=== PATIENT | male | born 1985 | race Hispanic/Latino ===

== ENCOUNTER 2019-01-20 18:08 | Inpatient (IN) | payer MEDICARE, OTHER ==
[~2019-01-20] VITALS: Ht 154.4 cm; Wt 202.3 kg
[~2019-01-20 18:08] MED LIST: ALEVE220 MG PO; ATIVAN1 MG PO; BACLOFEN10 MG PO; CELEXA20 MG PO; FAMOTIDINE20 MG PO; FUROSEMIDE40 MG PO; IBUPROFEN400 MG PO; KEFLEX500 MG PO; MAGNESIUM OXID400 MG PO; MELATONIN3 MG PO; METFORMIN HCL500 MG PO; METOPROLOL SUCC50 MG PO; NEURONTIN400 MG PO; NORCO 10-325 T1 EACH PO; NYSTATIN-TRIAMC15 GM TOP; ONDANSETRON ODT8 MG PO; POTASSIUM CHLO10 ME1 PO; SENNA8.6 M1 PO; SODIUM CHLORIDE4 ML NEB; SPIRONOLACTONE50 MG PO; ULTRAM 50MG50 MG PO; ULTRAM50 MG PO
--- OUTSIDE RECORDS SUMMARY | 2019-01-20 18:14 | XMS REPORT | Continuity of Care Document ---
Author Author Melvin overton Organization Interface Address Unknown Phone Unavailable Problems Problem Status Onset Date Classification Date Reported Comments Source [address], MORBID OBESITY Active 01/07/2019 [facility] DOBUTAMINE / I42.0 Active 10/15/2018 [facility] [address]98, SCREENING FOR DISORDER OF THE DIG Active 09/24/2018 [facility] M25.531 - PAIN IN RIGHT WRIST Active 04/30/2018 [facility] [place]: M25.531=PAIN IN RIGHT WRIST Active 03/21/2018 [facility] Hypertensive heart and chronic kidney disease with heart failure and stage 1 through stage 4 chronic kidney disease, or unspecified chronic kidney disease 10/31/2017 01/31/2018 [facility] ADEMA ON BOTH LEGS Active 10/19/2017 [facility] ACUTE CHF, INFLUENZA A Active 10/19/2017 [facility] ACUTE RENAL FAILURE, ACUTE HYPERKALEMIA Active 06/25/2017 [facility] AB LABS Active 06/25/2017 [facility] FLUID OVERLOAD Active 04/18/2017 [facility] CHF EXACERBATION Active 04/18/2017 [facility] OSTEOMYELITIS / DR. NOT LISTED: Active 03/01/2017 [facility] FIRST NIGHT- 62278 Active 02/05/2017 [facility] HYPOXIA, DIASTOLIC HEART FAILURE Active 01/22/2017 [facility] SHORTNESS OF BREATH Active 01/22/2017 [facility] ACUTE ON CHRONIC DIASTOLIC(CONGESTIVE)HE Active 11/16/2016 [facility] Coma Resolved Problem 10/27/2018 [facility] Generalized obesity Active Problem 10/27/2018 [facility] Acute respiratory failure with hypercapnia 01/31/2018 [facility] Acute kidney failure, unspecified 01/31/2018 [facility] Type 2 diabetes mellitus with diabetic chronic kidney disease 01/31/2018 [facility] Mild protein-calorie malnutrition 01/31/2018 [facility] Cellulitis of right lower limb 01/31/2018 [facility] Acute on chronic diastolic heart failure 01/31/2018 [facility] Cellulitis of left lower limb 01/31/2018 [facility] Morbid obesity with alveolar hypoventilation 01/31/2018 [facility] Body mass index 70 or greater, adult 01/31/2018 [facility] Influenza due to other identified influenza virus with other respiratory manifestations 01/31/2018 [facility] Type 2 diabetes mellitus with diabetic polyneuropathy 01/31/2018 [facility] Type 2 diabetes mellitus with foot ulcer 01/31/2018 [facility] Type 2 diabetes mellitus with hyperglycemia 01/31/2018 [facility] Chronic kidney disease, unspecified 01/31/2018 [facility] Non-pressure chronic ulcer of other part of left foot with unspecified severity 01/31/2018 [facility] Venous insufficiency (peripheral) 01/31/2018 [facility] Pain in left shoulder 01/31/2018 [facility] Pain in left elbow 01/31/2018 [facility] Low back pain 01/31/2018 [facility] senior care use of insulin 01/31/2018 [facility] Coma Resolved Problem 10/30/2018 [facility] [place] CHF (<span ID="[id number]">Confirmed</span>) Active Problem 10/30/2018 [facility] [place] Diabetes Active Problem 10/30/2018 [facility] [place] Generalized obesity Active Problem 10/30/2018 [facility] [place] HTN (<span ID="[id number]">Confirmed</span>) Active Problem 10/30/2018 [facility] [place] Coma Resolved Problem 12/01/2018 [facility] [place] CHF (<span ID="[id number]">Confirmed</span>) Active Problem 12/01/2018 [facility] [place] Diabetes Active Problem 12/01/2018 [facility] [place] Generalized obesity Active Problem 12/01/2018 [facility] [place] HTN (<span ID="[id number]">Confirmed</span>) Active Problem 12/01/2018 [facility] [place] ACUTE ON CHRONIC DIASTOLIC (CONGESTIVE) Active [facility] ACUTE PULMONARY EDEMA Active [facility] CELLULITIS OF LEFT LOWER LIMB Active [facility] HYPOXEMIA Active [facility] ACUTE DIASTOLIC (CONGESTIVE) HEART FAILU Active [facility] HEART FAILURE, UNSPECIFIED Active [facility] DILATED CARDIOMYOPATHY Active [facility] ACUTE KIDNEY FAILURE, UNSPECIFIED Active [facility] HYPERKALEMIA Active [facility] FLU DUE TO OTH IDENT INFLUENZA VIRUS W O Active [facility] PAIN IN RIGHT WRIST Active [facility] Medications Medication Details Route Status Patient Instructions Ordering Provider Order Date Source Dobutamine 1,000 mg, 250 mL, Rate: Titrate, Start Dose: 5 microgram/kg/min, Titration: see order comments, Goal(s): Stress Lab ONLY, Max Dose: 20 mcg/kg/min, Route: IV, Dosing Weight 217.727 kg, Total Volume: 250, Start date: 10/22/18 7:51:00 WIDTH STRIPPER, Duration: 30 d...Notes: (Same as: Dobutrex) Final conc=4 mg/ml. Premix solution. Protect from light. Inactive 10/22/2018 [facility] potassium chloride 20 mEq oral tablet, extended release 40 mEq=2 tab, PO, BID Active 10/21/2018 [facility] Acetaminophen 325 MG / Hydrocodone Bitartrate 10 MG Oral Tablet [[place] 10/325] 1 tab, PO, Q6H, PRN -, 0 Refill(s) Active 10/21/2018 [facility] Magnesium Oxide PO Active 10/21/2018 [facility] Glipizide 5 MG Oral Tablet 5 mg=1 tab, PO, BID Active 10/21/2018 [facility] gabapentin 200 mg, PO, TID Active 10/21/2018 [facility] Famotidine 20 MG Oral Tablet [Pepcid] 20 mg=1 tab, PO, BID Active 10/21/2018 [facility] buPROPion 100 mg oral tablet 100 mg=1 tab, PO, BID Active 10/21/2018 [facility] Vitamin D3 PO, Daily Active 10/21/2018 [facility] *ATTN RN please do not admin vanc dose until trough drawn* *ATTN RN please do not admin vanc dose until trough drawn*, ATTN RN, Drug form: MISC, Route: MISC, ONCE, 10/26/17 8:30:00 WIDTH STRIPPER, Stop date: 10/26/17 8:30:00 WIDTH STRIPPER No Longer Active 10/26/2017 [facility] Piperacillin 3000 MG / tazobactam 375 MG Injection [Zosyn] 3.375 gm, IV, Q8H, X 10 day, # 30 bag, 0 Refill(s) No Longer Active 10/25/2017 [facility] Acetaminophen 325 MG / Hydrocodone Bitartrate 10 MG Oral Tablet [[place] 10/325] 1 tab, Route: PO, Drug Form: TAB, Dosing Weight 230.909, kg, Q6H, PRN Pain Score 7-10, Start date: 10/25/17 8:04:00 WIDTH STRIPPER, Duration: 30 day, Stop date: 11/24/17 8:03:00 CDT, Pain Score 4-10Notes: Do not exceed 4gm/day of acetaminophen. (Same as: [place] 325/10) Inactive 10/25/2017 [facility] Zosyn 3.375 gm, Route: IVPB, ABXQ8H, Dosing Weight 230.909, kg, CrCl >=20 ml/min infuse over 4 hours, Start date: 10/24/17 19:00:00 WIDTH STRIPPER, Duration: 10 day, Stop date: 11/03/17 11:00:00 WIDTH STRIPPER, ABX Indication: Skin/Soft Tissue InfectionNotes: (Same as: Zosyn) Dosing based on Piperacillin component MEDICATION WASTE Product Size: 3375 mg Product Wasted: ___ mg No Longer Active 10/25/2017 [facility] Vancomycin 1,250 mg, Route: IVPB, [id number], Dosing Weight 230.909, kg, Priority: Routine, Start date: 10/24/17 17:00:00 WIDTH STRIPPER, Duration: 5 day, Stop date: 10/29/17 9:30:00 WIDTH STRIPPER, ABX Indication: Other (specify in Comme nts)Notes: TIME CRITICAL MEDICATION (Same As: Vancocin) Infusion rate 2001 mg: infuse over 2.5 hours For adult patients only: Round to nearest 250 mg per Medical Staff approval MEDICATION WASTE Product Size: 1000 mg Product Wasted: ___ mg No Longer Active 10/24/2017 [facility] Oxycodone Hydrochloride 5 MG Oral Tablet 10 mg, 2 tab, Route: PO, Drug form: TAB, Q6H, Dosing Weight 230.909, kg, PRN Pain Score 6-10, Start date: 10/24/17 9:16:00 WIDTH STRIPPER, Duration: 30 day, Stop date: 11/23/17 9:15:00 CDT, Pain Score 4-10Notes: (Same as: Roxicodone) No Longer Active 10/24/2017 [facility] Oxycodone Hydrochloride 5 MG Oral Tablet 10 mg, Route: PO, Drug form: TAB, Q4H, Dosing Weight 230.909, kg, PRN, Start date: 10/24/17 9:11:00 WIDTH STRIPPER, Duration: 30 day, Stop date: 11/23/17 9:10:00 CDT, Pain Score 4-10 Inactive 10/24/2017 [facility] Aspirin 81 mg, 1 tab, Route: PO, Drug form: ECTAB, Daily, Dosing Weight 230.909, kg, Start date: 10/24/17 9:00:00 WIDTH STRIPPER, Duration: 30 day, Stop date: 11/22/17 9:00:00 CDTNotes: Do not crush or chew. (Same As: Ecotrin) No Longer Active 10/24/2017 [facility] Insulin Glargine 100 UNT/ML Injectable Solution [Lantus] 7 unit, Route: SUB-Q, Bedtime, Dosing Weight 230.909, kg, Start date: 10/23/17 21:00:00 WIDTH STRIPPER, Duration: 30 day, Stop date: 11/21/17 21:00:00 CDT No Longer Active 10/24/2017 [facility] Baclofen 10 mg, 1 tab, Route: PO, Drug form: TAB, QID, Dosing Weight 230.909, kg, Start date: 10/23/17 17:00:00 WIDTH STRIPPER, Duration: 30 day, Stop date: 11/22/17 13:00:00 CDTNotes: (Same As: Lioresal) No Longer Active 10/23/2017 [facility] tizanidine 4 mg, 1 tab, Route: PO, Drug form: TAB, Q8H, Dosing Weight 230.909, kg, Start date: 10/23/17 16:00:00 WIDTH STRIPPER, Duration: 30 day, Stop date: 11/22/17 8:00:00 CDTNotes: (Same As: Zanaflex) No Longer Active 10/23/2017 [facility] ocular lubricant solution 2 drp, Route: BOTH EYES, Q4H, Drug form: SOLN, PRN Dry Eyes, Start date: 10/23/17 14:50:00 WIDTH STRIPPER, Stop date: 11/22/17 14:49:00 CDT No Longer Active 10/23/2017 [facility] Albuterol 0.833 MG/ML / Ipratropium [place] 0.167 MG/ML Inhalant Solution [DuoNeb] 3 mL, Route: NEB, Drug Form: SOLN, Dosing Weight 230.909, kg, RQ6H, PRN Shortness of breath, Start date: 10/23/17 14:50:00 WIDTH STRIPPER, Duration: 30 day, Stop date: 11/22/17 14:49:00 CDTNotes: (Same as: Duoneb) No Longer Active 10/23/2017 [facility] Diphenhydramine 12.5 mg, Route: IVP, Drug form: INJ, Q6H, Dosing Weight 230.909, kg, PRN Itching, Start date: 10/23/17 13:36:00 WIDTH STRIPPER, Duration: 30 day, Stop date: 11/22/17 13:35:00 CDT Inactive 10/23/2017 [facility] Meperidine 12.5 mg, Route: IVP, Q30Min, Dosing Weight 230.909, kg, PRN Other -See Comment, For shivering, Start date: 10/23/17 13:36:00 WIDTH STRIPPER, Duration: 2 doses or times, Stop date: Limited # of times Inactive 10/23/2017 [facility] Naloxone 0.1 mg, Route: SUB-Q, Q6H, Dosing Weight 230.909, kg, PRN Itching, Start date: 10/23/17 13:36:00 WIDTH STRIPPER, Duration: 30 day, Stop date: 11/22/17 13:35:00 CDT Inactive 10/23/2017 [facility] Promethazine 6.25 mg, Route: IVPB, ONCE, Dosing Weight 230.909, kg, PRN Nausea & Vomiting, Start date: 10/23/17 13:36:00 WIDTH STRIPPER Inactive 10/23/2017 [facility] Ondansetron 4 mg, Route: IVP, ONCE, Dosing Weight 230.909, kg, PRN Nausea & Vomiting, Start date: 10/23/17 13:36:00 WIDTH STRIPPER Inactive 10/23/2017 [facility] Ketorolac 30 mg, Route: IVP, ONCE, Dosing Weight 230.909, kg, Start date: 10/23/17 13:36:00 WIDTH STRIPPER, Stop date: 10/23/17 13:36:00 WIDTH STRIPPER Inactive 10/23/2017 [facility] Acetaminophen 1,000 mg, Route: PO, Drug form: TAB, ONCE, Dosing Weight 230.909, kg, PRN Pain Score 1-3, Start date: 10/23/17 13:36:00 WIDTH STRIPPER Inactive 10/23/2017 [facility] Oxycodone 10 mg, Route: PO, Drug form: TAB, Q4H, Dosing Weight 230.909, kg, PRN Pain Score 7-10, Start date: 10/23/17 13:36:00 WIDTH STRIPPER, Duration: 30 day, Stop date: 11/22/17 13:35:00 CDT Inactive 10/23/2017 [facility] Fentanyl 25 microgram, Route: IVP, Q5Min, Dosing Weight 230.909, kg, PRN Pain Score 4-6, Priority: Routine, Start date: 10/23/17 13:36:00 WIDTH STRIPPER, Duration: 4 doses or times, Stop date: Limited # of times Inactive 10/23/2017 [facility] Albuterol 0.83 MG/ML Inhalant Solution 2.49 mg, Route: NEB, Q20Min, Dosing Weight 230.909, kg, PRN Wheezing, Priority: Routine, Start date: 10/23/17 13:36:00 WIDTH STRIPPER, Duration: 30 day, Stop date: 11/22/17 14:35:00 CDT Inactive 10/23/2017 [facility] Hydromorphone 0.5 mg, Route: IVP, Q5Min, Dosing Weight 230.909, kg, PRN Pain Score 7-10, Start date: 10/23/17 13:36:00 WIDTH STRIPPER, Duration: 4 doses or times, Stop date: Limited # of times Inactive 10/23/2017 [facility] Flumazenil 0.2 mg, Route: IVP, PRN, Dosing Weight 230.909, kg, PRN Benzodiazepine Reversal, Initial dose, Start date: 10/23/17 13:36:00 WIDTH STRIPPER, Duration: 30 day, Stop date: 11/22/17 14:35:00 CDT Inactive 10/23/2017 [facility] Hydralazine 10 mg, Route: IVP, Q20Min, Dosing Weight 230.909, kg, PRN Elevated BP, Start date: 10/23/17 13:36:00 WIDTH STRIPPER, Duration: 2 doses or times, Stop date: Limited # of times Inactive 10/23/2017 [facility] Labetalol 10 mg, Route: IVP, Q5Min, Dosing Weight 230.909, kg, PRN Elevated BP, Start date: 10/23/17 13:36:00 WIDTH STRIPPER, Duration: 5 doses or times, Stop date: Limited # of times Inactive 10/23/2017 [facility] midazolam (ANES) Route: IV, Drug form: SOLN, ONCE, Stop date: 10/23/17 13:22:00 WIDTH STRIPPER Inactive 10/23/2017 [facility] Lactated Ringers Injection IV (ANES) 1000 mL Route: IV, Total Volume: 1,000, Start date: 10/23/17 12:31:00 WIDTH STRIPPER, Stop date: 10/23/17 13:31:00 WIDTH STRIPPER Inactive 10/23/2017 [facility] Calcium Chloride 0.0014 MEQ/ML / Potassium Chloride 0.004 MEQ/ML / Sodium Chloride 0.103 MEQ/ML / Sodium Lactate 0.028 MEQ/ML Injectable Solution 1,000 mL, Rate: 25 ml/hr, Infuse over: 40 hr, Route: IV, Dosing Weight 230.909 kg, Total Volume: 1,000, Start date: 10/23/17 11:59:00 WIDTH STRIPPER, Duration: 1 day, Stop date: 10/24/17 11:58:00 WIDTH STRIPPER, 3.41, m2 Inactive 10/23/2017 [facility] Sodium Chloride 0.9% IV 1,000 mL 1,000 mL, Rate: 25 ml/hr, Infuse over: 40 hr, Route: IV, Dosing Weight 230.909 kg, Total Volume: 1,000, Start date: 10/23/17 11:59:00 WIDTH STRIPPER, Duration: 1 day, Stop date: 10/24/17 11:58:00 WIDTH STRIPPER, 3.41, m2 Inactive 10/23/2017 [facility] Metolazone 2.5 MG Oral Tablet 2.5 mg, 1 tab, Route: PO, Drug form: TAB, BID, Dosing Weight 230.909, kg, Start date: 10/23/17 9:00:00 WIDTH STRIPPER, Duration: 30 day, Stop date: 11/21/17 17:00:00 CDTNotes: (Same as: Zaroxolyn) No Longer Active 10/23/2017 [facility] Bumex 1 mg, 1 tab, Route: PO, Drug form: TAB, BID, Dosing Weight 230.909, kg, Start date: 10/23/17 9:00:00 WIDTH STRIPPER, Duration: 30 day, Stop date: 11/21/17 17:00:00 CDTNotes: (Same As: Bumex) No Longer Active 10/23/2017 [facility] Mupirocin 20 MG/ML Topical Cream [Bactroban] 1 appl, Route: TOP, Daily, Drug form: OINT, Start date: 10/23/17 9:00:00 WIDTH STRIPPER, Duration: 30 day, Stop date: 11/21/17 9:00:00 CDT No Longer Active 10/23/2017 [facility] metoprolol tartrate 50 mg, 1 tab, Route: PO, Drug form: TAB, Daily, Dosing Weight 230.909, kg, Start date: 10/23/17 9:00:00 WIDTH STRIPPER, Duration: 30 day, Stop date: 11/21/17 9:00:00 CDTNotes: (Same as: Lopressor) No Longer Active 10/23/2017 [facility] insulin glargine 7 unit, 0.07 mL, Route: SUB-Q, Drug form: SOLN, Bedtime, Start date: 10/22/17 21:00:00 WIDTH STRIPPER, Duration: 30 day, Stop date: 11/20/17 21:00:00 CDTNotes: (Same as: Lantus) Do not hold insulin without cont acting prescriber WASTE: F/P - Black; E - Mediamorph Trash Bin "single patient use only" No Longer Active 10/23/2017 [facility] Acetaminophen 1,000 mg, 2 tab, Route: PO, Drug form: TAB, Q12H, Dosing Weight 230.909, kg, Start date: 10/22/17 21:00:00 WIDTH STRIPPER, Duration: 30 day, Stop date: 11/21/17 9:00:00 CDTNotes: Max acetaminophen 4000 mg/day (4 gm/day). (Same as: Tylenol Extra Strength) Inactive 10/23/2017 [facility] Ofirmev 1,000 mg, Route: IV, Drug form: INJ, Q12H, Dosing Weight 230.909, kg, for > or=50 kg, Start date: 10/22/17 21:00:00 WIDTH STRIPPER, Duration: 30 day, Stop date: 11/21/17 9:00:00 CDT Inactive 10/23/2017 [facility] metoprolol tartrate 25 mg, 1 tab, Route: PO, Drug form: TAB, Bedtime, Dosing Weight 230.909, kg, Start date: 10/22/17 21:00:00 WIDTH STRIPPER, Duration: 30 day, Stop date: 11/20/17 21:00:00 CDTNotes: (Same as: Lopressor) No Longer Active 10/23/2017 [facility] Ofirmev 1,000 mg, 100 mL, Route: IV, Drug form: INJ, Q12H, Dosing Weight 230.909, kg, for > or=50 kg, Start date: 10/22/17 16:00:00 WIDTH STRIPPER, Duration: 30 day, Stop date: 11/21/17 4:00:00 CDTNotes: Infuse over 15 minutes Do not exceed 4gm/day of acetaminophen MEDICATION WASTE Product Size: 1000 mg Product Wasted: ___ mg No Longer Active 10/22/2017 [facility] Acetaminophen 325 MG / Hydrocodone Bitartrate 10 MG Oral Tablet [[place] 10/325] 1 tab, Route: PO, Drug Form: TAB, Dosing Weight 230.909, kg, Q6H, PRN Pain Score 6-10, Start date: 10/22/17 8:57:00 WIDTH STRIPPER, Duration: 30 day, Stop date: 11/21/17 8:56:00 CDT, Pain Score 5-10Notes: Do not exceed 4gm/day of acetaminophen. (Same as: [place] 325/10) No Longer Active 10/22/2017 [facility] Acetaminophen 325 MG / Hydrocodone Bitartrate 10 MG Oral Tablet [[place] 10/325] 1 tab, Route: PO, Drug Form: TAB, Dosing Weight 230.909, kg, Q4H, PRN Pain Score 6-10, Start date: 10/21/17 21:35:00 WIDTH STRIPPER, Duration: 30 day, Stop date: 11/20/17 21:34:00 CDTNotes: Do not exceed 4gm/day of acetaminophen. (Same as: [place] 325/10) No Longer Active 10/22/2017 [facility] Lidocaine Hydrochloride 0.05 MG/MG Transdermal Patch [Lidoderm] 3 patch, Route: TOP, Daily, Drug form: FILM, Start date: 10/21/17 16:00:00 WIDTH STRIPPER, Duration: 30 day, Stop date: 11/20/17 9:00:00 CDT, Remove after 12 hoursNotes: Apply only once for up to 12 hours in a 24-hour period (12 hours on and 12 hours off). (Same as: Lidoderm) "Remove old patch before application of new patch" No Longer Active 10/21/2017 [facility] Acetaminophen 325 MG / Hydrocodone Bitartrate 10 MG Oral Tablet 1 tab, Route: PO, Drug Form: TAB, Dosing Weight 230.909, kg, Q8H, PRN Pain Score 6-10, Start date: 10/21/17 8:44:00 WIDTH STRIPPER, Duration: 30 day, Stop date: 11/20/17 8:43:00 CDTNotes: Do not exceed 4gm/day of acetaminophen. (Same as: [place] 325/10) Inactive 10/21/2017 [facility] RN please don't give VANCO dose RN please don't give VANCO dose, before TROUGH level is DRAWN, Drug form: MISC, Route: MISC, ONCE, 10/21/17 7:30:00 WIDTH STRIPPER, Stop date: 10/21/17 7:30:00 WIDTH STRIPPER Inactive 10/21/2017 [facility] tramadol hydrochloride 50 MG Oral Tablet 50 mg, 1 tab, Route: PO, Drug form: TAB, Q6H, Dosing Weight 230.909, kg, PRN Pain Score 6-10, Start date: 10/20/17 19:52:00 WIDTH STRIPPER, Duration: 30 day, Stop date: 11/19/17 19:51:00 CDTNotes: Not to exceed 400mg/day. (Same As: Ultram) No Longer Active 10/21/2017 [facility] vancomycin + Sodium Chloride 0.9% IV 250 mL 1,250 mg, Route: IVPB, ABXQ8H, Start date: 10/20/17 16:00:00 WIDTH STRIPPER, Duration: 30 day, Stop date: 11/19/17 8:00:00 CDT, ABX Indication: Skin/Soft Tissue InfectionNotes: TIME CRITICAL MEDICATION (Same As: Vancocin) Infusion rate 2001 mg: infuse over 2.5 hours For adult patients only: Round to nearest 250 mg per Medical Staff approval MEDICATION WASTE Product Size: 1000 mg Product Wasted: ___ mg No Longer Active 10/20/2017 [facility] heparin 7,500 unit, 1.5 mL, Route: SUB-Q, Drug form: INJ, Q8H, Dosing Weight 230.909, kg, Consider for obese patients, Start date: 10/20/17 16:00:00 WIDTH STRIPPER, Duration: 30 day, Stop date: 11/19/17 8:00:00 CDTNotes: porcine heparin No Longer Active 10/20/2017 [facility] Zaroxolyn 2.5 mg, PO, BID, # 15 tab, 0 Refill(s) Active 10/20/2017 [facility] Basaglar KwikPen 7 unit, SUB-Q, Daily, 0 Refill(s) Active 10/20/2017 [facility] Bumex 1 mg, PO, BID, 0 Refill(s) Active 10/20/2017 [facility] metoprolol tartrate 50 mg, PO, Daily, 0 Refill(s) Active 10/20/2017 [facility] Tylenol 650 mg, 2 tab, Route: PO, Drug form: TAB, Q6H, Dosing Weight 230.909, kg, PRN Pain 1-3/Temp > 100.4 F, Start date: 10/20/17 11:35:00 WIDTH STRIPPER, Duration: 30 day, Stop date: 11/19/17 11:34:00 CDTNotes: Do not exceed 4 gm/day. (Same as: Tylenol) No Longer Active 10/20/2017 [facility] Tamiflu 75 mg, 1 cap, Route: PO, Drug form: CAP, [id number], Dosing Weight 230.909, kg, CrCl > 60 ml/min, Start date: 10/20/17 11:00:00 WIDTH STRIPPER, Duration: 5 day, Stop date: 10/24/17 23:00:00 CSTNotes: Take with food. Same as: Tamiflu) No Longer Active 10/20/2017 [facility] Vancomycin 1 ea, Route: MISC, ONCALL, Dosing Weight 230.909, kg, Start date: 10/20/17 11:00:00 WIDTH STRIPPER, Duration: 1 doses or times, Pharmacy to dose, ABX Indication: Skin/Soft Tissue Infection Inactive 10/20/2017 [facility] Dextrose 50% Syringe 25 gm, 50 mL, Route: IVP, Drug Form: INJ, Dosing Weight 230.909, kg, PRN, PRN Blood Glucose Results, Start date: 10/20/17 10:36:00 WIDTH STRIPPER, Duration: 30 day, Stop date: 11/19/17 11:35:00 CDT No Longer Active 10/20/2017 [facility] Glucagon 1 mg, Route: IM, Drug form: PDR/INJ, PRN, Dosing Weight 230.909, kg, PRN Blood Glucose Results, Start date: 10/20/17 10:36:00 WIDTH STRIPPER, Duration: 30 day, Stop date: 11/19/17 11:35:00 CDT No Longer Active 10/20/2017 [facility] Insulin Lispro 15 unit, 0.15 mL, Route: SUB-Q, Drug form: SOLN, TID-Before Meals, Dosing Weight 230.909, kg, PRN Blood Glucose Results, Start date: 10/20/17 10:36:00 WIDTH STRIPPER, Duration: 30 day, Stop date: 11/19/17 10:35 :00 CDTNotes: (Same as: Humalog ) Roll in palms of hands gently; Do not shake `vigorously. "Single Patient Use Only " WASTE: F/P - Black; E - Municipal Trash Bin Stable for 28 days at room temperature. Expires in days from Date No Longer Active 10/20/2017 [facility] Vancomycin 1,000 mg, Route: IVPB, [id number], Dosing Weight 230.909, kg, Start date: 10/20/17 7:00:00 WIDTH STRIPPER, Duration: 5 day, Stop date: 10/24/17 19:00:00 WIDTH STRIPPER, ABX Indication: Non-PNA Respiratory Tract InfectionNotes: TIME CRITICAL MEDICATION (Same As: Vancocin) Infusion rate 2001 mg: infuse over 2.5 hours For adult patients only: Round to nearest 250 mg per Medical Staff approval MEDICATION WASTE Product Size: 1000 mg Product Wasted: ___ mg Inactive 10/20/2017 [facility] Lasix 40 mg, Route: IVP, Drug form: INJ, ONCE, Dosing Weight 229.545, kg, Priority: STAT, Start date: 10/20/17 0:49:00 WIDTH STRIPPER, Stop date: 10/20/17 0:49:00 WIDTH STRIPPER Inactive 10/20/2017 [facility] ocular lubricant solution 2 drp, BOTH EYES, Q4H, PRN as needed for dry eyes, # 30 ea, 0 Refill(s) Active 07/02/2017 [facility] Ciloxan 0.3% ophthalmic solution 2 drp, BOTH EYES, Q4H, X 5 day, # 10 mL, 0 Refill(s) Active 07/02/2017 [facility] mupirocin topical 2% cream 1 appl, NASAL, Q12H, MRSA Decolonization, # 15 gm, 0 Refill(s) No Longer Active 07/02/2017 [facility] Lasix 40 mg oral tablet 40 mg=1 tab, PO, Daily, # 30 tab, 1 Refill(s) Active 07/02/2017 [facility] Lasix 40 mg oral tablet 40 mg, 1 tab, Route: PO, Drug form: TAB, Daily, Dosing Weight 203.318, kg, Start date: 07/02/17 9:00:00 WIDTH STRIPPER, Duration: 30 day, Stop date: 07/31/17 9:00:00 CSTNotes: (Same as: Lasix) May cause GI upset. Give with food or milk. Inactive 07/02/2017 [facility] Ciloxan 0.3% ophthalmic solution 2 drp, Route: BOTH EYES, Q4H, Drug form: SOLN, Start date: 07/01/17 12:00:00 WIDTH STRIPPER, Duration: 5 day, Stop date: 07/06/17 8:00:00 CSTNotes: (Same As: Ciloxan) No Longer Active 07/01/2017 [facility] Tears Naturale 2 drp, Route: BOTH EYES, Q4H, Drug form: SOLN, PRN as needed for dry eyes, Start date: 06/30/17 16:54:00 CDT, Duration: 30 day, Stop date: 07/30/17 16:53:00 WIDTH STRIPPER No Longer Active 06/30/2017 [facility] furosemide 40 mg, 4 mL, Route: IVP, Drug form: INJ, Daily, Dosing Weight 203.318, kg, Start date: 06/30/17 9:00:00 CDT, Duration: 30 day, Stop date: 07/29/17 9:00:00 CSTNotes: (Same as: Lasix) MEDICATION WASTE Product Size: 40 mg Product Wasted: ___ mg No Longer Active 06/30/2017 [facility] remove patch 2 patch, Route: TOP, Daily, Drug form: ERFILM, Start date: 06/30/17 9:00:00 CDT, Duration: 30 day, Stop date: 07/29/17 9:00:00 CSTNotes: Remove patch 12 hours after application each day. No Longer Active 06/30/2017 [facility] lidocaine topical patch (5% film) 2 patch, Route: TOP, Q24H, Drug form: FILM, Priority: Now, Start date: 06/29/17 21:00:00 CDT, Duration: 30 day, Stop date: 07/28/17 21:00:00 CSTNotes: Apply only once for up to 12 hours in a 24-hour period (12 hours on and 12 hours off). (Same as: Lidoderm) "Remove old patch before application of new patch" No Longer Active 06/30/2017 [facility] enoxaparin 30 mg, 0.3 mL, Route: SUB-Q, Drug form: INJ, [id number], Dosing Weight 203.318, kg, Priority: NOW, Start date: 06/29/17 19:31:00 CDT, Duration: 30 day, Stop date: 07/29/17 7:31:00 CSTNotes: (Same as: Lovenox) No Longer Active 06/30/2017 [facility] furosemide 40 mg, 4 mL, Route: IVP, Drug form: INJ, ONCE, Dosing Weight 203.318, kg, Priority: STAT, Start date: 06/29/17 19:22:00 CDT, Stop date: 06/29/17 19:22:00 CDTNotes: (Same as: Lasix) MEDICATION WASTE Product Size: 40 mg Product Wasted: ___ mg Inactive 06/30/2017 [facility] mupirocin topical 1 appl, Route: NASAL, Q12H, Drug form: OINT, Start date: 06/28/17 21:00:00 CDT, Duration: 5 day, Stop date: 07/03/17 9:00:00 WIDTH STRIPPER, MRSA Decolonization No Longer Active 06/29/2017 [facility] ketOROLAC 30 mg, 2 mL, Route: IVP, Drug form: INJ, ONCE, Dosing Weight 203.318, kg, Start date: 06/28/17 17:24:00 CDT, Duration: 1 doses or times, Stop date: 06/28/17 17:24:00 CDTNotes: (Same as:Toradol) IV bolus must be given >15 seconds. Give IM administration slowly and deeply into the muscle. Not for use > 4 days. Inactive 06/28/2017 [facility] furosemide 60 mg, 6 mL, Route: IVP, Drug form: INJ, ONCE, Dosing Weight 203.318, kg, Start date: 06/28/17 11:15:00 CDT, Stop date: 06/28/17 11:15:00 CDTNotes: (Same as: Lasix) Inactive 06/28/2017 [facility] famotidine 40 mg, 2 tab, Route: PO, Drug form: TAB, Daily, Dosing Weight 203.318, kg, Start date: 06/28/17 9:00:00 CDT, Stop date: 07/27/17 9:00:00 CSTNotes: (Same as: Pepcid) No Longer Active 06/28/2017 [facility] CeleXA 20 mg, 2 tab, Route: PO, Drug form: TAB, Daily, Dosing Weight 203.318, kg, Start date: 06/28/17 9:00:00 CDT, Duration: 30 day, Stop date: 07/27/17 9:00:00 WIDTH STRIPPER No Longer Active 06/28/2017 [facility] Kayexalate 60 gm, 240 mL, Route: VA, Drug form: MIRTHA, ONCE, Dosing Weight 203.318, kg, Priority: STAT, Start date: 06/28/17 7:19:00 CDT, Stop date: 06/28/17 7:19:00 CDTNotes: (sodium polystyrene sulfonate 30 gm/120 ml MIRTHA) (Same as: Kayexalate, SPS) Shake well before use. Inactive 06/28/2017 [facility] Lasix 60 mg, 6 mL, Route: IV, Drug form: INJ, ONCE, Dosing Weight 203.318, kg, Start date: 06/27/17 22:11:00 CDT, Stop date: 06/27/17 22:11:00 CDTNotes: (Same as: Lasix) Inactive 06/28/2017 [facility] metoprolol tartrate 12.5 mg, 0.5 tab, Route: PO, Drug form: TAB, BID, Dosing Weight 203.318, kg, Start date: 06/27/17 21:00:00 CDT, Duration: 30 day, Stop date: 07/27/17 9:00:00 CSTNotes: (Same as: Lopressor) No Longer Active 06/28/2017 [facility] insulin detemir 3 unit, Route: SUB-Q, Bedtime, Dosing Weight 203.318, kg, Start date: 06/27/17 21:00:00 CDT, Duration: 30 day, Stop date: 07/26/17 21:00:00 WIDTH STRIPPER Inactive 06/28/2017 [facility] insulin glargine 3 unit, 0.03 mL, Route: SUB-Q, Drug form: SOLN, Bedtime, Start date: 06/27/17 21:00:00 CDT, Duration: 30 day, Stop date: 07/26/17 21:00:00 CSTNotes: (Same as: Lantus) Do not hold insulin without cont acting prescriber WASTE: F/P - Black; E - Mediamorph Trash Bin "single patient use only" No Longer Active 06/28/2017 [facility] Kayexalate 60 gm, 240 mL, Route: VA, Drug form: MIRTHA, ONCE, Dosing Weight 203.318, kg, Priority: STAT, Start date: 06/27/17 20:17:00 CDT, Stop date: 06/27/17 20:17:00 CDTNotes: (sodium polystyrene sulfonate 30 gm/120 ml MIRTHA) (Same as: Kayexalate, SPS) Shake well before use. Inactive 06/28/2017 [facility] promethazine + sodium chloride 0.9% INJ 50 mL 25 mg, 1 mL, Route: IVPB, Q6H, Dosing Weight 203.318, kg, PRN Nausea & Vomiting, Start date: 06/27/17 18:33:00 CDT, Duration: 30 day, Stop date: 07/27/17 18:32:00 CSTNotes: Do not give IV push. (Same as: Phenergan) No Longer Active 06/27/2017 [facility] Kayexalate 60 gm, 240 mL, Route: PO, Drug form: SUSP, ONCE, Dosing Weight 203.318, kg, Start date: 06/27/17 18:23:00 CDT, Stop date: 06/27/17 18:23:00 CDTNotes: (sodium polystyrene sulfonate 15 gm/60 ml CHET) Adam e well before use. (Same as: Kayexalate, SPS) Inactive 06/27/2017 [facility] promethazine 25 mg, Route: PO, Q6H, Dosing Weight 203.318, kg, PRN Nausea & Vomiting, Start date: 06/27/17 18:22:00 CDT, Duration: 30 day, Stop date: 07/27/17 18:21:00 WIDTH STRIPPER Inactive 06/27/2017 [facility] glipiZIDE 2.5 mg, Route: PO, BID, Dosing Weight 203.318, kg, Start date: 06/27/17 17:00:00 CDT, Duration: 30 day, Stop date: 07/27/17 9:00:00 WIDTH STRIPPER Inactive 06/27/2017 [facility] Glucotrol 2.5 mg, 0.5 tab, Route: PO, Drug form: TAB, BID- Before Meals, Start date: 06/27/17 16:30:00 CDT, Duration: 30 day, Stop date: 07/27/17 7:30:00 CSTNotes: (Same as: Glucotrol) 30 min before meals. No Longer Active 06/27/2017 [facility] DuoNeb inhalation solution 3 mL, Route: NEB, Drug Form: SOLN, Dosing Weight 203.318, kg, RQ6H, Start date: 06/27/17 14:00:00 CDT, Duration: 30 day, Stop date: 07/27/17 8:00:00 CSTNotes: (Same as: Duoneb) No Longer Active 06/27/2017 [facility] Kayexalate 30 gm, 120 mL, Route: PO, Drug form: SUSP, ONCE, Dosing Weight 203.318, kg, Start date: 06/27/17 13:58:00 CDT, Stop date: 06/27/17 13:58:00 CDTNotes: (sodium polystyrene sulfonate 15 gm/60 ml CHET) Adam e well before use. (Same as: Kayexalate, SPS) Inactive 06/27/2017 [facility] baclofen 10 mg, 1 tab, Route: PO, Drug form: TAB, QID, Dosing Weight 203.318, kg, Start date: 06/27/17 13:00:00 CDT, Duration: 30 day, Stop date: 07/27/17 9:00:00 CSTNotes: (Same As: Lioresal) No Longer Active 06/27/2017 [facility] aspirin 81 mg, 1 tab, Route: PO, Drug form: ECTAB, Daily, Dosing Weight 203.318, kg, Start date: 06/27/17 12:30:00 CDT, Duration: 30 day, Stop date: 07/27/17 9:00:00 CSTNotes: Do not crush or chew. (Same As: Ecotrin) No Longer Active 06/27/2017 [facility] LORazepam 0.5 mg, 1 tab, Route: PO, Drug form: TAB, Q8H, Dosing Weight 203.318, kg, PRN Anxiety, Start date: 06/27/17 11:24:00 CDT, Duration: 30 day, Stop date: 07/27/17 11:23:00 CSTNotes: (Same as: Ativan) No Longer Active 06/27/2017 [facility] DuoNeb inhalation solution 3 mL, Route: NEB, Drug Form: SOLN, Dosing Weight 203.318, kg, RQ6H, PRN Shortness of breath, Start date: 06/27/17 11:23:00 CDT, Duration: 30 day, Stop date: 07/27/17 11:22:00 CSTNotes: (Same as: Duoneb) No Longer Active 06/27/2017 [facility] Kayexalate 60 gm, 240 mL, Route: PO, Drug form: SUSP, ONCE, Dosing Weight 203.318, kg, Start date: 06/27/17 8:43:00 CDT, Stop date: 06/27/17 8:43:00 CDTNotes: (sodium polystyrene sulfonate 15 gm/60 ml CHET) Shake well before use. (Same as: Kayexalate, SPS) Inactive 06/27/2017 [facility] Kayexalate 60 mg, 0.24 mL, Route: PO, Drug form: SUSP, ONCE, Dosing Weight 203.318, kg, Start date: 06/27/17 8:01:00 CDT, Stop date: 06/27/17 8:01:00 CDTNotes: (sodium polystyrene sulfonate 15 gm/60 ml CHET) Shake well before use. (Same as: Kayexalate, SPS) Inactive 06/27/2017 [facility] sodium bicarbonate 8.4% 50 mEq, 50 ml, Route: IVP, Drug Form: INJ, Dosing Weight 203.318, kg, ONCE, Start date: 06/27/17 7:58:00 CDT, Stop date: 06/27/17 7:58:00 CDTNotes: (sodium bicarb 8.4% (1 mEq/ml) 50 ml syringe) Inactive 06/27/2017 [facility] [place] 10/325 oral tablet 1 tab, Route: PO, Drug Form: TAB, Dosing Weight 203.318, kg, Q4H, PRN Pain Score 6-10, Start date: 06/27/17 5:28:00 CDT, Duration: 30 day, Stop date: 07/27/17 5:27:00 CSTNotes: Do not exceed 4gm/day of acetaminophen. (Same as: [place] 325/10) No Longer Active 06/27/2017 [facility] [place] 10/325 oral tablet 1 tab, Route: PO, Drug Form: TAB, Dosing Weight 203.318, kg, Q6H, PRN Pain Score 6-10, Start date: 06/27/17 0:40:00 CDT, Duration: 30 day, Stop date: 07/27/17 0:39:00 CSTNotes: Do not exceed 4gm/day of acetaminophen. (Same as: [place] 325/10) Inactive 06/27/2017 [facility] baclofen 10 mg oral tablet 10 mg=1 tab, PO, QID, 0 Refill(s) Active 06/27/2017 [facility] DuoNeb inhalation solution 3 mL, NEB, Q6H, PRN as needed for shortness of breath or wheezing, 0 Refill(s) Active 06/27/2017 [facility] [place] 10/325 oral tablet 1 tab, PO, Q6H, PRN Pain Score 6-10, 0 Refill(s) No Longer Active 06/27/2017 [facility] Bumex 2 mg, BID, 0 Refill(s) No Longer Active 06/27/2017 [facility] sodium chloride 0.9% 1000 ml INJ 1,000 mL 1,000 mL, Rate: 150 ml/hr, Infuse over: 6.7 hr, Route: IV, Dosing Weight 203.318 kg, Total Volume: 1,000, Start date: 06/26/17 12:27:00 CDT, Duration: 30 day, Stop date: 07/26/17 12:26:00 WIDTH STRIPPER No Longer Active 06/26/2017 [facility] insulin lispro 2 unit, 0.02 mL, Route: SUB-Q, Drug form: SOLN, Bedtime, Dosing Weight 203.318, kg, PRN Blood Glucose Results, Start date: 06/26/17 12:22:00 CDT, Duration: 30 day, Stop date: 07/26/17 12:21:00 CSTNotes: Roll in palms of hands gently; Do not shake `vigorously. (Same as: Humalog ) "Single Patient Use Only " WASTE: F/P - Black; E - Municipal Trash Bin Stable for 28 days at room temperature. Expires in days from Date No Longer Active 06/26/2017 [facility] Dextrose 50% Syringe 12.5 gm, 25 mL, Route: IVP, Drug Form: INJ, Dosing Weight 203.318, kg, PRN, PRN Blood Glucose Results, Start date: 06/26/17 12:22:00 CDT, Duration: 30 day, Stop date: 07/26/17 11:21:00 WIDTH STRIPPER No Longer Active 06/26/2017 [facility] glucagon 1 mg, Route: IM, Drug form: PDR/INJ, PRN, Dosing Weight 203.318, kg, PRN Blood Glucose Results, Start date: 06/26/17 12:22:00 CDT, Duration: 30 day, Stop date: 07/26/17 11:21:00 WIDTH STRIPPER No Longer Active 06/26/2017 [facility] sodium chloride 0.9% 1000 ml INJ 1,000 mL 1,000 mL, Rate: 125 ml/hr, Infuse over: 8 hr, Route: IV, Dosing Weight 203.318 kg, Total Volume: 1,000, Start date: 06/26/17 6:58:00 CDT, Duration: 30 day, Stop date: 07/26/17 6:57:00 WIDTH STRIPPER Inactive 06/26/2017 [facility] Saline Flush 0.9% 10 ml, Route: IVP, Drug Form: INJ, Dosing Weight 203.318, kg, PRN, PRN Line Flush, Start date: 06/26/17 6:58:00 CDT, Duration: 30 day, Stop date: 07/26/17 5:57:00 CSTNotes: (Same as: BD Posiflush) No Longer Active 06/26/2017 [facility] ondansetron 4 mg, 2 mL, Route: IVP, Drug form: INJ, Q6H, Dosing Weight 203.318, kg, PRN Nausea & Vomiting, Start date: 06/26/17 6:58:00 CDT, Duration: 30 day, Stop date: 07/26/17 6:57:00 CSTNotes: (Same as: Shima) MEDICATION WASTE Product Size: 4 mg Product Wasted: ___ mg No Longer Active 06/26/2017 [facility] acetaminophen 650 mg, 2 tab, Route: PO, Drug form: TAB, Q4H, Dosing Weight 203.318, kg, PRN Pain 1-3/Temp > 100.4 F, Start date: 06/26/17 6:58:00 CDT, Duration: 30 day, Stop date: 07/26/17 6:57:00 CSTNotes: Do not exceed 4 gm/day. (Same as: Tylenol) No Longer Active 06/26/2017 [facility] Sodium Chloride 0.9% (Bolus) IV 500 mL, 500 ml/hr, Infuse Over: 1 hr, Route: IV, 500, Drug form: INJ, ONCE, Priority: STAT, Dosing Weight 220.455 kg, Start date: 06/26/17 3:09:00 CDT, Duration: 1 doses or times, Stop date: 06/26/17 3:09:00 CDT Inactive 06/26/2017 [facility] Kayexalate 45 gm, 180 mL, Route: PO, Drug form: SUSP, ONCE, Dosing Weight 220.455, kg, Priority: STAT, Start date: 06/26/17 3:04:00 CDT, Stop date: 06/26/17 3:04:00 CDTNotes: (sodium polystyrene sulfonate 15 gm/60 ml CHET) Shake well before use. (Same as: Kayexalate, SPS) Inactive 06/26/2017 [facility] calcium gluconate 1 gm, 50 mL, Route: IVPB, Drug form: INJ, ONCE, Dosing Weight 220.455, kg, Priority: STAT, Start date: 06/26/17 3:04:00 CDT, Stop date: 06/26/17 3:04:00 CDTNotes: WASTE: F/P - Sink; E - Municipal Trash Bin Inactive 06/26/2017 [facility] Insulin regular 5 unit, 0.05 mL, Route: IVP, Drug form: INJ, ONCE, Dosing Weight 220.455, kg, Priority: STAT, Start date: 06/26/17 3:04:00 CDT, Stop date: 06/26/17 3:04:00 CDTNotes: (Same as: Humulin R and NovoLIN R) WASTE: F/P - Black; E - Municipal Trash Bin (Do not shake) Inactive 06/26/2017 [facility] Dextrose 50% Syringe 25 gm, 50 mL, Route: IVP, Drug Form: INJ, Dosing Weight 220.455, kg, ONCE, STAT, Start date: 06/26/17 3:04:00 CDT, Stop date: 06/26/17 3:04:00 CDT Inactive 06/26/2017 [facility] Saline Flush 0.9% 10 mL, Route: IVP, Drug Form: INJ, Dosing Weight 220.455, kg, PRN, PRN Line Flush, Start date: 06/26/17 3:04:00 CDT, Duration: 30 day, Stop date: 07/26/17 2:03:00 CSTNotes: (Same as: BD Posiflush) Inactive 06/26/2017 [facility] Saline Flush 0.9% 10 mL, Route: IVP, Drug Form: INJ, Dosing Weight 220.455, kg, PRN, PRN Line Flush, Start date: 06/26/17 1:53:00 CDT, Duration: 30 day, Stop date: 07/26/17 0:52:00 CSTNotes: (Same as: BD Posiflush) Inactive 06/26/2017 [facility] Bumex 2 mg, 2 tab, Route: PO, Drug form: TAB, BID, Dosing Weight 213.3, kg, Start date: 04/30/17 17:00:00 CDT, Duration: 30 day, Stop date: 05/30/17 9:00:00 CDTNotes: (Same As: Bumex) No Longer Active 04/30/2017 [facility] bumetanide 2 mg oral tablet 2 mg=1 tab, PO, BID, # 60 tab, 0 Refill(s) Active 04/30/2017 [facility] Bumex 2 mg, 8 mL, Route: IV, Drug form: INJ, ONCE, Dosing Weight 213.3, kg, Start date: 04/30/17 9:33:00 CDT, Stop date: 04/30/17 9:33:00 CDTNotes: (Same As: Bumex) Inactive 04/30/2017 [facility] Potassium Chloride 40 mEq, 2 tab, Route: PO, Drug form: ERTAB, ONCE, Dosing Weight 213.3, kg, Start date: 04/29/17 13:54:00 CDT, Stop date: 04/29/17 13:54:00 CDTNotes: (Same as: K-Dur 20) "Do Not Crush" With food and full glass of water Inactive 04/29/2017 [facility] Lidocaine Hydrochloride 0.05 MG/MG Transdermal Patch [Lidoderm] 2 patch, Route: TOP, Daily, Drug form: FILM, Start date: 04/29/17 9:00:00 CDT, Duration: 30 day, Stop date: 05/28/17 9:00:00 CDT, Remove after 12 hoursNotes: Apply only once for up to 12 hours in a 24-hour period (12 hours on and 12 hours off). (Same as: Lidoderm) "Remove old patch before application of new patch" No Longer Active 04/29/2017 [facility] remove patch Route: MISC, Bedtime, Drug form: ERFILM, Start date: 04/28/17 21:00:00 CDT, Duration: 30 day, Stop date: 05/27/17 21:00:00 CDTNotes: Remove patch 12 hours after application each day. No Longer Active 04/29/2017 [facility] Acetaminophen 325 MG / Hydrocodone Bitartrate 5 MG Oral Tablet [[place] 5/325] 1 tab, Route: PO, Drug Form: TAB, Dosing Weight 213.3, kg, Q6H, PRN Pain Score 4-6, Start date: 04/28/17 15:52:00 CDT, Duration: 30 day, Stop date: 05/28/17 15:51:00 CDTNotes: (Same as: [place] 325/5) Do not exceed 4gm/day of acetaminophen. No Longer Active 04/28/2017 [facility] Acetazolamide 250 mg, 1 tab, Route: PO, Drug form: TAB, Daily, Dosing Weight 213.3, kg, Start date: 04/27/17 9:00:00 CDT, Duration: 30 day, Stop date: 05/26/17 9:00:00 CDTNotes: (Same as: Diamox) No Longer Active 04/27/2017 [facility] Tears Naturale 2 drp, Route: BOTH EYES, QID, Drug form: SOLN, PRN Dry Eyes, Start date: 04/26/17 14:49:00 CDT, Duration: 30 day, Stop date: 05/26/17 14:48:00 CDT No Longer Active 04/26/2017 [facility] Tetrahydrozoline hydrochloride 0.5 MG/ML Ophthalmic Solution [Visine] 2 drp, Route: BOTH EYES, QID, PRN Dry Eyes, Start date: 04/26/17 14:30:00 CDT, Duration: 30 day, Stop date: 05/26/17 14:29:00 CDT Inactive 04/26/2017 [facility] Zofran 4 mg, 2 mL, Route: IVP, Drug form: INJ, Q8H, Dosing Weight 213.3, kg, PRN Nausea, Start date: 04/25/17 11:48:00 CDT, Duration: 30 day, Stop date: 05/25/17 11:47:00 CDTNotes: (Same as: Zofran) MEDICATION WASTE Product Size: 4 mg Product Wasted: ___ mg No Longer Active 04/25/2017 [facility] Dulcolax Laxative 10 mg, 1 supp, Route: VA, Drug form: SUPP, Daily, Dosing Weight 213.3, kg, PRN Constipation, Start date: 04/24/17 22:45:00 CDT, Duration: 30 day, Stop date: 05/24/17 22:44:00 CDTNotes: (Same As: Dulcolax, Bisco-Lax) No Longer Active 04/25/2017 [facility] Insulin Lispro 4 unit, 0.04 mL, Route: SUB-Q, Drug form: SOLN, Bedtime, Dosing Weight 213.3, kg, PRN Blood Glucose Results, Start date: 04/23/17 21:36:00 CDT, Duration: 30 day, Stop date: 05/23/17 21:35:00 CDTNotes: Roll in palms of hands gently; Do not shake `vigorously. (Same as: Humalog ) "Single Patient Use Only " WASTE: F/P - Black; E - Municipal Trash Bin Stable for 28 days at room temperature. Expires in days from Date No Longer Active 04/24/2017 [facility] Dextrose 50% Syringe 12.5 gm, 25 mL, Route: IVP, Drug Form: INJ, Dosing Weight 213.3, kg, PRN, PRN Blood Glucose Results, Start date: 04/23/17 21:36:00 CDT, Duration: 30 day, Stop date: 05/23/17 21:35:00 CDT No Longer Active 04/24/2017 [facility] Glucagon 1 mg, Route: IM, Drug form: PDR/INJ, PRN, Dosing Weight 213.3, kg, PRN Blood Glucose Results, Start date: 04/23/17 21:36:00 CDT, Duration: 30 day, Stop date: 05/23/17 21:35:00 CDT No Longer Active 04/24/2017 [facility] Lactulose 667 MG/ML Oral Solution 20 gm, 30 ml, Route: PO, Drug form: SYRP, Q6H, Dosing Weight 213.3, kg, PRN Constipation, Start date: 04/22/17 8:23:00 CDT, Duration: 30 day, Stop date: 05/22/17 8:22:00 CDTNotes: (Same as:Chronulac) No Longer Active 04/22/2017 [facility] propofol INJ 1,000 mg 1,000 mg, 100 mL, Rate: Titrate, Start Dose: 5 microgram/kg/min, Titration: 5 microgram/kg/min every 15 min, Goal(s): -2, Max Dose: 50 microgram/kg/min, Route: IV, Dosing Weight 213.3 kg, Total Volume: 100, Start date: 04/22/17 8:20:00 CDT, Duration:...Notes: If Diprivan - change bottle & tubing every 12 hr Per state nursing law propofol can only be given by a nurse if patient is intubated or being intubated (unless the nurse is a SENIOR HEALTH CONSULTANT). Same as: Diprivan No Longer Active 04/22/2017 [facility] Bumex 2 mg, 8 mL, Route: IVP, Drug form: INJ, Q8H, Dosing Weight 213.3, kg, Start date: 04/22/17 0:00:00 CDT, Duration: 30 day, Stop date: 05/21/17 16:00:00 CDTNotes: (Same As: Bumex) No Longer Active 04/22/2017 [facility] insulin glargine 10 unit, 0.1 mL, Route: SUB-Q, Drug form: SOLN, QAM, Start date: 04/21/17 9:00:00 CDT, Duration: 30 day, Stop date: 05/20/17 9:00:00 CDTNotes: (Same as: Lantus) No Longer Active 04/21/2017 [facility] insulin detemir 10 unit, Route: SUB-Q, QAM, Dosing Weight 213.3, kg, Priority: Routine, Start date: 04/21/17 9:00:00 CDT, Duration: 30 day, Stop date: 05/20/17 9:00:00 CDT No Longer Active 04/21/2017 [facility] Bumex 2 mg, 8 mL, Route: IV, Drug form: INJ, ONCE, Dosing Weight 213.3, kg, Start date: 04/21/17 8:51:00 CDT, Stop date: 04/21/17 8:51:00 CDTNotes: (Same As: Bumex) Inactive 04/21/2017 [facility] Glucagon 1 mg, Route: IM, Drug form: PDR/INJ, PRN, Dosing Weight 213.3, kg, PRN Blood Glucose Results, Start date: 04/20/17 16:25:00 CDT, Duration: 30 day, Stop date: 05/20/17 16:24:00 CDT No Longer Active 04/20/2017 [facility] Dextrose 50% Syringe 25 gm, 50 mL, Route: IVP, Drug Form: INJ, Dosing Weight 213.3, kg, PRN, PRN Blood Glucose Results, Start date: 04/20/17 16:25:00 CDT, Duration: 30 day, Stop date: 05/20/17 16:24:00 CDT No Longer Active 04/20/2017 [facility] Insulin Lispro 8 unit, 0.08 mL, Route: SUB-Q, Drug form: SOLN, Sliding Scale, Dosing Weight 213.3, kg, PRN Blood Glucose Results, Start date: 04/20/17 16:25:00 CDT, Duration: 30 day, Stop date: 05/20/17 16:24:00 CD TNotes: Roll in palms of hands gently; Do not shake `vigorously. (Same as: Humalog ) "Single Patient Use Only " WASTE: F/P - Black; E - Municipal Trash Bin Stable for 28 days at room temperature. Expires in days from Date No Longer Active 04/20/2017 [facility] ocular lubricant 1 appl, Route: BOTH EYES, Q6H, Drug form: OINT, Start date: 04/20/17 0:00:00 CDT, Duration: 30 day, Stop date: 05/19/17 18:00:00 CDTNotes: (Same as: Lacri-Lube, Duratears Naturale, Artificial Tears, and Tears Again ) No Longer Active 04/20/2017 [facility] Famotidine 20 mg, Route: IVP, Drug form: INJ, Q12H, Dosing Weight 209.091, kg, Start date: 04/19/17 21:00:00 CDT, Duration: 30 day, Stop date: 05/19/17 9:00:00 CDT Inactive 04/20/2017 [facility] Saline Flush 0.9% 10 ml, Route: IVP, Drug Form: INJ, Dosing Weight 209.091, kg, Q12H, Start date: 04/19/17 21:00:00 CDT, Duration: 30 day, Stop date: 05/19/17 9:00:00 CDT Inactive 04/20/2017 [facility] chlorhexidine gluconate 1.2 MG/ML Mouthwash 15 mL, Route: Swab Mouth, Q12H, Drug form: LIQ, Start date: 04/19/17 21:00:00 CDT, Stop date: 05/19/17 9:00:00 CDTNotes: (Same As: Peridex) No Longer Active 04/20/2017 [facility] Mupirocin 0.02 MG/MG Topical Ointment 1 appl, Route: NASAL, Q12H, Drug form: OINT, Start date: 04/19/17 21:00:00 CDT, Duration: 5 day, Stop date: 04/24/17 9:00:00 CDT No Longer Active 04/20/2017 [facility] chlorhexidine gluconate 1.2 MG/ML Mouthwash 15 mL, Route: Swab Mouth, PRN, Drug form: LIQ, PRN Other -See Comment, Start date: 04/19/17 19:29:00 CDT, Duration: 30 day, Stop date: 05/19/17 19:28:00 CDTNotes: (Same As: Peridex) No Longer Active 04/20/2017 [employer] Lactulose 667 MG/ML Oral Solution 20 gm, 30 mL, Route: PO, Drug form: SYRP, Q6H, Dosing Weight 209.091, kg, Start date: 04/19/17 18:00:00 CDT, Duration: 30 day, Stop date: 05/19/17 12:00:00 CDTNotes: (Same as:Chronulac) No Longer Active 04/19/2017 [employer] Saline Flush 0.9% 10 ml, Route: IVP, Drug Form: INJ, Dosing Weight 209.091, kg, PRN, PRN Line Flush, Start date: 04/19/17 13:04:00 CDT, Duration: 30 day, Stop date: 05/19/17 13:03:00 CDT Inactive 04/19/2017 [employer] Nystatin 100 UNT/MG Topical Powder 1 appl, Route: TOP, PRN, Drug form: PWDR, PRN For Fungal Prophylaxis, Start date: 04/19/17 13:04:00 CDT, Duration: 30 day, Stop date: 05/19/17 13:03:00 CDTNotes: (Same as:Mycostatin, Nilstat) For external use only. No Longer Active 04/19/2017 [employer] midazolam 50mg/ NS 50ml drip (premixed) 50 mg 50 mg, 50 mL, Rate: Titrate, Start Dose: 1 mg/hr, Titration: Rebolus 1 mg IV and/or Titrate infusion by 1 mg/hour every 30 minutes, Goal(s): rass -3, Max Dose: 10 mg/hr, Route: IV, Dosing Weight 209.091 kg, Total Volume: 50, Start date: 04/19/17 10:22...Notes: (Same as: Versed) No Longer Active 04/19/2017 [employer] Fentanyl 1,250 microgram, 250 mL, Rate: Titrate, Start Dose: 50 microgram/hr, Titration: 25 microgram/hour every 15 minutes, Goal(s): rass-2, Max Dose: 300 microgram/hr, Route: IV, Dosing Weight 209.091 kg, Total Volume: 250, Start date: 04/19/17 10:22:00 CDT,...Notes: Concentration: 5 microgram / ml No Longer Active 04/19/2017 [employer] [employer] bumetanide 10 mg + sodium chloride 0.9% INJ 60 mL 60 mL, Rate: Infuse as directed, Dosing Weight 209.091, kg, Route: IV, Total Volume: 100 mL, Start Date: 04/19/17 10:14:00 CDT, Duration: 30 day, Stop date: 05/19/17 10:13:00 CDT, Replace Every: 24 hrNotes: (Same As: Bumex) No Longer Active 04/19/2017 [facility] Dextrose 50% Syringe 12.5 gm, 25 mL, Route: IVP, Drug Form: INJ, Dosing Weight 209.091, kg, PRN, PRN Blood Glucose Results, Start date: 04/19/17 9:58:00 CDT, Duration: 30 day, Stop date: 05/19/17 9:57:00 CDT No Longer Active 04/19/2017 [facility] Insulin regular 100 unit + sodium chloride 0.9% INJ 99 mL 99 mL, Rate: Start Insulin Drip Per ICU Protocol, Dosing Weight 209.091, kg, Route: IVPB, Total Volume: 100, Start Date: 04/19/17 9:58:00 CDT, Duration: 30 day, Stop date: 05/19/17 9:57:00 CDT, Replace Every: 24 hrNotes: (Same as: Humulin R and NovoLIN R) WASTE: F/P - Black; E - Municipal Trash Bin (Do not shake) No Longer Active 04/19/2017 [facility] Diprolene AF 1 appl, Route: TOP, BID, Drug form: CRM, Start date: 04/19/17 9:00:00 CDT, Duration: 30 day, Stop date: 05/18/17 17:00:00 CDTNotes: (betamethasone dipropionate 0.05% 15gm CRM) (Same As: Diprolene AF) No Longer Active 04/19/2017 [facility] Spironolactone 50 mg, 1 tab, Route: PO, Drug form: TAB, Daily, Dosing Weight 209.091, kg, Start date: 04/19/17 9:00:00 CDT, Duration: 30 day, Stop date: 05/18/17 9:00:00 CDTNotes: (Same As: Aldactone) No Longer Active 04/19/2017 [facility] metoprolol tartrate 12.5 mg, 0.5 tab, Route: PO, Drug form: TAB, BID, Dosing Weight 209.091, kg, Start date: 04/19/17 9:00:00 CDT, Duration: 30 day, Stop date: 05/18/17 17:00:00 CDTNotes: (Same as: Lopressor) No Longer Active 04/19/2017 [facility] Lidocaine Hydrochloride 0.05 MG/MG Transdermal Patch [Lidoderm] 1 patch, Route: TOP, Daily, Drug form: FILM, Start date: 04/19/17 9:00:00 CDT, Duration: 30 day, Stop date: 05/18/17 9:00:00 CDTNotes: Apply only once for up to 12 hours in a 24-hour period (12 hours on and 12 hours off). (Same as: Lidoderm) "Remove old patch before application of new patch" No Longer Active 04/19/2017 [facility] Zosyn 3.375 gm, Route: IVPB, ABXQ8H, Dosing Weight 209.091, kg, CrCl >=20 ml/min infuse over 4 hours, Start date: 04/19/17 9:00:00 CDT, Duration: 10 day, Stop date: 04/29/17 1:00:00 CDT, ABX Indication: Skin/Soft Tissue InfectionNotes: (Same as: Zosyn) Dosing based on Piperacillin component MEDICATION WASTE Product Size: 3375 mg Product Wasted: ___ mg No Longer Active 04/19/2017 [facility] Glucotrol 2.5 mg, 0.5 tab, Route: PO, Drug form: TAB, Daily, Start date: 04/19/17 9:00:00 CDT, Duration: 30 day, Stop date: 05/18/17 9:00:00 CDTNotes: (Same as: Glucotrol) 30 min before meals. Inactive 04/19/2017 [facility] Glipizide 2.5 mg, Route: PO, Daily, Dosing Weight 209.091, kg, Start date: 04/19/17 9:00:00 CDT, Duration: 30 day, Stop date: 05/18/17 9:00:00 CDT No Longer Active 04/19/2017 [facility] Celexa 20 mg, 2 tab, Route: PO, Drug form: TAB, Daily, Dosing Weight 209.091, kg, Start date: 04/19/17 9:00:00 CDT, Duration: 30 day, Stop date: 05/18/17 9:00:00 CDT No Longer Active 04/19/2017 [facility] Lotrisone 1 appl, Route: TOP, BID, Start date: 04/19/17 9:00:00 CDT, Duration: 30 day, Stop date: 05/18/17 17:00:00 CDT No Longer Active 04/19/2017 [facility] Aspirin 81 mg, 1 tab, Route: PO, Drug form: CHEWTAB, Daily, Dosing Weight 209.091, kg, Start date: 04/19/17 9:00:00 CDT, Stop date: 05/18/17 9:00:00 CDTNotes: Take with food. No Longer Active 04/19/2017 [facility] clotrimazole topical 1% cream 1 appl, Route: TOP, BID, Drug form: CRM, Start date: 04/19/17 9:00:00 CDT, Duration: 30 day, Stop date: 05/18/17 17:00:00 CDTNotes: For external use only. (Same As: Lotrimin AF, Mycelex) No Longer Active 04/19/2017 [facility] Bumetanide 1 mg, 4 mL, Route: IVP, Drug form: INJ, Q8H, Dosing Weight 209.091, kg, Start date: 04/19/17 0:00:00 CDT, Duration: 30 day, Stop date: 05/18/17 16:00:00 CDTNotes: (Same As: Bumex) Inactive 04/19/2017 [facility] Saline Flush 0.9% 10 ml, Route: IVP, Drug Form: INJ, Dosing Weight 209.091, kg, Q12H, Start date: 04/18/17 21:00:00 CDT, Duration: 30 day, Stop date: 05/18/17 9:00:00 CDTNotes: (Same as: BD Posiflush) No Longer Active 04/19/2017 [facility] insulin glargine 3 unit, 0.03 mL, Route: SUB-Q, Drug form: SOLN, Bedtime, Start date: 04/18/17 21:00:00 CDT, Duration: 30 day, Stop date: 05/17/17 21:00:00 CDTNotes: (Same as: Lantus) Do not hold insulin without cont acting prescriber WASTE: F/P - Black; E - Municipal Trash Bin "single patient use only" No Longer Active 04/19/2017 [facility] insulin detemir 3 unit, Route: SUB-Q, Bedtime, Dosing Weight 209.091, kg, Start date: 04/18/17 21:00:00 CDT, Duration: 30 day, Stop date: 05/17/17 21:00:00 CDT Inactive 04/19/2017 [facility] Albuterol 0.833 MG/ML / Ipratropium [place] 0.167 MG/ML Inhalant Solution [DuoNeb] 3 mL, Route: NEB, Drug Form: SOLN, Dosing Weight 209.091, kg, RQ6H, Start date: 04/18/17 20:00:00 CDT, Duration: 30 day, Stop date: 05/18/17 14:00:00 CDTNotes: (Same as: Duoneb) No Longer Active 04/19/2017 [facility] Enoxaparin 40 mg, 0.4 mL, Route: SUB-Q, Drug form: INJ, [id number], Dosing Weight 209.091, kg, Consider for obese patients, Start date: 04/18/17 18:00:00 CDT, Duration: 30 day, Stop date: 05/17/17 22:00:00 CDTNotes: (Same as: Lovenox) No Longer Active 04/18/2017 [facility] Tylenol 650 mg, 2 tab, Route: PO, Drug form: TAB, Q6H, Dosing Weight 209.091, kg, PRN Pain 1-3/Temp > 100.4 F, Start date: 04/18/17 17:49:00 CDT, Duration: 30 day, Stop date: 05/18/17 17:48:00 CDTNotes: Do not exceed 4 gm/day. (Same as: Tylenol) No Longer Active 04/18/2017 [facility] Tramadol 50 mg, 1 tab, Route: PO, Drug form: TAB, Q6H, Dosing Weight 209.091, kg, PRN Pain Score 4-6, Start date: 04/18/17 17:49:00 CDT, Duration: 30 day, Stop date: 05/18/17 17:48:00 CDTNotes: Not to exceed 400mg/day. (Same As: Ultram) No Longer Active 04/18/2017 [facility] Hydralazine 10 mg, 0.5 mL, Route: IV, Drug form: INJ, Q6H, Dosing Weight 209.091, kg, PRN Elevated BP, Start date: 04/18/17 17:49:00 CDT, Duration: 30 day, Stop date: 05/18/17 17:48:00 CDTNotes: (Same as: Apresoline) Push over 5 minutes No Longer Active 04/18/2017 [facility] Zofran 4 mg, 2 mL, Route: IV, Drug form: INJ, Q6H, Dosing Weight 209.091, kg, PRN Nausea, Start date: 04/18/17 17:49:00 CDT, Duration: 30 day, Stop date: 05/18/17 17:48:00 CDTNotes: (Same as: Zofran) MEDICATION WASTE Product Size: 4 mg Product Wasted: ___ mg No Longer Active 04/18/2017 [facility] Lorazepam 0.5 mg, 1 tab, Route: PO, Drug form: TAB, Q8H, Dosing Weight 209.091, kg, PRN Anxiety, Start date: 04/18/17 17:49:00 CDT, Duration: 30 day, Stop date: 05/18/17 17:48:00 CDTNotes: (Same as: Ativan) No Longer Active 04/18/2017 [facility] Insulin Lispro 6 unit, 0.06 mL, Route: SUB-Q, Drug form: SOLN, TID-Before Meals, Dosing Weight 209.091, kg, PRN Blood Glucose Results, Start date: 04/18/17 17:48:00 CDT, Duration: 30 day, Stop date: 05/18/17 17:47: 00 CDTNotes: Roll in palms of hands gently; Do not shake `vigorously. (Same as: Humalog ) "Single Patient Use Only " WASTE: F/P - Black; E - Municipal Trash Bin Stable for 28 days at room temperature. Expires in days from Date No Longer Active 04/18/2017 [facility] Glucagon 1 mg, Route: IM, Drug form: PDR/INJ, PRN, Dosing Weight 209.091, kg, PRN Blood Glucose Results, Start date: 04/18/17 17:48:00 CDT, Duration: 30 day, Stop date: 05/18/17 17:47:00 CDT No Longer Active 04/18/2017 [facility] Dextrose 50% Syringe 12.5 gm, 25 mL, Route: IVP, Drug Form: INJ, Dosing Weight 209.091, kg, PRN, PRN Blood Glucose Results, Start date: 04/18/17 17:48:00 CDT, Duration: 30 day, Stop date: 05/18/17 17:47:00 CDT No Longer Active 04/18/2017 [facility] Saline Flush 0.9% 10 ml, Route: IVP, Drug Form: INJ, Dosing Weight 209.091, kg, PRN, PRN Line Flush, Start date: 04/18/17 17:46:00 CDT, Duration: 30 day, Stop date: 05/18/17 17:45:00 CDTNotes: (Same as: BD Posiflush) No Longer Active 04/18/2017 [facility] Lasix 40 mg, Route: IVP, Drug form: INJ, ONCE, Dosing Weight 209.091, kg, Priority: STAT, Start date: 04/18/17 14:59:00 CDT, Stop date: 04/18/17 14:59:00 CDT Inactive 04/18/2017 [facility] Saline Flush 0.9% 10 mL, Route: IVP, Drug Form: INJ, Dosing Weight 209.091, kg, PRN, PRN Line Flush, Start date: 04/18/17 13:29:00 CDT, Duration: 30 day, Stop date: 05/18/17 13:28:00 CDTNotes: (Same as: BD Posiflush) No Longer Active 04/18/2017 [facility] Furosemide 40 MG Oral Tablet [Lasix] 40 mg, 1 tab, Route: PO, Drug form: TAB, BID, Dosing Weight 207.8, kg, Start date: 01/26/17 17:00:00 CDT, Duration: 30 day, Stop date: 02/25/17 9:00:00 CDTNotes: (Same as: Lasix) May cause GI upset. Give with food or milk. Inactive 01/26/2017 [facility] Acetazolamide 250 mg, Route: IVP, Drug form: PDR/INJ, Daily, Dosing Weight 207.8, kg, Priority: STAT, Start date: 01/26/17 16:51:00 CDT, Duration: 30 day, Stop date: 02/25/17 9:00:00 CDTNotes: (Same as: Diamox) Inactive 01/26/2017 [facility] doxycycline hyclate 100 MG Oral Tablet 100 mg=1 tab, PO, Q12H, # 20 tab, 0 Refill(s) No Longer Active 01/26/2017 [facility] Albuterol 0.833 MG/ML / Ipratropium [place] 0.167 MG/ML Inhalant Solution [DuoNeb] 3 mL, NEB, RQ6H, # 180 mL, 1 Refill(s) Active 01/26/2017 [facility] Furosemide 40 MG Oral Tablet [Lasix] 40 mg, PO, BID, # 60 tab, 0 Refill(s) Active 01/26/2017 [facility] Acetaminophen 325 MG / Hydrocodone Bitartrate 10 MG Oral Tablet [[place] 10/325] 1 tab, Route: PO, Drug Form: TAB, Dosing Weight 223.955, kg, Q6H, PRN Pain Score 4-6, Start date: 01/25/17 20:25:00 CDT, Duration: 30 day, Stop date: 02/24/17 20:24:00 CDTNotes: Do not exceed 4gm/day of acetaminophen. (Same as: [place] 325/10) No Longer Active 01/26/2017 [facility] doxycycline hyclate 100 MG Oral Capsule 100 mg, 2 cap, Route: PO, Drug form: CAP, Q12H, Dosing Weight 223.955, kg, Start date: 01/25/17 13:13:00 CDT, Duration: 7 day, Stop date: 02/01/17 9:00:00 CDTNotes: (Same as: Vibramycin) No milk/antacids/iron. Take 1 hour before or 2 hours after dairy products No Longer Active 01/25/2017 [facility] Benadryl 25 mg, 0.5 mL, Route: IVP, Drug form: INJ, ONCE, Dosing Weight 223.955, kg, PRN Allergic reaction, Start date: 01/25/17 10:39:00 CDTNotes: (Same as: Benadryl) No Longer Active 01/25/2017 [facility] methylPREDNISolone SODium SUCCinate 40 mg, 1 mL, Route: IV, Drug form: INJ, ONCE, Dosing Weight 223.955, kg, Start date: 01/25/17 10:38:00 CDT, Stop date: 01/25/17 10:38:00 CDTNotes: (Same as:Solu-MEDROL, A- Methapred) Inactive 01/25/2017 [facility] Levemir 3 unit, 0.03 mL, Route: SUB-Q, Drug form: SOLN, Bedtime, Dosing Weight 223.955, kg, Start date: 01/24/17 21:00:00 CDT, Duration: 30 day, Stop date: 02/22/17 21:00:00 CDTNotes: Same as Levemir Do not hold insulin without contacting prescriber WASTE: F/P - Black; E - Municipal Trash Bin "single patient use only" No Longer Active 01/25/2017 [facility] Insulin, Aspart, Human 2 unit, 0.02 mL, Route: SUB-Q, Drug form: SOLN, TID-Before Meals, Dosing Weight 223.955, kg, PRN Blood Glucose Results, Start date: 01/24/17 11:21:00 CDT, Duration: 30 day, Stop date: 02/23/17 11:20:00 CDTNotes: Roll in palms of hands gently; Do not shake vigorously. (Same as: NovoLOG) "single patient use only" WASTE: F/P - Black; E - Municipal Trash Bin Stable for 28 days at room temperature. Expires in days from Date No Longer Active 01/24/2017 [facility] Menthol 0.04 MG/MG Topical Gel [Biofreeze] 1 appl, TOP, Q12H, To left ankle Active 01/24/2017 [facility] Aspirin 81 mg, PO, Daily Active 01/24/2017 [facility] Lotrisone 1 appl, TOP, BID Active 01/24/2017 [facility] Regular Insulin, Human 100 UNT/ML Injectable Solution [Humulin R] 4-12 unit, SUB-Q, PRN, PRN Blood Glucose Results, 200-250=4 unit 251- 300=6 unit 301-350=8 unit 351-400=10 unit 401-450=12 unit >450=call Active 01/24/2017 [facility] Salonpas 1 patch, TOP, TID, apply to left ankle Active 01/24/2017 [facility] Famotidine 40 mg, 2 tab, Route: PO, Drug form: TAB, Daily, Dosing Weight 223.955, kg, Start date: 01/24/17 9:00:00 CDT, Duration: 30 day, Stop date: 02/22/17 9:00:00 CDTNotes: (Same as: Pepcid) No Longer Active 01/24/2017 [facility] Rocephin 1 gm, Route: IVPB, Drug form: PDR/INJ, [id number], Dosing Weight 223.955, kg, Start date: 01/24/17 8:00:00 CDT, Duration: 1 day, Stop date: 01/24/17 8:00:00 CDT, ABX Indication: Genital Tract Infection Inactive 01/24/2017 [facility] Tylenol 650 mg, 2 tab, Route: PO, Drug form: TAB, Q4H, Dosing Weight 223.955, kg, PRN Pain Score 1-3, Start date: 01/23/17 22:50:00 CDT, Duration: 30 day, Stop date: 02/22/17 22:49:00 CDTNotes: Do not exceed 4 gm/day. (Same as: Tylenol) No Longer Active 01/24/2017 [facility] Ondansetron 4 mg, 2 mL, Route: IVP, Drug form: INJ, Q6H, Dosing Weight 223.955, kg, PRN Nausea, Start date: 01/23/17 22:50:00 CDT, Duration: 30 day, Stop date: 02/22/17 22:49:00 CDTNotes: (Same as: Zofran) MEDICATION WASTE Product Size: 4 mg Product Wasted: ___ mg No Longer Active 01/24/2017 [facility] Vancomycin 1.25 gm, 250 mL, Route: IVPB, Drug form: INJ, [id number], Dosing Weight 223.955, kg, Start date: 01/23/17 21:00:00 CDT, Duration: 30 day, Stop date: 02/22/17 9:00:00 CDT, ABX Indication: Skin/Soft Tissue InfectionNotes: TIME CRITICAL MEDICATION Same as: Vancocin-NS (premixed) Infusion rate 2000 mg: infuse over 2.5 hours No Longer Active 01/24/2017 [facility] Kayexalate 30 gm, 120 mL, Route: PO, Drug form: SUSP, ONCE, Dosing Weight 223.955, kg, Start date: 01/23/17 9:34:00 CDT, Stop date: 01/23/17 9:34:00 CDTNotes: (sodium polystyrene sulfonate 15 gm/60 ml CHET) Shake well before use. (Same as: Kayexalate, SPS) Inactive 01/23/2017 [facility] Lisinopril 20 mg, 4 tab, Route: PO, Drug form: TAB, Daily, Dosing Weight 227.273, kg, Start date: 01/23/17 9:00:00 CDT, Duration: 30 day, Stop date: 02/21/17 9:00:00 CDTNotes: (Same as: Prinivil, Zestril) No Longer Active 01/23/2017 [facility] Protonix 40 mg, 1 tab, Route: PO, Drug form: ECTAB, Before Breakfast, Dosing Weight 227.273, kg, Start date: 01/23/17 7:30:00 CDT, Duration: 30 day, Stop date: 02/21/17 7:30:00 CDTNotes: Tablet should not be chewed or crushed. (Same as: Protonix) Inactive 01/23/2017 [facility] LORazepam 0.5 mg oral tablet 0.5 mg=1 tab, PO, Q8H, PRN Anxiety, # 60 tab, 0 Refill(s) Active 01/23/2017 [facility] lisinopril 10 mg oral tablet 10 mg=1 tab, PO, Daily, # 30 tab, 0 Refill(s) Active 01/23/2017 [facility] Lidocaine Hydrochloride 0.05 MG/MG Transdermal Patch [Lidoderm] 1 patch, TOP, Daily, apply to left shoulder and remove q HS, # 30 patch, 0 Refill(s) Active 01/23/2017 [facility] insulin detemir 3 unit, SUB-Q, Bedtime, 0 Refill(s) Active 01/23/2017 [facility] metoprolol tartrate 25 mg oral tablet 12.5 mg=0.5 tab, PO, BID, 0 Refill(s) Active 01/23/2017 [facility] spironolactone 50 mg oral tablet 50 mg=1 tab, PO, Daily, # 30 tab, 1 Refill(s) Active 01/23/2017 [facility] Lasix 40 mg, 4 mL, Route: IVP, Drug form: INJ, Q12H, Dosing Weight 227.273, kg, Start date: 01/22/17 21:00:00 CDT, Duration: 30 day, Stop date: 02/21/17 9:00:00 CDTNotes: (Same as: Lasix) MEDICATION WASTE Product Size: 40 mg Product Wasted: ___ mg No Longer Active 01/23/2017 [facility] Albuterol 0.833 MG/ML / Ipratropium [place] 0.167 MG/ML Inhalant Solution [DuoNeb] 3 mL, Route: NEB, Drug Form: SOLN, Dosing Weight 227.273, kg, RQ6H, Start date: 01/22/17 20:00:00 CDT, Duration: 30 day, Stop date: 02/21/17 14:00:00 CDTNotes: (Same as: Duoneb) No Longer Active 01/23/2017 [facility] Lovenox 30 mg, 0.3 mL, Route: SUB-Q, Drug form: INJ, [id number], Dosing Weight 227.273, kg, Start date: 01/22/17 20:00:00 CDT, Duration: 30 day, Stop date: 02/21/17 8:00:00 CDTNotes: (Same as: Lovenox) No Longer Active 01/23/2017 [facility] Vancomycin 1 ea, Route: MISC, ONCALL, Dosing Weight 227.273, kg, Start date: 01/22/17 15:00:00 CDT, day, Stop date: 01/22/17 15:00:00 CDT, Pharmacy to dose, ABX Indication: Skin/Soft Tissue Infection Inactive 01/22/2017 [facility] vancomycin + sodium chloride 0.9% 250 mL INJ (for IV set) 250 mL 1,250 mg, Route: IVPB, [id number], Start date: 01/22/17 15:00:00 CDT, Duration: 30 day, Stop date: 02/21/17 7:00:00 CDT, ABX Indication: Skin/Soft Tissue InfectionNotes: TIME CRITICAL MEDICATION (Same As: Vancocin) Infusion rate 2001 mg: infuse over 2.5 hours MEDICATION WASTE Product Size: 1000 mg Product Wasted: ___ mg No Longer Active 01/22/2017 [facility] Zosyn 3.375 gm, Route: IVPB, ABXQ8H, Dosing Weight 227.273, kg, CrCl >=20 ml/min infuse over 4 hours, Start date: 01/22/17 15:00:00 CDT, Duration: 7 day, Stop date: 01/29/17 12:00:00 CDT, ABX Indication: PneumoniaNotes: (Same as: Zosyn) Dosing based on Piperacillin component MEDICATION WASTE Product Size: 3375 mg Product Wasted: ___ mg No Longer Active 01/22/2017 [facility] aspirin 81 mg tablet, enteric coated 81 mg, 1 tab, Route: PO, Drug form: ECTAB, Daily, Dosing Weight 227.273, kg, Start date: 01/22/17 14:29:00 CDT, Duration: 30 day, Stop date: 02/21/17 9:00:00 CDTNotes: Do not crush or chew. (Same As: Ecotrin) No Longer Active 01/22/2017 [facility] Insulin, Aspart, Human 4 unit, 0.04 mL, Route: SUB-Q, Drug form: SOLN, Bedtime, Dosing Weight 227.273, kg, PRN Blood Glucose Results, Start date: 01/22/17 14:27:00 CDT, Duration: 30 day, Stop date: 02/21/17 14:26:00 CDTNotes: Roll in palms of hands gently; Do not shake vigorously. (Same as: NovoLOG) "single patient use only" WASTE: F/P - Black; E - Municipal Trash Bin Stable for 28 days at room temperature. Expires in days from Date No Longer Active 01/22/2017 [facility] Glucagon 1 mg, Route: IM, Drug form: PDR/INJ, PRN, Dosing Weight 227.273, kg, PRN Blood Glucose Results, Start date: 01/22/17 14:27:00 CDT, Duration: 30 day, Stop date: 02/21/17 14:26:00 CDT No Longer Active 01/22/2017 [facility] Dextrose 50% Syringe 12.5 gm, 25 mL, Route: IVP, Drug Form: INJ, Dosing Weight 227.273, kg, PRN, PRN Blood Glucose Results, Start date: 01/22/17 14:27:00 CDT, Duration: 30 day, Stop date: 02/21/17 14:26:00 CDT No Longer Active 01/22/2017 [facility] Lasix 40 mg, 4 mL, Route: IVP, Drug form: INJ, ONCE, Dosing Weight 227.273, kg, Priority: STAT, Start date: 01/22/17 13:02:00 CDT, Stop date: 01/22/17 13:02:00 CDTNotes: (Same as: Lasix) MEDICATION WASTE Product Size: 40 mg Product Wasted: ___ mg Inactive 01/22/2017 [facility] Saline Flush 0.9% 10 mL, Route: IVP, Drug Form: INJ, Dosing Weight 227.273, kg, PRN, PRN Line Flush, Start date: 01/22/17 12:11:00 CDT, Duration: 30 day, Stop date: 02/21/17 12:10:00 CDTNotes: preservative free. No Longer Active 01/22/2017 [facility] Furosemide 40 MG Oral Tablet 40 mg, 1 tab, Route: PO, Drug form: TAB, BID, Dosing Weight 198.21, kg, Start date: 11/28/16 17:00:00 CDT, Duration: 30 day, Stop date: 12/28/16 9:00:00 CDTNotes: (Same as: Lasix) May cause GI upset. Give with food or milk. No Longer Active 11/28/2016 [facility] aspirin 81 mg tablet, enteric coated 81 mg=1 tab, PO, Q24H, # 30 tab, 0 Refill(s) Active 11/28/2016 [facility] lisinopril 20 mg oral tablet 20 mg=1 tab, PO, Daily, # 30 tab, 0 Refill(s) Active 11/28/2016 [facility] Furosemide 40 MG Oral Tablet 40 mg=1 tab, PO, BID, 0 Refill(s) Active 11/28/2016 [facility] Furosemide 40 MG Oral Tablet [Lasix] 40 mg, 1 tab, Route: PO, Drug form: TAB, BID, Dosing Weight 198.21, kg, Start date: 11/28/16 9:00:00 CDT, Duration: 30 day, Stop date: 12/27/16 17:00:00 CDTNotes: (Same as: Lasix) May cause GI upset. Give with food or milk. Inactive 11/28/2016 [facility] Lisinopril 20 mg, 1 tab, Route: PO, Drug form: TAB, Daily, Dosing Weight 198.21, kg, Start date: 11/23/16 12:00:00 CDT, Duration: 30 day, Stop date: 12/23/16 9:00:00 CDTNotes: (Same as: Prinivil, Zestril) No Longer Active 11/23/2016 [facility] Lidocaine Hydrochloride 0.05 MG/MG Transdermal Patch [Lidoderm] 1 patch, Route: TOP, Q24H, Drug form: FILM, Priority: Now, Start date: 11/23/16 12:00:00 CDT, Duration: 30 day, Stop date: 12/22/16 12:00:00 CDT, Remove after 12 hoursNotes: Apply only once for up to 12 hours in a 24-hour period (12 hours on and 12 hours off). (Same as: Lidoderm) "Remove old patch before application of new patch" No Longer Active 11/23/2016 [facility] Insulin, Aspart, Human 5 unit, 0.05 mL, Route: SUB-Q, Drug form: SOLN, TID-Before Meals, Dosing Weight 198.21, kg, Start date: 11/23/16 11:30:00 CDT, Duration: 30 day, Stop date: 12/23/16 7:30:00 CDTNotes: Roll in palms of hands gently; Do not shake vigorously. (Same as: NovoLOG) "single patient use only" WASTE: F/P - Black; E - Municipal Trash Bin Stable for 28 days at room temperature. Expires in days from Date No Longer Active 11/23/2016 [facility] Insulin, Aspart, Human 12 unit, 0.12 mL, Route: SUB-Q, Drug form: SOLN, TID-Before Meals, Dosing Weight 198.21, kg, PRN Blood Glucose Results, Start date: 11/23/16 11:08:00 CDT, Duration: 30 day, Stop date: 12/23/16 11:07:00 CDTNotes: Roll in palms of hands gently; Do not shake vigorously. (Same as: NovoLOG) "single patient use only" WASTE: F/P - Black; E - Municipal Trash Bin Stable for 28 days at room temperature. Expires in days from Date No Longer Active 11/23/2016 [facility] Glucagon 1 mg, Route: IM, Drug form: PDR/INJ, PRN, Dosing Weight 198.21, kg, PRN Blood Glucose Results, Start date: 11/23/16 11:08:00 CDT, Duration: 30 day, Stop date: 12/23/16 11:07:00 CDT No Longer Active 11/23/2016 [facility] Dextrose 50% Syringe 25 gm, 50 mL, Route: IVP, Drug Form: INJ, Dosing Weight 198.21, kg, PRN, PRN Blood Glucose Results, Start date: 11/23/16 11:08:00 CDT, Duration: 30 day, Stop date: 12/23/16 11:07:00 CDT No Longer Active 11/23/2016 [facility] insulin detemir 20 unit, 0.2 mL, Route: SUB-Q, Drug form: INJ, Daily, Dosing Weight 198.21, kg, Priority: STAT, Start date: 11/23/16 11:08:00 CDT, Duration: 30 day, Stop date: 12/23/16 9:00:00 CDTNotes: Same as Levemir Do not hold insulin without contacting prescriber WASTE: F/P - Black; E - Municipal Trash Bin "single patient use only" No Longer Active 11/23/2016 [facility] Lasix 80 mg, 8 mL, Route: IV, Drug form: INJ, BID, Dosing Weight 198.21, kg, Start date: 11/23/16 9:00:00 CDT, Duration: 30 day, Stop date: 12/22/16 17:00:00 CDTNotes: (Same as: Lasix) MEDICATION WASTE Product Size: 40 mg Product Wasted: ___ mg No Longer Active 11/23/2016 [facility] Cefazolin 1 gm, Route: IV, ONCE, Dosing Weight 198.21, kg, Priority: NOW, Start date: 11/23/16 8:49:00 CDT, Stop date: 11/23/16 8:49:00 CDT Inactive 11/23/2016 [facility] Labetalol 10 mg, 2 mL, Route: IV, Drug form: INJ, Q6H, Dosing Weight 198.21, kg, PRN Hypertension, Start date: 11/22/16 4:34:00 CDT, Duration: 30 day, Stop date: 12/22/16 4:33:00 CDTNotes: (Same as: Normodyne, Tr andate) Push over 2 minutes Give bolus over 2-3 minutes. No Longer Active 11/22/2016 [facility] Hydralazine 10 mg, 0.5 mL, Route: IV, Drug form: INJ, Q6H, Dosing Weight 198.21, kg, PRN Hypertension, Start date: 11/22/16 0:18:00 CDT, Duration: 30 day, Stop date: 12/22/16 0:17:00 CDTNotes: (Same as: Apresoline) Push over 5 minutes No Longer Active 11/22/2016 [facility] Fentanyl 25 microgram, 0.5 mL, Route: IVP, Drug form: INJ, Q2H, Dosing Weight 198.21, kg, PRN Pain Score 1-5, Start date: 11/21/16 8:44:00 CDT, Duration: 30 day, Stop date: 12/21/16 8:43:00 CDTNotes: (Same as: Sublimaze) Preservative free. No Longer Active 11/21/2016 [facility] [employer] [facility] Furosemide 100 mg, 10 mL, Rate: 10 ml/hr, Infuse over: 10 hr, Dosing Weight 198.21, kg, Route: IV, Total Volume: 100, Start Date: 11/21/16 7:15:00 CDT, Stop date: 11/23/16 7:00:00 CDT, Replace Every: 10 hr, con tinuousNotes: (Same as: Lasix) MEDICATION WASTE Product Size: 100 mg Product Wasted: ___ mg No Longer Active 11/21/2016 [facility] midazolam 50mg/ NS 50ml drip (premixed) 50 mg 50 mg, 50 mL, Rate: Titrate, Start Dose: 1 mg/hr, Titration: Rebolus 1 mg IV and/or Titrate infusion by 1 mg/hour every 30 minutes, Goal(s): -2, Max Dose: 10 mg/hr, Route: IV, Dosing Weight 198.21 kg, Total Volume: 50, Start date: 11/20/16 13:07:00 CD...Notes: (Same as: Versed) No Longer Active 11/20/2016 [facility] Propofol 10 MG/ML Injectable Suspension 1,000 mg, 100 mL, Rate: Titrate, Start Dose: 5 microgram/kg/min, Titration: 5 microgram/kg/min every 15 minutes, Goal(s): -2, Max Dose: 50 mcg/kg/min, Route: IV, Dosing Weight 198.21 kg, Total Volume: 100, Start date: 11/20/16 12:01:00 CDT, Duration:...Notes: If Diprivan - change bottle & tubing every 12 hr Per state nursing law propofol can only be given by a nurse if patient is intubated or being intubated (unless the nurse is a SENIOR HEALTH CONSULTANT). Same as: Diprivan No Longer Active 11/20/2016 [facility] potassium chloride 10 mEq, 100 mL, Route: IVPB, Drug form: INJ, PRN, Dosing Weight 198.21, kg, PRN Abnormal Lab Result, Via peripheral line, Start date: 11/20/16 11:05:00 CDT, Duration: 30 day, Stop date: 12/20/16 11:04:00 CDT, FOR ICU USE ONLYNotes: Infuse at a rate of 10 mEq/hr. (Same as: KCL) No Longer Active 11/20/2016 [facility] potassium phosphate-sodium phosphate 250 mg-280 mg-160 mg oral powder for reconstitution 2 pkt, Route: PO, Drug Form: PDR/REC, Dosing Weight 198.21, kg, PRN, PRN Abnormal Lab Result, FOR ICU USE ONLY, Start date: 11/20/16 11:05:00 CDT, Duration: 30 day, Stop date: 12/20/16 11:04:00 CDTNotes: (Same as: Phos-NaK) Each 1.5 gm pkt has 250mg phosphorous. Mix w/2.5oz water and stir. No Longer Active 11/20/2016 [facility] Magnesium Sulfate 2 gm, 50 mL, Route: IVPB, Drug form: INJ, PRN, Dosing Weight 198.21, kg, PRN Abnormal Lab Result, Start date: 11/20/16 11:05:00 CDT, Duration: 30 day, Stop date: 12/20/16 11:04:00 CDT, FOR ICU USE ONLYNotes: WASTE: F/P - Sink; E - Municipal Trash Bin No Longer Active 11/20/2016 [facility] potassium phosphate + sodium chloride 0.9% INJ 250 mL 30 mmol, 10 mL, Route: IVPB, PRN, Dosing Weight 198.21, kg, PRN Abnormal Lab Result, Start date: 11/20/16 11:05:00 CDT, Duration: 30 day, Stop date: 12/20/16 11:04:00 CDT, FOR ICU USE ONLYNotes: (Same as: K Phosphate.) 1 mMol phoshate has 1.47 mEq potassium Infuse over 4 hours No Longer Active 11/20/2016 [facility] sodium phosphate + D5W 250 mL 30 mmol, 10 mL, Route: IVPB, PRN, Dosing Weight 198.21, kg, PRN Abnormal Lab Result, Start date: 11/20/16 11:05:00 CDT, Duration: 30 day, Stop date: 12/20/16 11:04:00 CDT, FOR ICU USE ONLY No Longer Active 11/20/2016 [facility] Calcium Carbonate 500 MG Chewable Tablet 500 mg, 1 tab, Route: PO, Drug form: CHEWTAB, PRN, Dosing Weight 198.21, kg, PRN Abnormal Lab Result, FOR ICU USE ONLY, Start date: 11/20/16 11:05:00 CDT, Duration: 30 day, Stop date: 12/20/16 11:04:00 CDTNotes: (Same As: Tums) Calcium Carbonate 500 dv=615 mg elemental calcium Dose= mg calcium carbonate ( mg elemental calcium) No Longer Active 11/20/2016 [facility] Magnesium Oxide 800 mg, 2 tab, Route: PO, Drug form: TAB, PRN, Dosing Weight 198.21, kg, PRN Abnormal Lab Result, FOR ICU USE ONLY, Start date: 11/20/16 11:05:00 CDT, Duration: 30 day, Stop date: 12/20/16 11:04:00 C DTNotes: (Same as: Mag-Ox 400) Magnesium oxide [id number] elemental magnesium Dose=____mg magnesium oxide (___mg elemental magnesium) No Longer Active 11/20/2016 [facility] Calcium Gluconate 1 gm, 10 mL, Route: IVPB, PRN, Dosing Weight 198.21, kg, PRN Abnormal Lab Result, Start date: 11/20/16 11:05:00 CDT, Duration: 30 day, Stop date: 12/20/16 11:04:00 CDT, FOR ICU USE ONLYNotes: WASTE: F/P - Sink; E - Municipal Trash Bin No Longer Active 11/20/2016 [facility] Insulin regular 100 unit + sodium chloride 0.9% INJ 99 mL 99 mL, Rate: Start Insulin Drip Per ICU Protocol, Dosing Weight 198.21, kg, Route: IVPB, Total Volume: 100, Start Date: 11/20/16 11:03:00 CDT, Duration: 30 day, Stop date: 12/20/16 11:02:00 CDT, Replace Every: 24 hrNotes: (Same as: Humulin R and NovoLIN R) WASTE: F/P - Black; E - Municipal Trash Bin (Do not shake) No Longer Active 11/20/2016 [facility] Dextrose 50% Syringe 12.5 gm, 25 mL, Route: IVP, Drug Form: INJ, Dosing Weight 198.21, kg, PRN, PRN Blood Glucose Results, Start date: 11/20/16 11:03:00 CDT, Duration: 30 day, Stop date: 12/20/16 11:02:00 CDT No Longer Active 11/20/2016 [facility] remove patch 1 patch, Route: TOP, Q12H, Drug form: ERFILM, Start date: 11/20/16 6:00:00 CDT, Stop date: 12/19/16 6:00:00 CDTNotes: Remove patch 12 hours after application each day. No Longer Active 11/20/2016 [facility] Lidocaine Hydrochloride 0.05 MG/MG Transdermal Patch [Lidoderm] 1 patch, Route: TOP, Q24H, Drug form: FILM, Start date: 11/19/16 18:00:00 CDT, Stop date: 12/18/16 18:00:00 CDT, Remove after 12 hoursNotes: Apply only once for up to 12 hours in a 24-hour period (12 hours on and 12 hours off). (Same as: Lidoderm) "Remove old patch before application of new patch" No Longer Active 11/19/2016 [facility] Enoxaparin 40 mg, 0.4 mL, Route: SUB-Q, Drug form: INJ, [id number], Dosing Weight 198.21, kg, Consider for obese patients, Start date: 11/19/16 15:00:00 CDT, Duration: 30 day, Stop date: 12/19/16 3:00:00 CDTNotes: (Same as: Lovenox) No Longer Active 11/19/2016 [facility] Celexa 20 mg, 2 tab, Route: PO, Drug form: TAB, Daily, Dosing Weight 198.21, kg, Start date: 11/18/16 9:00:00 CDT, Duration: 30 day, Stop date: 12/17/16 9:00:00 CDT No Longer Active 11/18/2016 [facility] Lisinopril 10 mg, 2 tab, Route: PO, Drug form: TAB, Daily, Dosing Weight 198.21, kg, Start date: 11/18/16 9:00:00 CDT, Stop date: 12/17/16 9:00:00 CDTNotes: (Same as: Prinivil, Zestril) No Longer Active 11/18/2016 [facility] Hydrochlorothiazide 12.5 mg, 1 cap, Route: PO, Drug form: CAP, Daily, Dosing Weight 198.21, kg, Start date: 11/18/16 9:00:00 CDT, Duration: 30 day, Stop date: 12/17/16 9:00:00 CDTNotes: (Same as: Microzide) With food. No Longer Active 11/18/2016 [facility] Glipizide 2.5 mg, 0.5 tab, Route: PO, Drug form: TAB, Daily, Dosing Weight 198.21, kg, Start date: 11/18/16 9:00:00 CDT, Duration: 30 day, Stop date: 12/17/16 9:00:00 CDTNotes: (Same as: Glucotrol) 30 min before meals. No Longer Active 11/18/2016 [facility] Lasix Route: PO, Daily, Dosing Weight 198.21, kg, Start date: 11/18/16 9:00:00 CDT, Duration: 30 day, Stop date: 12/17/16 9:00:00 CDT No Longer Active 11/18/2016 [facility] Famotidine 40 mg, 2 tab, Route: PO, Drug form: TAB, Daily, Dosing Weight 198.21, kg, Start date: 11/18/16 9:00:00 CDT, Duration: 30 day, Stop date: 12/17/16 9:00:00 CDTNotes: (Same as: Pepcid) No Longer Active 11/18/2016 [facility] Furosemide 80 mg, 8 mL, Route: IVP, Drug form: INJ, Q8H, Dosing Weight 177.273, kg, Priority: Routine, Start date: 11/18/16 0:00:00 CDT, Duration: 30 day, Stop date: 12/17/16 16:00:00 CDTNotes: (Same as: Lasix) MEDICATION WASTE Product Size: 40 mg Product Wasted: ___ mg No Longer Active 11/18/2016 [facility] Levemir 6 unit, 0.06 mL, Route: SUB-Q, Drug form: SOLN, Bedtime, Dosing Weight 198.21, kg, Start date: 11/17/16 21:00:00 CDT, Duration: 30 day, Stop date: 12/16/16 21:00:00 CDTNotes: Same as Levemir Do not hold insulin without contacting prescriber WASTE: F/P - Black; E - Municipal Trash Bin "single patient use only" No Longer Active 11/18/2016 [facility] Mucinex 600 mg, 1 tab, Route: PO, Drug form: ERTAB, Q12H, Dosing Weight 198.21, kg, Start date: 11/17/16 21:00:00 CDT, Duration: 1 doses or times, Stop date: 11/17/16 21:00:00 CDTNotes: (Same as: Guaifenesin LA, Humibid LA, Mucinex) "Do Not Crush" Take medication with plenty of water. Inactive 11/18/2016 [facility] Cefazolin 1 gm, Route: IVPB, ABXQ8H, Dosing Weight 198.21, kg, Start date: 11/17/16 18:00:00 CDT, Duration: 30 day, Stop date: 12/17/16 10:00:00 CDTNotes: (Same As: Bela [place]) MEDICATION WASTE Product Size: 1000 mg Product Wasted: ___ mg No Longer Active 11/17/2016 [facility] Clindamycin 300 mg, 1 cap, Route: PO, QID, Dosing Weight 198.21, kg, Start date: 11/17/16 17:00:00 CDT, Duration: 30 day, Stop date: 12/17/16 13:00:00 CDT Inactive 11/17/2016 [facility] Baclofen 10 mg, 1 tab, Route: PO, Drug form: TAB, QID, Dosing Weight 198.21, kg, Start date: 11/17/16 17:00:00 CDT, Duration: 30 day, Stop date: 12/17/16 13:00:00 CDTNotes: (Same As: Lioresal) No Longer Active 11/17/2016 [facility] Tramadol 25 mg, 0.5 tab, Route: PO, Drug form: TAB, Q8H, Dosing Weight 198.21, kg, PRN Pain Score 4-6, Start date: 11/17/16 15:47:00 CDT, Duration: 30 day, Stop date: 12/17/16 15:46:00 CDTNotes: Not to exceed 400mg/day. (Same As: Ultram) No Longer Active 11/17/2016 [facility] Acetaminophen 650 mg, 20.3 mL, Route: PO, Drug form: LIQ, Q6H, Dosing Weight 198.21, kg, PRN Other -See Comment, Start date: 11/17/16 15:47:00 CDT, Duration: 30 day, Stop date: 12/17/16 15:46:00 CDT, feverNotes: M ax [id number]/day (4 gm/day). (Same as: Tylenol) No Longer Active 11/17/2016 [facility] Acetaminophen 325 MG / Hydrocodone Bitartrate 10 MG Oral Tablet [[place] 10/325] 1 tab, Route: PO, Drug Form: TAB, Dosing Weight 198.21, kg, Q6H, PRN Pain 1-3/Temp > 100.4 F, Start date: 11/17/16 15:39:00 CDT, Duration: 30 day, Stop date: 12/17/16 15:38:00 CDTNotes: Do not exceed 4gm/day of acetaminophen. (Same as: [place] 325/10) No Longer Active 11/17/2016 [facility] Insulin, Aspart, Human 3 unit, 0.03 mL, Route: SUB-Q, Drug form: SOLN, TID-Before Meals, Dosing Weight 198.21, kg, PRN Blood Glucose Results, Start date: 11/17/16 12:42:00 CDT, Duration: 30 day, Stop date: 12/17/16 12:41:00 CDTNotes: Roll in palms of hands gently; Do not shake vigorously. (Same as: NovoLOG) "single patient use only" WASTE: F/P - Black; E - Municipal Trash Bin Stable for 28 days at room temperature. Expires in days from Date No Longer Active 11/17/2016 [facility] Glucagon 1 mg, Route: IM, Drug form: PDR/INJ, PRN, Dosing Weight 198.21, kg, PRN Blood Glucose Results, Start date: 11/17/16 12:42:00 CDT, Duration: 30 day, Stop date: 12/17/16 12:41:00 CDT No Longer Active 11/17/2016 [facility] Dextrose 50% Syringe 25 gm, 50 mL, Route: IVP, Drug Form: INJ, Dosing Weight 198.21, kg, PRN, PRN Blood Glucose Results, Start date: 11/17/16 12:42:00 CDT, Duration: 30 day, Stop date: 12/17/16 12:41:00 CDT No Longer Active 11/17/2016 [facility] Saline Flush 0.9% 10 ml, Route: IVP, Drug Form: INJ, Dosing Weight 177.273, kg, Q12H, Start date: 11/17/16 9:00:00 CDT, Duration: 30 day, Stop date: 12/16/16 21:00:00 CDTNotes: (Same as: BD Posiflush) No Longer Active 11/17/2016 [facility] Clindamycin 600 mg, 50 mL, Route: IVPB, Drug form: INJ, ABXQ8H, Dosing Weight 177.273, kg, Start date: 11/17/16 4:00:00 CDT, Duration: 30 day, Stop date: 12/16/16 20:00:00 CDT Inactive 11/17/2016 [facility] Morphine 2 mg, 1 mL, Route: IVP, Drug form: INJ, Q4H, Dosing Weight 198.21, kg, PRN Pain Score 7-10, Start date: 11/17/16 3:00:00 CDT, Duration: 30 day, Stop date: 12/17/16 2:59:00 CDTNotes: (Same as:MORPhine Sulfate) No Longer Active 11/17/2016 [facility] Acetaminophen 325 MG / Hydrocodone Bitartrate 5 MG Oral Tablet 2 tab, Route: PO, Drug Form: TAB, Dosing Weight 198.21, kg, Q6H, PRN Pain 1-3/Temp > 100.4 F, Start date: 11/17/16 0:24:00 CDT, Duration: 30 day, Stop date: 12/17/16 0:23:00 CDT, *Notes: (Same as: [place] 325/5) Do not exceed 4gm/day of acetaminophen. No Longer Active 11/17/2016 [facility] Furosemide 40 mg, 4 mL, Route: IVP, Drug form: INJ, Q8H, Dosing Weight 177.273, kg, Priority: Routine, Start date: 11/17/16 0:00:00 CDT, Duration: 30 day, Stop date: 12/16/16 16:00:00 CDTNotes: (Same as: Lasix) MEDICATION WASTE Product Size: 40 mg Product Wasted: ___ mg Inactive 11/17/2016 [facility] Famotidine 40 mg, PO, Daily, # 60 tab, 0 Refill(s) Active 11/17/2016 [facility] Mucinex 600 mg, PO, Q12H, STOP DATE 11/17, 0 Refill(s) Active 11/17/2016 [facility] Acetaminophen 325 MG / Hydrocodone Bitartrate 10 MG Oral Tablet [[place] 10/325] 1 tab, PO, Q6H, PRN for pain, # 24 tab, 0 Refill(s) Active 11/17/2016 [facility] Tramadol 25 mg, PO, Q8H, PRN Pain, # 20 tab, 0 Refill(s) Active 11/17/2016 [facility] Levemir 6 unit, SUB-Q, Bedtime, 0 Refill(s) Active 11/17/2016 [facility] Lisinopril 10 mg, PO, Daily, 0 Refill(s) No Longer Active 11/17/2016 [facility] Hydrochlorothiazide 12.5 mg, PO, Daily, 0 Refill(s) Active 11/17/2016 [facility] Lasix 60, Daily, 0 Refill(s) No Longer Active 11/17/2016 [facility] Glipizide 2.5 mg, PO, Daily, 0 Refill(s) Active 11/17/2016 [facility] Clindamycin 300 mg=1 cap, PO, QID, # 28 cap, 0 Refill(s), STOP DATE 11/20/16 No Longer Active 11/17/2016 [facility] Celexa 20 mg, PO, Daily, 0 Refill(s) Active 11/17/2016 [facility] Baclofen 10 mg, PO, QID, 0 Refill(s) Active 11/17/2016 [facility] Acetaminophen 650 mg, PO, Q6H, PRN pain, 0 Refill(s) Active 11/17/2016 [facility] aspirin 81 mg tablet, enteric coated 81 mg, 1 tab, Route: PO, Drug form: ECTAB, Q24H, Dosing Weight 177.273, kg, Start date: 11/16/16 22:00:00 CDT, Duration: 30 day, Stop date: 12/15/16 22:00:00 CDTNotes: Do not crush or chew. (Same As: Ecotrin) No Longer Active 11/17/2016 [facility] sodium phosphate + D5W 250 mL 15 mmol, 5 mL, Route: IVPB, PRN, Dosing Weight 177.273, kg, PRN Abnormal Lab Result, For NON-ICU Patients Only., Start date: 11/16/16 21:51:00 CDT, Duration: 30 day, Stop date: 12/16/16 21:50:00 CDT No Longer Active 11/17/2016 [facility] Magnesium Sulfate 1 gm, 100 mL, Route: IVPB, Drug form: INJ, PRN, Dosing Weight 177.273, kg, PRN Abnormal Lab Result, For NON-ICU Patients Only., Start date: 11/16/16 21:51:00 CDT, Duration: 30 day, Stop date: 12/16/16 21:50:00 CDTNotes: WASTE: F/P - Sink; E - Municipal Trash Bin No Longer Active 11/17/2016 [facility] Magnesium Oxide 800 mg, 2 tab, Route: PO, Drug form: TAB, PRN, Dosing Weight 177.273, kg, PRN Abnormal Lab Result, For NON-ICU Patients Only., Start date: 11/16/16 21:51:00 CDT, Duration: 30 day, Stop date: 12/16/16 21:50:00 CDTNotes: (Same as: Mag-Ox 400) Magnesium oxide [id number] elemental magnesium Dose=____mg magnesium oxide (___mg elemental magnesium) No Longer Active 11/17/2016 [facility] Calcium Gluconate 2 gm, 20 mL, Route: IVPB, PRN, Dosing Weight 177.273, kg, PRN Abnormal Lab Result, For NON-ICU Patients Only., Start date: 11/16/16 21:51:00 CDT, Duration: 30 day, Stop date: 12/16/16 21:50:00 CDTNotes: WASTE: F/P - Sink; E - Municipal Trash Bin No Longer Active 11/17/2016 [facility] potassium phosphate-sodium phosphate 250 mg-280 mg-160 mg oral powder for reconstitution 2 pkt, Route: PO, Drug Form: PDR/REC, Dosing Weight 177.273, kg, PRN, PRN Abnormal Lab Result, For NON-ICU Patients Only, Start date: 11/16/16 21:51:00 CDT, Duration: 30 day, Stop date: 12/16/16 21:50:00 CDTNotes: (Same as: Phos-NaK) Each 1.5 gm pkt has 250mg phosphorous. Mix w/2.5oz water and stir. No Longer Active 11/17/2016 [facility] potassium phosphate + sodium chloride 0.9% INJ 250 mL 15 mmol, 5 mL, Route: IVPB, PRN, Dosing Weight 177.273, kg, PRN Abnormal Lab Result, For NON-ICU Patients Only., Start date: 11/16/16 21:51:00 CDT, Duration: 30 day, Stop date: 12/16/16 21:50:00 CDTNotes: (Same as: K Phosphate.) 1 mMol phoshate has 1.47 mEq potassium Infuse over 4 hours No Longer Active 11/17/2016 [facility] potassium chloride 20 mEq, 1 tab, Route: PO, Drug form: ERTAB, PRN, Dosing Weight 177.273, kg, PRN Abnormal Lab Result, For NON-ICU Patients Only, Start date: 11/16/16 21:51:00 CDT, Duration: 30 day, Stop date: 12/16/16 21:50:00 CDTNotes: (Same as: K-Dur 20) "Do Not Crush" With food and full glass of water No Longer Active 11/17/2016 [facility] Saline Flush 0.9% 10 ml, Route: IVP, Drug Form: INJ, Dosing Weight 177.273, kg, PRN, PRN Line Flush, Start date: 11/16/16 21:51:00 CDT, Duration: 30 day, Stop date: 12/16/16 21:50:00 CDTNotes: (Same as: BD Posiflush) No Longer Active 11/17/2016 [facility] Ondansetron 4 mg, 2 mL, Route: IVP, Drug form: INJ, Q8H, Dosing Weight 177.273, kg, PRN Nausea & Vomiting, Start date: 11/16/16 21:51:00 CDT, Duration: 30 day, Stop date: 12/16/16 21:50:00 CDTNotes: (Same as: Zofran) MEDICATION WASTE Product Size: 4 mg Product Wasted: ___ mg No Longer Active 11/17/2016 [facility] Clindamycin 600 mg, 50 mL, Route: IVPB, Drug form: INJ, ONCE, Dosing Weight 177.273, kg, Priority: STAT, Start date: 11/16/16 18:43:00 CDT, Stop date: 11/16/16 18:43:00 CDT Inactive 11/16/2016 [facility] Acetaminophen 325 MG / Hydrocodone Bitartrate 5 MG Oral Tablet [[place] 5/325] 2 tab, Route: PO, Drug Form: TAB, Dosing Weight 177.273, kg, ONCE, STAT, Start date: 11/16/16 18:43:00 CDT, Stop date: 11/16/16 18:43:00 CDTNotes: (Same as: [place] 325/5) Do not exceed 4gm/day of acetaminophen. Inactive 11/16/2016 [facility] Lasix 40 mg, 4 mL, Route: IVP, Drug form: INJ, ONCE, Dosing Weight 177.273, kg, Priority: STAT, Start date: 11/16/16 18:23:00 CDT, Stop date: 11/16/16 18:23:00 CDTNotes: (Same as: Lasix) MEDICATION WASTE Product Size: 40 mg Product Wasted: ___ mg Inactive 11/16/2016 [facility] Saline Flush 0.9% 10 mL, Route: IVP, Drug Form: INJ, Dosing Weight 177.273, kg, PRN, PRN Line Flush, Start date: 11/16/16 17:48:00 CDT, Duration: 30 day, Stop date: 12/16/16 17:47:00 CDTNotes: (Same as: BD Posiflush) No Longer Active 11/16/2016 [facility] Allergies, Adverse Reactions, Alerts Substance Category Reaction Severity Reaction type Status Date Reported Comments Source morphine Assertion Drug allergy Active [facility] NKFA Assertion Drug allergy Active [facility] Immunizations Immunization Date Given Site Status Last Updated Comments Source pneumococcal 23-valent vaccine 11/17/2016 Right deltoid completed [facility] pneumococcal 23-valent vaccine 11/17/2016 Right deltoid completed [facility] [place] pneumococcal 23-valent vaccine 11/17/2016 Right deltoid completed [facility] Results Order Name Results Value Reference Range Date Interpretation Comments Source Chest 2 views DX Chest 2 views DX HISTORY: Coughing - coughing TECHNIQUE: PA and lateral views of the chest. COMPARISON: Study dated 10/25/2017. FINDINGS: There is no focal consolidation, pleural effusion, or evidence of pneumothorax. Stable mild cardiomegaly with mild central pulmonary vascular congestion seen. IMPRESSION: Stable mild cardiomegaly with mild central pulmonary vascular congestion seen. [id number] 01/14/2019 - - Read by: Jas Ballesteros MD Dictated Date/time: 01/14/19 13:08 Electronically Signed by: Jas Ballesteros MD 01/14/19 13:09 FINAL REPORT [facility] ELECTROLYTES POC Potassium 4.4 meq/L 3.5 - 5.1 10/11/2018 [facility] ELECTROLYTES POC Glucose 195 mg/dL 70 - 99 10/11/2018 [facility] ELECTROLYTES POC Hematocrit 49.0 % 42.0 - 54.0 10/11/2018 [facility] ELECTROLYTES POC Hemoglobin 16.7 g/dL 14.0 - 18.0 10/11/2018 [facility] ELECTROLYTES POC Sodium 142 meq/L 135 - 145 10/11/2018 [facility] Chest 1view DX Chest 1view DX Clinical Indication: Correct Line Placement.; Comparison: 10/19/2017 Technique: X-ray chest frontal projection FINDINGS: There is moderate bilateral pulmonary congestion. A left PICC line is noted with its tip in the superior vena cava. The cardiac silhouette is prominent. The mediastinum and charlee are unremarkable. The visualized bones and soft tissues are within normal limits. IMPRESSION: Left PICC line with its tip in the superior vena cava. Moderate bilateral pulmonary congestion. SL: BMUSTMOHAN 10/25/2017 - - Read by: Tana Dye MD Dictated Date/time: 10/25/17 15:24 Electronically Signed by: Tana Dye MD 10/25/17 15:25 FINAL REPORT [facility] CHEM PANEL A/G Ratio 0.6 0.7 - 1.6 10/25/2017 [facility] CHEM PANEL eGFR 117 mL/min/1.73m2 10/25/2017 Result Comment: The eGFR is calculated using the CKD-EPI formula. In most young, healthy individuals the eGFR will be >90 mL/min/1.73m2. The eGFR declines with age. An eGFR of 60-89 may be normal in some populations, particularly the elderly, for whom the CKD-EPI formula has not been extensively validated. Use of the eGFR is not recommended in the following populations: Individuals with unstable creatinine concentrations, including patients and those with serious co-morbid conditions. Patients with extremes in muscle mass or diet. The data above are obtained from the National Kidney Disease Education Program (NKDEP) which additionally recommends that when the eGFR is used in patients with extremes of body mass index for purposes of drug dosing, the eGFR should be multiplied by the estimated BMI. [facility] CHEM PANEL Globulin 4.2 g/dL 2.7 - 4.2 10/25/2017 [facility] CHEM PANEL AGAP 15.5 meq/L 10.0 - 20.0 10/25/2017 [facility] CHEM PANEL B/C Ratio 23 6 - 25 10/25/2017 [facility] CHEM PANEL AST 37 unit/L 0 - 37 10/25/2017 [facility] CHEM PANEL ALT 28 unit/L 0 - 65 10/25/2017 [facility] CHEM PANEL Bili Total 0.7 mg/dL 0.2 - 1.3 10/25/2017 [facility] CHEM PANEL Alk Phos 74 unit/L 39 - 136 10/25/2017 [facility] CHEM PANEL CO2 38 meq/L 24 - 32 10/25/2017 [facility] CHEM PANEL Chloride Lvl 89 meq/L 95 - 109 10/25/2017 [facility] CHEM PANEL Total Protein 6.8 g/dL 6.4 - 8.4 10/25/2017 [facility] CHEM PANEL Calcium Lvl 8.5 mg/dL 8.5 - 10.5 10/25/2017 [facility] CHEM PANEL Albumin Lvl 2.6 g/dL 3.5 - 5.0 10/25/2017 [facility] CHEM PANEL Glucose Lvl 193 mg/dL 70 - 99 10/25/2017 [facility] CHEM PANEL Creatinine Lvl 0.83 mg/dL 0.50 - 1.40 10/25/2017 [facility] CHEM PANEL BUN 19 mg/dL 7 - 22 10/25/2017 [facility] CHEM PANEL Potassium Lvl 3.5 meq/L 3.5 - 5.1 10/25/2017 [facility] CHEM PANEL Sodium Lvl 139 meq/L 135 - 145 10/25/2017 [facility] HEMATOLOGY RDW 17.2 % 11.5 - 14.5 10/25/2017 [facility] HEMATOLOGY MPV 9.6 fL 7.4 - 10.4 10/25/2017 [facility] MCHC 31.6 g/dL 32.0 - 36.0 10/25/2017 [facility] MCH 29.1 pg 27.0 - 31.0 10/25/2017 [facility] Platelet 133 K/CMM 133 - 450 10/25/2017 [facility] Hct 49.4 % 42.0 - 54.0 10/25/2017 [facility] MCV 92.1 fL 80.0 - 94.0 10/25/2017 [facility] WBC 7.3 K/CMM 3.7 - 10.4 10/25/2017 [facility] Hgb 15.6 g/dL 14.0 - 18.0 10/25/2017 [facility] RBC 5.37 M/CMM 4.70 - 6.10 10/25/2017 [facility] Eosinophils # 0.2 K/CMM 0.0 - 0.5 10/25/2017 [facility] Eosinophils 3.3 % 0.0 - 4.0 10/25/2017 [facility] Segs-Bands # 5.6 K/CMM 1.5 - 8.1 10/25/2017 [facility] Basophils 0.3 % 0.0 - 1.0 10/25/2017 [facility] Monocytes # 0.5 K/CMM 0.0 - 0.8 10/25/2017 [facility] Lymphocytes # 0.9 K/CMM 1.0 - 5.5 10/25/2017 [facility] Lymphocytes 12.4 % 20.0 - 40.0 10/25/2017 [facility] Segs 76.9 % 45.0 - 75.0 10/25/2017 [facility] Monocytes 7.1 % 2.0 - 12.0 10/25/2017 [facility] TOXICOLOGY Vanco Tr 19.2 ug/ml 10/24/2017 [facility] TOXICOLOGY Vanco Tr TND 1600 10/24/2017 [facility] Elbow 3 views Bilateral DX Elbow 3 views Bilateral DX BILATERAL ELBOWS, 3 VIEWS HISTORY: ; - left elbow pain; severe left shoulder and left elbow pain, no specific injury COMPARISON: None available. LEFT ELBOW: No fracture, dislocation, or aggressive osseous lesion. No evidence of elbow joint effusion. The osseous and soft tissue structures are normal. RIGHT ELBOW: No fracture, dislocation, or aggressive osseous lesion. No evidence of elbow joint effusion. The osseous and soft tissue structures are normal. SL: [id number] 10/22/2017 - - Read by: King Galloway MD Dictated Date/time: 10/22/17 09:49 Electronically Signed by: King Galloway MD 10/22/17 09:51 FINAL REPORT [facility] Shoulder 2+ Views Bilateral DX Shoulder 2+ Views Bilateral DX Clinical Indication: - left shoulder pain; Comparison: None FINDINGS: AP and scapular Y-view radiographs of the bilateral shoulders were obtained. No acute fracture or dislocation is identified. The AC and CC joint spaces are preserved. No soft tissue swelling or radiopaque foreign body is seen. There is no soft tissue gas or osseous erosive change noted. IMPRESSION: 1. No fracture or dislocation of the bilateral shoulders. SL: [id number] 10/22/2017 - - Read by: Jas Chavis MD Dictated Date/time: 10/22/17 09:53 Electronically Signed by: Jas Chavis MD 10/22/17 09:54 FINAL REPORT [facility] Hgb 16.4 g/dL 14.0 - 18.0 10/21/2017 [facility] Hct 52.5 % 42.0 - 54.0 10/21/2017 [facility] MCV 92.1 fL 80.0 - 94.0 10/21/2017 [facility] WBC 9.7 K/CMM 3.7 - 10.4 10/21/2017 [facility] RDW 17.9 % 11.5 - 14.5 10/21/2017 [facility] RBC 5.70 M/CMM 4.70 - 6.10 10/21/2017 [facility] Platelet 125 K/CMM 133 - 450 10/21/2017 [facility] MCH 28.8 pg 27.0 - 31.0 10/21/2017 [facility] MPV 10.2 fL 7.4 - 10.4 10/21/2017 [facility] MCHC 31.3 g/dL 32.0 - 36.0 10/21/2017 [facility] CHEM PANEL eGFR 115 mL/min/1.73m2 10/21/2017 Result Comment: The eGFR is calculated using the CKD-EPI formula. In most young, healthy individuals the eGFR will be >90 mL/min/1.73m2. The eGFR declines with age. An eGFR of 60-89 may be normal in some populations, particularly the elderly, for whom the CKD-EPI formula has not been extensively validated. Use of the eGFR is not recommended in the following populations: Individuals with unstable creatinine concentrations, including patients and those with serious co-morbid conditions. Patients with extremes in muscle mass or diet. The data above are obtained from the National Kidney Disease Education Program (NKDEP) which additionally recommends that when the eGFR is used in patients with extremes of body mass index for purposes of drug dosing, the eGFR should be multiplied by the estimated BMI. [facility] CHEM PANEL AGAP 20.6 meq/L 10.0 - 20.0 10/21/2017 [facility] CHEM PANEL Calcium Lvl 8.4 mg/dL 8.5 - 10.5 10/21/2017 [facility] CHEM PANEL Chloride Lvl 94 meq/L 95 - 109 10/21/2017 [facility] CHEM PANEL CO2 27 meq/L 24 - 32 10/21/2017 [facility] CHEM PANEL Sodium Lvl 137 meq/L 135 - 145 10/21/2017 [facility] CHEM PANEL Potassium Lvl 4.6 meq/L 3.5 - 5.1 10/21/2017 [facility] CHEM PANEL BUN 19 mg/dL 7 - 22 10/21/2017 [facility] CHEM PANEL Creatinine Lvl 0.87 mg/dL 0.50 - 1.40 10/21/2017 [facility] CHEM PANEL Glucose Lvl 165 mg/dL 70 - 99 10/21/2017 [facility] TOXICOLOGY Vanco Tr 10.5 ug/ml 10/21/2017 [facility] TOXICOLOGY Vanco Tr TND 0800 10/21/2017 [facility] VIRAL - SEROLOGY Influ B Negative (10/19/17 11:30 PM) Negative 10/20/2017 [facility] VIRAL - SEROLOGY Influ A Positive 1 *ABN* (10/19/17 11:30 PM) Negative 10/20/2017 Result Comment: "Significant Findings called to CABRERA Rucker at 10/19/2017 23:56 by Read Back OK." [facility] CARDIAC ENZYMES Total CK 68 unit/L 12 - 191 10/20/2017 [facility] CARDIAC ENZYMES CK MB 1.5 ng/mL 0.5 - 3.6 10/20/2017 [facility] CARDIAC ENZYMES BNP 52 pg/mL <=100 pg/mL 10/20/2017 [facility] CARDIAC ENZYMES Troponin-I null 0.00 - 0.40 10/20/2017 [facility] CARDIAC ENZYMES CK MB Index 2.2 0.0 - 2.5 10/20/2017 [facility] CHEM PANEL eGFR 61 mL/min/1.73m2 10/20/2017 Result Comment: The eGFR is calculated using the CKD-EPI formula. In most young, healthy individuals the eGFR will be >90 mL/min/1.73m2. The eGFR declines with age. An eGFR of 60-89 may be normal in some populations, particularly the elderly, for whom the CKD-EPI formula has not been extensively validated. Use of the eGFR is not recommended in the following populations: Individuals with unstable creatinine concentrations, including patients and those with serious co-morbid conditions. Patients with extremes in muscle mass or diet. The data above are obtained from the National Kidney Disease Education Program (NKDEP) which additionally recommends that when the eGFR is used in patients with extremes of body mass index for purposes of drug dosing, the eGFR should be multiplied by the estimated BMI. [facility] CHEM PANEL Bili Total 0.6 mg/dL 0.2 - 1.3 10/20/2017 [facility] CHEM PANEL Globulin 5.1 g/dL 2.7 - 4.2 10/20/2017 [facility] CHEM PANEL A/G Ratio 0.6 0.7 - 1.6 10/20/2017 [facility] CHEM PANEL B/C Ratio 17 6 - 25 10/20/2017 [facility] CHEM PANEL Alk Phos 102 unit/L 39 - 136 10/20/2017 [facility] CHEM PANEL ALT 42 unit/L 0 - 65 10/20/2017 [facility] CHEM PANEL AGAP 12.6 meq/L 10.0 - 20.0 10/20/2017 [facility] CHEM PANEL Albumin Lvl 3.3 g/dL 3.5 - 5.0 10/20/2017 [facility] CHEM PANEL AST 32 unit/L 0 - 37 10/20/2017 [facility] CHEM PANEL Sodium Lvl 135 meq/L 135 - 145 10/20/2017 [facility] CHEM PANEL Potassium Lvl 3.6 meq/L 3.5 - 5.1 10/20/2017 [facility] CHEM PANEL BUN 25 mg/dL 7 - 22 10/20/2017 [facility] CHEM PANEL Creatinine Lvl 1.50 mg/dL 0.50 - 1.40 10/20/2017 [facility] CHEM PANEL Total Protein 8.4 g/dL 6.4 - 8.4 10/20/2017 [facility] CHEM PANEL Glucose Lvl 295 mg/dL 70 - 99 10/20/2017 [facility] CHEM PANEL Calcium Lvl 8.9 mg/dL 8.5 - 10.5 10/20/2017 [facility] CHEM PANEL Chloride Lvl 92 meq/L 95 - 109 10/20/2017 [facility] CHEM PANEL CO2 34 meq/L 24 - 32 10/20/2017 [facility] HEMATOLOGY MCV 91.2 fL 80.0 - 94.0 10/20/2017 [facility] HEMATOLOGY Hct 56.0 % 42.0 - 54.0 10/20/2017 [facility] HEMATOLOGY MPV 10.3 fL 7.4 - 10.4 10/20/2017 [facility] HEMATOLOGY Platelet 153 K/CMM 133 - 450 10/20/2017 [facility] RDW 17.6 % 11.5 - 14.5 10/20/2017 [facility] MCHC 31.8 g/dL 32.0 - 36.0 10/20/2017 [facility] MCH 29.0 pg 27.0 - 31.0 10/20/2017 [facility] WBC 8.9 K/CMM 3.7 - 10.4 10/20/2017 [facility] RBC 6.14 M/CMM 4.70 - 6.10 10/20/2017 [facility] Hgb 17.8 g/dL 14.0 - 18.0 10/20/2017 [facility] PTT 30.5 s 22.9 - 35.8 10/20/2017 [facility] PT 13.0 s 12.0 - 14.7 10/20/2017 [facility] HEMATOLOGY INR 0.98 0.85 - 1.17 10/20/2017 [facility] HEMATOLOGY Basophils # 0.1 K/CMM 0.0 - 0.2 10/20/2017 [facility] HEMATOLOGY Eosinophils 1.7 % 0.0 - 4.0 10/20/2017 [facility] HEMATOLOGY Basophils 0.6 % 0.0 - 1.0 10/20/2017 [facility] HEMATOLOGY Monocytes # 0.6 K/CMM 0.0 - 0.8 10/20/2017 [facility] HEMATOLOGY Eosinophils # 0.2 K/CMM 0.0 - 0.5 10/20/2017 [facility] HEMATOLOGY Monocytes 6.4 % 2.0 - 12.0 10/20/2017 [facility] HEMATOLOGY Lymphocytes 19.9 % 20.0 - 40.0 10/20/2017 [facility] HEMATOLOGY Lymphocytes # 1.8 K/CMM 1.0 - 5.5 10/20/2017 [facility] Segs-Bands # 6.4 K/CMM 1.5 - 8.1 10/20/2017 [facility] Segs 71.4 % 45.0 - 75.0 10/20/2017 [facility] Foot 2 views DX Foot 2 views DX EXAM: XR LEFT FOOT, 2 VIEWS DATE: 10/19/2017 10:34 PM WIDTH STRIPPER INDICATION: Wound. COMPARISON: 04/18/2017. TECHNIQUE: Frontal and lateral radiographs of the left foot were obtained. FINDINGS: The bones are diffusely osteopenic. Evaluation of fine bony details limited by extensive soft tissue swelling of the left foot and lower leg. Postoperative resection involving the mid shaft of the proximal phalanx of the 4th toe is redemonstrated. Ulceration along the lateral aspect of the 5th toe is identified. IMPRESSION: 1. Ulceration along the lateral aspect of the 5th toe. 2. Extensive soft tissue swelling of the left leg and foot. 3. Bones appear diffusely osteopenic but grossly intact. Bone scan or MRI may be obtained for further evaluation if there is continued clinical concern for osteomyelitis given limitations of incomplete penetration and noise from portable technique. 4. Postoperative resection involving the midshaft of the proximal phalanx of the 4th toe. SL: [id number] 10/19/2017 - - Read by: Bill Olivas MD Dictated Date/time: 10/20/17 00:11 Electronically Signed by: Bill Olivas MD 10/20/17 00:16 FINAL REPORT [facility] Chest 1view DX Chest 1view DX EXAM: XR CHEST 1 VIEW DATE: 10/19/2017 10:33 PM WIDTH STRIPPER INDICATION: Shortness of breath. COMPARISON: 06/26/2017. TECHNIQUE: A single AP view of the chest was obtained. FINDINGS: The examination is limited by low lung volumes and body habitus. The cardiac silhouette is enlarged, with pronounced central pulmonary vascular congestion and pulmonary edema. No evidence for pneumothorax. The costophrenic recesses are sharp. No acute osseous abnormality is identified. IMPRESSION: Enlargement of the cardiac silhouette with moderate vascular congestion and pulmonary edema. SL: [id number] 10/19/2017 - - Read by: Bill Olivas MD Dictated Date/time: 10/20/17 00:08 Electronically Signed by: Bill Olivas MD 10/20/17 00:09 FINAL REPORT [facility] ELECTROLYTES AGAP 14.2 meq/L 10.0 - 20.0 07/01/2017 [facility] ELECTROLYTES eGFR 92 mL/min/1.73m2 07/01/2017 Result Comment: The eGFR is calculated using the CKD-EPI formula. In most young, healthy individuals the eGFR will be >90 mL/min/1.73m2. The eGFR declines with age. An eGFR of 60-89 may be normal in some populations, particularly the elderly, for whom the CKD-EPI formula has not been extensively validated. Use of the eGFR is not recommended in the following populations: Individuals with unstable creatinine concentrations, including patients and those with serious co-morbid conditions. Patients with extremes in muscle mass or diet. The data above are obtained from the National Kidney Disease Education Program (NKDEP) which additionally recommends that when the eGFR is used in patients with extremes of body mass index for purposes of drug dosing, the eGFR should be multiplied by the estimated BMI. [facility] ELECTROLYTES Creatinine Lvl 1.08 mg/dL 0.50 - 1.40 07/01/2017 [facility] ELECTROLYTES BUN 29 mg/dL 7 - 22 07/01/2017 [facility] ELECTROLYTES Glucose Lvl 116 mg/dL 70 - 99 07/01/2017 [facility] ELECTROLYTES Calcium Lvl 8.9 mg/dL 8.5 - 10.5 07/01/2017 [facility] ELECTROLYTES CO2 27 meq/L 24 - 32 07/01/2017 [facility] ELECTROLYTES Chloride Lvl 98 meq/L 95 - 109 07/01/2017 [facility] ELECTROLYTES Potassium Lvl 4.2 meq/L 3.5 - 5.1 07/01/2017 [facility] ELECTROLYTES Sodium Lvl 135 meq/L 135 - 145 07/01/2017 [facility] HEMATOLOGY Lymphocytes # 1.2 K/CMM 1.0 - 5.5 07/01/2017 [facility] HEMATOLOGY Segs-Bands # 8.2 K/CMM 1.5 - 8.1 07/01/2017 [facility] HEMATOLOGY Monocytes # 0.9 K/CMM 0.0 - 0.8 07/01/2017 [facility] HEMATOLOGY Eosinophils # 0.1 K/CMM 0.0 - 0.5 07/01/2017 [facility] HEMATOLOGY Basophils 0.3 % 0.0 - 1.0 07/01/2017 [facility] HEMATOLOGY Eosinophils 1.3 % 0.0 - 4.0 07/01/2017 [facility] Segs 78.0 % 45.0 - 75.0 07/01/2017 [facility] Lymphocytes 11.4 % 20.0 - 40.0 07/01/2017 [facility] Monocytes 9.0 % 2.0 - 12.0 07/01/2017 [facility] MPV 9.7 fL 7.4 - 10.4 07/01/2017 [facility] Platelet 120 K/CMM 133 - 450 07/01/2017 [facility] RDW 18.6 % 11.5 - 14.5 07/01/2017 [facility] MCHC 32.3 g/dL 32.0 - 36.0 07/01/2017 [facility] MCV 90.0 fL 80.0 - 94.0 07/01/2017 [facility] MCH 29.1 pg 27.0 - 31.0 07/01/2017 [facility] Hct 48.7 % 42.0 - 54.0 07/01/2017 [facility] Hgb 15.7 g/dL 14.0 - 18.0 07/01/2017 [facility] WBC 10.5 K/CMM 3.7 - 10.4 07/01/2017 [facility] RBC 5.41 M/CMM 4.70 - 6.10 07/01/2017 [facility] CHEM PANEL eGFR 90 mL/min/1.73m2 06/30/2017 Result Comment: The eGFR is calculated using the CKD-EPI formula. In most young, healthy individuals the eGFR will be >90 mL/min/1.73m2. The eGFR declines with age. An eGFR of 60-89 may be normal in some populations, particularly the elderly, for whom the CKD-EPI formula has not been extensively validated. Use of the eGFR is not recommended in the following populations: Individuals with unstable creatinine concentrations, including patients and those with serious co-morbid conditions. Patients with extremes in muscle mass or diet. The data above are obtained from the National Kidney Disease Education Program (NKDEP) which additionally recommends that when the eGFR is used in patients with extremes of body mass index for purposes of drug dosing, the eGFR should be multiplied by the estimated BMI. [facility] CHEM PANEL Sodium Lvl 137 meq/L 135 - 145 06/30/2017 [facility] CHEM PANEL CO2 33 meq/L 24 - 32 06/30/2017 [facility] CHEM PANEL Creatinine Lvl 1.10 mg/dL 0.50 - 1.40 06/30/2017 [facility] CHEM PANEL BUN 29 mg/dL 7 - 22 06/30/2017 [facility] CHEM PANEL Glucose Lvl 150 mg/dL 70 - 99 06/30/2017 [facility] CHEM PANEL AGAP 10.5 meq/L 10.0 - 20.0 06/30/2017 [facility] CHEM PANEL Chloride Lvl 98 meq/L 95 - 109 06/30/2017 [facility] CHEM PANEL Potassium Lvl 4.5 meq/L 3.5 - 5.1 06/30/2017 [facility] CHEM PANEL Calcium Lvl 8.7 mg/dL 8.5 - 10.5 06/30/2017 [facility] CHEM PANEL eGFR 78 mL/min/1.73m2 06/29/2017 Result Comment: The eGFR is calculated using the CKD-EPI formula. In most young, healthy individuals the eGFR will be >90 mL/min/1.73m2. The eGFR declines with age. An eGFR of 60-89 may be normal in some populations, particularly the elderly, for whom the CKD-EPI formula has not been extensively validated. Use of the eGFR is not recommended in the following populations: Individuals with unstable creatinine concentrations, including patients and those with serious co-morbid conditions. Patients with extremes in muscle mass or diet. The data above are obtained from the National Kidney Disease Education Program (NKDEP) which additionally recommends that when the eGFR is used in patients with extremes of body mass index for purposes of drug dosing, the eGFR should be multiplied by the estimated BMI. [facility] CHEM PANEL AGAP 7.4 meq/L 10.0 - 20.0 06/29/2017 [facility] CHEM PANEL Calcium Lvl 9.1 mg/dL 8.5 - 10.5 06/29/2017 [facility] CHEM PANEL Chloride Lvl 102 meq/L 95 - 109 06/29/2017 [facility] CHEM PANEL CO2 38 meq/L 24 - 32 06/29/2017 [facility] CHEM PANEL Creatinine Lvl 1.24 mg/dL 0.50 - 1.40 06/29/2017 [facility] CHEM PANEL Sodium Lvl 143 meq/L 135 - 145 06/29/2017 [facility] CHEM PANEL Potassium Lvl 4.4 meq/L 3.5 - 5.1 06/29/2017 [facility] CHEM PANEL Glucose Lvl 110 mg/dL 70 - 99 06/29/2017 [facility] CHEM PANEL BUN 38 mg/dL 7 - 22 06/29/2017 [facility] HEMATOLOGY Hct 53.1 % 42.0 - 54.0 06/29/2017 [facility] HEMATOLOGY MCV 91.4 fL 80.0 - 94.0 06/29/2017 [facility] HEMATOLOGY MCHC 31.6 g/dL 32.0 - 36.0 06/29/2017 [facility] MCH 28.9 pg 27.0 - 31.0 06/29/2017 [facility] HEMATOLOGY RDW 19.0 % 11.5 - 14.5 06/29/2017 [facility] HEMATOLOGY Platelet 140 K/CMM 133 - 450 06/29/2017 [facility] HEMATOLOGY MPV 9.8 fL 7.4 - 10.4 06/29/2017 [facility] HEMATOLOGY WBC 9.9 K/CMM 3.7 - 10.4 06/29/2017 [facility] HEMATOLOGY Hgb 16.8 g/dL 14.0 - 18.0 06/29/2017 [facility] HEMATOLOGY RBC 5.80 M/CMM 4.70 - 6.10 06/29/2017 [facility] HEMATOLOGY Segs-Bands # 8.3 K/CMM 1.5 - 8.1 06/29/2017 [facility] HEMATOLOGY Monocytes # 0.8 K/CMM 0.0 - 0.8 06/29/2017 [facility] HEMATOLOGY Lymphocytes # 0.7 K/CMM 1.0 - 5.5 06/29/2017 [facility] HEMATOLOGY Basophils # 0.1 K/CMM 0.0 - 0.2 06/29/2017 [facility] HEMATOLOGY Eosinophils # 0.1 K/CMM 0.0 - 0.5 06/29/2017 [facility] HEMATOLOGY Segs 84.2 % 45.0 - 75.0 06/29/2017 [facility] HEMATOLOGY Basophils 0.6 % 0.0 - 1.0 06/29/2017 [facility] HEMATOLOGY Monocytes 7.7 % 2.0 - 12.0 06/29/2017 [facility] HEMATOLOGY Lymphocytes 6.7 % 20.0 - 40.0 06/29/2017 [facility] HEMATOLOGY Eosinophils 0.8 % 0.0 - 4.0 06/29/2017 [facility] CHEM PANEL Magnesium Lvl 2.3 mg/dL 1.8 - 2.4 06/28/2017 [facility] CARDIAC ENZYMES BNP 257 pg/mL <=100 pg/mL 06/28/2017 [facility] CHEM PANEL Phosphorus 4.6 mg/dL 2.5 - 4.5 06/28/2017 [facility] CHEM PANEL Magnesium Lvl 2.9 mg/dL 1.8 - 2.4 06/28/2017 [facility] CHEM PANEL AST 11 unit/L 0 - 37 06/27/2017 [facility] CHEM PANEL ALT 20 unit/L 0 - 65 06/27/2017 [facility] CHEM PANEL Bili Total 0.7 mg/dL 0.2 - 1.3 06/27/2017 [facility] CHEM PANEL Alk Phos 101 unit/L 39 - 136 06/27/2017 [facility] CHEM PANEL Total Protein 7.5 g/dL 6.4 - 8.4 06/27/2017 [facility] CHEM PANEL Albumin Lvl 3.2 g/dL 3.5 - 5.0 06/27/2017 [facility] CHEM PANEL B/C Ratio 44 6 - 25 06/27/2017 [facility] CHEM PANEL Globulin 4.3 g/dL 2.7 - 4.2 06/27/2017 [facility] CHEM PANEL A/G Ratio 0.7 0.7 - 1.6 06/27/2017 [facility] CHEM PANEL Magnesium Lvl 3.1 mg/dL 1.8 - 2.4 06/27/2017 [facility] HEMATOLOGY RBC 5.89 M/CMM 4.70 - 6.10 06/27/2017 [facility] HEMATOLOGY WBC 8.0 K/CMM 3.7 - 10.4 06/27/2017 [facility] HEMATOLOGY MCHC 31.6 g/dL 32.0 - 36.0 06/27/2017 [facility] HEMATOLOGY Hgb 17.0 g/dL 14.0 - 18.0 06/27/2017 [facility] HEMATOLOGY MCV 91.3 fL 80.0 - 94.0 06/27/2017 [facility] HEMATOLOGY MCH 28.9 pg 27.0 - 31.0 06/27/2017 [facility] HEMATOLOGY Hct 53.8 % 42.0 - 54.0 06/27/2017 [facility] HEMATOLOGY MPV 10.3 fL 7.4 - 10.4 06/27/2017 [facility] HEMATOLOGY Platelet 135 K/CMM 133 - 450 06/27/2017 [facility] HEMATOLOGY RDW 20.2 % 11.5 - 14.5 06/27/2017 [facility] HEMATOLOGY Lymphocytes 15.9 % 20.0 - 40.0 06/27/2017 [facility] HEMATOLOGY Monocytes 6.6 % 2.0 - 12.0 06/27/2017 [facility] HEMATOLOGY Segs 75.6 % 45.0 - 75.0 06/27/2017 [facility] HEMATOLOGY Eosinophils # 0.1 K/CMM 0.0 - 0.5 06/27/2017 [facility] HEMATOLOGY Eosinophils 1.3 % 0.0 - 4.0 06/27/2017 [facility] HEMATOLOGY Lymphocytes # 1.3 K/CMM 1.0 - 5.5 06/27/2017 [facility] HEMATOLOGY Monocytes # 0.5 K/CMM 0.0 - 0.8 06/27/2017 [facility] HEMATOLOGY Basophils 0.6 % 0.0 - 1.0 06/27/2017 [facility] HEMATOLOGY Segs-Bands # 6.0 K/CMM 1.5 - 8.1 06/27/2017 [facility] URINE AND STOOL UA Urobilinogen <=1.0 mg/dL 0.1 - 1.0 06/27/2017 [facility] URINE AND STOOL UA Leuk Est Negative (06/27/17 5:40 AM) Negative 06/27/2017 [facility] URINE AND STOOL UA Nitrite Negative (06/27/17 5:40 AM) Negative 06/27/2017 [facility] URINE AND STOOL UA Bili Negative *NA* (06/27/17 5:40 AM) Negative 06/27/2017 [facility] URINE AND STOOL UA Blood Negative (06/27/17 5:40 AM) Negative 06/27/2017 [facility] URINE AND STOOL UA Ketones Negative mg/dL Negative mg/dL 06/27/2017 [facility] URINE AND STOOL UA Bacteria Occasional /HPF None Seen /HPF 06/27/2017 [facility] URINE AND STOOL UA WBC 1 /HPF 0 - 5 06/27/2017 [facility] URINE AND STOOL UA Sq Epi Occasional /LPF Few /LPF 06/27/2017 [facility] URINE AND STOOL UA Color Ltyellow 06/27/2017 [facility] URINE AND STOOL UA Hyal Cast 1 /LPF 0 - 2 06/27/2017 [facility] URINE AND STOOL UA pH 6.0 5.0 - 8.0 06/27/2017 [facility] URINE AND STOOL UA Glucose Negative mg/dL Negative mg/dL 06/27/2017 [facility] URINE AND STOOL UA Protein Negative mg/dL Negative mg/dL 06/27/2017 [facility] URINE AND STOOL UA Spec Grav 1.011 <=1.030 06/27/2017 [facility] URINE AND STOOL UA Turbidity Clear (06/27/17 5:40 AM) Clear 06/27/2017 [facility] URINE CHEM U Eos None Seen (06/27/17 5:40 AM) None Seen 06/27/2017 [facility] URINE CHEM U Sodium 44 meq/L 06/27/2017 [facility] URINE CHEM U Creatinine 82.10 mg/dL 06/27/2017 [facility] Retroperitoneal Complete US Retroperitoneal Complete US Clinical Indication: - renal failure; Comparison: None TECHNIQUE: Multiple longitudinal and transverse real time sonographic images of the kidneys and urinary bladder are obtained. FINDINGS: KIDNEY: The right kidney measures 12.3 x 8 x 7.8 cm. The left kidney measures 13.5 x 7.1 x 7.1 cm. The kidneys are normal in size and position. The cortices are normal in thickness. Evaluation for corticomedullary differentiation and renal parenchymal detail is limited due to soft tissue attenuation. No hydronephrosis. BLADDER: Scanning through the pelvis reveals the bladder to be partially distended with anechoic urine. ASCITES: No ascites noted. IMPRESSION: No evidence of hydronephrosis. Parenchymal detail is limited due to soft tissue attenuation. SL: [id number] 06/26/2017 - - Read by: Amparo Flannery MD Dictated Date/time: 06/26/17 15:06 Electronically Signed by: Amparo Flannery MD 06/26/17 15:08 FINAL REPORT [facility] CARDIAC ENZYMES Total CK 117 unit/L 12 - 191 06/26/2017 [facility] CARDIAC ENZYMES CK MB 2.6 ng/mL 0.5 - 3.6 06/26/2017 [facility] CARDIAC ENZYMES Troponin-I null 0.00 - 0.40 06/26/2017 [facility] CARDIAC ENZYMES CK MB Index 2.2 0.0 - 2.5 06/26/2017 [facility] CHEM PANEL A/G Ratio 0.7 0.7 - 1.6 06/26/2017 [facility] CHEM PANEL Globulin 5.2 g/dL 2.7 - 4.2 06/26/2017 [facility] CHEM PANEL B/C Ratio 33 6 - 25 06/26/2017 [facility] CHEM PANEL AST 18 unit/L 0 - 37 06/26/2017 [facility] CHEM PANEL ALT 19 unit/L 0 - 65 06/26/2017 [facility] CHEM PANEL Bili Total 0.5 mg/dL 0.2 - 1.3 06/26/2017 [facility] CHEM PANEL Alk Phos 102 unit/L 39 - 136 06/26/2017 [facility] CHEM PANEL Total Protein 8.8 g/dL 6.4 - 8.4 06/26/2017 [facility] CHEM PANEL Albumin Lvl 3.6 g/dL 3.5 - 5.0 06/26/2017 [facility] HEMATOLOGY Basophils # 0.1 K/CMM 0.0 - 0.2 06/26/2017 [facility] Chest 1view DX Chest 1view DX Patient Name: NICHO GOFF : 1985; Age: 31 years y/o Male MR: [id number] Study: Chest 1view DX 06/26/2017 1:53 AM CDT Ordering Physician: Henry Martinez DO Clinical Indication: - hyperkalemia; Comparison: 04/26/17 FINDINGS: There is mild prominence of the pulmonary markings. No focal airspace opacities or pleural effusions appreciated. The cardiomediastinal silhouette is enlarged. IMPRESSION: Mild pulmonary vascular congestion, please correlate. Follow-up recommended. SL: [id number] 06/26/2017 - - Read by: Gaby Blackmon MD Dictated Date/time: 06/26/17 02:03 Electronically Signed by: Gaby Blackmon MD 06/26/17 02:06 FINAL REPORT [facility] eGFR 110 mL/min/1.73m2 04/30/2017 Result Comment: The eGFR is calculated using the CKD-EPI formula. In most young, healthy individuals the eGFR will be >90 mL/min/1.73m2. The eGFR declines with age. An eGFR of 60-89 may be normal in some populations, particularly the elderly, for whom the CKD-EPI formula has not been extensively validated. Use of the eGFR is not recommended in the following populations: Individuals with unstable creatinine concentrations, including patients and those with serious co-morbid conditions. Patients with extremes in muscle mass or diet. The data above are obtained from the National Kidney Disease Education Program (NKDEP) which additionally recommends that when the eGFR is used in patients with extremes of body mass index for purposes of drug dosing, the eGFR should be multiplied by the estimated BMI. [facility] CHEM PANEL Creatinine Lvl 0.93 mg/dL 0.50 - 1.40 04/30/2017 [facility] CHEM PANEL Glucose Lvl 175 mg/dL 70 - 99 04/30/2017 [facility] CHEM PANEL Sodium Lvl 136 meq/L 135 - 145 04/30/2017 [facility] CHEM PANEL BUN 24 mg/dL 7 - 22 04/30/2017 [facility] CHEM PANEL Potassium Lvl 3.6 meq/L 3.5 - 5.1 04/30/2017 [facility] CHEM PANEL Calcium Lvl 9.0 mg/dL 8.5 - 10.5 04/30/2017 [facility] CHEM PANEL CO2 30 meq/L 24 - 32 04/30/2017 [facility] CHEM PANEL Chloride Lvl 96 meq/L 95 - 109 04/30/2017 [facility] CHEM PANEL AGAP 13.6 meq/L 10.0 - 20.0 04/30/2017 [facility] CHEM PANEL Magnesium Lvl 2.3 mg/dL 1.8 - 2.4 04/30/2017 [facility] HEMATOLOGY MPV 10.5 fL 7.4 - 10.4 04/30/2017 [facility] HEMATOLOGY RDW 19.7 % 11.5 - 14.5 04/30/2017 [facility] Platelet 143 K/CMM 133 - 450 04/30/2017 [facility] MCH 27.5 pg 27.0 - 31.0 04/30/2017 [facility] MCHC 31.7 g/dL 32.0 - 36.0 04/30/2017 [facility] MCV 86.8 fL 80.0 - 94.0 04/30/2017 [facility] Hct 51.1 % 42.0 - 54.0 04/30/2017 [facility] RBC 5.89 M/CMM 4.70 - 6.10 04/30/2017 [facility] Hgb 16.2 g/dL 14.0 - 18.0 04/30/2017 [facility] WBC 6.7 K/CMM 3.7 - 10.4 04/30/2017 [facility] HEMATOLOGY Eosinophils # 0.2 K/CMM 0.0 - 0.5 04/30/2017 [facility] Lymphocytes # 1.2 K/CMM 1.0 - 5.5 04/30/2017 [facility] Monocytes # 0.5 K/CMM 0.0 - 0.8 04/30/2017 [facility] Segs-Bands # 4.8 K/CMM 1.5 - 8.1 04/30/2017 [facility] HEMATOLOGY Basophils 0.6 % 0.0 - 1.0 04/30/2017 [facility] HEMATOLOGY Eosinophils 2.6 % 0.0 - 4.0 04/30/2017 [facility] HEMATOLOGY Monocytes 6.8 % 2.0 - 12.0 04/30/2017 [facility] HEMATOLOGY Segs 71.8 % 45.0 - 75.0 04/30/2017 [facility] HEMATOLOGY Lymphocytes 18.2 % 20.0 - 40.0 04/30/2017 [facility] Bone scan 3 phase AK Bone scan 3 phase AK Patient Name: NICHO GOFF : 1985; Age: 31 years y/o Male MR: [id number] Study: Bone scan 3 phase AK dated 04/29/2017. Clinical Indication: - left 5th toe ulcer r/o osteo; Comparison: 03/06/2017 Blood flow, blood pool and delayed imaging were performed of both feet and ankles after intravenous administration of 25.8 mCi of technetium 99m MDP injected in the right forearm IV. No significant increased activity is seen to either foot on the blood flow imaging. On the blood pool imaging there is increased uptake in the left ankle, right mid foot, right 1st toe and left 1st metatarsal phalangeal region. Slight increased uptake is seen to the left 5th toe. On the delayed imaging, there is increased uptake to the left ankle, right mid foot and 1st metatarsal phalangeal region bilaterally. There may be slight increased uptake to the left 5th distal phalanx. CONCLUSIONS: 1. No definite nuclear medicine evidence for osteomyelitis. Correlation with MRI of the left foot may be warranted for further evaluation given the slight increased uptake to the left 5th distal phalanx region on one view. 2. Probable degenerative changes left ankle, right mid foot and 1st metatarsal phalangeal region bilaterally. SL: [id number] 04/29/2017 - - Read by: Bill Brand MD Dictated Date/time: 04/30/17 17:06 Electronically Signed by: Bill Brand MD 04/30/17 17:15 FINAL REPORT [facility] ELECTROLYTES AGAP 14.3 meq/L 10.0 - 20.0 04/29/2017 [facility] ELECTROLYTES eGFR 101 mL/min/1.73m2 04/29/2017 Result Comment: The eGFR is calculated using the CKD-EPI formula. In most young, healthy individuals the eGFR will be >90 mL/min/1.73m2. The eGFR declines with age. An eGFR of 60-89 may be normal in some populations, particularly the elderly, for whom the CKD-EPI formula has not been extensively validated. Use of the eGFR is not recommended in the following populations: Individuals with unstable creatinine concentrations, including patients and those with serious co-morbid conditions. Patients with extremes in muscle mass or diet. The data above are obtained from the National Kidney Disease Education Program (NKDEP) which additionally recommends that when the eGFR is used in patients with extremes of body mass index for purposes of drug dosing, the eGFR should be multiplied by the estimated BMI. [facility] ELECTROLYTES CO2 33 meq/L 24 - 32 04/29/2017 [facility] ELECTROLYTES Chloride Lvl 93 meq/L 95 - 109 04/29/2017 [facility] ELECTROLYTES Calcium Lvl 8.9 mg/dL 8.5 - 10.5 04/29/2017 [facility] ELECTROLYTES Potassium Lvl 3.3 meq/L 3.5 - 5.1 04/29/2017 [facility] ELECTROLYTES Sodium Lvl 137 meq/L 135 - 145 04/29/2017 [facility] ELECTROLYTES Glucose Lvl 184 mg/dL 70 - 99 04/29/2017 [facility] ELECTROLYTES BUN 25 mg/dL 7 - 22 04/29/2017 [facility] ELECTROLYTES Creatinine Lvl 1.00 mg/dL 0.50 - 1.40 04/29/2017 [facility] Platelet 149 K/CMM 133 - 450 04/29/2017 [facility] RBC 5.91 M/CMM 4.70 - 6.10 04/29/2017 [facility] WBC 7.2 K/CMM 3.7 - 10.4 04/29/2017 [facility] Hct 51.0 % 42.0 - 54.0 04/29/2017 [facility] Hgb 16.3 g/dL 14.0 - 18.0 04/29/2017 [facility] MCV 86.4 fL 80.0 - 94.0 04/29/2017 [facility] MCHC 31.9 g/dL 32.0 - 36.0 04/29/2017 [facility] RDW 20.3 % 11.5 - 14.5 04/29/2017 [facility] MCH 27.6 pg 27.0 - 31.0 04/29/2017 [facility] HEMATOLOGY MPV 10.5 fL 7.4 - 10.4 04/29/2017 [facility] Lymphocytes # 1.4 K/CMM 1.0 - 5.5 04/29/2017 [facility] HEMATOLOGY Segs-Bands # 5.0 K/CMM 1.5 - 8.1 04/29/2017 [facility] HEMATOLOGY Basophils 0.7 % 0.0 - 1.0 04/29/2017 [facility] HEMATOLOGY Eosinophils 2.8 % 0.0 - 4.0 04/29/2017 [facility] HEMATOLOGY Monocytes 6.5 % 2.0 - 12.0 04/29/2017 [facility] HEMATOLOGY Monocytes # 0.5 K/CMM 0.0 - 0.8 04/29/2017 [facility] HEMATOLOGY Eosinophils # 0.2 K/CMM 0.0 - 0.5 04/29/2017 [facility] Lymphocytes 19.9 % 20.0 - 40.0 04/29/2017 [facility] Segs 70.1 % 45.0 - 75.0 04/29/2017 [facility] CHEM PANEL Phosphorus 4.2 mg/dL 2.5 - 4.5 04/28/2017 [facility] CHEM PANEL Magnesium Lvl 2.1 mg/dL 1.8 - 2.4 04/28/2017 [facility] ELECTROLYTES Chloride Lvl 92 meq/L 95 - 109 04/28/2017 [facility] ELECTROLYTES CO2 35 meq/L 24 - 32 04/28/2017 [facility] ELECTROLYTES Calcium Lvl 9.0 mg/dL 8.5 - 10.5 04/28/2017 [facility] ELECTROLYTES Sodium Lvl 135 meq/L 135 - 145 04/28/2017 [facility] ELECTROLYTES Potassium Lvl 3.2 meq/L 3.5 - 5.1 04/28/2017 [facility] ELECTROLYTES BUN 26 mg/dL 7 - 22 04/28/2017 [facility] ELECTROLYTES Creatinine Lvl 1.10 mg/dL 0.50 - 1.40 04/28/2017 [facility] ELECTROLYTES Glucose Lvl 154 mg/dL 70 - 99 04/28/2017 [facility] ELECTROLYTES eGFR 90 mL/min/1.73m2 04/28/2017 Result Comment: The eGFR is calculated using the CKD-EPI formula. In most young, healthy individuals the eGFR will be >90 mL/min/1.73m2. The eGFR declines with age. An eGFR of 60-89 may be normal in some populations, particularly the elderly, for whom the CKD-EPI formula has not been extensively validated. Use of the eGFR is not recommended in the following populations: Individuals with unstable creatinine concentrations, including patients and those with serious co-morbid conditions. Patients with extremes in muscle mass or diet. The data above are obtained from the National Kidney Disease Education Program (NKDEP) which additionally recommends that when the eGFR is used in patients with extremes of body mass index for purposes of drug dosing, the eGFR should be multiplied by the estimated BMI. [facility] ELECTROLYTES AGAP 11.2 meq/L 10.0 - 20.0 04/28/2017 [facility] HEMATOLOGY MCH 27.2 pg 27.0 - 31.0 04/28/2017 [facility] MCV 85.5 fL 80.0 - 94.0 04/28/2017 [facility] MCHC 31.8 g/dL 32.0 - 36.0 04/28/2017 [facility] Hct 51.9 % 42.0 - 54.0 04/28/2017 [facility] MPV 9.8 fL 7.4 - 10.4 04/28/2017 [facility] Platelet 131 K/CMM 133 - 450 04/28/2017 [facility] RDW 19.8 % 11.5 - 14.5 04/28/2017 [facility] WBC 7.7 K/CMM 3.7 - 10.4 04/28/2017 [facility] RBC 6.06 M/CMM 4.70 - 6.10 04/28/2017 [facility] Hgb 16.5 g/dL 14.0 - 18.0 04/28/2017 [facility] Segs-Bands # 5.3 K/CMM 1.5 - 8.1 04/28/2017 [facility] Lymphocytes # 1.6 K/CMM 1.0 - 5.5 04/28/2017 [facility] HEMATOLOGY Eosinophils 2.8 % 0.0 - 4.0 04/28/2017 [facility] HEMATOLOGY Monocytes 7.2 % 2.0 - 12.0 04/28/2017 [facility] HEMATOLOGY Basophils 0.6 % 0.0 - 1.0 04/28/2017 [facility] Lymphocytes 20.5 % 20.0 - 40.0 04/28/2017 [facility] Segs 68.9 % 45.0 - 75.0 04/28/2017 [facility] HEMATOLOGY Eosinophils # 0.2 K/CMM 0.0 - 0.5 04/28/2017 [facility] HEMATOLOGY Monocytes # 0.6 K/CMM 0.0 - 0.8 04/28/2017 [facility] CHEM PANEL Magnesium Lvl 2.0 mg/dL 1.8 - 2.4 04/27/2017 [facility] CHEM PANEL Phosphorus 3.5 mg/dL 2.5 - 4.5 04/27/2017 [facility] CHEM PANEL Phosphorus 4.1 mg/dL 2.5 - 4.5 04/26/2017 [facility] Chest 1view DX Chest 1view DX Patient Name: NICHO GOFF : 1985; Age: 31 years Male MR: [id number] Study: Chest 1view DX Order Time: 04/26/2017 3:00 AM CDT CLINICAL INDICATION: - pulmonary edema COMPARISON: Chest radiograph on 04/25/2017 FINDINGS: Lines: None. Lungs: Increasing bilateral interstitial opacities. No significant effusion or pneumothorax. Mediastinum: The cardiac silhouette is moderately enlarged. Midline trachea. Bones and soft tissues: No acute abnormalities. IMPRESSION: Increasing pulmonary edema pattern since 04/25/2017. SL: [id number] 04/26/2017 - - Read by: Eric Fournier MD Dictated Date/time: 04/26/17 07:39 Electronically Signed by: Eric Fournier MD 04/26/17 07:40 FINAL REPORT [facility] Abdomen AP DX Abdomen AP DX Patient Name: NICHO GOFF : 1985; Age: 31 years y/o Male MR: [id number] Study: Abdomen AP DX 04/25/2017 7:09 AM CDT Ordering Physician: Dre Patel MD Clinical Indication: - Abdominal pain and nausea; Comparison: None The study is limited by patient body habitus. I believe a midline Weldon catheter is present. Moderate gastric distention. Scattered colonic and small bowel distention without dilatation. No mass or abnormal calcifications. Degenerative changes in the lumbar spine. Enlarged cardiac silhouette. SL: [id number]-TAPAN 04/25/2017 - - Read by: Atul Harris MD Dictated Date/time: 04/25/17 07:54 Electronically Signed by: Atul Harris MD 04/25/17 07:58 FINAL REPORT [facility] 1view DX Chest 1view DX Patient Name: NICHO GOFF : 1985; Age: 31 years y/o Male MR: [id number] * CHEST, portable, 1 view HISTORY: Congestive heart failure. Comparison is made to yesterday. Studies of 04/23/2017 and 04/21/2017 were reviewed. IMPRESSION: 1. The study is limited due to the patient's habitus and portable technique. 2. No change in congestive failure and pulmonary edema. There remains moderate cardiomegaly and prominent pulmonary vascular congestion. There is probable mild residual pulmonary edema. 3. No definite pulmonary infiltrates or pleural effusions although small pleural effusions may not be demonstrated by portable chest radiography, considering the patient's habitus. SL: [id number] 04/25/2017 - - Read by: Michael Ag MD Dictated Date/time: 04/25/17 08:15 Electronically Signed by: Michael Ag MD 04/25/17 08:18 FINAL REPORT [facility] 1view DX Chest 1view DX Chest 1view DX CLINICAL HISTORY: - pulmonary edema COMPARISON: FINDINGS: Limited AP portable study. Support Devices: Interval removal of ET tube and NG tube. Lungs: Central vascular congestion persists without significant interval change. Mild bibasilar atelectasis. No large effusion is present on either side. Cardiomediastinum: Stable enlargement of cardiac silhouette. Bone and Soft Tissues: No acute bony abnormality is noted. Multiple EKG leads and other wires project over the patient's chest. IMPRESSION: No significant change from previous study is noted. SL: [id number]-TAPAN 04/24/2017 - - Read by: Jasmeet Ramos MD Dictated Date/time: 04/24/17 06:44 Electronically Signed by: Jasmeet Ramos MD 04/24/17 06:45 FINAL REPORT [facility] 1view DX Chest 1view DX Study: Chest 1view DX portable 04/23/2017 0448 hours Clinical Indication: - pulmonary edema; intubated Comparison: Chest 04/22/2017 FINDINGS: Image quality is compromised by the large patient size. The endotracheal tube terminates above the ramon. Nasogastric tube extends towards the stomach but its terminal point is not evident. The cardiac silhouette is quite enlarged. The lungs are incompletely inflated , although to a lesser extent than was noted on the previous day. Retrocardiac portion of the left hemithorax remains partially opaque. Small left pleural effusion is possible. SL: [id number] 04/23/2017 - - Read by: Nish Saldana MD Dictated Date/time: 04/23/17 07:18 Electronically Signed by: Nish Saldana MD 04/23/17 07:21 FINAL REPORT [facility] Ext Upper Venous Doppler Bilat US Ext Upper Venous Doppler Bilat US Patient Name: NICHO GOFF : 1985; Age: 31 years y/o Male MR: [id number] Study: Ext Upper Venous Doppler Bilat US 04/22/2017 6:36 PM CDT Ordering Physician: Karolyn Hardwick MD Clinical Indication: - Pt has swelling and pain to left arm; Comparison: None TECHNIQUE: Sonographic evaulation of the bilateral upper extremity veins was performed using high resolution B-mode imaging, along with pulse and color Doppler imaging. FINDINGS: Right upper extremity: The internal jugular vein, subclavian vein, axillary vein, and brachial vein are patent. There is no echogenic debris to suggest deep venous thrombosis. The basilic and cephalic veins are patent. Left upper extremity: The internal jugular vein, subclavian vein, axillary vein, and brachial vein are patent. There is no echogenic debris to suggest deep venous thrombosis. The basilic and cephalic veins are patent. REFERENCE: DEEP VEINS: internal jugular, subclavian, axillary, brachial, radial, and ulnar SUPERFICIAL: basilic, cephalic IMPRESSION: No DVT SL: [id number] 04/22/2017 - - Read by: Yola Hook MD Dictated Date/time: 04/22/17 21:33 Electronically Signed by: Yola Hook MD 04/22/17 21:33 FINAL REPORT [facility] Chest 1view DX Chest 1view DX Patient Name: NICHO GOFF : 1985; Age: 31 years y/o Male MR: [id number] * CHEST, portable, 1 view HISTORY: Congestive heart failure. COMPARISON: 11/22/2016. A study of 11/16/2016 was also reviewed. IMPRESSION: 1. The study is limited due to the patient's habitus and portable technique. 2. Improvement in congestive failure and pulmonary edema. There remains moderate cardiomegaly and prominent pulmonary vascular congestion. 3. No definite pulmonary infiltrates or pleural effusions although small pleural effusions may not be demonstrated by portable chest radiography, considering the patient's habitus. SL: [id number] 04/22/2017 - - Read by: Michael Ag MD Dictated Date/time: 04/22/17 07:35 Electronically Signed by: Michael Ag MD 04/22/17 07:38 FINAL REPORT [facility] Chest 1view DX Chest 1view DX Patient Name: NICHO GOFF : 1985; Age: 31 years y/o Male MR: [id number] * CHEST, portable, 1 view HISTORY: Respiratory distress, intubated. Congestive heart failure, pulmonary edema; COMPARISON: Yesterday. Studies of 04/19/2017, 04/18/2017, and 01/22/2017 were reviewed. The study is limited due to the patient's habitus and portable technique. IMPRESSION: 1. The endotracheal tube is in good position with its tip approximately 3.8 cm above the ramon. 2. Findings consistent with congestive failure with moderate cardiomegaly and pulmonary vascular congestion. There is been no significant change from yesterday. However, there appears to be improvement in the pulmonary edema from 04/19/2017. 3. No new infiltrates or definite pleural effusions. Small pleural effusions may not be demonstrated by portable chest radiography, particularly considering the patient's habitus. 4. The nasogastric tube extends into the stomach. 5. The regional skeleton is unremarkable. SL: [id number] 04/21/2017 - - Read by: Michael Ag MD Dictated Date/time: 04/21/17 07:08 Electronically Signed by: Michael Ag MD 04/21/17 07:10 FINAL REPORT [facility] CHEM PANEL Ammonia 19.0 umol/L <=45.0 uMol/L 04/20/2017 [facility] CHEM PANEL Lactic Acid Lvl 1.5 mMol/L 0.5 - 2.2 04/20/2017 [facility] BACTERIAL - SEROLOGY MRSA by PCR Negative (04/20/17 5:45 AM) 04/20/2017 [facility] URINE AND STOOL UA Glucose Negative mg/dL Negative mg/dL 04/20/2017 [facility] URINE AND STOOL UA Ketones Negative mg/dL Negative mg/dL 04/20/2017 [facility] URINE AND STOOL UA Bili Negative *NA* (04/20/17 5:45 AM) Negative 04/20/2017 [facility] URINE AND STOOL UA Blood Negative (04/20/17 5:45 AM) Negative 04/20/2017 [facility] URINE AND STOOL UA Nitrite Negative (04/20/17 5:45 AM) Negative 04/20/2017 [facility] URINE AND STOOL UA Turbidity Clear (04/20/17 5:45 AM) Clear 04/20/2017 [facility] URINE AND STOOL UA Spec Grav 1.006 <=1.030 04/20/2017 [facility] URINE AND STOOL UA pH 6.0 5.0 - 8.0 04/20/2017 [facility] URINE AND STOOL UA Protein 100 mg/dL Negative mg/dL 04/20/2017 [facility] URINE AND STOOL UA RBC null 0 - 2 04/20/2017 [facility] URINE AND STOOL UA WBC 1 /HPF 0 - 5 04/20/2017 [facility] URINE AND STOOL UA Bacteria Occasional /HPF None Seen /HPF 04/20/2017 [facility] URINE AND STOOL UA Leuk Est Negative (04/20/17 5:45 AM) Negative 04/20/2017 [facility] URINE AND STOOL UA Sq Epi None Seen 04/20/2017 [facility] URINE AND STOOL UA Urobilinogen <=1.0 mg/dL 0.1 - 1.0 04/20/2017 [facility] URINE AND STOOL UA Color Ltyellow 04/20/2017 [facility] Chest 1view DX Chest 1view DX Clinical Indication:31 years Male with Respiratory failure - Respiratory failure Comparison: Chest x-ray 04/19/2017 FINDINGS: Limited by patient's body habitus Lines: Endotracheal tube in unchanged position. The enteric tube is not seen well beyond the diaphragm. The single frontal chest radiograph shows low lung volumes. Opacities in the lungs, left worse than right No pleural effusion. No pneumothorax. Cardiac silhouette is stable. Pulmonary vasculature is stable. The trachea is midline. There are no acute osseous abnormalities noted. IMPRESSION: The examination is limited by low lung volumes and underpenetration, however appears not significantly changed from the previous day's chest x-ray. The tip of the enteric tube is not seen well beyond the diaphragm. Endotracheal tube tip is unchanged. 04/20/2017 - - Read by: Adolfo Bolton MD Dictated Date/time: 04/20/17 07:17 Electronically Signed by: Adolfo Bolton MD 04/20/17 07:18 FINAL REPORT [facility] CHEM PANEL Lactic Acid Lvl 2.2 mMol/L 0.5 - 2.2 04/20/2017 [facility] CHEM PANEL Lactic Acid Lvl 4.0 mMol/L 0.5 - 2.2 04/20/2017 Result Comment: Critical Result(s) called to cooper killian_ at 04/19/2017 20:42_ by arely_. Read back OK. [facility] CHEM PANEL Procalcitonin Lvl 0.68 ng/mL 0.00 - 0.10 04/19/2017 [facility] CHEM PANEL Ammonia 132.0 umol/L <=45.0 uMol/L 04/19/2017 [facility] CHEM PANEL Bili Total 0.6 mg/dL 0.2 - 1.3 04/19/2017 [facility] CHEM PANEL B/C Ratio 27 6 - 25 04/19/2017 [facility] CHEM PANEL AST 18 unit/L 0 - 37 04/19/2017 [facility] CHEM PANEL Alk Phos 83 unit/L 39 - 136 04/19/2017 [facility] CHEM PANEL Globulin 4.6 g/dL 2.7 - 4.2 04/19/2017 [facility] CHEM PANEL ALT 30 unit/L 0 - 65 04/19/2017 [facility] CHEM PANEL A/G Ratio 0.7 0.7 - 1.6 04/19/2017 [facility] CHEM PANEL Albumin Lvl 3.0 g/dL 3.5 - 5.0 04/19/2017 [facility] CHEM PANEL Total Protein 7.6 g/dL 6.4 - 8.4 04/19/2017 [facility] HEMATOLOGY Basophils # 0.1 K/CMM 0.0 - 0.2 04/19/2017 [facility] Chest 1 v for Placement DX Chest 1 v for Placement DX Chest 1 v for Placement DX CLINICAL HISTORY:Line Placement - Chest 1 view for line placement COMPARISON: 04/18/2017 FINDINGS/IMPRESSION: Limited AP portable study. Support Lines/Devices: ET tube terminates at the thoracic inlet approximately 3.5 cm from the ramon. Interval placement of NG tube and the tip extends below the hemidiaphragm overlying the expected location of the stomach. . Lungs: Extensive patchy airspace disease is present in the parahilar regions and the left lung base/retrocardiac region. No pneumothorax or large effusion. Cardiomediastinum: Stable enlargement of cardiac silhouette. Bone and Soft Tissues: No acute bony abnormality is evident. Multiple EKG leads and other wires project over the patient's chest. SL: [id number] 04/19/2017 - - Read by: Jasmeet Ramos MD Dictated Date/time: 04/19/17 11:04 Electronically Signed by: Jasmeet Ramos MD 04/19/17 11:07 FINAL REPORT [facility] CARDIAC ENZYMES Troponin-I null 0.00 - 0.40 04/19/2017 [facility] CARDIAC ENZYMES Total CK 96 unit/L 12 - 04/19/2017 [facility] CARDIAC ENZYMES Troponin-I null 0.00 - 0.40 04/19/2017 [facility] CARDIAC ENZYMES Total CK 95 unit/L 12 - 04/19/2017 [facility] CARDIAC ENZYMES CK MB 3.4 ng/mL 0.5 - 3.6 04/19/2017 [facility] CARDIAC ENZYMES CK MB Index 3.6 0.0 - 2.5 04/19/2017 [facility] HEMATOLOGY Sed Rate 1 mm/h 0 - 15 04/19/2017 [facility] IMMUNOLOGY C-REACTIVE PROTEIN 6.2 mg/L <=2.9 mg/L 04/19/2017 [facility] CARDIAC ENZYMES BNP 233 pg/mL <=100 pg/mL 04/18/2017 [facility] CARDIAC ENZYMES Total CK 72 unit/L 12 - 191 04/18/2017 [facility] CARDIAC ENZYMES Troponin-I null 0.00 - 0.40 04/18/2017 [facility] CARDIAC ENZYMES CK MB 4.0 ng/mL 0.5 - 3.6 04/18/2017 [facility] CARDIAC ENZYMES CK MB Index 5.6 0.0 - 2.5 04/18/2017 [facility] CHEM PANEL Globulin 4.7 g/dL 2.7 - 4.2 04/18/2017 [facility] CHEM PANEL B/C Ratio 25 6 - 25 04/18/2017 [facility] CHEM PANEL A/G Ratio 0.7 0.7 - 1.6 04/18/2017 [facility] [employer] [facility] [employer] CHEM PANEL ALT 33 unit/L 0 - 65 04/18/2017 [facility] [employer] [facility] CHEM PANEL Albumin Lvl 3.2 g/dL 3.5 - 5.0 04/18/2017 [facility] [employer] [facility] CHEM PANEL Total Protein 7.9 g/dL 6.4 - 8.4 04/18/2017 [facility] CHEM PANEL Bili Total 0.4 mg/dL 0.2 - 1.3 04/18/2017 [facility] CHEM PANEL AST 21 unit/L 0 - 37 04/18/2017 [facility] CHEM PANEL Alk Phos 91 unit/L 39 - 136 04/18/2017 [facility] HEMATOLOGY INR 0.95 0.85 - 1.17 04/18/2017 [facility] HEMATOLOGY PT 12.9 s 12.0 - 14.7 04/18/2017 [facility] HEMATOLOGY PTT 29.0 s 22.9 - 35.8 04/18/2017 [facility] HEMATOLOGY Basophils # 0.1 K/CMM 0.0 - 0.2 04/18/2017 [facility] Foot series DX Foot series DX Study: Left foot, 3 views Clinical Indication: Left 5th toe pain Comparison: None FINDINGS: Multiple views of the left foot show no acute bony fracture, joint dislocation, or discrete osseous erosion. Ulceration of the lateral soft tissues of the 5th toe is seen. Postoperative changes of resection of the mid shaft of the proximal phalanx of the 4th toe are noted. Severe diffuse soft tissue swelling throughout the foot extending into the toes is seen. Os trigonum is noted. IMPRESSION: No acute bony abnormality of the left foot and no radiographic evidence of osteomyelitis. SL: [id number] 04/18/2017 - - Read by: Atul Coleman MD Dictated Date/time: 04/18/17 16:33 Electronically Signed by: Atul Coleman MD 04/18/17 16:34 FINAL REPORT [facility] [employer] [facility] Chest 1view DX Chest 1view DX Clinical Indication:31 years Male with - shortness of breath Comparison: Chest x-ray 01/22/2017 FINDINGS: Limited by patient's body habitus Lines: None. The single frontal chest radiograph shows normal lung volumes. No interstitial or airspace opacities. No pleural effusion. No pneumothorax. Cardiac silhouette is stable. Pulmonary vasculature is prominent. The trachea is midline. There are no acute osseous abnormalities noted. IMPRESSION: Stable enlargement of the cardiac silhouette and central venous congestion. Mild interstitial edema may also be present, however the examination is limited by attenuation from overlying tissue due to the patient's body habitus. 04/18/2017 - - Read by: Adolfo Bolton MD Dictated Date/time: 04/18/17 15:04 Electronically Signed by: Adolfo Bolton MD 04/18/17 15:07 FINAL REPORT [facility] [employer] [facility] Bone scan 3 phase NM Bone scan 3 phase NM TRIPLE PHASE BONE SCAN OF THE FEET: HISTORY: Nonhealing left 5th toe wound for 2 weeks. TECHNIQUE: 25.0 mCi of technetium 99m MDP were given intravenously followed by perfusion, blood pool and delayed static imaging over the feet. FINDINGS: There is mildly increased perfusion and blood pool activity throughout the left foot with focally increased blood pool activity in the left ankle and 5th toe, without significantly increased osseous activity. There is increased lesion, blood pool and osseous activity in the left ankle. Increased activity in the left 1st MP joint is seen consistent with arthropathy. There is no abnormal activity in the right foot. There are no corresponding imaging studies for comparison. IMPRESSION: 1. Findings consistent with soft tissue inflammation left 5th toe, without definite evidence of osteomyelitis. Radiographic correlation is recommended. 2. Increased activity in the left ankle consistent with arthropathy. [id number] 03/06/2017 - - Read by: Adolfo Fernandez MD Dictated Date/time: 03/06/17 14:55 Electronically Signed by: Adolfo Fernandez MD 03/06/17 15:01 FINAL REPORT [facility] CHEM PANEL A/G Ratio 0.6 0.7 - 1.6 01/26/2017 [facility] CHEM PANEL Globulin 4.6 g/dL 2.7 - 4.2 01/26/2017 [facility] CHEM PANEL B/C Ratio 23 6 - 25 01/26/2017 [facility] CHEM PANEL AGAP 13.3 meq/L 10.0 - 20.0 01/26/2017 [facility] CHEM PANEL eGFR 113 mL/min/1.73m2 01/26/2017 Result Comment: The eGFR is calculated using the CKD-EPI formula. In most young, healthy individuals the eGFR will be >90 mL/min/1.73m2. The eGFR declines with age. An eGFR of 60-89 may be normal in some populations, particularly the elderly, for whom the CKD-EPI formula has not been extensively validated. Use of the eGFR is not recommended in the following populations: Individuals with unstable creatinine concentrations, including patients and those with serious co-morbid conditions. Patients with extremes in muscle mass or diet. The data above are obtained from the National Kidney Disease Education Program (NKDEP) which additionally recommends that when the eGFR is used in patients with extremes of body mass index for purposes of drug dosing, the eGFR should be multiplied by the estimated BMI. [facility] [employer] [facility] CHEM PANEL Alk Phos 70 unit/L 39 - 136 01/26/2017 [facility] CHEM PANEL Bili Total 1.1 mg/dL 0.2 - 1.3 01/26/2017 [facility] CHEM PANEL Calcium Lvl 9.3 mg/dL 8.5 - 10.5 01/26/2017 [facility] CHEM PANEL CO2 36 meq/L 24 - 32 01/26/2017 [facility] CHEM PANEL Potassium Lvl 4.3 meq/L 3.5 - 5.1 01/26/2017 [facility] CHEM PANEL Chloride Lvl 92 meq/L 95 - 109 01/26/2017 [facility] CHEM PANEL Creatinine Lvl 0.91 mg/dL 0.50 - 1.40 01/26/2017 [facility] CHEM PANEL Sodium Lvl 137 meq/L 135 - 145 01/26/2017 [facility] CHEM PANEL AST 13 unit/L 0 - 37 01/26/2017 [facility] CHEM PANEL Albumin Lvl 2.8 g/dL 3.5 - 5.0 01/26/2017 [facility] CHEM PANEL ALT 16 unit/L 0 - 65 01/26/2017 [facility] CHEM PANEL Total Protein 7.4 g/dL 6.4 - 8.4 01/26/2017 [facility] CHEM PANEL Glucose Lvl 159 mg/dL 70 - 99 01/26/2017 [facility] CHEM PANEL BUN 21 mg/dL 7 - 22 01/26/2017 [facility] HEMATOLOGY Segs 85.5 % 45.0 - 75.0 01/26/2017 [facility] Lymphocytes 6.5 % 20.0 - 40.0 01/26/2017 [facility] [employer] [facility] HEMATOLOGY Monocytes # 0.8 K/CMM 0.0 - 0.8 01/26/2017 [facility] HEMATOLOGY Monocytes 7.5 % 2.0 - 12.0 01/26/2017 [facility] HEMATOLOGY Segs-Bands # 9.2 K/CMM 1.5 - 8.1 01/26/2017 [facility] HEMATOLOGY Lymphocytes # 0.7 K/CMM 1.0 - 5.5 01/26/2017 [facility] HEMATOLOGY Eosinophils 0.2 % 0.0 - 4.0 01/26/2017 [facility] HEMATOLOGY Basophils 0.3 % 0.0 - 1.0 01/26/2017 [facility] Platelet 143 K/CMM 133 - 450 01/26/2017 [facility] MPV 9.2 fL 7.4 - 10.4 01/26/2017 [facility] Hct 50.3 % 42.0 - 54.0 01/26/2017 [facility] MCHC 30.5 g/dL 32.0 - 36.0 01/26/2017 [facility] MCV 79.2 fL 80.0 - 94.0 01/26/2017 [facility] MCH 24.2 pg 27.0 - 31.0 01/26/2017 [facility] RDW 20.4 % 11.5 - 14.5 01/26/2017 [facility] WBC 10.7 K/CMM 3.7 - 10.4 01/26/2017 [facility] RBC 6.35 M/CMM 4.70 - 6.10 01/26/2017 [facility] Hgb 15.4 g/dL 14.0 - 18.0 01/26/2017 [facility] CHEM PANEL eGFR 81 mL/min/1.73m2 01/24/2017 Result Comment: The eGFR is calculated using the CKD-EPI formula. In most young, healthy individuals the eGFR will be >90 mL/min/1.73m2. The eGFR declines with age. An eGFR of 60-89 may be normal in some populations, particularly the elderly, for whom the CKD-EPI formula has not been extensively validated. Use of the eGFR is not recommended in the following populations: Individuals with unstable creatinine concentrations, including patients and those with serious co-morbid conditions. Patients with extremes in muscle mass or diet. The data above are obtained from the National Kidney Disease Education Program (NKDEP) which additionally recommends that when the eGFR is used in patients with extremes of body mass index for purposes of drug dosing, the eGFR should be multiplied by the estimated BMI. [facility] [employer] [facility] CHEM PANEL CO2 35 meq/L 24 - 32 01/24/2017 [facility] CHEM PANEL Potassium Lvl 4.5 meq/L 3.5 - 5.1 01/24/2017 [facility] CHEM PANEL Calcium Lvl 8.9 mg/dL 8.5 - 10.5 01/24/2017 [facility] [employer] [facility] CHEM PANEL AGAP 12.5 meq/L 10.0 - 20.0 01/24/2017 [facility] [employer] [facility] CHEM PANEL Chloride Lvl 96 meq/L 95 - 109 01/24/2017 [facility] CHEM PANEL Sodium Lvl 139 meq/L 135 - 145 01/24/2017 [facility] CHEM PANEL BUN 23 mg/dL 7 - 22 01/24/2017 [facility] CHEM PANEL Creatinine Lvl 1.20 mg/dL 0.50 - 1.40 01/24/2017 [facility] CHEM PANEL Glucose Lvl 209 mg/dL 70 - 99 01/24/2017 [facility] HEMATOLOGY Basophils 0.4 % 0.0 - 1.0 01/24/2017 [facility] HEMATOLOGY Segs-Bands # 12.2 K/CMM 1.5 - 8.1 01/24/2017 [facility] Monocytes 4.2 % 2.0 - 12.0 01/24/2017 [facility] HEMATOLOGY Eosinophils 0.1 % 0.0 - 4.0 01/24/2017 [facility] HEMATOLOGY Polychrom Slight 01/24/2017 [facility] Hypochrom 2+ (01/24/17 7:28 AM) None Seen 01/24/2017 [facility] Monocytes # 0.6 K/CMM 0.0 - 0.8 01/24/2017 [facility] HEMATOLOGY Basophils # 0.1 K/CMM 0.0 - 0.2 01/24/2017 [facility] Lymphocytes # 0.4 K/CMM 1.0 - 5.5 01/24/2017 [facility] Lymphocytes 3.3 % 20.0 - 40.0 01/24/2017 [facility] Segs 92.0 % 45.0 - 75.0 01/24/2017 [facility] Plt Morph Normal (01/24/17 7:28 AM) 01/24/2017 [facility] Platelet 167 K/CMM 133 - 450 01/24/2017 [facility] MCHC 29.9 g/dL 32.0 - 36.0 01/24/2017 [facility] RDW 20.7 % 11.5 - 14.5 01/24/2017 [facility] MPV 9.4 fL 7.4 - 10.4 01/24/2017 [facility] MCH 24.0 pg 27.0 - 31.0 01/24/2017 [facility] MCV 80.2 fL 80.0 - 94.0 01/24/2017 [facility] HEMATOLOGY Hct 52.6 % 42.0 - 54.0 01/24/2017 [facility] HEMATOLOGY WBC 13.3 K/CMM 3.7 - 10.4 01/24/2017 [facility] HEMATOLOGY Hgb 15.7 g/dL 14.0 - 18.0 01/24/2017 [facility] HEMATOLOGY RBC 6.56 M/CMM 4.70 - 6.10 01/24/2017 [facility] TOXICOLOGY Vanco Tr TND 0900 01/24/2017 [facility] TOXICOLOGY Vanco Tr 12.6 ug/ml 01/24/2017 [facility] ELECTROLYTES Potassium Lvl 5.2 meq/L 3.5 - 5.1 01/23/2017 [facility] CHEM PANEL eGFR 62 mL/min/1.73m2 01/23/2017 Result Comment: The eGFR is calculated using the CKD-EPI formula. In most young, healthy individuals the eGFR will be >90 mL/min/1.73m2. The eGFR declines with age. An eGFR of 60-89 may be normal in some populations, particularly the elderly, for whom the CKD-EPI formula has not been extensively validated. Use of the eGFR is not recommended in the following populations: Individuals with unstable creatinine concentrations, including patients and those with serious co-morbid conditions. Patients with extremes in muscle mass or diet. The data above are obtained from the National Kidney Disease Education Program (NKDEP) which additionally recommends that when the eGFR is used in patients with extremes of body mass index for purposes of drug dosing, the eGFR should be multiplied by the estimated BMI. [facility] [employer] [facility] CHEM PANEL AGAP 16.1 meq/L 10.0 - 20.0 01/23/2017 [facility] CHEM PANEL CO2 27 meq/L 24 - 32 01/23/2017 [facility] CHEM PANEL Chloride Lvl 100 meq/L 95 - 109 01/23/2017 [facility] CHEM PANEL Calcium Lvl 8.4 mg/dL 8.5 - 10.5 01/23/2017 [facility] CHEM PANEL Glucose Lvl 128 mg/dL 70 - 99 01/23/2017 [facility] CHEM PANEL Creatinine Lvl 1.50 mg/dL 0.50 - 1.40 01/23/2017 [facility] CHEM PANEL BUN 32 mg/dL 7 - 22 01/23/2017 [facility] CHEM PANEL Sodium Lvl 137 meq/L 135 - 145 01/23/2017 [facility] URINE CHEM U Eos None Seen (01/22/17 6:45 PM) None Seen 01/22/2017 [facility] URINE CHEM U Protein 69.0 mg/dL 01/22/2017 [facility] URINE CHEM U Creatinine 93.00 mg/dL 01/22/2017 [facility] URINE CHEM U Prot/Creat 0.7 01/22/2017 [facility] CHEM PANEL Lactic Acid Lvl 1.1 mMol/L 0.5 - 2.2 01/22/2017 [facility] CARDIAC ENZYMES CK MB Index 3.4 0.0 - 2.5 01/22/2017 [facility] CARDIAC ENZYMES Troponin-I null 0.00 - 0.40 01/22/2017 [facility] CARDIAC ENZYMES BNP 310 pg/mL <=100 pg/mL 01/22/2017 [facility] CARDIAC ENZYMES Total CK 113 unit/L 12 - 191 01/22/2017 [facility] CARDIAC ENZYMES CK MB 3.8 ng/mL 0.5 - 3.6 01/22/2017 [facility] CHEM PANEL B/C Ratio 20 6 - 25 01/22/2017 [facility] CHEM PANEL Globulin 4.8 g/dL 2.7 - 4.2 01/22/2017 [facility] CHEM PANEL A/G Ratio 0.6 0.7 - 1.6 01/22/2017 [facility] [employer] [facility] CHEM PANEL Bili Total 0.6 mg/dL 0.2 - 1.3 01/22/2017 [facility] CHEM PANEL ALT 27 unit/L 0 - 65 01/22/2017 [facility] CHEM PANEL Alk Phos 93 unit/L 39 - 136 01/22/2017 [facility] CHEM PANEL AST 19 unit/L 0 - 37 01/22/2017 [facility] CHEM PANEL Albumin Lvl 3.0 g/dL 3.5 - 5.0 01/22/2017 [facility] CHEM PANEL Total Protein 7.8 g/dL 6.4 - 8.4 01/22/2017 [facility] HEMATOLOGY Segs 73.9 % 45.0 - 75.0 01/22/2017 [facility] HEMATOLOGY Lymphocytes 15.5 % 20.0 - 40.0 01/22/2017 [facility] HEMATOLOGY Plt Morph Normal (01/22/17 12:40 PM) 01/22/2017 [facility] HEMATOLOGY Monocytes 8.6 % 2.0 - 12.0 01/22/2017 [facility] HEMATOLOGY Eosinophils 1.4 % 0.0 - 4.0 01/22/2017 [facility] HEMATOLOGY Basophils # 0.1 K/CMM 0.0 - 0.2 01/22/2017 [facility] Eosinophils # 0.1 K/CMM 0.0 - 0.5 01/22/2017 [facility] Monocytes # 0.8 K/CMM 0.0 - 0.8 01/22/2017 [facility] Lymphocytes # 1.5 K/CMM 1.0 - 5.5 01/22/2017 [facility] Segs-Bands # 7.2 K/CMM 1.5 - 8.1 01/22/2017 [facility] Basophils 0.6 % 0.0 - 1.0 01/22/2017 [facility] RBC Morph Normal (01/22/17 12:40 PM) 01/22/2017 [facility] Hgb 16.1 g/dL 14.0 - 18.0 01/22/2017 [facility] Hct 51.9 % 42.0 - 54.0 01/22/2017 [facility] MCV 79.4 fL 80.0 - 94.0 01/22/2017 [facility] MCH 24.6 pg 27.0 - 31.0 01/22/2017 [facility] MCHC 31.0 g/dL 32.0 - 36.0 01/22/2017 [facility] RDW 20.2 % 11.5 - 14.5 01/22/2017 [facility] Platelet 164 K/CMM 133 - 450 01/22/2017 [facility] MPV 9.6 fL 7.4 - 10.4 01/22/2017 [facility] WBC 9.8 K/CMM 3.7 - 10.4 01/22/2017 [facility] RBC 6.53 M/CMM 4.70 - 6.10 01/22/2017 [facility] Chest 1view DX Chest 1view DX Patient Name: NICHO GOFF : 1985; Age: 31 years y/o Male MR: [id number] * CHEST, portable, 1 view HISTORY: Congestive heart failure. COMPARISON: 11/22/2016. A study of 11/16/2016 was also reviewed. IMPRESSION: 1. The study is limited due to the patient's habitus and portable technique. 2. Findings consistent with congestive failure and pulmonary edema. There is cardiomegaly, pulmonary vascular congestion, and hazy opacities throughout both lungs consistent with edema. 3. No definite pleural effusions although small pleural effusions may not be demonstrated by portable chest radiography, considering the patient's habitus. SL: [id number] 01/22/2017 - - Read by: Michael Ag MD Dictated Date/time: 01/22/17 12:35 Electronically Signed by: Michael Ag MD 01/22/17 12:37 FINAL REPORT [facility] CHEM PANEL eGFR 81 mL/min/1.73m2 11/28/2016 Result Comment: The eGFR is calculated using the CKD-EPI formula. In most young, healthy individuals the eGFR will be >90 mL/min/1.73m2. The eGFR declines with age. An eGFR of 60-89 may be normal in some populations, particularly the elderly, for whom the CKD-EPI formula has not been extensively validated. Use of the eGFR is not recommended in the following populations: Individuals with unstable creatinine concentrations, including patients and those with serious co-morbid conditions. Patients with extremes in muscle mass or diet. The data above are obtained from the National Kidney Disease Education Program (NKDEP) which additionally recommends that when the eGFR is used in patients with extremes of body mass index for purposes of drug dosing, the eGFR should be multiplied by the estimated BMI. [facility] CHEM PANEL Glucose Lvl 148 mg/dL 70 - 99 11/28/2016 [facility] CHEM PANEL Potassium Lvl 3.8 meq/L 3.5 - 5.1 11/28/2016 [facility] CHEM PANEL Chloride Lvl 95 meq/L 95 - 109 11/28/2016 [facility] CHEM PANEL CO2 34 meq/L 24 - 32 11/28/2016 [facility] CHEM PANEL Calcium Lvl 9.3 mg/dL 8.5 - 10.5 11/28/2016 [facility] CHEM PANEL AGAP 12.8 meq/L 10.0 - 20.0 11/28/2016 [facility] CHEM PANEL Creatinine Lvl 1.20 mg/dL 0.50 - 1.40 11/28/2016 [facility] CHEM PANEL BUN 53 mg/dL 7 - 22 11/28/2016 [facility] CHEM PANEL Sodium Lvl 138 meq/L 135 - 145 11/28/2016 [facility] CHEM PANEL eGFR 81 mL/min/1.73m2 11/26/2016 Result Comment: The eGFR is calculated using the CKD-EPI formula. In most young, healthy individuals the eGFR will be >90 mL/min/1.73m2. The eGFR declines with age. An eGFR of 60-89 may be normal in some populations, particularly the elderly, for whom the CKD-EPI formula has not been extensively validated. Use of the eGFR is not recommended in the following populations: Individuals with unstable creatinine concentrations, including patients and those with serious co-morbid conditions. Patients with extremes in muscle mass or diet. The data above are obtained from the National Kidney Disease Education Program (NKDEP) which additionally recommends that when the eGFR is used in patients with extremes of body mass index for purposes of drug dosing, the eGFR should be multiplied by the estimated BMI. [facility] CHEM PANEL Sodium Lvl 137 meq/L 135 - 145 11/26/2016 [facility] CHEM PANEL Chloride Lvl 98 meq/L 95 - 109 11/26/2016 [facility] CHEM PANEL Potassium Lvl 4.0 meq/L 3.5 - 5.1 11/26/2016 [facility] CHEM PANEL CO2 36 meq/L 24 - 32 11/26/2016 [facility] CHEM PANEL Calcium Lvl 8.6 mg/dL 8.5 - 10.5 11/26/2016 [facility] CHEM PANEL Glucose Lvl 109 mg/dL 70 - 99 11/26/2016 [facility] CHEM PANEL Creatinine Lvl 1.20 mg/dL 0.50 - 1.40 11/26/2016 [facility] CHEM PANEL BUN 56 mg/dL 7 - 22 11/26/2016 [facility] CHEM PANEL AGAP 7.0 meq/L 10.0 - 20.0 11/26/2016 [facility] CHEM PANEL Magnesium Lvl 2.5 mg/dL 1.8 - 2.4 11/26/2016 [facility] Platelet 154 K/CMM 133 - 450 11/26/2016 [facility] MPV 9.6 fL 7.4 - 10.4 11/26/2016 [facility] RDW 18.6 % 11.5 - 14.5 11/26/2016 [facility] MCHC 31.4 g/dL 32.0 - 36.0 11/26/2016 [facility] MCV 83.5 fL 80.0 - 94.0 11/26/2016 [facility] MCH 26.2 pg 27.0 - 31.0 11/26/2016 [facility] Hct 49.6 % 42.0 - 54.0 11/26/2016 [facility] RBC 5.94 M/CMM 4.70 - 6.10 11/26/2016 [facility] Hgb 15.6 g/dL 14.0 - 18.0 11/26/2016 [facility] WBC 8.6 K/CMM 3.7 - 10.4 11/26/2016 [facility] Segs-Bands # 6.4 K/CMM 1.5 - 8.1 11/26/2016 [facility] Lymphocytes # 1.4 K/CMM 1.0 - 5.5 11/26/2016 [facility] HEMATOLOGY Basophils 0.7 % 0.0 - 1.0 11/26/2016 [facility] Monocytes 6.6 % 2.0 - 12.0 11/26/2016 [facility] Eosinophils 2.4 % 0.0 - 4.0 11/26/2016 [facility] Lymphocytes 16.2 % 20.0 - 40.0 11/26/2016 [facility] Segs 74.1 % 45.0 - 75.0 11/26/2016 [facility] Eosinophils # 0.2 K/CMM 0.0 - 0.5 11/26/2016 [facility] Basophils # 0.1 K/CMM 0.0 - 0.2 11/26/2016 [facility] Monocytes # 0.6 K/CMM 0.0 - 0.8 11/26/2016 [facility] CHEM PANEL Calcium Lvl 8.7 mg/dL 8.5 - 10.5 11/24/2016 [facility] CHEM PANEL Potassium Lvl 3.8 meq/L 3.5 - 5.1 11/24/2016 [facility] CHEM PANEL AGAP 9.8 meq/L 10.0 - 20.0 11/24/2016 [facility] CHEM PANEL Chloride Lvl 93 meq/L 95 - 109 11/24/2016 [facility] CHEM PANEL Sodium Lvl 136 meq/L 135 - 145 11/24/2016 [facility] CHEM PANEL CO2 37 meq/L 24 - 32 11/24/2016 [facility] CHEM PANEL eGFR 73 mL/min/1.73m2 11/24/2016 Result Comment: The eGFR is calculated using the CKD-EPI formula. In most young, healthy individuals the eGFR will be >90 mL/min/1.73m2. The eGFR declines with age. An eGFR of 60-89 may be normal in some populations, particularly the elderly, for whom the CKD-EPI formula has not been extensively validated. Use of the eGFR is not recommended in the following populations: Individuals with unstable creatinine concentrations, including patients and those with serious co-morbid conditions. Patients with extremes in muscle mass or diet. The data above are obtained from the National Kidney Disease Education Program (NKDEP) which additionally recommends that when the eGFR is used in patients with extremes of body mass index for purposes of drug dosing, the eGFR should be multiplied by the estimated BMI. [facility] CHEM PANEL Glucose Lvl 109 mg/dL 70 - 99 11/24/2016 [facility] CHEM PANEL Creatinine Lvl 1.30 mg/dL 0.50 - 1.40 11/24/2016 [facility] CHEM PANEL BUN 33 mg/dL 7 - 22 11/24/2016 [facility] CHEM PANEL Magnesium Lvl 2.5 mg/dL 1.8 - 2.4 11/24/2016 [facility] CHEM PANEL Phosphorus 3.6 mg/dL 2.5 - 4.5 11/24/2016 [facility] Eosinophils 1.5 % 0.0 - 4.0 11/24/2016 [facility] Monocytes 7.2 % 2.0 - 12.0 11/24/2016 [facility] Lymphocytes 10.4 % 20.0 - 40.0 11/24/2016 [facility] Basophils # 0.1 K/CMM 0.0 - 0.2 11/24/2016 [facility] Eosinophils # 0.2 K/CMM 0.0 - 0.5 11/24/2016 [facility] Lymphocytes # 1.2 K/CMM 1.0 - 5.5 11/24/2016 [facility] Segs-Bands # 9.4 K/CMM 1.5 - 8.1 11/24/2016 [facility] Segs 80.4 % 45.0 - 75.0 11/24/2016 [facility] Monocytes # 0.8 K/CMM 0.0 - 0.8 11/24/2016 [facility] Basophils 0.5 % 0.0 - 1.0 11/24/2016 [facility] WBC 11.6 K/CMM 3.7 - 10.4 11/24/2016 [facility] MPV 9.4 fL 7.4 - 10.4 11/24/2016 [facility] Hct 49.4 % 42.0 - 54.0 11/24/2016 [facility] Hgb 15.6 g/dL 14.0 - 18.0 11/24/2016 [facility] HEMATOLOGY RBC 5.95 M/CMM 4.70 - 6.10 11/24/2016 [facility] HEMATOLOGY Platelet 162 K/CMM 133 - 450 11/24/2016 [facility] HEMATOLOGY RDW 18.4 % 11.5 - 14.5 11/24/2016 [facility] HEMATOLOGY MCHC 31.7 g/dL 32.0 - 36.0 11/24/2016 [facility] MCH 26.3 pg 27.0 - 31.0 11/24/2016 [facility] HEMATOLOGY MCV 82.9 fL 80.0 - 94.0 11/24/2016 [facility] CHEM PANEL Phosphorus 4.6 mg/dL 2.5 - 4.5 11/23/2016 [facility] CHEM PANEL Magnesium Lvl 2.5 mg/dL 1.8 - 2.4 11/23/2016 [facility] Platelet 152 K/CMM 133 - 450 11/23/2016 [facility] RDW 18.4 % 11.5 - 14.5 11/23/2016 [facility] MPV 10.0 fL 7.4 - 10.4 11/23/2016 [facility] Hgb 16.8 g/dL 14.0 - 18.0 11/23/2016 [facility] [facility] RBC 6.32 M/CMM 4.70 - 6.10 11/23/2016 [facility] Hct 53.1 % 42.0 - 54.0 11/23/2016 [facility] MCH 26.6 pg 27.0 - 31.0 11/23/2016 [facility] MCV 84.0 fL 80.0 - 94.0 11/23/2016 [facility] MCHC 31.7 g/dL 32.0 - 36.0 11/23/2016 [facility] WBC 9.9 K/CMM 3.7 - 10.4 11/23/2016 [facility] HEMATOLOGY Eosinophils 1.1 % 0.0 - 4.0 11/23/2016 [facility] HEMATOLOGY Segs 83.2 % 45.0 - 75.0 11/23/2016 [facility] HEMATOLOGY Monocytes 7.3 % 2.0 - 12.0 11/23/2016 [facility] HEMATOLOGY Lymphocytes 8.0 % 20.0 - 40.0 11/23/2016 [facility] HEMATOLOGY Basophils 0.4 % 0.0 - 1.0 11/23/2016 [facility] HEMATOLOGY Segs-Bands # 8.2 K/CMM 1.5 - 8.1 11/23/2016 [facility] HEMATOLOGY Lymphocytes # 0.8 K/CMM 1.0 - 5.5 11/23/2016 [facility] HEMATOLOGY Eosinophils # 0.1 K/CMM 0.0 - 0.5 11/23/2016 [facility] HEMATOLOGY Monocytes # 0.7 K/CMM 0.0 - 0.8 11/23/2016 [facility] CHEM PANEL Phosphorus 4.0 mg/dL 2.5 - 4.5 11/22/2016 [facility] Chest 1view DX Chest 1view DX Patient Name: NICHO GOFF : 1985; Age: 31 years Male MR: [id number] Study: Chest 1view DX Order Time: 11/22/2016 3:00 AM CDT CLINICAL INDICATION: Tube placement/removal/reposition COMPARISON: Chest radiograph on 11/21/2016 FINDINGS: Lines: Stable position of the endotracheal tube and nasogastric tube. Lungs: The bilateral airspace and interstitial opacities have decreased. Possible small right pleural effusion. No pneumothorax. Mediastinum: The cardiac silhouette is mildly enlarged. Midline trachea. Bones and soft tissues: No acute abnormalities. IMPRESSION: Improved aeration of the lungs since 11/21/2016. SL: [id number] 11/22/2016 - - Read by: Eric Fournier MD Dictated Date/time: 11/22/16 06:40 Electronically Signed by: Eric Fournier MD 11/22/16 06:41 FINAL REPORT [facility] Chest 1view DX Chest 1view DX Patient Name: NICHO GOFF : 1985; Age: 31 years Male MR: [id number] Study: Chest 1view DX Order Time: 11/21/2016 3:00 AM CDT CLINICAL INDICATION: Tube placement/removal/reposition COMPARISON: Chest radiograph on 11/20/2016 FINDINGS: Lines: Stable position of the endotracheal and nasogastric tubes. Stable position of the left PICC line. Lungs: The bilateral airspace and interstitial opacities are unchanged, suggestive of a congestive heart failure pattern versus pneumonia. No effusion or pneumothorax. Mediastinum: The cardiac silhouette is moderately enlarged. Midline trachea. Bones and soft tissues: No acute abnormalities. IMPRESSION: No significant change since 11/20/2016. SL: [id number] 11/21/2016 - - Read by: Eric Fournier MD Dictated Date/time: 11/21/16 06:24 Electronically Signed by: Eric Fournier MD 11/21/16 06:26 FINAL REPORT [facility] Basophils # 0.1 K/CMM 0.0 - 0.2 11/21/2016 [facility] BACTERIAL - SEROLOGY MRSA by PCR Negative (11/20/16 8:24 PM) 11/21/2016 [facility] Plt Morph Normal (11/20/16 1:26 PM) 11/20/2016 [facility] RBC Morph Normal (11/20/16 1:26 PM) 11/20/2016 [facility] PTT 30.7 s 22.9 - 35.8 11/20/2016 [facility] PT 13.9 s 12.0 - 14.7 11/20/2016 [facility] INR 1.05 0.85 - 1.17 11/20/2016 [facility] Chest 1view DX Chest 1view DX Patient Name: NICHO GOFF : 1985; Age: 31 years y/o Male MR: [id number] * CHEST, portable, 1 view 11/20/2016 @ 15:50 HISTORY: Status post PICC placement COMPARISON: Comparison is made to a study performed earlier today. TECHNIQUE: A portable frontal radiograph of the chest was obtained following PICC placement IMPRESSION: 1. The tip of the left upper extremity PICC is in the superior vena cava. The catheter appears to be in good position to utilize for venous access. 2. Endotracheal tube is in good position with its tip approximately 4 cm above the ramon. 3. The nasogastric tube extends into the stomach. 4. No change in the appearance of the chest. The findings are consistent with congestive failure and edema. There is moderate to severe cardiomegaly, marked pulmonary vascular congestion, and diffuse bilateral pulmonary opacities probably representing edema. 5. The study is limited due to the patient's habitus and portable technique. SL: [id number] 11/20/2016 - - Read by: Michael Ag MD Dictated Date/time: 11/20/16 16:50 Electronically Signed by: Michael Ag MD 11/20/16 16:52 FINAL REPORT [facility] Chest 1view DX Chest 1view DX Study: Chest 1view DX Clinical Indication: Tube placement/removal/reposition Comparison: Chest x-ray from 11/16/2016 FINDINGS: Patient is status post intubation with tip of endotracheal tube terminating 3.5 cm above the ramon. Nasogastric tube extends down the esophagus with tip terminating beneath left hemidiaphragm, poorly seen on the film. Cardiac silhouette is enlarged. Central vascular congestion with mild pulmonary edema and small left pleural effusion are seen. There is no pneumothorax. The osseous structures are unremarkable. IMPRESSION: 1. Status post intubation and nasogastric tube placement. 2. Congestive heart failure. SL: [id number] 11/20/2016 - - Read by: Atul Coleman MD Dictated Date/time: 11/20/16 11:35 Electronically Signed by: Atul Coleman MD 11/20/16 11:36 FINAL REPORT [facility] URINE CHEM U Creatinine 18.00 mg/dL 11/18/2016 [facility] URINE CHEM U Sodium 89 meq/L 11/18/2016 [facility] URINE CHEM U Protein 15.0 mg/dL 11/18/2016 [facility] URINE CHEM U Prot/Creat 0.8 11/18/2016 [facility] CARDIAC ENZYMES Troponin-I null 0.00 - 0.40 11/17/2016 [facility] CHEM PANEL Lactic Acid Lvl 1.3 mMol/L 0.5 - 2.2 11/17/2016 [facility] CARDIAC ENZYMES Troponin-I null 0.00 - 0.40 11/17/2016 [facility] CHEM PANEL Lactic Acid Lvl 2.5 mMol/L 0.5 - 2.2 11/17/2016 [facility] CHEM PANEL Albumin Lvl 3.0 g/dL 3.5 - 5.0 11/17/2016 [facility] CHEM PANEL Total Protein 7.7 g/dL 6.4 - 8.4 11/17/2016 [facility] CHEM PANEL Alk Phos 93 unit/L 39 - 136 11/17/2016 [facility] CHEM PANEL ALT 31 unit/L 0 - 65 11/17/2016 [facility] CHEM PANEL AST 20 unit/L 0 - 37 11/17/2016 [facility] CHEM PANEL B/C Ratio 18 6 - 25 11/17/2016 [facility] CHEM PANEL Globulin 4.7 g/dL 2.7 - 4.2 11/17/2016 [facility] CHEM PANEL A/G Ratio 0.6 0.7 - 1.6 11/17/2016 [facility] CHEM PANEL Bili Total 0.5 mg/dL 0.2 - 1.3 11/17/2016 [facility] CARDIAC ENZYMES CK MB Index 2.4 0.0 - 2.5 11/16/2016 [facility] CARDIAC ENZYMES Total CK 67 unit/L 12 - 191 11/16/2016 [facility] CARDIAC ENZYMES CK MB 1.6 ng/mL 0.5 - 3.6 11/16/2016 [facility] CARDIAC ENZYMES Troponin-I null 0.00 - 0.40 11/16/2016 [facility] CARDIAC ENZYMES BNP 106 pg/mL <=100 pg/mL 11/16/2016 [facility] HEMATOLOGY PT 13.0 s 12.0 - 14.7 11/16/2016 [facility] HEMATOLOGY INR 0.96 0.85 - 1.17 11/16/2016 [facility] HEMATOLOGY PTT 28.3 s 22.9 - 35.8 11/16/2016 [facility] URINE AND STOOL UA Urobilinogen <=1.0 mg/dL 0.1 - 1.0 11/16/2016 [facility] URINE AND STOOL UA Color Ltyellow 11/16/2016 [facility] URINE AND STOOL UA Sq Epi None Seen 11/16/2016 [facility] URINE AND STOOL UA pH 6.0 5.0 - 8.0 11/16/2016 [facility] URINE AND STOOL UA Spec Grav 1.006 <=1.030 11/16/2016 [facility] URINE AND STOOL UA Protein 30 mg/dL Negative mg/dL 11/16/2016 [facility] URINE AND STOOL UA Turbidity Clear (11/16/16 6:04 PM) Clear 11/16/2016 [facility] URINE AND STOOL UA Blood Small *ABN* (11/16/16 6:04 PM) Negative 11/16/2016 [facility] URINE AND STOOL UA Bili Negative *NA* (11/16/16 6:04 PM) Negative 11/16/2016 [facility] URINE AND STOOL UA Glucose Negative mg/dL Negative mg/dL 11/16/2016 [facility] URINE AND STOOL UA Ketones Negative mg/dL Negative mg/dL 11/16/2016 [facility] URINE AND STOOL UA WBC 1 /HPF 0 - 5 11/16/2016 [facility] URINE AND STOOL UA Nitrite Negative (11/16/16 6:04 PM) Negative 11/16/2016 [facility] URINE AND STOOL UA Leuk Est Negative (11/16/16 6:04 PM) Negative 11/16/2016 [facility] URINE AND STOOL UA RBC 2 /HPF 0 - 2 11/16/2016 [facility] URINE AND STOOL UA Bacteria Occasional /HPF None Seen /HPF 11/16/2016 [facility] Chest 1view DX Chest 1view DX EXAM: XR CHEST 1 VIEW DATE: 11/16/2016 5:48 PM CDT INDICATION: Dyspnea. COMPARISON: None Available. TECHNIQUE: A single AP view of the chest was obtained. FINDINGS: The examination is limited by underpenetration secondary to body habitus. Interstitial and alveolar airspace opacities are visualized. The cardiac silhouette is markedly enlarged. The costophrenic recesses are sharp and without effusion. No acute osseous abnormality is identified. IMPRESSION: Cardiomegaly with interstitial and alveolar pulmonary edema. SL: [id number] 11/16/2016 - - Read by: Bill Olivas MD Dictated Date/time: 11/16/16 18:46 Electronically Signed by: Bill Olivas MD 11/16/16 18:47 FINAL REPORT [facility] Spine lumbar wo contrast MRI Spine lumbar wo contrast MRI EXAM: MRI LUMBAR SPINE WITHOUT CONTRAST DATE: 09/15/2016 1:27 PM [facility] INDICATION: M51.16 Intervertebral disc disorders with radiculopathy, lumbar region COMPARISON: None. TECHNIQUE: Multiplanar, multisequence MR imaging of the lumbar spine. IV contrast: None. FINDINGS: The lowest fully formed intervertebral disc spaces labeled L5-S1. Lumbar vertebral bodies are normal in height and alignment. Mild congenital narrowing the spinal canal due to shortened pedicles. The conus terminates at T12-L1. Mild levoconvex curvature of the lumbar spine. Images are limited by motion. Mild degenerative changes are noted. Small Schmorl's nodes are seen in the endplates at multiple levels. Minimal disc bulging at L4-L5 and L5-S1. Mild facet arthropathy is seen at these levels as well. Mild neural foraminal stenoses at L5-S1, left greater than right. The intrathecal nerve roots of the cauda equina are unremarkable. IMPRESSION: Images are somewhat limited by motion. 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 Superimposed mild degenerative changes are noted. 09/15/2016 - - Read by: Olga Lidia Evangelista MD Dictated Date/time: 09/15/16 17:11 Electronically Signed by: Olga Lidia Evangelista MD 09/19/16 15:48 FINAL REPORT [facility] Vital Signs Vital Sign Value Date Comments Source Weight 217.727 10/21/2018 [facility] BMI Calculated 72.98 10/21/2018 [facility] Height 172.72 cm 10/21/2018 [facility] Weight 227.273 10/11/2018 [facility] BMI Calculated 83.38 10/11/2018 [facility] Height 165.1 cm 10/11/2018 [facility] Systolic (mm Hg) 123 10/26/2017 [facility] Diastolic (mm Hg) 73 10/26/2017 [facility] Respitory Rate 20 10/26/2017 [facility] Temperature Oral (F) 98.5 F 10/26/2017 [facility] Heart Rate 95 10/26/2017 [facility] Systolic (mm Hg) 109 10/25/2017 [facility] Diastolic (mm Hg) 72 10/25/2017 [facility] Heart Rate 89 10/25/2017 [facility] Respitory Rate 16 10/25/2017 [facility] Temperature Oral (F) 98.6 F 10/25/2017 [facility] Respitory Rate 12 10/25/2017 [facility] Heart Rate 79 10/25/2017 [facility] Systolic (mm Hg) 141 10/25/2017 [facility] Diastolic (mm Hg) 92 10/25/2017 [facility] Temperature Oral (F) 97.6 F 10/25/2017 [facility] BMI Calculated 77.4 10/20/2017 [facility] Weight 230.909 10/20/2017 [facility] Height 172.72 cm 10/20/2017 [facility] Height 172.72 cm 10/20/2017 [facility] Weight 223 10/20/2017 [facility] BMI Calculated 74.75 10/20/2017 [facility] Weight 229.545 10/20/2017 [facility] Respitory Rate 18 07/02/2017 [facility] Systolic (mm Hg) 130 07/02/2017 [facility] Diastolic (mm Hg) 80 07/02/2017 [facility] Systolic (mm Hg) 129 07/02/2017 [facility] Diastolic (mm Hg) 56 07/02/2017 [facility] Respitory Rate 18 07/02/2017 [facility] Systolic (mm Hg) 136 07/02/2017 [facility] Diastolic (mm Hg) 82 07/02/2017 [facility] Respitory Rate 17 07/02/2017 [facility] Temperature Oral (F) 98.7 F 07/02/2017 [facility] Temperature Oral (F) 98.5 F 07/02/2017 [facility] Temperature Oral (F) 98.9 F 07/02/2017 [facility] Heart Rate 95 06/28/2017 [facility] Heart Rate 71 06/28/2017 [facility] Heart Rate 84 06/28/2017 [facility] BMI Calculated 68.15 06/26/2017 [facility] Height 172.72 cm 06/26/2017 [facility] Weight 203.318 06/26/2017 [facility] BMI Calculated 73.9 06/26/2017 [facility] Weight 220.455 06/26/2017 [facility] Height 172.72 cm 06/26/2017 [facility] Systolic (mm Hg) 117 05/01/2017 [facility] Diastolic (mm Hg) 80 05/01/2017 [facility] Heart Rate 85 05/01/2017 [facility] Respitory Rate 18 05/01/2017 [facility] Temperature Oral (F) 98.4 F 05/01/2017 [facility] Systolic (mm Hg) 136 05/01/2017 [facility] Diastolic (mm Hg) 88 05/01/2017 [facility] Respitory Rate 18 05/01/2017 [facility] Heart Rate 92 05/01/2017 [facility] Temperature Oral (F) 97.3 F 05/01/2017 [facility] Respitory Rate 16 05/01/2017 [facility] Systolic (mm Hg) 128 05/01/2017 [facility] Diastolic (mm Hg) 80 05/01/2017 [facility] Temperature Oral (F) 98.6 F 05/01/2017 [facility] Heart Rate 86 05/01/2017 [facility] Height 172.72 cm 04/23/2017 [facility] Height 172.72 cm 04/23/2017 [facility] Height 172.72 cm 04/23/2017 [facility] Weight 213.3 04/20/2017 [facility] Weight 209.091 04/19/2017 [facility] Weight 209.091 04/18/2017 [facility] BMI Calculated 70.09 04/18/2017 [facility] Systolic (mm Hg) 114 01/26/2017 [facility] Diastolic (mm Hg) 78 01/26/2017 [facility] Temperature Oral (F) 98.1 F 01/26/2017 [facility] Heart Rate 91 01/26/2017 [facility] Respitory Rate 18 01/26/2017 [facility] Systolic (mm Hg) 126 01/26/2017 [facility] Diastolic (mm Hg) 69 01/26/2017 [facility] Respitory Rate 18 01/26/2017 [facility] Heart Rate 98 01/26/2017 [facility] Temperature Oral (F) 98.5 F 01/26/2017 [facility] Respitory Rate 18 01/26/2017 [facility] Systolic (mm Hg) 156 01/26/2017 [facility] Diastolic (mm Hg) 103 01/26/2017 [facility] Heart Rate 98 01/26/2017 [facility] Temperature Oral (F) 98.5 F 01/26/2017 [facility] Weight 207.8 01/26/2017 [facility] Weight 223.955 01/23/2017 [facility] BMI Calculated 77.33 01/23/2017 [facility] Height 170.18 cm 01/23/2017 [facility] Weight 227.273 01/22/2017 [facility] Height 172.72 cm 01/22/2017 [facility] BMI Calculated 76.18 01/22/2017 [facility] Heart Rate 68 11/29/2016 [facility] Systolic (mm Hg) 133 11/29/2016 [facility] Diastolic (mm Hg) 69 11/29/2016 [facility] Temperature Oral (F) 98.4 F 11/29/2016 [facility] Temperature Oral (F) 97.7 F 11/29/2016 [facility] Systolic (mm Hg) 125 11/29/2016 [facility] Diastolic (mm Hg) 75 11/29/2016 [facility] Heart Rate 86 11/29/2016 [facility] Temperature Oral (F) 98.1 F 11/29/2016 [facility] Respitory Rate 18 11/29/2016 [facility] Systolic (mm Hg) 114 11/29/2016 [facility] Diastolic (mm Hg) 72 11/29/2016 [facility] Heart Rate 82 11/29/2016 [facility] Respitory Rate 18 11/29/2016 [facility] Respitory Rate 16 11/29/2016 [facility] Height 172.72 cm 11/22/2016 [facility] Height 172.72 cm 11/22/2016 [facility] Height 172.72 cm 11/22/2016 [facility] BMI Calculated 66.44 11/17/2016 [facility] Weight 198.21 11/17/2016 [facility] Weight 177.273 11/16/2016 [facility] BMI Calculated 59.42 11/16/2016 [facility] Encounters Location Location Details Encounter Type Encounter Number Reason For Visit Attending Provider ADM Date DC Date Status Source [facility] [place] Outpt Diag Services [id number] Nelly Palvadi 09/15/2016 09/16/2016 [facility] [id number] Juliana Song 11/16/2016 11/29/2016 [facility] Inpatient [id number] Carnes Morris 01/22/2017 01/26/2017 [facility] Outpatient [id number] Dre Whitingpta 02/12/2017 02/12/2017 [facility] Outpatient [id number] Non Physician 03/06/2017 03/07/2017 [facility] Inpatient [id number] Raimundo Jacquelyn 04/18/2017 05/01/2017 [facility] Inpatient [id number] Raimundo Jacquelyn 06/26/2017 07/02/2017 [facility] Inpatient [id number] Carnes Morris 10/20/2017 10/26/2017 [facility] Outpatient [id number] Hernesto Clarke 04/09/2018 04/10/2018 [facility] [place] Outpt Diag Services [id number] Hernesto Clarke 04/12/2018 04/12/2018 [facility] [place] [facility] Outpatient Imaging [place] Outpt Diag Services [id number] Hernesto Clarke 05/14/2018 05/14/2018 [facility] Bedded Outpatient [id number] Jas Diaz 10/11/2018 10/11/2018 [facility] Bedded Outpatient [id number] Rafa Awar 10/22/2018 10/22/2018 [facility] Procedures Procedure Code Date Perfomer Comments Source Closure of tracheostomy<sup>1</sup> [id number] 11/27/2016 trach inserted October, [facility] Closure of tracheostomy<sup>1</sup> [id number] 11/27/2016 trach inserted October, [facility] Closure of tracheostomy<sup>1</sup> [id number] 11/27/2016 trach inserted October, [facility] [place] Closure of tracheostomy<sup>1</sup> [id number] 11/27/2016 trach inserted October, [facility] [place]
--- OUTSIDE RECORDS SUMMARY | 2019-01-20 18:15 | XMS REPORT | Summary of Care ---
Author Author [facility] Organization [facility] Address Unknown Phone Unavailable Encounter HQ Brynn(FIN) [id number] Date(s): 02/11/17 - 02/11/17 [facility] [address] [place] [address]- Discharge Disposition: Home or Self Care Attending Physician: Dre Patel MD Referring Physician: Dre Patel MD Vital Signs No data available for this section Problem List Condition Effective Dates Status Health Status Informant CHF (congestive Resolved heart failure)(Confirmed) Diabetes(Confirmed) Resolved HTN Resolved (hypertension)(Confi rmed) Allergies, Adverse Reactions, Alerts Substance Reaction Severity Status morphine Active Medications No data available for this section Results No data available for this section Immunizations Given and Recorded Vaccine Date Status Refusal Reason pneumococcal 23-valent vaccine 11/17/16 Given Procedures Procedure Date Related Diagnosis Body Site Closure of tracheostomy1 11/27/16 1trach inserted October, Social History Social History Type Response Smoking Status Never smoker; Ready to change: No; Concerns about tobacco use in household: No; Exposure to Tobacco Smoke None; Cigarette Smoking Last 365 Days No; Reg Smoking Cessation Counseling No Assessment and Plan No data available for this section
--- OUTSIDE RECORDS SUMMARY | 2019-01-20 18:15 | XMS REPORT | Summary of Care ---
Author Author [facility] Organization [facility] Address Unknown Phone Unavailable Encounter HERON Swain(CALEB) [id number] Date(s): 01/22/17 - 01/26/17 [facility] [address] [place] [address]- [phone] Discharge Disposition: Retirement Facility Attending Physician: Deyvi Morris MD Admitting Physician: Deyvi Morris MD Vital Signs 1 2 3 Most recent to oldest [Reference Range]: 170.18 cm (01/22/17 11:07 PM) 172.72 cm (01/22/17 11:36 AM) Height 98.1 DegF (01/26/17 3:00 PM) 98.5 DegF (01/26/17 11:00 AM) 98.5 DegF (01/26/17 7:00 AM) Temperature Oral [96.4-99.1 DegF] 114/78 mmHg (01/26/17 3:00 PM) 126/69 mmHg (01/26/17 11:00 AM) 156/103 mmHg *HI* (01/26/17 7:00 AM) Blood Pressure [90-140/60-90 mmHg] 18 BRMIN (01/26/17 3:00 PM) 18 BRMIN (01/26/17 11:00 AM) 18 BRMIN (01/26/17 7:40 AM) Respiratory Rate [14-20 BRMIN] 91 bpm (01/26/17 3:00 PM) 98 bpm (01/26/17 11:00 AM) 98 bpm (01/26/17 7:00 AM) Peripheral Pulse Rate [60-100 bpm] 207.8 kg (01/25/17 10:00 PM) 223.955 kg (01/22/17 11:07 PM) 227.273 kg (01/22/17 11:36 AM) Weight 77.33 m2 (01/22/17 11:07 PM) 76.18 m2 (01/22/17 11:36 AM) Body Mass Index Problem List Condition Effective Dates Status Health Status Informant CHF (congestive Resolved heart failure)(Confirmed) Diabetes(Confirmed) Resolved HTN Resolved (hypertension)(Confi rmed) Allergies, Adverse Reactions, Alerts Substance Reaction Severity Status morphine Active Medications aspirin 81 mg, PO, Daily Start Date: 01/24/17 Status: Ordered aspirin 81 mg tablet, enteric coated 81 mg, 1 tab, Route: PO, Drug form: ECTAB, Daily, Dosing Weight 227.273, kg, Sta rt date: 01/22/17 14:29:00 CDT, Duration: 30 day, Stop date: 02/21/17 9:00:00 CD T Notes: Do not crush or chew.(Same As: Ecotrin) Start Date: 01/22/17 Stop Date: 01/26/17 Status: Discontinued Benadryl 25 mg, 0.5 mL, Route: IVP, Drug form: INJ, ONCE, Dosing Weight 223.955, kg, PRN Allergic reaction, Start date: 01/25/17 10:39:00 CDT Notes: (Same as: Benadryl) Start Date: 01/25/17 Stop Date: 01/26/17 Status: Discontinued Biofreeze 4% topical gel 1 appl, TOP, Q12H, To left ankle Start Date: 01/24/17 Status: Ordered Dextrose 50% Syringe 12.5 gm, 25 mL, Route: IVP, Drug Form: INJ, Dosing Weight 227.273, kg, PRN, PRN Blood Glucose Results, Start date: 01/22/17 14:27:00 CDT, Duration: 30 day, Stop date: 02/21/17 14:26:00 CDT Start Date: 01/22/17 Stop Date: 01/26/17 Status: Discontinued Dextrose 50% Syringe 25 gm, 50 mL, Route: IVP, Drug Form: INJ, Dosing Weight 227.273, kg, PRN, PRN Bl ood Glucose Results, Start date: 01/22/17 14:27:00 CDT, Duration: 30 day, Stop d ate: 02/21/17 14:26:00 CDT Start Date: 01/22/17 Stop Date: 01/26/17 Status: Discontinued Diamox 250 mg, Route: IVP, Drug form: PDR/INJ, Daily, Dosing Weight 207.8, kg, Priority : STAT, Start date: 01/26/17 16:51:00 CDT, Duration: 30 day, Stop date: 02/25/17 9:00:00 CDT Notes: (Same as: Diamox) Start Date: 01/26/17 Stop Date: 01/26/17 Status: Discontinued doxycycline 100 mg, 2 cap, Route: PO, Drug form: CAP, Q12H, Dosing Weight 223.955, kg, Start date: 01/25/17 13:13:00 CDT, Duration: 7 day, Stop date: 02/01/17 9:00:00 CDT Notes: (Same as: Vibramycin) No milk/antacids/iron. Take 1 hour before or 2 opal rs after dairy products Start Date: 01/25/17 Stop Date: 01/26/17 Status: Discontinued doxycycline hyclate 100 mg oral tablet 100 mg=1 tab, PO, Q12H, # 20 tab, 0 Refill(s) Start Date: 01/26/17 Stop Date: 01/27/17 Status: Completed DuoNeb inhalation solution 3 mL, Route: NEB, Drug Form: SOLN, Dosing Weight 227.273, kg, RQ6H, Start date: 01/22/17 20:00:00 CDT, Duration: 30 day, Stop date: 02/21/17 14:00:00 CDT Notes: (Same as: Duoneb) Start Date: 01/22/17 Stop Date: 01/26/17 Status: Discontinued DuoNeb inhalation solution 3 mL, NEB, RQ6H, # 180 mL, 1 Refill(s) Start Date: 01/26/17 Status: Ordered famotidine 40 mg, 2 tab, Route: PO, Drug form: TAB, Daily, Dosing Weight 223.955, kg, Start date: 01/24/17 9:00:00 CDT, Duration: 30 day, Stop date: 02/22/17 9:00:00 CDT Notes: (Same as: Pepcid) Start Date: 01/24/17 Stop Date: 01/26/17 Status: Discontinued glucagon 1 mg, Route: IM, Drug form: PDR/INJ, PRN, Dosing Weight 227.273, kg, PRN Blood G lucose Results, Start date: 01/22/17 14:27:00 CDT, Duration: 30 day, Stop date: 02/21/17 14:26:00 CDT Start Date: 01/22/17 Stop Date: 01/26/17 Status: Discontinued Humulin R 100 units/mL injectable solution 4-12 unit, SUB-Q, PRN, PRN Blood Glucose Results, 200-250=4 unit 251-300=6 unit 301-350=8 unit 351-400=10 unit 401-450=12 unit >450=call MD Start Date: 01/24/17 Status: Ordered insulin aspart 2 unit, 0.02 mL, Route: SUB-Q, Drug form: SOLN, TID-Before Meals, Dosing Weight 223.955, kg, PRN Blood Glucose Results, Start date: 01/24/17 11:21:00 CDT, Durat ion: 30 day, Stop date: 02/23/17 11:20:00 CDT Notes: Roll in palms of hands gently; Do not shake vigorously. (Same as: NovoANN Pimentel)"single patient use only"WASTE: F/P - Black; E - Municipal Trash Bin Stable f or 28 days at room temperature.Expires in days from Date Start Date: 01/24/17 Stop Date: 01/26/17 Status: Discontinued insulin aspart 4 unit, 0.04 mL, Route: SUB-Q, Drug form: SOLN, TID-Before Meals, Dosing Weight 223.955, kg, PRN Blood Glucose Results, Start date: 01/24/17 11:21:00 CDT, Durat ion: 30 day, Stop date: 02/23/17 11:20:00 CDT Notes: Roll in palms of hands gently; Do not shake vigorously. (Same as: NovoLO G)"single patient use only"WASTE: F/P - Black; E - Municipal Trash Bin Stable f or 28 days at room temperature.Expires in days from Date Start Date: 01/24/17 Stop Date: 01/26/17 Status: Discontinued insulin aspart 6 unit, 0.06 mL, Route: SUB-Q, Drug form: SOLN, TID-Before Meals, Dosing Weight 223.955, kg, PRN Blood Glucose Results, Start date: 01/24/17 11:21:00 CDT, Durat ion: 30 day, Stop date: 02/23/17 11:20:00 CDT Notes: Roll in palms of hands gently; Do not shake vigorously. (Same as: Mirta Pimentel)"single patient use only"WASTE: F/P - Black; E - Municipal Trash Bin Stable f or 28 days at room temperature.Expires in days from Date Start Date: 01/24/17 Stop Date: 01/26/17 Status: Discontinued insulin aspart 10 unit, 0.1 mL, Route: SUB-Q, Drug form: SOLN, TID-Before Meals, Dosing Weight 223.955, kg, PRN Blood Glucose Results, Start date: 01/24/17 11:21:00 CDT, Durat ion: 30 day, Stop date: 02/23/17 11:20:00 CDT Notes: Roll in palms of hands gently; Do not shake vigorously. (Same as: Mirta Pimentel)"single patient use only"WASTE: F/P - Black; E - Municipal Trash Bin Stable f or 28 days at room temperature.Expires in days from Date Start Date: 01/24/17 Stop Date: 01/26/17 Status: Discontinued insulin aspart 8 unit, 0.08 mL, Route: SUB-Q, Drug form: SOLN, TID-Before Meals, Dosing Weight 223.955, kg, PRN Blood Glucose Results, Start date: 01/24/17 11:21:00 CDT, Durat ion: 30 day, Stop date: 02/23/17 11:20:00 CDT Notes: Roll in palms of hands gently; Do not shake vigorously. (Same as: Mirta Pimentel)"single patient use only"WASTE: F/P - Black; E - Municipal Trash Bin Stable f or 28 days at room temperature.Expires in days from Date Start Date: 01/24/17 Stop Date: 01/26/17 Status: Discontinued insulin aspart 4 unit, 0.04 mL, Route: SUB-Q, Drug form: SOLN, Bedtime, Dosing Weight 227.273, kg, PRN Blood Glucose Results, Start date: 01/22/17 14:27:00 CDT, Duration: 30 d ay, Stop date: 02/21/17 14:26:00 CDT Notes: Roll in palms of hands gently; Do not shake vigorously. (Same as: Mirta Pimentel)"single patient use only"WASTE: F/P - Black; E - Municipal Trash Bin Stable f or 28 days at room temperature.Expires in days from Date Start Date: 01/22/17 Stop Date: 01/26/17 Status: Discontinued insulin aspart 3 unit, 0.03 mL, Route: SUB-Q, Drug form: SOLN, TID-Before Meals, Dosing Weight 227.273, kg, PRN Blood Glucose Results, Start date: 01/22/17 14:27:00 CDT, Durat ion: 30 day, Stop date: 02/21/17 14:26:00 CDT Notes: Roll in palms of hands gently; Do not shake vigorously. (Same as: Mirta Pimentel)"single patient use only"WASTE: F/P - Black; E - Municipal Trash Bin Stable f or 28 days at room temperature.Expires in days from Date Start Date: 01/22/17 Stop Date: 01/24/17 Status: Discontinued insulin aspart 4 unit, 0.04 mL, Route: SUB-Q, Drug form: SOLN, TID-Before Meals, Dosing Weight 227.273, kg, PRN Blood Glucose Results, Start date: 01/22/17 14:27:00 CDT, Durat ion: 30 day, Stop date: 02/21/17 14:26:00 CDT Notes: Roll in palms of hands gently; Do not shake vigorously. (Same as: NovoANN G)"single patient use only"WASTE: F/P - Black; E - Municipal Trash Bin Stable f or 28 days at room temperature.Expires in days from Date Start Date: 01/22/17 Stop Date: 01/24/17 Status: Discontinued insulin aspart 1 unit, 0.01 mL, Route: SUB-Q, Drug form: SOLN, TID-Before Meals, Dosing Weight 227.273, kg, PRN Blood Glucose Results, Start date: 01/22/17 14:27:00 CDT, Durat ion: 30 day, Stop date: 02/21/17 14:26:00 CDT Notes: Roll in palms of hands gently; Do not shake vigorously. (Same as: NovoANN G)"single patient use only"WASTE: F/P - Black; E - Municipal Trash Bin Stable f or 28 days at room temperature.Expires in days from Date Start Date: 01/22/17 Stop Date: 01/24/17 Status: Discontinued insulin aspart 2 unit, 0.02 mL, Route: SUB-Q, Drug form: SOLN, TID-Before Meals, Dosing Weight 227.273, kg, PRN Blood Glucose Results, Start date: 01/22/17 14:27:00 CDT, Durat ion: 30 day, Stop date: 02/21/17 14:26:00 CDT Notes: Roll in palms of hands gently; Do not shake vigorously. (Same as: NovoANN Pimentel)"single patient use only"WASTE: F/P - Black; E - Municipal Trash Bin Stable f or 28 days at room temperature.Expires in days from Date Start Date: 01/22/17 Stop Date: 01/24/17 Status: Discontinued insulin aspart 1 unit, 0.01 mL, Route: SUB-Q, Drug form: SOLN, Bedtime, Dosing Weight 227.273, kg, PRN Blood Glucose Results, Start date: 01/22/17 14:27:00 CDT, Duration: 30 d ay, Stop date: 02/21/17 14:26:00 CDT Notes: Roll in palms of hands gently; Do not shake vigorously. (Same as: Mirta Pimentel)"single patient use only"WASTE: F/P - Black; E - Municipal Trash Bin Stable f or 28 days at room temperature.Expires in days from Date Start Date: 01/22/17 Stop Date: 01/26/17 Status: Discontinued insulin aspart 2 unit, 0.02 mL, Route: SUB-Q, Drug form: SOLN, Bedtime, Dosing Weight 227.273, kg, PRN Blood Glucose Results, Start date: 01/22/17 14:27:00 CDT, Duration: 30 d ay, Stop date: 02/21/17 14:26:00 CDT Notes: Roll in palms of hands gently; Do not shake vigorously. (Same as: Mirta Pimentel)"single patient use only"WASTE: F/P - Black; E - Municipal Trash Bin Stable f or 28 days at room temperature.Expires in days from Date Start Date: 01/22/17 Stop Date: 01/26/17 Status: Discontinued insulin aspart 3 unit, 0.03 mL, Route: SUB-Q, Drug form: SOLN, Bedtime, Dosing Weight 227.273, kg, PRN Blood Glucose Results, Start date: 01/22/17 14:27:00 CDT, Duration: 30 d ay, Stop date: 02/21/17 14:26:00 CDT Notes: Roll in palms of hands gently; Do not shake vigorously. (Same as: Mirta Pimentel)"single patient use only"WASTE: F/P - Black; E - Municipal Trash Bin Stable f or 28 days at room temperature.Expires in days from Date Start Date: 01/22/17 Stop Date: 01/26/17 Status: Discontinued insulin aspart 5 unit, 0.05 mL, Route: SUB-Q, Drug form: SOLN, TID-Before Meals, Dosing Weight 227.273, kg, PRN Blood Glucose Results, Start date: 01/22/17 14:27:00 CDT, Durat ion: 30 day, Stop date: 02/21/17 14:26:00 CDT Notes: Roll in palms of hands gently; Do not shake vigorously. (Same as: NovoANN Pimentel)"single patient use only"WASTE: F/P - Black; E - Municipal Trash Bin Stable f or 28 days at room temperature.Expires in days from Date Start Date: 01/22/17 Stop Date: 01/24/17 Status: Discontinued insulin detemir 3 unit, SUB-Q, Bedtime, 0 Refill(s) Start Date: 01/23/17 Status: Ordered Kayexalate 30 gm, 120 mL, Route: PO, Drug form: SUSP, ONCE, Dosing Weight 223.955, kg, Star t date: 01/23/17 9:34:00 CDT, Stop date: 01/23/17 9:34:00 CDT Notes: (sodium polystyrene sulfonate 15 gm/60 ml CHET) Shake well before use. (Same as: Kayexalate, SPS) Start Date: 01/23/17 Stop Date: 01/23/17 Status: Completed Lasix 40 mg, 4 mL, Route: IVP, Drug form: INJ, ONCE, Dosing Weight 227.273, kg, Priori ty: STAT, Start date: 01/22/17 13:02:00 CDT, Stop date: 01/22/17 13:02:00 CDT Notes: (Same as: Lasix) MEDICATION WASTE Product Size: 40 mgProduct Was jackie: ___ mg Start Date: 01/22/17 Stop Date: 01/22/17 Status: Completed Lasix 40 mg, 4 mL, Route: IVP, Drug form: INJ, Q12H, Dosing Weight 227.273, kg, Start date: 01/22/17 21:00:00 CDT, Duration: 30 day, Stop date: 02/21/17 9:00:00 CDT Notes: (Same as: Lasix) MEDICATION WASTE Product Size: 40 mgProduct Was jackie: ___ mg Start Date: 01/22/17 Stop Date: 01/26/17 Status: Discontinued Lasix 40 mg oral tablet 40 mg, 1 tab, Route: PO, Drug form: TAB, BID, Dosing Weight 207.8, kg, Start lali e: 01/26/17 17:00:00 CDT, Duration: 30 day, Stop date: 02/25/17 9:00:00 CDT Notes: (Same as: Lasix) May cause GI upset. Give with food or milk. Start Date: 01/26/17 Stop Date: 01/26/17 Status: Discontinued Lasix 40 mg oral tablet 40 mg, PO, BID, # 60 tab, 0 Refill(s) Start Date: 01/26/17 Status: Ordered Levemir 3 unit, 0.03 mL, Route: SUB-Q, Drug form: SOLN, Bedtime, Dosing Weight 223.955, kg, Start date: 01/24/17 21:00:00 CDT, Duration: 30 day, Stop date: 02/22/17 21: 00:00 CDT Notes: Same as LevemirDo not hold insulin without contacting prescriberWASTE: F/ P - Black; E - [employer] Trash Bin "single patient use only" Start Date: 01/24/17 Stop Date: 01/26/17 Status: Discontinued Lidoderm 5% topical film (patch) 1 patch, TOP, Daily, apply to left shoulder and remove q HS, # 30 patch, 0 Refil l(s) Start Date: 01/23/17 Status: Ordered lisinopril 20 mg, 4 tab, Route: PO, Drug form: TAB, Daily, Dosing Weight 227.273, kg, Start date: 01/23/17 9:00:00 CDT, Duration: 30 day, Stop date: 02/21/17 9:00:00 CDT Notes: (Same as: Prinivil, Zestril) Start Date: 01/23/17 Stop Date: 01/26/17 Status: Discontinued lisinopril 10 mg oral tablet 10 mg=1 tab, PO, Daily, # 30 tab, 0 Refill(s) Start Date: 01/23/17 Status: Ordered LORazepam 0.5 mg oral tablet 0.5 mg=1 tab, PO, Q8H, PRN Anxiety, # 60 tab, 0 Refill(s) Start Date: 01/23/17 Stop Date: 02/22/17 Status: Ordered Lotrisone 1 appl, TOP, BID Start Date: 01/24/17 Status: Ordered Lovenox 30 mg, 0.3 mL, Route: SUB-Q, Drug form: INJ, [id number], Dosing Weight 227.273, kg , Start date: 01/22/17 20:00:00 CDT, Duration: 30 day, Stop date: 02/21/17 8:00: 00 CDT Notes: (Same as: Lovenox) Start Date: 01/22/17 Stop Date: 01/26/17 Status: Discontinued methylPREDNISolone SODium SUCCinate 40 mg, 1 mL, Route: IV, Drug form: INJ, ONCE, Dosing Weight 223.955, kg, Start d ate: 01/25/17 10:38:00 CDT, Stop date: 01/25/17 10:38:00 CDT Notes: (Same as:Solu-MEDROL, A-Methapred) Start Date: 01/25/17 Stop Date: 01/25/17 Status: Completed metoprolol tartrate 25 mg oral tablet 12.5 mg=0.5 tab, PO, BID, 0 Refill(s) Start Date: 01/23/17 Status: Ordered Kendalia 10/325 oral tablet 1 tab, Route: PO, Drug Form: TAB, Dosing Weight 223.955, kg, Q6H, PRN Pain Score 4-6, Start date: 01/25/17 20:25:00 CDT, Duration: 30 day, Stop date: 02/24/17 2 0:24:00 CDT Notes: Do not exceed 4gm/day of acetaminophen. (Same as: Kendalia 325/10) Start Date: 01/25/17 Stop Date: 01/26/17 Status: Discontinued ondansetron 4 mg, 2 mL, Route: IVP, Drug form: INJ, Q6H, Dosing Weight 223.955, kg, PRN Naus ea, Start date: 01/23/17 22:50:00 CDT, Duration: 30 day, Stop date: 02/22/17 22: 49:00 CDT Notes: (Same as: Shima) MEDICATION WASTE Product Size: 4 mgProduct Was jackie: ___ mg Start Date: 01/23/17 Stop Date: 01/26/17 Status: Discontinued Protonix 40 mg, 1 tab, Route: PO, Drug form: ECTAB, Before Breakfast, Dosing Weight 227.2 73, kg, Start date: 01/23/17 7:30:00 CDT, Duration: 30 day, Stop date: 02/21/17 7:30:00 CDT Notes: Tablet should not be chewed or crushed.(Same as: Protonix) Start Date: 01/23/17 Stop Date: 01/23/17 Status: Discontinued Rocephin 1 gm, Route: IVPB, Drug form: PDR/INJ, [id number], Dosing Weight 223.955, kg, Start date: 01/24/17 8:00:00 CDT, Duration: 1 day, Stop date: 01/24/17 8:00:00 CDT, A BX Indication: Genital Tract Infection Start Date: 01/24/17 Stop Date: 01/24/17 Status: Discontinued Saline Flush 0.9% 10 mL, Route: IVP, Drug Form: INJ, Dosing Weight 227.273, kg, PRN, PRN Line Flus h, Start date: 01/22/17 12:11:00 CDT, Duration: 30 day, Stop date: 02/21/17 12:1 0:00 CDT Notes: preservative free. Start Date: 01/22/17 Stop Date: 01/26/17 Status: Discontinued Salonpas 1 patch, TOP, TID, apply to left ankle Start Date: 01/24/17 Status: Ordered spironolactone 50 mg oral tablet 50 mg=1 tab, PO, Daily, # 30 tab, 1 Refill(s) Start Date: 01/23/17 Stop Date: 02/22/17 Status: Ordered Tylenol 650 mg, 2 tab, Route: PO, Drug form: TAB, Q4H, Dosing Weight 223.955, kg, PRN Pa in Score 1-3, Start date: 01/23/17 22:50:00 CDT, Duration: 30 day, Stop date: 22:49:00 CDT Notes: Do not exceed 4 gm/day. (Same as: Tylenol) Start Date: 01/23/17 Stop Date: 01/26/17 Status: Discontinued vancomycin 1,500 mg, Route: IVPB, Drug form: INJ, [id number], Dosing Weight 227.273, kg, Start date: 01/22/17 15:00:00 CDT, Duration: 7 day, Stop date: 01/29/17 3:00:00 CDT, ABX Indication: Skin/Soft Tissue Infection Start Date: 01/22/17 Stop Date: 01/22/17 Status: Deleted vancomycin 1.25 gm, 250 mL, Route: IVPB, Drug form: INJ, [id number], Dosing Weight 223.955, kg , Start date: 01/23/17 21:00:00 CDT, Duration: 30 day, Stop date: 02/22/17 9:00: 00 CDT, ABX Indication: Skin/Soft Tissue Infection Notes: TIME CRITICAL MEDICATIONSame as: Vancocin-NS (premixed)Infusion rate< 1000 mg: infuse over 1 [id number] - 1500 mg: infuse over 1.5 [id number] - 2000 mg: infuse over 2 hours> 2001 mg: infuse over 2.5 hours Start Date: 01/23/17 Stop Date: 01/25/17 Status: Discontinued vancomycin + sodium chloride 0.9% 250 mL INJ (for IV set) 250 mL 1,250 mg, Route: IVPB, [id number], Start date: 01/22/17 15:00:00 CDT, Duration: 30 d ay, Stop date: 02/21/17 7:00:00 CDT, ABX Indication: Skin/Soft Tissue Infection Notes: TIME CRITICAL MEDICATION(Same As: Vancocin)Infusion rate< 1000 mg: infuse over 1 [id number] - 1500 mg: infuse over 1.5 [id number] - 2000 mg: infuse over 2 hours> 2001 mg: infuse over 2.5 hours MEDICATION WASTE Product Size: 1000 mgProduct Wasted: ___ mg Start Date: 01/22/17 Stop Date: 01/23/17 Status: Discontinued Vancomycin Pharmacy Dosing 1 ea, Route: MISC, ONCALL, Dosing Weight 227.273, kg, Start date: 01/22/17 15:00 :00 CDT, day, Stop date: 01/22/17 15:00:00 CDT, Pharmacy to dose, ABX Indication : Skin/Soft Tissue Infection Start Date: 01/22/17 Stop Date: 01/22/17 Status: Deleted Zosyn + sodium chloride 0.9% INJ 100 mL 3.375 gm, Route: IVPB, [id number], Dosing Weight 227.273, kg, CrCl >=20 ml/min infuse over 4 hours, Start date: 01/22/17 15:00:00 CDT, Duration: 7 day, Stop date: 01/29/17 12:00:00 CDT, ABX Indication: Pneumonia Notes: (Same as: Zosyn)Dosing based on Piperacillin component MEDICATION WA LADARIUS Product Size: 3375 mgProduct Wasted: ___ mg Start Date: 01/22/17 Stop Date: 01/25/17 Status: Discontinued Results ELECTROLYTES 1 2 3 Most recent to oldest [Reference Range]: 137 mEq/L (01/26/17 5:27 AM) 139 mEq/L (01/24/17 7:28 AM) 137 mEq/L (01/23/17 6:46 AM) Sodium Lvl [135-145 mEq/L] 4.3 mEq/L (01/26/17 5:27 AM) 4.5 mEq/L (01/24/17 7:28 AM) 5.2 mEq/L *HI* (01/23/17 4:05 PM) Potassium Lvl [3.5-5.1 mEq/L] 92 mEq/L *LOW* (01/26/17 5:27 AM) 96 mEq/L (01/24/17 7:28 AM) 100 mEq/L (01/23/17 6:46 AM) Chloride Lvl [95-109 mEq/L] 36 mEq/L *HI* (01/26/17 5:27 AM) 35 mEq/L *HI* (01/24/17 7:28 AM) 27 mEq/L (01/23/17 6:46 AM) CO2 [24-32 mEq/L] 13.3 mEq/L (01/26/17 5:27 AM) 12.5 mEq/L (01/24/17 7:28 AM) 16.1 mEq/L (01/23/17 6:46 AM) AGAP [10.0-20.0 mEq/L] CHEM PANEL 1 2 3 Most recent to oldest [Reference Range]: 0.91 mg/dL (01/26/17 5:27 AM) 1.20 mg/dL (01/24/17 7:28 AM) 1.50 mg/dL *HI* (01/23/17 6:46 AM) Creatinine Lvl [0.50-1.40 mg/dL] 113 mL/min/1.73m2 1 *NA* (01/26/17 5:27 AM) 81 mL/min/1.73m2 2 *NA* (01/24/17 7:28 AM) 62 mL/min/1.73m2 3 *NA* (01/23/17 6:46 AM) eGFR 21 mg/dL (01/26/17 5:27 AM) 23 mg/dL *HI* (01/24/17 7:28 AM) 32 mg/dL *HI* (01/23/17 6:46 AM) BUN [7-22 mg/dL] 23 (01/26/17 5:27 AM) 20 (01/22/17 12:40 PM) B/C Ratio [6-25] 159 mg/dL *HI* (01/26/17 5:27 AM) 209 mg/dL *HI* (01/24/17 7:28 AM) 128 mg/dL *HI* (01/23/17 6:46 AM) Glucose Lvl [70-99 mg/dL] 7.4 g/dL (01/26/17 5:27 AM) 7.8 g/dL (01/22/17 12:40 PM) Total Protein [6.4-8.4 g/dL] 2.8 g/dL *LOW* (01/26/17 5:27 AM) 3.0 g/dL *LOW* (01/22/17 12:40 PM) Albumin Lvl [3.5-5.0 g/dL] 4.6 g/dL *HI* (01/26/17 5:27 AM) 4.8 g/dL *HI* (01/22/17 12:40 PM) Globulin [2.7-4.2 g/dL] 0.6 *LOW* (01/26/17 5:27 AM) 0.6 *LOW* (01/22/17 12:40 PM) A/G Ratio [0.7-1.6] 9.3 mg/dL (01/26/17 5:27 AM) 8.9 mg/dL (01/24/17 7:28 AM) 8.4 mg/dL *LOW* (01/23/17 6:46 AM) Calcium Lvl [8.5-10.5 mg/dL] 16 unit/L (01/26/17 5:27 AM) 27 unit/L (01/22/17 12:40 PM) ALT [0-65 unit/L] 13 unit/L (01/26/17 5:27 AM) 19 unit/L (01/22/17 12:40 PM) AST [0-37 unit/L] 70 unit/L (01/26/17 5:27 AM) 93 unit/L (01/22/17 12:40 PM) Alk Phos [39-136 unit/L] 1.1 mg/dL (01/26/17 5:27 AM) 0.6 mg/dL (01/22/17 12:40 PM) Bili Total [0.2-1.3 mg/dL] 1.1 mMol/L (01/22/17 2:51 PM) Lactic Acid Lvl [0.5-2.2 mMol/L] 1Result Comment: The eGFR is calculated using the [...] from the National Kid[employer] Education Program ( NKDEP) which additionally recommends that when the eGFR is used in patients with extremes of body mass index for purposes of drug dosing, the eGFR should be mul tiplied by the estimated BMI. 2Result Comment: The eGFR is calculated using the [...] from the National Kid[employer] Education Program ( NKDEP) which additionally recommends that when the eGFR is used in patients with extremes of body mass index for purposes of drug dosing, the eGFR should be mul tiplied by the estimated BMI. 3Result Comment: The eGFR is calculated using the [...] from the National Kid[employer] Education Program ( NKDEP) which additionally recommends that when the eGFR is used in patients with extremes of body mass index for purposes of drug dosing, the eGFR should be mul tiplied by the estimated BMI. CARDIAC ENZYMES 1 2 3 Most recent to oldest [Reference Range]: 113 unit/L (01/22/17 12:40 PM) Total CK [12-191 unit/L] 3.8 ng/mL *HI* (01/22/17 12:40 PM) CK MB [0.5-3.6 ng/mL] 3.4 *HI* (01/22/17 12:40 PM) CK MB Index [0.0-2.5] <0.02 ng/mL (01/22/17 12:40 PM) Troponin-I [0.00-0.40 ng/mL] 310 pg/mL *HI* (01/22/17 12:40 PM) BNP [<=100 pg/mL] TOXICOLOGY 1 2 3 Most recent to oldest [Reference Range]: 0900 *NA* (01/24/17 7:28 AM) Vanco Tr TND 12.6 ug/ml *NA* (01/24/17 7:28 AM) Vanco Tr URINE CHEM 1 2 3 Most recent to oldest [Reference Range]: 93.00 mg/dL *NA* (01/22/17 6:45 PM) U Creatinine 69.0 mg/dL *NA* (01/22/17 6:45 PM) U Protein 0.7 *NA* (01/22/17 6:45 PM) U Prot/Creat None Seen (01/22/17 6:45 PM) U Eos [None Seen] HEMATOLOGY 1 2 3 Most recent to oldest [Reference Range]: 10.7 K/CMM *HI* (01/26/17 5:27 AM) 13.3 K/CMM *HI* (01/24/17 7:28 AM) 9.8 K/CMM (01/22/17 12:40 PM) WBC [3.7-10.4 K/CMM] 6.35 M/CMM *HI* (01/26/17 5:27 AM) 6.56 M/CMM *HI* (01/24/17 7:28 AM) 6.53 M/CMM *HI* (01/22/17 12:40 PM) RBC [4.70-6.10 M/CMM] 15.4 g/dL (01/26/17 5:27 AM) 15.7 g/dL (01/24/17 7:28 AM) 16.1 g/dL (01/22/17 12:40 PM) Hgb [14.0-18.0 g/dL] 50.3 % (01/26/17 5:27 AM) 52.6 % (01/24/17 7:28 AM) 51.9 % (01/22/17 12:40 PM) Hct [42.0-54.0 %] 79.2 fL *LOW* (01/26/17 5:27 AM) 80.2 fL (01/24/17 7:28 AM) 79.4 fL *LOW* (01/22/17 12:40 PM) MCV [80.0-94.0 fL] 24.2 pg *LOW* (01/26/17 5:27 AM) 24.0 pg *LOW* (01/24/17 7:28 AM) 24.6 pg *LOW* (01/22/17 12:40 PM) MCH [27.0-31.0 pg] 30.5 g/dL *LOW* (01/26/17 5:27 AM) 29.9 g/dL *LOW* (01/24/17 7:28 AM) 31.0 g/dL *LOW* (01/22/17 12:40 PM) MCHC [32.0-36.0 g/dL] 20.4 % *HI* (01/26/17 5:27 AM) 20.7 % *HI* (01/24/17 7:28 AM) 20.2 % *HI* (01/22/17 12:40 PM) RDW [11.5-14.5 %] 143 K/CMM (01/26/17 5:27 AM) 167 K/CMM (01/24/17 7:28 AM) 164 K/CMM (01/22/17 12:40 PM) Platelet [133-450 K/CMM] 9.2 fL (01/26/17 5:27 AM) 9.4 fL (01/24/17 7:28 AM) 9.6 fL (01/22/17 12:40 PM) MPV [7.4-10.4 fL] 85.5 % *HI* (01/26/17 5:27 AM) 92.0 % *HI* (01/24/17 7:28 AM) 73.9 % (01/22/17 12:40 PM) Segs [45.0-75.0 %] 6.5 % *LOW* (01/26/17 5:27 AM) 3.3 % *LOW* (01/24/17 7:28 AM) 15.5 % *LOW* (01/22/17 12:40 PM) Lymphocytes [20.0-40.0 %] 7.5 % (01/26/17 5:27 AM) 4.2 % (01/24/17 7:28 AM) 8.6 % (01/22/17 12:40 PM) Monocytes [2.0-12.0 %] 0.2 % (01/26/17 5:27 AM) 0.1 % (01/24/17 7:28 AM) 1.4 % (01/22/17 12:40 PM) Eosinophils [0.0-4.0 %] 0.3 % (01/26/17 5:27 AM) 0.4 % (01/24/17 7:28 AM) 0.6 % (01/22/17 12:40 PM) Basophils [0.0-1.0 %] 9.2 K/CMM *HI* (01/26/17 5:27 AM) 12.2 K/CMM *HI* (01/24/17 7:28 AM) 7.2 K/CMM (01/22/17 12:40 PM) Segs-Bands # [1.5-8.1 K/CMM] 0.7 K/CMM *LOW* (01/26/17 5:27 AM) 0.4 K/CMM *LOW* (01/24/17 7:28 AM) 1.5 K/CMM (01/22/17 12:40 PM) Lymphocytes # [1.0-5.5 K/CMM] 0.8 K/CMM (01/26/17 5:27 AM) 0.6 K/CMM (01/24/17 7:28 AM) 0.8 K/CMM (01/22/17 12:40 PM) Monocytes # [0.0-0.8 K/CMM] 0.1 K/CMM (01/22/17 12:40 PM) Eosinophils # [0.0-0.5 K/CMM] 0.1 K/CMM (01/24/17 7:28 AM) 0.1 K/CMM (01/22/17 12:40 PM) Basophils # [0.0-0.2 K/CMM] Normal (01/22/17 12:40 PM) RBC Morph Slight *NA* (01/24/17 7:28 AM) Polychrom 2+ (01/24/17 7:28 AM) Hypochrom [None Seen] Normal (01/24/17 7:28 AM) Normal (01/22/17 12:40 PM) Plt Morph Immunizations Given and Recorded Vaccine Date Status Refusal Reason pneumococcal 23-valent vaccine 11/17/16 Given Procedures Procedure Date Related Diagnosis Body Site Closure of tracheostomy1 4/3/17 1trach inserted October, Social History Social History Type Response Smoking Status Never smoker; Ready to change: No; Concerns about tobacco use in household: No; Exposure to Tobacco Smoke None; Cigarette Smoking Last 365 Days No; Reg Smoking Cessation Counseling No Assessment and Plan Extracted from: Title: Clinical Document Author: Ramona Cedeno Date: 01/26/17 MD Cardiology [facility] Impression: Acute on chronic diastolic heart failure Morbid Obesity w/Obesity hypoventilation syndrome sleep apnea acute hypercapneic Respiratory failure, htn dm DONG Plan: Prone position on the bed No SOB Back on PO lasix Planned DC today Follow up in office in 1 mo Follow up with pulmonary Subjective: Patient seen and examined. Telemetry reviewed: Alert No CP No SOB No N/V Objective VitalsTmp(F)[id number] 01/26 07:40 1896 4.0L/m 01/26 07:[id number]--- 01/26 04:[id number]--- 01/26 00:[id number]--- 01/25 20:[id number]--- 24 Hr Tmax: 98.7F (37.06c) at 01/25 20:00Vital Signs are the last 5 in the past 48 hours. General: morbidly obese in NAD HEENT: Neck thick CVS: Regular rate, Normal S1S2 LUNGS:decreased bs ABD: Soft, Non-tender, + BS EXT: + edema, Neuro: alert and riented Labs (Last four charted values) WBC H 10.7(JAN 26)H 13.3(JANUARY 24)9.8(JANUARY 22) Hgb 15.4(JAN 26)15.7(JANUARY 24)16.1(JANUARY 22) Hct 50.3(JAN 26)52.6(JANUARY 24)51.9(JANUARY 22) Plt 143(JAN 26)167(JANUARY 24)164(JANUARY 22) Na 137(JAN 26)139(JANUARY 24)137(JANUARY 23)139(JANUARY 23) K 4.3(JAN 26)4.5(JANUARY 24)H 5.2(JANUARY 23)H 6.1(JANUARY 23) CO2 H 36(JAN 26)H 35(JANUARY 24)27(JANUARY 23)26(JANUARY 23) Cl L 92(JAN 26)96(JANUARY 24)100(JANUARY 23)101(JANUARY 23) Cr 0.91(JAN 26)1.20(JANUARY 24)H 1.50(JANUARY 23)1.30(JANUARY 23) BUN 21(JAN 26)H 23(JANUARY 24)H 32(JANUARY 23)H 37(JANUARY 23) Glucose Random H 159(JAN 26)H 209(JANUARY 24)H 128(JANUARY 23)H 126(JANUARY 23) Ca 9.3(JAN 26)8.9(JANUARY 24)L 8.4(JANUARY 23)9.3(JANUARY 23) Troponin <0.02(JANUARY 22) CK MB H 3.8(JANUARY 22) Total CK 113(JANUARY 22)Scheduled Meds (8): 01/22/17 albuterol-ipratropium (DuoNeb inhalation solution) 3 mL NEB RQ6H 01/22/17 aspirin (aspirin 81 mg tablet, enteric coated) 81 mg PO Daily 01/25/17 doxycycline 100 mg PO Q12H 01/22/17 enoxaparin (Lovenox) 30 mg SUB-Q [id number] 01/24/17 famotidine 40 mg PO Daily 01/26/17 furosemide (Lasix 40 mg oral tablet) 40 mg PO BID 01/24/17 insulin detemir (Levemir) 3 unit SUB-Q Bedtime 0 ml/hr 01/26/17 lisinopril 20 mg PO Daily Extracted from: Title: Urology Author: Gonzalo Matson MD Date: 01/24/17 Patient: NICHO GOFF Age: 31 years Sex: Male : 1985 Associated Diagnoses: None Author: Gonzalo Matson MD Basic Information Source of history: Self, Medical record. Present at bedside: Medical personnel. Referral source: Deyvi Morris MD. History limitation: Clinical condition. Chief Complaint difficult mckay catheterization History of Present Illness 31 year old male with history of super morbid obesity, bed bound, sleep apnea and CHF and DM currently residing in a alf. He has had difficulty voiding including hesitancy, nocturia, weak stream and straining to void and was admitted with bilateral LE edema. He has been on lasix and voiding on himself and the IMCU requests mckay catheter placement, which was attempted several times without success. Review of Systems Constitutional: No fever, No chills. Eye: No recent visual problem. Ear/Nose/Mouth/Throat: No decreased hearing. Respiratory: Shortness of breath, Cough. Cardiovascular: No chest pain. Gastrointestinal: Nausea, Vomiting. Genitourinary: Change in urine stream, No dysuria, No hematuria. Hematology/Lymphatics: No bruising tendency. Endocrine: Polyuria, No excessive thirst. Immunologic: Not immunocompromised. Musculoskeletal: No back pain. Health Status Allergies: Allergic Reactions (All) Severity Not Documented Morphine- No reactions were documented. Canceled/Inactive Reactions (All) Severity Not Documented NKDA- No reactions were documented., Allergies (1) ActiveReaction morphineNone Documented Current medications: (Selected) Inpatient Medications Ordered Dextrose 50% Syringe: 12.5 gm, 25 mL, IVP, PRN, PRN: Blood Glucose Results Dextrose 50% Syringe: 25 gm, 50 mL, IVP, PRN, PRN: Blood Glucose Results DuoNeb inhalation solution: 3 mL, NEB, RQ6H Lasix: 40 mg, 4 mL, IVP, Q12H Lovenox: 30 mg, 0.3 mL, SUB-Q, [id number] Saline Flush 0.9%: 10 mL, IVP, PRN, PRN: Line Flush Tylenol: 650 mg, 2 tab, PO, Q4H, PRN: Pain Score 1-3 Zosyn + sodium chloride 0.9% INJ 100 mL: 3.375 gm, 25 ml/hr, IVPB, ABXQ8H aspirin 81 mg tablet, enteric coated: 81 mg, 1 tab, PO, Daily famotidine: 40 mg, 2 tab, PO, Daily glucagon: 1 mg, IM, PRN, PRN: Blood Glucose Results insulin aspart: 1 unit, 0.01 mL, SUB-Q, Bedtime, PRN: Blood Glucose Results insulin aspart: 1 unit, 0.01 mL, SUB-Q, TID-Before Meals, PRN: Blood Glucose Results insulin aspart: 2 unit, 0.02 mL, SUB-Q, Bedtime, PRN: Blood Glucose Results insulin aspart: 2 unit, 0.02 mL, SUB-Q, TID-Before Meals, PRN: Blood Glucose Results insulin aspart: 3 unit, 0.03 mL, SUB-Q, Bedtime, PRN: Blood Glucose Results insulin aspart: 3 unit, 0.03 mL, SUB-Q, TID-Before Meals, PRN: Blood Glucose Results insulin aspart: 4 unit, 0.04 mL, SUB-Q, Bedtime, PRN: Blood Glucose Results insulin aspart: 4 unit, 0.04 mL, SUB-Q, TID-Before Meals, PRN: Blood Glucose Results insulin aspart: 5 unit, 0.05 mL, SUB-Q, TID-Before Meals, PRN: Blood Glucose Results ondansetron: 4 mg, 2 mL, IVP, Q6H, PRN: Nausea vancomycin: 1.25 gm, 250 mL, 166.67 ml/hr, IVPB, [id number] Suspended lisinopril: 20 mg, 4 tab, PO, Daily Prescriptions Prescribed aspirin 81 mg tablet, enteric coated: 81 mg, 1 tab, PO, Q24H, 30 tab, 0 Refill(s) lisinopril 20 mg oral tablet: 20 mg, 1 tab, PO, Daily, 30 tab, 0 Refill(s) Documented Medications Documented CeleXA: 20 mg, PO, Daily, 0 Refill(s) LORazepam 0.5 mg oral tablet: 0.5 mg, 1 tab, PO, Q8H, for 30 day, PRN: Anxiety, 60 tab, 0 Refill(s) Levemir: 6 unit, SUB-Q, Bedtime, 0 Refill(s) Lidoderm 5% topical film (patch): 1 patch, TOP, Daily, apply to left shoulder and remove q HS, 30 patch, 0 Refill(s) Mucinex: 600 mg, PO, Q12H, STOP DATE 11/17, 0 Refill(s) [place] 10/325 oral tablet: 1 tab, PO, Q6H, for 6 day, PRN: for pain, 24 tab, 0 Refill(s) acetaminophen: 650 mg, PO, Q6H, PRN: pain, 0 Refill(s) baclofen: 10 mg, PO, QID, 0 Refill(s) famotidine: 40 mg, PO, Daily, for 30 day, 60 tab, 0 Refill(s) furosemide 40 mg oral tablet: 60 mg, 1.5 tab, PO, BID, 0 Refill(s) glipiZIDE: 2.5 mg, PO, Daily, 0 Refill(s) hydrochlorothiazide: 12.5 mg, PO, Daily, 0 Refill(s) insulin detemir: 3 unit, SUB-Q, Bedtime, 0 Refill(s) lisinopril 10 mg oral tablet: 10 mg, 1 tab, PO, Daily, 30 tab, 0 Refill(s) metoprolol tartrate 25 mg oral tablet: 12.5 mg, 0.5 tab, PO, BID, 0 Refill(s) spironolactone 50 mg oral tablet: 50 mg, 1 tab, PO, Daily, for 30 day, 30 tab, 1 Refill(s) tramadol: 25 mg, PO, Q8H, for 4 day, PRN: Pain, 20 tab, 0 Refill(s) Histories Past Medical History: Resolved HTN (hypertension) (8492902355): Resolved. Diabetes (397835882): Resolved. CHF (congestive heart failure) (678474721): Resolved. Family History: No family history items have been selected or recorded. Procedure history: Closure of tracheostomy ([id number]) on 11/27/2016 at 31 Years. Comments: 01/23/2017 04:47 - Nandini Ferrera RN trach inserted October, Physical Examination VS/Measurements Vital Signs (last 24 hrs) Last Charted Temp Ivmgyhkc50.2 DegF (JANUARY 23 12:00) Heart Rate Iywigc37 bpm (JANUARY 24 06:00) Resp Rate 17 BRMIN (JANUARY 24:00) WAQ346 mmHg (JANUARY 24 06:00) DBP64 mmHg (JANUARY 24:00) JvQ206 % (JANUARY 24:00) General: Alert and oriented, Mild distress. Eye: Normal conjunctiva. HENT: Normocephalic. Neck: Supple. Respiratory: Respirations are non-labored. Cardiovascular: Normal rate, Regular rhythm. Gastrointestinal: Soft, Non-tender, morbidly obese, large pannus with edema and celluitic changes. Genitourinary: uncircumcised phallus, somewhat buried beneath suprapubic fat . Neurologic: Alert, No focal deficits. Cognition and Speech: Oriented. Psychiatric: Cooperative. Review / Management Results review: Labs (Last four charted values) WBC 9.8(JANUARY 22) Hgb 16.1(JANUARY 22) Hct 51.9(JANUARY 22) Plt 164(JANUARY 22) Na 137(JANUARY 23)139(JANUARY 23)136(JANUARY 22) K H 5.2(JANUARY 23)H 6.1(JANUARY 23)See Note(JANUARY 23)4.7(JANUARY 22) CO2 27(JANUARY 23)26(JANUARY 23)32(JANUARY 22) Cl 100(JANUARY 23)101(JANUARY 23)L 94(JANUARY 22) Cr H 1.50(JANUARY 23)1.30(JANUARY 23)H 1.60(JANUARY 22) BUN H 32(JANUARY 23)H 37(JANUARY 23)H 32(JANUARY 22) Glucose Random H 128(JANUARY 23)H 126(JANUARY 23)H 156(JANUARY 22) Ca L 8.4(JANUARY 23)9.3(JANUARY 23)L 8.2(JANUARY 22) Troponin <0.02(JANUARY 22) CK MB H 3.8(JANUARY 22) Total CK 113(JANUARY 22). Impression and Plan 31 year old male with CHF, DM, obesity and need for mckay catheter with urethral stricture 1) I attempted to place a 14F coude and 18 regular catheter without success and encountered what i thought may be a stricture. I then prepped the penis again and used the Bard difficult mckay catheterization kit with filliforms and urethral dilators and was able to bypass the stricture, the urethra was sequentially dilated to 18F and then 18F [place] type catheter was placed over the filliform with return of urine, the balloon was inflated and connected with clear urine. 2) Keep mckay x1 week and then voiding trial may be attempted, he can follow up with urology as an outpatient with Dr. Alejandra Addendum Patient seen and examined, agree with H&P, plan as per Dr. Matson by -Urethral stricture - dilated at bedside and mckay placed. Similar to 10/2016. Continue [place], mckay x 1 week can remove in clinic. Lui Coburn -Patient can then follow up with myself or Dr. Jess PERRY on -No further Urologic intervention. 01/24/2017 I personally reveiwed the patient's labs and reports, and contacted the consulting 14:14 physician to discuss the above plan. Lui Montiel MD [facility] Office: [phone]
--- OUTSIDE RECORDS SUMMARY | 2019-01-20 18:15 | XMS REPORT | Summary of Care ---
Author Author [facility] Organization [facility] Address Unknown Phone Unavailable Encounter HQ Kathryn_brit(FIN) [id number] Date(s): 03/06/17 - 03/06/17 [facility] [address] [place] [address]- [phone] Discharge Disposition: Home or Self Care Attending Physician: Jodi Moses MD Referring Physician: Physician, Non Associated MD Vital Signs No data available for [...]
--- OUTSIDE RECORDS SUMMARY | 2019-01-20 18:16 | XMS REPORT | Summary of Care ---
Author Author [facility] Organization [facility] Address Unknown Phone Unavailable Encounter HQ Brynn(CALEB) [id number] Date(s): 06/26/17 - 07/01/17 [facility] [address] [place] [address]- [phone] Discharge Disposition: [facility]sp Facility Attending Physician: Raimundo Valladares DO Admitting Physician: Raimundo Valladares DO Vital Signs 1 2 3 Most recent to oldest [Reference Range]: 172.72 cm (06/26/17 6:25 AM) 172.72 cm (06/26/17 1:23 AM) Height 98.7 DegF (07/02/17 11:00 AM) 98.5 DegF (07/02/17 4:00 AM) 98.9 DegF (07/02/17 12:00 AM) Temperature Oral [96.4-99.1 DegF] 130/80 mmHg (07/02/17 4:00 PM) 129/56 mmHg (07/02/17 2:00 PM) 136/82 mmHg (07/02/17 12:00 PM) Blood Pressure [90-140/60-90 mmHg] 18 BRMIN (07/02/17 4:00 PM) 18 BRMIN (07/02/17 2:00 PM) 17 BRMIN (07/02/17 12:00 PM) Respiratory Rate [14-20 BRMIN] 95 bpm (06/28/17 12:00 PM) 71 bpm (06/28/17 8:00 AM) 84 bpm (06/28/17 6:12 AM) Peripheral Pulse Rate [60-100 bpm] 203.318 kg (06/26/17 6:25 AM) 220.455 kg (06/26/17 1:23 AM) Weight 68.15 m2 (06/26/17 6:25 AM) 73.9 m2 (06/26/17 1:23 AM) Body Mass Index Problem List Condition Effective Dates Status Health Status Informant Coma(Confirmed) Resolved CHF (congestive Active heart failure)(Confirmed) Diabetes(Confirmed) Active Generalized Active obesity(Confirmed) HTN Active (hypertension)(Confi rmed) Allergies, Adverse Reactions, Alerts Substance Reaction Severity Status morphine Active Medications acetaminophen 650 mg, 2 tab, Route: PO, Drug form: TAB, Q4H, Dosing Weight 203.318, kg, PRN Pa in 1-3/Temp > 100.4 F, Start date: 06/26/17 6:58:00 CDT, Duration: 30 day, Stop date: 07/26/17 6:57:00 BANK TELLER Notes: Do not exceed 4 gm/day. (Same as: Tylenol) Start Date: 06/26/17 Stop Date: 07/02/17 Status: Discontinued aspirin 81 mg, 1 tab, Route: PO, Drug form: ECTAB, Daily, Dosing Weight 203.318, kg, Sta rt date: 06/27/17 12:30:00 CDT, Duration: 30 day, Stop date: 07/27/17 9:00:00 CS T Notes: Do not crush or chew.(Same As: Ecotrin) Start Date: 06/27/17 Stop Date: 07/02/17 Status: Discontinued baclofen 10 mg, 1 tab, Route: PO, Drug form: TAB, QID, Dosing Weight 203.318, kg, Start d ate: 06/27/17 13:00:00 CDT, Duration: 30 day, Stop date: 07/27/17 9:00:00 BANK TELLER Notes: (Same As: Lioresal) Start Date: 06/27/17 Stop Date: 07/02/17 Status: Discontinued baclofen 10 mg oral tablet 10 mg=1 tab, PO, QID, 0 Refill(s) Start Date: 06/26/17 Status: Ordered Bumex 2 mg, BID, 0 Refill(s) Start Date: 06/26/17 Stop Date: 07/02/17 Status: Discontinued calcium gluconate 1 gm, 50 mL, Route: IVPB, Drug form: INJ, ONCE, Dosing Weight 220.455, kg, Prior ity: STAT, Start date: 06/26/17 3:04:00 CDT, Stop date: 06/26/17 3:04:00 CDT Notes: WASTE: F/P - Sink; E - Municipal Trash Bin Start Date: 06/26/17 Stop Date: 06/26/17 Status: Completed CeleXA 20 mg, 2 tab, Route: PO, Drug form: TAB, Daily, Dosing Weight 203.318, kg, Start date: 06/28/17 9:00:00 CDT, Duration: 30 day, Stop date: 07/27/17 9:00:00 BANK TELLER Start Date: 06/28/17 Stop Date: 07/02/17 Status: Discontinued Ciloxan 0.3% ophthalmic solution 2 drp, BOTH EYES, Q4H, X 5 day, # 10 mL, 0 Refill(s) Start Date: 07/02/17 Stop Date: 07/07/17 Status: Ordered Ciloxan 0.3% ophthalmic solution 2 drp, Route: BOTH EYES, Q4H, Drug form: SOLN, Start date: 07/01/17 12:00:00 BANK TELLER , Duration: 5 day, Stop date: 07/06/17 8:00:00 BANK TELLER Notes: (Same As: Ciloxan) Start Date: 07/01/17 Stop Date: 07/02/17 Status: Discontinued Dextrose 50% Syringe 12.5 gm, 25 mL, Route: IVP, Drug Form: INJ, Dosing Weight 203.318, kg, PRN, PRN Blood Glucose Results, Start date: 06/26/17 12:22:00 CDT, Duration: 30 day, Stop date: 07/26/17 11:21:00 BANK TELLER Start Date: 06/26/17 Stop Date: 07/02/17 Status: Discontinued Dextrose 50% Syringe 25 gm, 50 mL, Route: IVP, Drug Form: INJ, Dosing Weight 203.318, kg, PRN, PRN Bl ood Glucose Results, Start date: 06/26/17 12:22:00 CDT, Duration: 30 day, Stop d ate: 07/26/17 11:21:00 BANK TELLER Start Date: 06/26/17 Stop Date: 07/02/17 Status: Discontinued Dextrose 50% Syringe 25 gm, 50 mL, Route: IVP, Drug Form: INJ, Dosing Weight 220.455, kg, ONCE, STAT, Start date: 06/26/17 3:04:00 CDT, Stop date: 06/26/17 3:04:00 CDT Start Date: 06/26/17 Stop Date: 06/26/17 Status: Completed DuoNeb inhalation solution 3 mL, NEB, Q6H, PRN as needed for shortness of breath or wheezing, 0 Refill(s) Start Date: 06/26/17 Status: Ordered DuoNeb inhalation solution 3 mL, Route: NEB, Drug Form: SOLN, Dosing Weight 203.318, kg, RQ6H, PRN Shortnes s of breath, Start date: 06/27/17 11:23:00 CDT, Duration: 30 day, Stop date: 09/12 11:22:00 BANK TELLER Notes: (Same as: Duoneb) Start Date: 06/27/17 Stop Date: 07/02/17 Status: Discontinued DuoNeb inhalation solution 3 mL, Route: NEB, Drug Form: SOLN, Dosing Weight 203.318, kg, RQ6H, Start date: 06/27/17 14:00:00 CDT, Duration: 30 day, Stop date: 07/27/17 8:00:00 BANK TELLER Notes: (Same as: Duoneb) Start Date: 06/27/17 Stop Date: 07/02/17 Status: Discontinued enoxaparin 30 mg, 0.3 mL, Route: SUB-Q, Drug form: INJ, [id number], Dosing Weight 203.318, kg , Priority: NOW, Start date: 06/29/17 19:31:00 CDT, Duration: 30 day, Stop date: 07/29/17 7:31:00 BANK TELLER Notes: (Same as: Lovenox) Start Date: 06/29/17 Stop Date: 07/02/17 Status: Discontinued famotidine 40 mg, 2 tab, Route: PO, Drug form: TAB, Daily, Dosing Weight 203.318, kg, Start date: 06/28/17 9:00:00 CDT, Stop date: 07/27/17 9:00:00 BANK TELLER Notes: (Same as: Pepcid) Start Date: 06/28/17 Stop Date: 07/02/17 Status: Discontinued furosemide 40 mg, 4 mL, Route: IVP, Drug form: INJ, Daily, Dosing Weight 203.318, kg, Start date: 06/30/17 9:00:00 CDT, Duration: 30 day, Stop date: 07/29/17 9:00:00 BANK TELLER Notes: (Same as: Lasix) MEDICATION WASTE Product Size: 40 mgProduct Was jackie: ___ mg Start Date: 06/30/17 Stop Date: 07/02/17 Status: Discontinued furosemide 40 mg, 4 mL, Route: IVP, Drug form: INJ, ONCE, Dosing Weight 203.318, kg, Priori ty: STAT, Start date: 06/29/17 19:22:00 CDT, Stop date: 06/29/17 19:22:00 CDT Notes: (Same as: Lasix) MEDICATION WASTE Product Size: 40 mgProduct Was jackie: ___ mg Start Date: 06/29/17 Stop Date: 06/29/17 Status: Completed furosemide 60 mg, 6 mL, Route: IVP, Drug form: INJ, ONCE, Dosing Weight 203.318, kg, Start date: 06/28/17 11:15:00 CDT, Stop date: 06/28/17 11:15:00 CDT Notes: (Same as: Lasix) Start Date: 06/28/17 Stop Date: 06/28/17 Status: Completed glipiZIDE 2.5 mg, Route: PO, BID, Dosing Weight 203.318, kg, Start date: 06/27/17 17:00:00 CDT, Duration: 30 day, Stop date: 07/27/17 9:00:00 BANK TELLER Start Date: 06/27/17 Stop Date: 06/27/17 Status: Deleted glucagon 1 mg, Route: IM, Drug form: PDR/INJ, PRN, Dosing Weight 203.318, kg, PRN Blood G lucose Results, Start date: 06/26/17 12:22:00 CDT, Duration: 30 day, Stop date: 07/26/17 11:21:00 BANK TELLER Start Date: 06/26/17 Stop Date: 07/02/17 Status: Discontinued Glucotrol 2.5 mg, 0.5 tab, Route: PO, Drug form: TAB, BID-Before Meals, Start date: 16:30:00 CDT, Duration: 30 day, Stop date: 07/27/17 7:30:00 BANK TELLER Notes: (Same as: Glucotrol) 30 min before meals. Start Date: 06/27/17 Stop Date: 07/02/17 Status: Discontinued insulin detemir 3 unit, Route: SUB-Q, Bedtime, Dosing Weight 203.318, kg, Start date: 06/27/17 2 1:00:00 CDT, Duration: 30 day, Stop date: 07/26/17 21:00:00 BANK TELLER Start Date: 06/27/17 Stop Date: 06/27/17 Status: Deleted insulin glargine 3 unit, 0.03 mL, Route: SUB-Q, Drug form: SOLN, Bedtime, Start date: 06/27/17 21 :00:00 CDT, Duration: 30 day, Stop date: 07/26/17 21:00:00 BANK TELLER Notes: (Same as: Lantus)Do not hold insulin without contacting prescriberWASTE: F/P - Black; E - Municipal Trash Bin "single patient use only" Start Date: 06/27/17 Stop Date: 07/02/17 Status: Discontinued insulin lispro 2 unit, 0.02 mL, Route: SUB-Q, Drug form: SOLN, Bedtime, Dosing Weight 203.318, kg, PRN Blood Glucose Results, Start date: 06/26/17 12:22:00 CDT, Duration: 30 d ay, Stop date: 07/26/17 12:21:00 BANK TELLER Notes: Roll in palms of hands gently; Do not shake `vigorously. (Same as: Chanel adair )"Single Patient Use Only "WASTE: F/P - Black; E - Municipal Trash Bin Stabl e for 28 days at room temperature.Expires in days from Date Start Date: 06/26/17 Stop Date: 07/02/17 Status: Discontinued insulin lispro 1 unit, 0.01 mL, Route: SUB-Q, Drug form: SOLN, Bedtime, Dosing Weight 203.318, kg, PRN Blood Glucose Results, Start date: 06/26/17 12:22:00 CDT, Duration: 30 d ay, Stop date: 07/26/17 12:21:00 BANK TELLER Notes: Roll in palms of hands gently; Do not shake `vigorously. (Same as: Humal og )"Single Patient Use Only "WASTE: F/P - Black; E - Municipal Trash Bin Stabl e for 28 days at room temperature.Expires in days from Date Start Date: 06/26/17 Stop Date: 07/02/17 Status: Discontinued insulin lispro 3 unit, 0.03 mL, Route: SUB-Q, Drug form: SOLN, Bedtime, Dosing Weight 203.318, kg, PRN Blood Glucose Results, Start date: 06/26/17 12:22:00 CDT, Duration: 30 d ay, Stop date: 07/26/17 12:21:00 BANK TELLER Notes: Roll in palms of hands gently; Do not shake `vigorously. (Same as: Humal og )"Single Patient Use Only "WASTE: F/P - Black; E - Municipal Trash Bin Stabl e for 28 days at room temperature.Expires in days from Date Start Date: 06/26/17 Stop Date: 07/02/17 Status: Discontinued insulin lispro 4 unit, 0.04 mL, Route: SUB-Q, Drug form: SOLN, Bedtime, Dosing Weight 203.318, kg, PRN Blood Glucose Results, Start date: 06/26/17 12:22:00 CDT, Duration: 30 d ay, Stop date: 07/26/17 12:21:00 BANK TELLER Notes: Roll in palms of hands gently; Do not shake `vigorously. ([facility] )"Single [facility] Use Only "WASTE: F/P - Black; E - Municipal Trash Bin Stabl e for 28 days at room temperature.Expires in days from Date Start Date: 06/26/17 Stop Date: 07/02/17 Status: Discontinued insulin lispro 6 unit, 0.06 mL, Route: SUB-Q, Drug form: SOLN, TID-Before Meals, Dosing Weight 203.318, kg, PRN Blood Glucose Results, Start date: 06/26/17 12:22:00 CDT, Durat ion: 30 day, Stop date: 07/26/17 12:21:00 BANK TELLER Notes: Roll in palms of hands gently; Do not shake `vigorously. (Same as: Chanel og )"Single Patient Use Only "WASTE: F/P - Black; E - Municipal Trash Bin Stabl e for 28 days at room temperature.Expires in days from Date Start Date: 06/26/17 Stop Date: 07/02/17 Status: Discontinued insulin lispro 4 unit, 0.04 mL, Route: SUB-Q, Drug form: SOLN, TID-Before Meals, Dosing Weight 203.318, kg, PRN Blood Glucose Results, Start date: 06/26/17 12:22:00 CDT, Durat ion: 30 day, Stop date: 07/26/17 12:21:00 BANK TELLER Notes: Roll in palms of hands gently; Do not shake `vigorously. (Same as: Humal og )"Single Patient Use Only "WASTE: F/P - Black; E - Municipal Trash Bin Stabl e for 28 days at room temperature.Expires in days from Date Start Date: 06/26/17 Stop Date: 07/02/17 Status: Discontinued insulin lispro 2 unit, 0.02 mL, Route: SUB-Q, Drug form: SOLN, TID-Before Meals, Dosing Weight 203.318, kg, PRN Blood Glucose Results, Start date: 06/26/17 12:22:00 CDT, Durat ion: 30 day, Stop date: 07/26/17 12:21:00 BANK TELLER Notes: Roll in palms of hands gently; Do not shake `vigorously. (Same as: Humal og )"Single Patient Use Only "WASTE: F/P - Black; E - Municipal Trash Bin Stabl e for 28 days at room temperature.Expires in days from Date Start Date: 06/26/17 Stop Date: 07/02/17 Status: Discontinued insulin lispro 10 unit, 0.1 mL, Route: SUB-Q, Drug form: SOLN, TID-Before Meals, Dosing Weight 203.318, kg, PRN Blood Glucose Results, Start date: 06/26/17 12:22:00 CDT, Durat ion: 30 day, Stop date: 07/26/17 12:21:00 BANK TELLER Notes: Roll in palms of hands gently; Do not shake `vigorously. (Same as: Chanel adair )"Single Patient Use Only "WASTE: F/P - Black; E - Municipal Trash Bin Stabl e for 28 days at room temperature.Expires in days from Date Start Date: 06/26/17 Stop Date: 07/02/17 Status: Discontinued insulin lispro 8 unit, 0.08 mL, Route: SUB-Q, Drug form: SOLN, TID-Before Meals, Dosing Weight 203.318, kg, PRN Blood Glucose Results, Start date: 06/26/17 12:22:00 CDT, Durat ion: 30 day, Stop date: 07/26/17 12:21:00 BANK TELLER Notes: Roll in palms of hands gently; Do not shake `vigorously. (Same as: Chanel adair )"Single Patient Use Only "WASTE: F/P - Black; E - Municipal Trash Bin Stabl e for 28 days at room temperature.Expires in days from Date Start Date: 06/26/17 Stop Date: 07/02/17 Status: Discontinued Insulin regular 5 unit, 0.05 mL, Route: IVP, Drug form: INJ, ONCE, Dosing Weight 220.455, kg, Pr iority: STAT, Start date: 06/26/17 3:04:00 CDT, Stop date: 06/26/17 3:04:00 CDT Notes: (Same as: Humulin R and NovoLIN R)WASTE: F/P - Black; E - Municipal Trash Bin (Do not shake) Start Date: 06/26/17 Stop Date: 06/26/17 Status: Completed Kayexalate 60 gm, 240 mL, Route: PO, Drug form: SUSP, ONCE, Dosing Weight 203.318, kg, Star t date: 06/27/17 18:23:00 CDT, Stop date: 06/27/17 18:23:00 CDT Notes: (sodium polystyrene sulfonate 15 gm/60 ml CHET) Shake well before use. (Same as: Kayexalate, SPS) Start Date: 06/27/17 Stop Date: 06/27/17 Status: Completed Kayexalate 60 gm, 240 mL, Route: WV, Drug form: MIRTHA, ONCE, Dosing Weight 203.318, kg, Prio rity: STAT, Start date: 06/28/17 7:19:00 CDT, Stop date: 06/28/17 7:19:00 CDT Notes: (sodium polystyrene sulfonate 30 gm/120 ml MIRTHA) (Same as: Kayexalate, SP S) Shake well before use. Start Date: 06/28/17 Stop Date: 06/28/17 Status: Completed Kayexalate 60 gm, 240 mL, Route: WV, Drug form: MIRTHA, ONCE, Dosing Weight 203.318, kg, Prio rity: STAT, Start date: 06/27/17 20:17:00 CDT, Stop date: 06/27/17 20:17:00 CDT Notes: (sodium polystyrene sulfonate 30 gm/120 ml MIRTHA) (Same as: Kayexalate, SP S) Shake well before use. Start Date: 06/27/17 Stop Date: 06/27/17 Status: Completed Kayexalate 45 gm, 180 mL, Route: PO, Drug form: SUSP, ONCE, Dosing Weight 220.455, kg, Prio rity: STAT, Start date: 06/26/17 3:04:00 CDT, Stop date: 06/26/17 3:04:00 CDT Notes: (sodium polystyrene sulfonate 15 gm/60 ml CHET) Shake well before use. (Same as: Kayexalate, SPS) Start Date: 06/26/17 Stop Date: 06/26/17 Status: Completed Kayexalate 60 gm, 240 mL, Route: PO, Drug form: SUSP, ONCE, Dosing Weight 203.318, kg, Star t date: 06/27/17 8:43:00 CDT, Stop date: 06/27/17 8:43:00 CDT Notes: (sodium polystyrene sulfonate 15 gm/60 ml CHET) Shake well before use. (Same as: Kayexalate, SPS) Start Date: 06/27/17 Stop Date: 06/27/17 Status: Completed Kayexalate 30 gm, 120 mL, Route: PO, Drug form: SUSP, ONCE, Dosing Weight 203.318, kg, Star t date: 06/27/17 13:58:00 CDT, Stop date: 06/27/17 13:58:00 CDT Notes: (sodium polystyrene sulfonate 15 gm/60 ml CHET) Shake well before use. (Same as: Kayexalate, SPS) Start Date: 06/27/17 Stop Date: 06/27/17 Status: Completed Kayexalate 60 mg, 0.24 mL, Route: PO, Drug form: SUSP, ONCE, Dosing Weight 203.318, kg, Sta rt date: 06/27/17 8:01:00 CDT, Stop date: 06/27/17 8:01:00 CDT Notes: (sodium polystyrene sulfonate 15 gm/60 ml CHET) Shake well before use. (Same as: Kayexalate, SPS) Start Date: 06/27/17 Stop Date: 06/27/17 Status: Deleted ketOROLAC 30 mg, 2 mL, Route: IVP, Drug form: INJ, ONCE, Dosing Weight 203.318, kg, Start date: 06/28/17 17:24:00 CDT, Duration: 1 doses or times, Stop date: 06/28/17 17: 24:00 CDT Notes: (Same as:Toradol) IV bolus must be given >15 seconds. Give IM administration slowly and deeply into the muscle. Not for use > 4 days. Start Date: 06/28/17 Stop Date: 06/28/17 Status: Completed Lasix 60 mg, 6 mL, Route: IV, Drug form: INJ, ONCE, Dosing Weight 203.318, kg, Start d ate: 06/27/17 22:11:00 CDT, Stop date: 06/27/17 22:11:00 CDT Notes: (Same as: Lasix) Start Date: 06/27/17 Stop Date: 06/27/17 Status: Completed Lasix 40 mg oral tablet 40 mg, 1 tab, Route: PO, Drug form: TAB, Daily, Dosing Weight 203.318, kg, Start date: 07/02/17 9:00:00 BANK TELLER, Duration: 30 day, Stop date: 07/31/17 9:00:00 BANK TELLER Notes: (Same as: Lasix) May cause GI upset. Give with food or milk. Start Date: 07/02/17 Stop Date: 07/02/17 Status: Discontinued Lasix 40 mg oral tablet 40 mg=1 tab, PO, Daily, # 30 tab, 1 Refill(s) Start Date: 07/02/17 Status: Ordered lidocaine topical patch (5% film) 2 patch, Route: TOP, Q24H, Drug form: FILM, Priority: Now, Start date: 06/29/17 21:00:00 CDT, Duration: 30 day, Stop date: 07/28/17 21:00:00 BANK TELLER Notes: Apply only once for up to 12 hours in [id number]-tuxo period (12 hours on and 12 hours off).(Same as: Lidoderm)"Remove old patch before application of new patch" Start Date: 06/29/17 Stop Date: 07/02/17 Status: Discontinued LORazepam 0.5 mg, 1 tab, Route: PO, Drug form: TAB, Q8H, Dosing Weight 203.318, kg, PRN An xiety, Start date: 06/27/17 11:24:00 CDT, Duration: 30 day, Stop date: 07/27/17 11:23:00 BANK TELLER Notes: (Same as: Ativan) Start Date: 06/27/17 Stop Date: 07/02/17 Status: Discontinued metoprolol tartrate 12.5 mg, 0.5 tab, Route: PO, Drug form: TAB, BID, Dosing Weight 203.318, kg, Sta rt date: 06/27/17 21:00:00 CDT, Duration: 30 day, Stop date: 07/27/17 9:00:00 CS T Notes: (Same as: Lopressor) Start Date: 06/27/17 Stop Date: 07/02/17 Status: Discontinued mupirocin topical 1 appl, Route: NASAL, Q12H, Drug form: OINT, Start date: 06/28/17 21:00:00 CDT, Duration: 5 day, Stop date: 07/03/17 9:00:00 BANK TELLER, MRSA Decolonization Start Date: 06/28/17 Stop Date: 07/02/17 Status: Discontinued mupirocin topical 2% cream 1 appl, NASAL, Q12H, MRSA Decolonization, # 15 gm, 0 Refill(s) Start Date: 07/02/17 Stop Date: 07/03/17 Status: Completed Chandler 10/325 oral tablet 1 tab, Route: PO, Drug Form: TAB, Dosing Weight 203.318, kg, Q4H, PRN Pain Score 6-10, Start date: 06/27/17 5:28:00 CDT, Duration: 30 day, Stop date: 07/27/17 5 :27:00 BANK TELLER Notes: Do not exceed 4gm/day of acetaminophen. (Same as: Chandler 325/10) Start Date: 06/27/17 Stop Date: 07/02/17 Status: Discontinued Chandler 10/325 oral tablet 1 tab, PO, Q6H, PRN Pain Score 6-10, 0 Refill(s) Start Date: 06/26/17 Stop Date: 07/02/17 Status: Discontinued Chandler 10/325 oral tablet 1 tab, Route: PO, Drug Form: TAB, Dosing Weight 203.318, kg, Q6H, PRN Pain Score 6-10, Start date: 06/27/17 0:40:00 CDT, Duration: 30 day, Stop date: 07/27/17 0 :39:00 BANK TELLER Notes: Do not exceed 4gm/day of acetaminophen. (Same as: Chandler 325/10) Start Date: 06/27/17 Stop Date: 06/27/17 Status: Discontinued ocular lubricant solution 2 drp, BOTH EYES, Q4H, PRN as needed for dry eyes, # 30 ea, 0 Refill(s) Start Date: 07/02/17 Status: Ordered ondansetron 4 mg, 2 mL, Route: IVP, Drug form: INJ, Q6H, Dosing Weight 203.318, kg, PRN Naus ea & Vomiting, Start date: 06/26/17 6:58:00 CDT, Duration: 30 day, Stop date: 07/26/17 6:57:00 BANK TELLER Notes: (Same as: Zofran) MEDICATION WASTE Product Size: 4 mgProduct Was jackie: ___ mg Start Date: 06/26/17 Stop Date: 07/02/17 Status: Discontinued promethazine 25 mg, Route: PO, Q6H, Dosing Weight 203.318, kg, PRN Nausea & Vomiting, Start date: 06/27/17 18:22:00 CDT, Duration: 30 day, Stop date: 07/27/17 18:21:00 BANK TELLER Start Date: 06/27/17 Stop Date: 06/27/17 Status: Discontinued promethazine + sodium chloride 0.9% INJ 50 mL 25 mg, 1 mL, Route: IVPB, Q6H, Dosing Weight 203.318, kg, PRN Nausea & Vomiting, Start date: 06/27/17 18:33:00 CDT, Duration: 30 day, Stop date: 07/27/17 18:32:00 BANK TELLER Notes: Do not give IV push. (Same as: Phenergan) Start Date: 06/27/17 Stop Date: 07/02/17 Status: Discontinued remove patch 2 patch, Route: TOP, Daily, Drug form: ERFILM, Start date: 06/30/17 9:00:00 CDT, Duration: 30 day, Stop date: 07/29/17 9:00:00 BANK TELLER Notes: Remove patch 12 hours after application each day. Start Date: 06/30/17 Stop Date: 07/02/17 Status: Discontinued Saline Flush 0.9% 10 mL, Route: IVP, Drug Form: INJ, Dosing Weight 220.455, kg, PRN, PRN Line Flus h, Start date: 06/26/17 1:53:00 CDT, Duration: 30 day, Stop date: 07/26/17 0:52: 00 BANK TELLER Notes: (Same as: BD Posiflush) Start Date: 06/26/17 Stop Date: 06/26/17 Status: Deleted Saline Flush 0.9% 10 ml, Route: IVP, Drug Form: INJ, Dosing Weight 203.318, kg, PRN, PRN Line Flus h, Start date: 06/26/17 6:58:00 CDT, Duration: 30 day, Stop date: 07/26/17 5:57: 00 BANK TELLER Notes: (Same as: BD Posiflush) Start Date: 06/26/17 Stop Date: 07/02/17 Status: Discontinued Saline Flush 0.9% 10 mL, Route: IVP, Drug Form: INJ, Dosing Weight 220.455, kg, PRN, PRN Line Flus h, Start date: 06/26/17 3:04:00 CDT, Duration: 30 day, Stop date: 07/26/17 2:03: 00 BANK TELLER Notes: (Same as: BD Posiflush) Start Date: 06/26/17 Stop Date: 06/26/17 Status: Deleted sodium bicarbonate 8.4% 50 mEq, 50 ml, Route: IVP, Drug Form: INJ, Dosing Weight 203.318, kg, ONCE, Star t date: 06/27/17 7:58:00 CDT, Stop date: 06/27/17 7:58:00 CDT Notes: (sodium bicarb 8.4% (1 mEq/ml) 50 ml syringe) Start Date: 06/27/17 Stop Date: 06/27/17 Status: Completed Sodium Chloride 0.9% (Bolus) IV 500 mL, 500 ml/hr, Infuse Over: 1 hr, Route: IV, 500, Drug form: INJ, ONCE, Prio rity: STAT, Dosing Weight 220.455 kg, Start date: 06/26/17 3:09:00 CDT, Duration : 1 doses or times, Stop date: 06/26/17 3:09:00 CDT Start Date: 06/26/17 Stop Date: 06/26/17 Status: Completed sodium chloride 0.9% 1000 ml INJ 1,000 mL 1,000 mL, Rate: 125 ml/hr, Infuse over: 8 hr, Route: IV, Dosing Weight 203.318 k g, Total Volume: 1,000, Start date: 06/26/17 6:58:00 CDT, Duration: 30 day, Stop date: 07/26/17 6:57:00 BANK TELLER Start Date: 06/26/17 Stop Date: 06/26/17 Status: Discontinued sodium chloride 0.9% 1000 ml INJ 1,000 mL 1,000 mL, Rate: 150 ml/hr, Infuse over: 6.7 hr, Route: IV, Dosing Weight 203.318 kg, Total Volume: 1,000, Start date: 06/26/17 12:27:00 CDT, Duration: 30 day, S top date: 07/26/17 12:26:00 BANK TELLER Start Date: 06/26/17 Stop Date: 06/27/17 Status: Discontinued Tears Naturale 2 drp, Route: BOTH EYES, Q4H, Drug form: SOLN, PRN as needed for dry eyes, Start date: 06/30/17 16:54:00 CDT, Duration: 30 day, Stop date: 07/30/17 16:53:00 BANK TELLER Start Date: 06/30/17 Stop Date: 07/02/17 Status: Discontinued Results ELECTROLYTES 1 2 3 Most recent to oldest [Reference Range]: 135 mEq/L (07/01/17 4:24 AM) 137 mEq/L (06/30/17 12:56 PM) 143 mEq/L (06/29/17 4:42 AM) Sodium Lvl [135-145 mEq/L] 4.2 mEq/L (07/01/17 4:24 AM) 4.5 mEq/L (06/30/17 12:56 PM) 4.4 mEq/L (06/29/17 4:42 AM) Potassium Lvl [3.5-5.1 mEq/L] 98 mEq/L (07/01/17 4:24 AM) 98 mEq/L (06/30/17 12:56 PM) 102 mEq/L (06/29/17 4:42 AM) Chloride Lvl [95-109 mEq/L] 27 mEq/L (07/01/17 4:24 AM) 33 mEq/L *HI* (06/30/17 12:56 PM) 38 mEq/L *HI* (06/29/17 4:42 AM) CO2 [24-32 mEq/L] 14.2 mEq/L (07/01/17 4:24 AM) 10.5 mEq/L (06/30/17 12:56 PM) 7.4 mEq/L *LOW* (06/29/17 4:42 AM) AGAP [10.0-20.0 mEq/L] CHEM PANEL 1 2 3 Most recent to oldest [Reference Range]: 1.08 mg/dL (07/01/17 4:24 AM) 1.10 mg/dL (06/30/17 12:56 PM) 1.24 mg/dL (06/29/17 4:42 AM) Creatinine Lvl [0.50-1.40 mg/dL] 92 mL/min/1.73m2 1 *NA* (07/01/17 4:24 AM) 90 mL/min/1.73m2 2 *NA* (06/30/17 12:56 PM) 78 mL/min/1.73m2 3 *NA* (06/29/17 4:42 AM) eGFR 29 mg/dL *HI* (07/01/17 4:24 AM) 29 mg/dL *HI* (06/30/17 12:56 PM) 38 mg/dL *HI* (06/29/17 4:42 AM) BUN [7-22 mg/dL] 44 *HI* (06/27/17 6:31 AM) 33 *HI* (06/26/17 2:17 AM) B/C Ratio [6-25] 116 mg/dL *HI* (07/01/17 4:24 AM) 150 mg/dL *HI* (06/30/17 12:56 PM) 110 mg/dL *HI* (06/29/17 4:42 AM) Glucose Lvl [70-99 mg/dL] 7.5 g/dL (06/27/17 6:31 AM) 8.8 g/dL *HI* (06/26/17 2:17 AM) Total Protein [6.4-8.4 g/dL] 3.2 g/dL *LOW* (06/27/17 6:31 AM) 3.6 g/dL (06/26/17 2:17 AM) Albumin Lvl [3.5-5.0 g/dL] 4.3 g/dL *HI* (06/27/17 6:31 AM) 5.2 g/dL *HI* (06/26/17 2:17 AM) Globulin [2.7-4.2 g/dL] 0.7 (06/27/17 6:31 AM) 0.7 (06/26/17 2:17 AM) A/G Ratio [0.7-1.6] 8.9 mg/dL (07/01/17 4:24 AM) 8.7 mg/dL (06/30/17 12:56 PM) 9.1 mg/dL (06/29/17 4:42 AM) Calcium Lvl [8.5-10.5 mg/dL] 4.6 mg/dL *HI* (06/28/17 6:27 AM) Phosphorus [2.5-4.5 mg/dL] 2.3 mg/dL (06/28/17 2:25 PM) 2.9 mg/dL *HI* (06/28/17 6:27 AM) 3.1 mg/dL *HI* (06/27/17 6:31 AM) Magnesium Lvl [1.8-2.4 mg/dL] 20 unit/L (06/27/17 6:31 AM) 19 unit/L (06/26/17 2:17 AM) ALT [0-65 unit/L] 11 unit/L (06/27/17 6:31 AM) 18 unit/L (06/26/17 2:17 AM) AST [0-37 unit/L] 101 unit/L (06/27/17 6:31 AM) 102 unit/L (06/26/17 2:17 AM) Alk Phos [39-136 unit/L] 0.7 mg/dL (06/27/17 6:31 AM) 0.5 mg/dL (06/26/17 2:17 AM) Bili Total [0.2-1.3 mg/dL] 1Result Comment: The eGFR is calculated using [...] 3 Most recent to oldest [Reference Range]: 117 unit/L (06/26/17 2:17 AM) Total CK [12-191 unit/L] 2.6 ng/mL (06/26/17 2:17 AM) CK MB [0.5-3.6 ng/mL] 2.2 (06/26/17 2:17 AM) CK MB Index [0.0-2.5] <0.02 ng/mL (06/26/17 2:17 AM) Troponin-I [0.00-0.40 ng/mL] 257 pg/mL *HI* (06/28/17 6:27 AM) BNP [<=100 pg/mL] URINE CHEM 1 2 3 Most recent to oldest [Reference Range]: 82.10 mg/dL *NA* (06/27/17 5:40 AM) U Creatinine 44 mEq/L *NA* (06/27/17 5:40 AM) U Sodium None Seen (06/27/17 5:40 AM) U Eos [None Seen] URINE AND STOOL 1 2 3 Most recent to oldest [Reference Range]: Clear (06/27/17 5:40 AM) UA Turbidity [Clear] Ltyellow *NA* (06/27/17 5:40 AM) UA Color 6.0 (06/27/17 5:40 AM) UA pH [5.0-8.0] 1.011 (06/27/17 5:40 AM) UA Spec Grav [<=1.030] Negative mg/dL *NA* (06/27/17 5:40 AM) UA Glucose [Negative mg/dL] Negative (06/27/17 5:40 AM) UA Blood [Negative] Negative mg/dL *NA* (06/27/17 5:40 AM) UA Ketones [Negative mg/dL] Negative mg/dL (06/27/17 5:40 AM) UA Protein [Negative mg/dL] <=1.0 mg/dL *NA* (06/27/17 5:40 AM) UA Urobilinogen [0.1-1.0 mg/dL] Negative *NA* (06/27/17 5:40 AM) UA Bili [Negative] Negative (06/27/17 5:40 AM) UA Leuk Est [Negative] Negative (06/27/17 5:40 AM) UA Nitrite [Negative] 1 /HPF (06/27/17 5:40 AM) UA WBC [0-5 /HPF] Occasional /HPF *NA* (06/27/17 5:40 AM) UA Bacteria [None Seen /HPF] Occasional /LPF *NA* (06/27/17 5:40 AM) UA Sq Epi [Few /LPF] 1 /LPF (06/27/17 5:40 AM) UA Hyal Cast [0-2 /LPF] HEMATOLOGY 1 2 3 Most recent to oldest [Reference Range]: 10.5 K/CMM *HI* (07/01/17 4:24 AM) 9.9 K/CMM (06/29/17 4:42 AM) 8.0 K/CMM (06/27/17 6:31 AM) WBC [3.7-10.4 K/CMM] 5.41 M/CMM (07/01/17 4:24 AM) 5.80 M/CMM (06/29/17 4:42 AM) 5.89 M/CMM (06/27/17 6:31 AM) RBC [4.70-6.10 M/CMM] 15.7 g/dL (07/01/17 4:24 AM) 16.8 g/dL (06/29/17 4:42 AM) 17.0 g/dL (06/27/17 6:31 AM) Hgb [14.0-18.0 g/dL] 48.7 % (07/01/17 4:24 AM) 53.1 % (06/29/17 4:42 AM) 53.8 % (06/27/17 6:31 AM) Hct [42.0-54.0 %] 90.0 fL (07/01/17 4:24 AM) 91.4 fL (06/29/17 4:42 AM) 91.3 fL (06/27/17 6:31 AM) MCV [80.0-94.0 fL] 29.1 pg (07/01/17 4:24 AM) 28.9 pg (06/29/17 4:42 AM) 28.9 pg (06/27/17:31 AM) MCH [27.0-31.0 pg] 32.3 g/dL (07/01/17 4:24 AM) 31.6 g/dL *LOW* (06/29/17 4:42 AM) 31.6 g/dL *LOW* (06/27/17 6:31 AM) MCHC [32.0-36.0 g/dL] 18.6 % *HI* (07/01/17 4:24 AM) 19.0 % *HI* (06/29/17 4:42 AM) 20.2 % *HI* (06/27/17 6:31 AM) RDW [11.5-14.5 %] 120 K/CMM *LOW* (07/01/17 4:24 AM) 140 K/CMM (06/29/17 4:42 AM) 135 K/CMM (06/27/17 6:31 AM) Platelet [133-450 K/CMM] 9.7 fL (07/01/17 4:24 AM) 9.8 fL (06/29/17 4:42 AM) 10.3 fL (06/27/17 6:31 AM) MPV [7.4-10.4 fL] 78.0 % *HI* (07/01/17 4:24 AM) 84.2 % *HI* (06/29/17 4:42 AM) 75.6 % *HI* (06/27/17 6:31 AM) Segs [45.0-75.0 %] 11.4 % *LOW* (07/01/17 4:24 AM) 6.7 % *LOW* (06/29/17 4:42 AM) 15.9 % *LOW* (06/27/17 6:31 AM) Lymphocytes [20.0-40.0 %] 9.0 % (07/01/17 4:24 AM) 7.7 % (06/29/17 4:42 AM) 6.6 % (06/27/17 6:31 AM) Monocytes [2.0-12.0 %] 1.3 % (07/01/17 4:24 AM) 0.8 % (06/29/17 4:42 AM) 1.3 % (06/27/17 6:31 AM) Eosinophils [0.0-4.0 %] 0.3 % (07/01/17 4:24 AM) 0.6 % (06/29/17 4:42 AM) 0.6 % (06/27/17 6:31 AM) Basophils [0.0-1.0 %] 8.2 K/CMM *HI* (07/01/17 4:24 AM) 8.3 K/CMM *HI* (06/29/17 4:42 AM) 6.0 K/CMM (06/27/17 6:31 AM) Segs-Bands # [1.5-8.1 K/CMM] 1.2 K/CMM (07/01/17 4:24 AM) 0.7 K/CMM *LOW* (06/29/17 4:42 AM) 1.3 K/CMM (06/27/17 6:31 AM) Lymphocytes # [1.0-5.5 K/CMM] 0.9 K/CMM *HI* (07/01/17 4:24 AM) 0.8 K/CMM (06/29/17 4:42 AM) 0.5 K/CMM (06/27/17 6:31 AM) Monocytes # [0.0-0.8 K/CMM] 0.1 K/CMM (07/01/17 4:24 AM) 0.1 K/CMM (06/29/17 4:42 AM) 0.1 K/CMM (06/27/17 6:31 AM) Eosinophils # [0.0-0.5 K/CMM] 0.1 K/CMM (06/29/17 4:42 AM) 0.1 K/CMM (06/26/17 2:17 AM) Basophils # [0.0-0.2 K/CMM] Immunizations Given and Recorded Vaccine Date Status [...] Plan Extracted from: Title: Clinical Document Author: Ji Mock MD Date: 07/02/17 Progress Note Nephrology SUBJECTIVE feels better Physical Exam alert, oriented HEENT : peerla NECK: no jvd, no bruits, HEART : RRR no s3 no S4, no murmur, no rub LUNGS: no wheezes no rales, no rhonci ABDOMEN: NTND no organomegaly no hepatomegaly positive bowel sounds EXT: no clubbing no cyanosis no edema NEURO:no focalities, no sensory defecits, no motor defecits SKIN: no rash, no bruises ASSESSMENT Acute renal failure improving: Cr 1.37>1.24>1.08 better CKD 3 Hyperkalemia, resolved with lasix and kaeyaxalate. K 6.5>4.5>4.4>4.2 better Morbid obesity of BMI of 73 Type 2 diabetes mellitus Essential hypertension hypercapneia on mask restarted lasix: monitor diuresis response PLAN & TREATMENT doing better OBJECTIVE VitalsTmp(F)Tmp(C)[id number] 07/02 16:00 130/80---[id number]------ 07/02 14:00 129/[id number]------ 07/02 12:00 136/[id number]------ 07/02 11:0098.737.06oral--------[id number]------ 07/02 10:58 99 4.0L/m--- 24 Hr Tmax: 99.5F (37.50c) at 07/01 20:00Vital Signs are the last 5 in the past 48 hours. 24 Hr Tmin: 97.5F (36.39c) at 07/02 07:00Weights are the last 5 in 60 days, plus initial. DateWt(kg)Wt(lb)Ht(cm)Ht(in)MethodBMIBSA 06/26 (initial)220.46 485.13797.72 68.00Estimated 73.93.25 24 Hr Point of Care Glucoses 07/02 1656Glucose WTR351 H 07/02 1145Glucose SBM693 H 07/02 0621Glucose GVX077 H 07/02 0417Glucose IOL034 H 07/01 2209Glucose ARJ701 H 07/01 2111Glucose BGT709 H Most Recent Scores: 07/02/17Pain Intensity NRS (0-10)0 07/02/17Glasgow Coma Score15 07/02/17Braden Score13 07/02/17[facility] (all previously charted lines have been discontinued) (no surgical procedures documented) Input/Output RecordInOutBal 06/624hr Tot 0342 [id number] -[phone] 06/524hr Tot 067 [id number] Scheduled Meds (14):albuterol-ipratropium (DuoNeb inhalation solution), aspirin, baclofen, ciprofloxacin ophthalmic (Ciloxan 0.3% ophthalmic solution), citalopram (CeleXA), enoxaparin, famotidine, furosemide (Lasix 40 mg oral tablet), glipiZIDE (Glucotrol), insulin glargine, lidocaine topical (lidocaine topical patch (5% film)), metoprolol (metoprolol tartrate), mupirocin topical, remove patch Unscheduled Meds: None PRN Meds (20):Dextrose 50% in Water IV (Dextrose 50% Syringe), Dextrose 50% in Water IV (Dextrose 50% Syringe), LORazepam, acetaminophen-hydrocodone (Chandler 10/325 oral tablet), acetaminophen, albuterol-ipratropium (DuoNeb inhalation solution), glucagon, insulin lispro, insulin lispro, insulin lispro, insulin lispro, insulin lispro, insulin lispro, insulin lispro, insulin lispro, insulin lispro, ocular lubricant (Tears Naturale), ondansetron, promethazine + sodium chloride 0.9% INJ 50 mL, sodium chloride (Saline Flush 0.9%) One Time Meds: None Continuous Infusions: None Labs (Last four charted values) WBC H 10.5(JUL 01)9.9(JUN 29)8.0(JUN 27)H 13.6(JUN 26) Hgb 15.7(JUL 01)16.8(JUN 29)17.0(JUN 27)17.1(JUN 26) Hct 48.7(JUL 01)53.1(JUN 29)53.8(JUN 27)53.9(JUN 26) Plt L 120(JUL 01)140(JUN 29)135(JUN 27)165(JUN 26) Na 135(JUL 01)137(JUN 30)143(JUN 29)140(JUN 28) K 4.2(JUL 01)4.5(JUN 30)4.4(JUN 29)4.5(JUN 28) CO2 27(JUL 01)H 33(JUN 30)H 38(JUN 29)H 33(JUN 28) Cl 98(JUL 01)98(JUN 30)102(JUN 29)101(JUN 28) Cr 1.08(JUL 01)1.10(JUN 30)1.24(JUN 29)1.37(JUN 28) BUN H 29(JUL 01)H 29(JUN 30)H 38(JUN 29)H 42(JUN 28) Glucose Random H 116(JUL 01)H 150(JUN 30)H 110(JUN 29)H 179(JUN 28) Mg 2.3(JUN 28)H 2.9(JUN 28)H 3.1(JUN 27) Phos H 4.6(JUN 28) Ca 8.9(JUL 01)8.7(JUN 30)9.1(JUN 29)9.5(JUN 28) Troponin <0.02(JUN 26) CK MB 2.6(JUN 26) Total CK 117(JUN 26)
--- OUTSIDE RECORDS SUMMARY | 2019-01-20 18:16 | XMS REPORT | Summary of Care ---
Author Author [facility] Organization [facility] Address Unknown Phone Unavailable Encounter HERON Swain(CALEB) [id number] Date(s): 10/11/18 - 10/11/18 [id number] [place] [address]- Discharge Disposition: Home or Self Care Attending Physician: Jas Diaz MD Referring Physician: Jas Diaz MD Vital Signs Most recent to 1 oldest [Reference Range]: Height 165.1 cm (10/11/18 9:01 AM) Weight 227.273 kg (10/11/18 9:01 AM) Body Mass Index 83.38 m2 (10/11/18 9:01 AM) Problem List Condition Effective Dates Status Health Status Informant Coma(Confirmed) Resolved CHF (congestive Active heart failure)(Confirmed) Diabetes(Confirmed) Active Generalized Active obesity(Confirmed) HTN Active (hypertension)(Confi rmed) Allergies, Adverse Reactions, Alerts Substance Reaction Severity Status morphine Active Medications No Known Medications Results ELECTROLYTES Most recent to 1 oldest [Reference Range]: POC Sodium [135-145 142 mEq/L mEq/L] (10/11/18 9:30 AM) POC Potassium 4.4 mEq/L [3.5-5.1 mEq/L] (10/11/18 9:30 AM) CHEM PANEL Most recent to 1 oldest [Reference Range]: POC Glucose [70-99 195 mg/dL mg/dL] *HI* (10/11/18 9:30 AM) HEMATOLOGY Most recent to 1 oldest [Reference Range]: POC Hemoglobin 16.7 g/dL [14.0-18.0 g/dL] (10/11/18 9:30 AM) POC Hematocrit 49.0 % [42.0-54.0 %] (10/11/18 9:30 AM) Immunizations Given and Recorded Vaccine Date Status Refusal Reason pneumococcal 23-valent vaccine 11/17/16 Given Procedures Procedure Date Related Diagnosis Body Site Status Closure of tracheostomy1 11/27/16 Completed 1trach inserted October, Social History Social History Type Response Substance Abuse Use: None. Alcohol Never Smoking Status Never smoker; Ready to change: No; Concerns about tobacco use in household: No; Exposure to Tobacco Smoke None; Cigarette Smoking Last 365 Days No; Reg Smoking Cessation Counseling No entered on: 10/19/17 Assessment and Plan No data available for this section
--- OUTSIDE RECORDS SUMMARY | 2019-01-20 18:16 | XMS REPORT | Summary of Care ---
Author Author [facility] Organization [facility] Address Unknown Phone Unavailable Encounter HQ Kathryn_brti(FIN) [id number] Date(s): 04/09/18 - 04/09/18 [facility] [address] [place] [address] [phone] Discharge Disposition: Home or Self Care Attending Physician: Hernesto Clarke MD Referring Physician: Hernesto Clarke MD Vital Signs No data available for this section Problem List Condition Effective Dates Status Health Status Informant Coma(Confirmed) Resolved CHF (congestive Active heart failure)(Confirmed) Diabetes(Confirmed) Active Generalized Active obesity(Confirmed) HTN Active (hypertension)(Confi rmed) Allergies, Adverse Reactions, Alerts Substance Reaction Severity Status morphine Active NKFA Active Medications No data available for this [...] Reg Smoking Cessation Counseling No entered on: 10/21/18 Assessment and Plan No data available for this section
--- OUTSIDE RECORDS SUMMARY | 2019-01-20 18:16 | XMS REPORT | Summary of Care ---
Author Author [facility] Outpatient Imaging - [facility] Outpatient Imaging - [facility] Address Unknown Phone Unavailable Encounter HQ Encntr_brit(FIN) [id number] Date(s): 09/15/16 - 09/15/16 [facility] Outpatient Imaging - [facility] [address] [place] [address]- Discharge Disposition: Home or Self Care Attending Physician: Nelly Arciniega MD Vital Signs No data available for this section Problem List No data available for this section Allergies, Adverse Reactions, Alerts No data available for this section Medications No data available for this section Results No data available for this section Immunizations No data available for this section Procedures No data available for this section Social History No data available for this section Assessment and Plan No data available for this section
--- OUTSIDE RECORDS SUMMARY | 2019-01-20 18:16 | XMS REPORT | Summary of Care ---
Author Author [facility] Organization [facility] Address Unknown Phone Unavailable Encounter HERON Swain(CALEB) [id number] Date(s): 10/22/18 - 10/22/18 [facility] [address] [place] [address]- Discharge Disposition: Home or Self Care Attending Physician: Rafa Comer MD Referring Physician: Rafa Comer MD Vital Signs Most recent to 1 oldest [Reference Range]: Height 172.72 cm (10/21/18 10:05 AM) Weight 217.727 kg (10/21/18 10:05 AM) Body Mass Index 72.98 m2 (10/21/18 10:05 AM) Problem List Condition Effective Dates Status Health Status Informant Coma(Confirmed) Resolved CHF (congestive Active heart failure)(Confirmed) Diabetes(Confirmed) Active Generalized Active obesity(Confirmed) HTN Active (hypertension)(Confi rmed) Allergies, Adverse Reactions, Alerts Substance Reaction Severity Status morphine Active NKFA Active Medications buPROPion 100 mg oral tablet 100 mg=1 tab, PO, BID Start Date: 10/21/18 Status: Ordered DOBUTamine 1000 mg in D5W 250 mL (Titrate.) IV 1,000 mg 1,000 mg, 250 mL, Rate: Titrate, Start Dose: 5 microgram/kg/min, Titration: see order comments, Goal(s): Stress Lab ONLY, Max Dose: 20 mcg/kg/min, Route: IV, Do sing Weight 217.727 kg, Total Volume: 250, Start date: 10/22/18 7:51:00 [employer]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 Notes: (Same as: Dobutrex) Final conc=4 mg/ml. Premix solution. Protect from l ight. Start Date: 10/22/18 Stop Date: 10/22/18 Status: Discontinued gabapentin 200 mg, PO, TID Start Date: 10/21/18 Status: Ordered glipiZIDE 5 mg oral tablet 5 mg=1 tab, PO, BID Start Date: 10/21/18 Status: Ordered magnesium oxide PO Start Date: 10/21/18 Status: Ordered Caney 10/325 oral tablet 1 tab, PO, Q6H, PRN -, 0 Refill(s) Start Date: 10/21/18 Status: Ordered Pepcid 20 mg oral tablet 20 mg=1 tab, PO, BID Start Date: 10/21/18 Status: Ordered potassium chloride 20 mEq oral tablet, extended release 40 mEq=2 tab, PO, BID Start Date: 10/21/18 Status: Ordered Vitamin D3 PO, Daily Start Date: 10/21/18 Status: Ordered Results No data available for this section [...]
--- OUTSIDE RECORDS SUMMARY | 2019-01-20 18:16 | XMS REPORT | Summary of Care ---
Author Author [facility] [place] Organization [facility] [place] Address Unknown Phone Unavailable Encounter HERON Swain(FIN) [id number] Date(s): 04/12/18 - 04/12/18 [facility] - [place] [address] [place] [address]- [phone] Attending Physician: Hernesto Clarke MD Referring Physician: [...]
--- OUTSIDE RECORDS SUMMARY | 2019-01-20 18:16 | XMS REPORT | Summary of Care ---
Author Author [facility] Organization [facility] Address Unknown Phone Unavailable Encounter HQ Brynn(CALEB) [id number] Date(s): 04/18/17 - 05/01/17 [facility] [address] [place] [address]- Discharge Disposition: [facility] Facility Attending Physician: Raimundo Valladares DO Admitting Physician: Raimundo Valladares DO Vital Signs 1 2 3 Most recent to oldest [Reference Range]: 172.72 cm (04/23/17 11:48 AM) 172.72 cm (04/23/17 8:33 AM) 172.72 cm (04/23/17 3:07 AM) Height 201 kg (04/26/17 5:00 AM) 213 kg (04/25/17 6:12 AM) 208.006 kg (04/24/17 5:26 PM) Current Weight 98.4 DegF (05/01/17 11:00 AM) 97.3 DegF (05/01/17 7:45 AM) 98.6 DegF (05/01/17 3:25 AM) Temperature Oral [96.4-99.1 DegF] 117/80 mmHg (05/01/17 11:00 AM) 136/88 mmHg (05/01/17 7:45 AM) 128/80 mmHg (05/01/17 3:25 AM) Blood Pressure [90-140/60-90 mmHg] 18 BRMIN (05/01/17 11:00 AM) 18 BRMIN (05/01/17 7:45 AM) 16 BRMIN (05/01/17 7:11 AM) Respiratory Rate [14-20 BRMIN] 85 bpm (05/01/17 11:00 AM) 92 bpm (05/01/17 7:45 AM) 86 bpm (05/01/17 3:25 AM) Peripheral Pulse Rate [60-100 bpm] 213.3 kg (04/20/17 8:31 AM) 209.091 kg (04/18/17 9:27 PM) 209.091 kg (04/18/17 1:14 PM) Weight 70.09 m2 (04/18/17 1:14 PM) Body Mass Index Problem List Condition Effective Dates Status Health Status Informant CHF (congestive Active heart failure)(Confirmed) Diabetes(Confirmed) Active Generalized Active obesity(Confirmed) HTN Active (hypertension)(Confi rmed) Allergies, Adverse Reactions, Alerts Substance Reaction Severity Status morphine Active Medications aspirin 81 mg, 1 tab, Route: PO, Drug form: CHEWTAB, Daily, Dosing Weight 209.091, kg, S tart date: 04/19/17 9:00:00 CDT, Stop date: 05/18/17 9:00:00 CDT Notes: Take with food. Start Date: 04/19/17 Stop Date: 05/01/17 Status: Discontinued bumetanide 1 mg, 4 mL, Route: IVP, Drug form: INJ, Q8H, Dosing Weight 209.091, kg, Start da te: 04/19/17 0:00:00 CDT, Duration: 30 day, Stop date: 05/18/17 16:00:00 CDT Notes: (Same As: Bumex) Start Date: 04/19/17 Stop Date: 04/19/17 Status: Discontinued bumetanide 10 mg + sodium chloride 0.9% INJ 60 mL 60 mL, Rate: Infuse as directed, Dosing Weight 209.091, kg, Route: IV, Total Vol ume: 100 mL, Start Date: 04/19/17 10:14:00 CDT, Duration: 30 day, Stop date: 10:13:00 CDT, Replace Every: 24 hr Notes: (Same As: Bumex) Start Date: 04/19/17 Stop Date: 04/21/17 Status: Discontinued bumetanide 2 mg oral tablet 2 mg=1 tab, PO, BID, # 60 tab, 0 Refill(s) Start Date: 04/30/17 Status: Ordered Bumex 2 mg, 8 mL, Route: IV, Drug form: INJ, ONCE, Dosing Weight 213.3, kg, Start date : 04/21/17 8:51:00 CDT, Stop date: 04/21/17 8:51:00 CDT Notes: (Same As: Bumex) Start Date: 04/21/17 Stop Date: 04/21/17 Status: Completed Bumex 2 mg, 8 mL, Route: IV, Drug form: INJ, ONCE, Dosing Weight 213.3, kg, Start date : 04/30/17 9:33:00 CDT, Stop date: 04/30/17 9:33:00 CDT Notes: (Same As: Bumex) Start Date: 04/30/17 Stop Date: 04/30/17 Status: Completed Bumex 2 mg, 2 tab, Route: PO, Drug form: TAB, BID, Dosing Weight 213.3, kg, Start date : 04/30/17 17:00:00 CDT, Duration: 30 day, Stop date: 05/30/17 9:00:00 CDT Notes: (Same As: Bumex) Start Date: 04/30/17 Stop Date: 05/01/17 Status: Discontinued Bumex 2 mg, 8 mL, Route: IVP, Drug form: INJ, Q8H, Dosing Weight 213.3, kg, Start date : 04/22/17 0:00:00 CDT, Duration: 30 day, Stop date: 05/21/17 16:00:00 CDT Notes: (Same As: Bumex) Start Date: 04/22/17 Stop Date: 04/30/17 Status: Discontinued CeleXA 20 mg, 2 tab, Route: PO, Drug form: TAB, Daily, Dosing Weight 209.091, kg, Start date: 04/19/17 9:00:00 CDT, Duration: 30 day, Stop date: 05/18/17 9:00:00 CDT Start Date: 04/19/17 Stop Date: 05/01/17 Status: Discontinued chlorhexidine topical 0.12% liquid 15 mL, Route: Swab Mouth, PRN, Drug form: LIQ, PRN Other -See Comment, Start lali e: 04/19/17 19:29:00 CDT, Duration: 30 day, Stop date: 05/19/17 19:28:00 CDT Notes: (Same As: Peridex) Start Date: 04/19/17 Stop Date: 04/24/17 Status: Discontinued chlorhexidine topical 0.12% liquid 15 mL, Route: Swab Mouth, Q12H, Drug form: LIQ, Start date: 04/19/17 21:00:00 CD T, Stop date: 05/19/17 9:00:00 CDT Notes: (Same As: Peridex) Start Date: 04/19/17 Stop Date: 04/26/17 Status: Discontinued clotrimazole topical 1% cream 1 appl, Route: TOP, BID, Drug form: CRM, Start date: 04/19/17 9:00:00 CDT, Durat ion: 30 day, Stop date: 05/18/17 17:00:00 CDT Notes: For external use only.(Same As: Lotrimin AF, Mycelex) Start Date: 04/19/17 Stop Date: 05/01/17 Status: Discontinued Dextrose 50% Syringe 12.5 gm, 25 mL, Route: IVP, Drug Form: INJ, Dosing Weight 209.091, kg, PRN, PRN Blood Glucose Results, Start date: 04/18/17 17:48:00 CDT, Duration: 30 day, Stop date: 05/18/17 17:47:00 CDT Start Date: 04/18/17 Stop Date: 04/19/17 Status: Discontinued Dextrose 50% Syringe 25 gm, 50 mL, Route: IVP, Drug Form: INJ, Dosing Weight 209.091, kg, PRN, PRN Bl ood Glucose Results, Start date: 04/18/17 17:48:00 CDT, Duration: 30 day, Stop d ate: 05/18/17 17:47:00 CDT Start Date: 04/18/17 Stop Date: 04/19/17 Status: Discontinued Dextrose 50% Syringe 25 gm, 50 mL, Route: IVP, Drug Form: INJ, Dosing Weight 213.3, kg, PRN, PRN Bloo d Glucose Results, Start date: 04/20/17 16:25:00 CDT, Duration: 30 day, Stop lali e: 05/20/17 16:24:00 CDT Start Date: 04/20/17 Stop Date: 04/23/17 Status: Discontinued Dextrose 50% Syringe 12.5 gm, 25 mL, Route: IVP, Drug Form: INJ, Dosing Weight 213.3, kg, PRN, PRN Bl ood Glucose Results, Start date: 04/20/17 16:25:00 CDT, Duration: 30 day, Stop d ate: 05/20/17 16:24:00 CDT Start Date: 04/20/17 Stop Date: 04/23/17 Status: Discontinued Dextrose 50% Syringe 12.5 gm, 25 mL, Route: IVP, Drug Form: INJ, Dosing Weight 209.091, kg, PRN, PRN Blood Glucose Results, Start date: 04/19/17 9:58:00 CDT, Duration: 30 day, Stop date: 05/19/17 9:57:00 CDT Start Date: 04/19/17 Stop Date: 04/20/17 Status: Discontinued Dextrose 50% Syringe 25 gm, 50 mL, Route: IVP, Drug Form: INJ, Dosing Weight 209.091, kg, PRN, PRN Bl ood Glucose Results, Start date: 04/19/17 9:58:00 CDT, Duration: 30 day, Stop da te: 05/19/17 9:57:00 CDT Start Date: 04/19/17 Stop Date: 04/20/17 Status: Discontinued Dextrose 50% Syringe 12.5 gm, 25 mL, Route: IVP, Drug Form: INJ, Dosing Weight 213.3, kg, PRN, PRN Bl ood Glucose Results, Start date: 04/23/17 21:36:00 CDT, Duration: 30 day, Stop d ate: 05/23/17 21:35:00 CDT Start Date: 04/23/17 Stop Date: 05/01/17 Status: Discontinued Dextrose 50% Syringe 25 gm, 50 mL, Route: IVP, Drug Form: INJ, Dosing Weight 213.3, kg, PRN, PRN Bloo d Glucose Results, Start date: 04/23/17 21:36:00 CDT, Duration: 30 day, Stop lali e: 05/23/17 21:35:00 CDT Start Date: 04/23/17 Stop Date: 05/01/17 Status: Discontinued Diamox 250 mg, 1 tab, Route: PO, Drug form: TAB, Daily, Dosing Weight 213.3, kg, Start date: 04/27/17 9:00:00 CDT, Duration: 30 day, Stop date: 05/26/17 9:00:00 CDT Notes: (Same as: Diamox) Start Date: 04/27/17 Stop Date: 05/01/17 Status: Discontinued Diprolene AF 1 appl, Route: TOP, BID, Drug form: CRM, Start date: 04/19/17 9:00:00 CDT, Durat ion: 30 day, Stop date: 05/18/17 17:00:00 CDT Notes: (betamethasone dipropionate 0.05% 15gm CRM) (Same As: Diprolene AF) Start Date: 04/19/17 Stop Date: 05/01/17 Status: Discontinued Dulcolax Laxative 10 mg, 1 supp, Route: KS, Drug form: SUPP, Daily, Dosing Weight 213.3, kg, PRN C onstipation, Start date: 04/24/17 22:45:00 CDT, Duration: 30 day, Stop date: 22:44:00 CDT Notes: (Same As: Dulcolax, Bisco-Lax) Start Date: 04/24/17 Stop Date: 05/01/17 Status: Discontinued DuoNeb inhalation solution 3 mL, Route: NEB, Drug Form: SOLN, Dosing Weight 209.091, kg, RQ6H, Start date: 04/18/17 20:00:00 CDT, Duration: 30 day, Stop date: 05/18/17 14:00:00 CDT Notes: (Same as: Duoneb) Start Date: 04/18/17 Stop Date: 05/01/17 Status: Discontinued enoxaparin 40 mg, 0.4 mL, Route: SUB-Q, Drug form: INJ, [id number], Dosing Weight 209.091, kg , Consider for obese patients, Start date: 04/18/17 18:00:00 CDT, Duration: 30 d ay, Stop date: 05/17/17 22:00:00 CDT Notes: (Same as: Lovenox) Start Date: 04/18/17 Stop Date: 05/01/17 Status: Discontinued famotidine 20 mg, Route: IVP, Drug form: INJ, Q12H, Dosing Weight 209.091, kg, Start date: 04/19/17 21:00:00 CDT, Duration: 30 day, Stop date: 05/19/17 9:00:00 CDT Start Date: 04/19/17 Stop Date: 04/19/17 Status: Deleted famotidine 20 mg, Route: IVP, Q12H, Dosing Weight 209.091, kg, Start date: 04/19/17 21:00:0 0 CDT, Duration: 30 day, Stop date: 05/19/17 9:00:00 CDT Start Date: 04/19/17 Stop Date: 04/19/17 Status: Deleted famotidine 20 mg, 2 mL, Route: IVP, Drug form: INJ, Q12H, Dosing Weight 209.091, kg, Start date: 04/19/17 21:00:00 CDT, Duration: 30 day, Stop date: 05/19/17 9:00:00 CDT Notes: (Same as: Pepcid)Can be dilute in 5-10cc NS IVP: Slow IV push over at le ast 2 minutes. Start Date: 04/19/17 Stop Date: 04/26/17 Status: Discontinued fentaNYL 5 microgram/ml NS 250ml (Premix) 1,250 microgram 1,250 microgram, 250 mL, Rate: Titrate, Start Dose: 50 microgram/hr, Titration: 25 microgram/hour every 15 minutes, Goal(s): rass-2, Max Dose: 300 microgram/hr, Route: IV, Dosing Weight 209.091 kg, Total Volume: 250, Start date: 04/19/17 10 :22:00 CDT,... Notes: Concentration: 5 microgram / ml Start Date: 04/19/17 Stop Date: 04/23/17 Status: Discontinued glipiZIDE 2.5 mg, Route: PO, Daily, Dosing Weight 209.091, kg, Start date: 04/19/17 9:00:0 0 CDT, Duration: 30 day, Stop date: 05/18/17 9:00:00 CDT Start Date: 04/19/17 Stop Date: 04/18/17 Status: Deleted glucagon 1 mg, Route: IM, Drug form: PDR/INJ, PRN, Dosing Weight 209.091, kg, PRN Blood G lucose Results, Start date: 04/18/17 17:48:00 CDT, Duration: 30 day, Stop date: 05/18/17 17:47:00 CDT Start Date: 04/18/17 Stop Date: 04/19/17 Status: Discontinued glucagon 1 mg, Route: IM, Drug form: PDR/INJ, PRN, Dosing Weight 213.3, kg, PRN Blood Glu cose Results, Start date: 04/20/17 16:25:00 CDT, Duration: 30 day, Stop date: 16:24:00 CDT Start Date: 04/20/17 Stop Date: 04/23/17 Status: Discontinued glucagon 1 mg, Route: IM, Drug form: PDR/INJ, PRN, Dosing Weight 213.3, kg, PRN Blood Glu cose Results, Start date: 04/23/17 21:36:00 CDT, Duration: 30 day, Stop date: 21:35:00 CDT Start Date: 04/23/17 Stop Date: 05/01/17 Status: Discontinued Glucotrol 2.5 mg, 0.5 tab, Route: PO, Drug form: TAB, Daily, Start date: 04/19/17 9:00:00 CDT, Duration: 30 day, Stop date: 05/18/17 9:00:00 CDT Notes: (Same as: Glucotrol) 30 min before meals. Start Date: 04/19/17 Stop Date: 04/19/17 Status: Discontinued hydrALAZINE 10 mg, 0.5 mL, Route: IV, Drug form: INJ, Q6H, Dosing Weight 209.091, kg, PRN El evated BP, Start date: 04/18/17 17:49:00 CDT, Duration: 30 day, Stop date: 05/18 17:48:00 CDT Notes: (Same as: Apresoline)Push over 5 minutes Start Date: 04/18/17 Stop Date: 05/01/17 Status: Discontinued insulin detemir 10 unit, Route: SUB-Q, QAM, Dosing Weight 213.3, kg, Priority: Routine, Start da te: 04/21/17 9:00:00 CDT, Duration: 30 day, Stop date: 05/20/17 9:00:00 CDT Start Date: 04/21/17 Stop Date: 04/20/17 Status: Deleted insulin detemir 3 unit, Route: SUB-Q, Bedtime, Dosing Weight 209.091, kg, Start date: 04/18/17 2 1:00:00 CDT, Duration: 30 day, Stop date: 05/17/17 21:00:00 CDT Start Date: 04/18/17 Stop Date: 04/18/17 Status: Deleted insulin glargine 10 unit, 0.1 mL, Route: SUB-Q, Drug form: SOLMiley, QAM, Start date: 04/21/17 9:00:0 0 CDT, Duration: 30 day, Stop date: 05/20/17 9:00:00 CDT Notes: (Same as: Lantus) Start Date: 04/21/17 Stop Date: 05/01/17 Status: Discontinued insulin glargine 3 unit, 0.03 mL, Route: SUB-Q, Drug form: SOLN, Bedtime, Start date: 04/18/17 21 :00:00 CDT, Duration: 30 day, Stop date: 05/17/17 21:00:00 CDT Notes: (Same as: Lantus)Do not hold insulin without contacting prescriberWASTE: F/P - Black; E - Municipal Trash Bin "single patient use only" Start Date: 04/18/17 Stop Date: 04/19/17 Status: Discontinued insulin lispro 6 unit, 0.06 mL, Route: SUB-Q, Drug form: SOLN, TID-Before Meals, Dosing Weight 209.091, kg, PRN Blood Glucose Results, Start date: 04/18/17 17:48:00 CDT, Durat ion: 30 day, Stop date: 05/18/17 17:47:00 CDT Notes: Roll in palms of hands gently; Do not shake `vigorously. (Same as: Chanel adair )"Single Patient Use Only "WASTE: F/P - Black; E - Municipal Trash Bin Stabl e for 28 days at room temperature.Expires in days from Date Start Date: 04/18/17 Stop Date: 04/19/17 Status: Discontinued insulin lispro 2 unit, 0.02 mL, Route: SUB-Q, Drug form: SOLN, TID-Before Meals, Dosing Weight 209.091, kg, PRN Blood Glucose Results, Start date: 04/18/17 17:48:00 CDT, Durat ion: 30 day, Stop date: 05/18/17 17:47:00 CDT Notes: Roll in palms of hands gently; Do not shake `vigorously. (Same as: Chanel og )"Single Patient Use Only "WASTE: F/P - Black; E - [facility] Trash Bin Stabl e for 28 days at room temperature.Expires in days from Date Start Date: 04/18/17 Stop Date: 04/19/17 Status: Discontinued insulin lispro 4 unit, 0.04 mL, Route: SUB-Q, Drug form: SOLN, TID-Before Meals, Dosing Weight 209.091, kg, PRN Blood Glucose Results, Start date: 04/18/17 17:48:00 CDT, Durat ion: 30 day, Stop date: 05/18/17 17:47:00 CDT Notes: Roll in palms of hands gently; Do not shake `vigorously. (Same as: Chanel og )"Single Patient Use Only "WASTE: F/P - Black; E - [facility] Trash Bin Stabl e for 28 days at room temperature.Expires in days from Date Start Date: 04/18/17 Stop Date: 04/19/17 Status: Discontinued insulin lispro 8 unit, 0.08 mL, Route: SUB-Q, Drug form: SOLN, TID-Before Meals, Dosing Weight 209.091, kg, PRN Blood Glucose Results, Start date: 04/18/17 17:48:00 CDT, Durat ion: 30 day, Stop date: 05/18/17 17:47:00 CDT Notes: Roll in palms of hands gently; Do not shake `vigorously. (Same as: Chanel og )"Single Patient Use Only "WASTE: F/P - Black; E - [facility] Trash Bin Stabl e for 28 days at room temperature.Expires in days from Date Start Date: 04/18/17 Stop Date: 04/19/17 Status: Discontinued insulin lispro 10 unit, 0.1 mL, Route: SUB-Q, Drug form: SOLN, TID-Before Meals, Dosing Weight 209.091, kg, PRN Blood Glucose Results, Start date: 04/18/17 17:48:00 CDT, Durat ion: 30 day, Stop date: 05/18/17 17:47:00 CDT Notes: Roll in palms of hands gently; Do not shake `vigorously. (Same as: Chanel adair )"Single Patient Use Only "WASTE: F/P - Black; E - [facility] Trash Bin Stabl e for 28 days at room temperature.Expires in days from Date Start Date: 04/18/17 Stop Date: 04/19/17 Status: Discontinued insulin lispro 3 unit, 0.03 mL, Route: SUB-Q, Drug form: SOLN, Bedtime, Dosing Weight 209.091, kg, PRN Blood Glucose Results, Start date: 04/18/17 17:48:00 CDT, Duration: 30 d ay, Stop date: 05/18/17 17:47:00 CDT Notes: Roll in palms of hands gently; Do not shake `vigorously. (Same as: Chanel adair )"Single Patient Use Only "WASTE: F/P - Black; E - [facility] Trash Bin Stabl e for 28 days at room temperature.Expires in days from Date Start Date: 04/18/17 Stop Date: 04/19/17 Status: Discontinued insulin lispro 1 unit, 0.01 mL, Route: SUB-Q, Drug form: SOLN, Bedtime, Dosing Weight 209.091, kg, PRN Blood Glucose Results, Start date: 04/18/17 17:48:00 CDT, Duration: 30 d ay, Stop date: 05/18/17 17:47:00 CDT Notes: Roll in palms of hands gently; Do not shake `vigorously. (Same as: Humal og )"Single Patient Use Only "WASTE: F/P - Black; E - [facility] Trash Bin Stabl e for 28 days at room temperature.Expires in days from Date Start Date: 04/18/17 Stop Date: 04/19/17 Status: Discontinued insulin lispro 2 unit, 0.02 mL, Route: SUB-Q, Drug form: SOLN, Bedtime, Dosing Weight 209.091, kg, PRN Blood Glucose Results, Start date: 04/18/17 17:48:00 CDT, Duration: 30 d ay, Stop date: 05/18/17 17:47:00 CDT Notes: Roll in palms of hands gently; Do not shake `vigorously. (Same as: Humal og )"Single Patient Use Only "WASTE: F/P - Black; E - [facility] Trash Bin Stabl e for 28 days at room temperature.Expires in days from Date Start Date: 04/18/17 Stop Date: 04/19/17 Status: Discontinued insulin lispro 4 unit, 0.04 mL, Route: SUB-Q, Drug form: SOLN, Bedtime, Dosing Weight 209.091, kg, PRN Blood Glucose Results, Start date: 04/18/17 17:48:00 CDT, Duration: 30 d ay, Stop date: 05/18/17 17:47:00 CDT Notes: Roll in palms of hands gently; Do not shake `vigorously. ([facility] )"Single Patient Use Only "WASTE: F/P - Black; E - [facility] Trash Bin Stabl e for 28 days at room temperature.Expires in days from Date Start Date: 04/18/17 Stop Date: 04/19/17 Status: Discontinued insulin lispro 8 unit, 0.08 mL, Route: SUB-Q, Drug form: SOLN, Sliding Scale, Dosing Weight 213 .3, kg, PRN Blood Glucose Results, Start date: 04/20/17 16:25:00 CDT, Duration: 30 day, Stop date: 05/20/17 16:24:00 CDT Notes: Roll in palms of hands gently; Do not shake `vigorously. (Same as: Humal og )"Single Patient Use Only "WASTE: F/P - Black; E - [facility] Trash Bin Stabl e for 28 days at room temperature.Expires in days from Date Start Date: 04/20/17 Stop Date: 04/23/17 Status: Discontinued insulin lispro 4 unit, 0.04 mL, Route: SUB-Q, Drug form: SOLN, Sliding Scale, Dosing Weight 213 .3, kg, PRN Blood Glucose Results, Start date: 04/20/17 16:25:00 CDT, Duration: 30 day, Stop date: 05/20/17 16:24:00 CDT Notes: Roll in palms of hands gently; Do not shake `vigorously. (Same as: Humal og )"Single Patient Use Only "WASTE: F/P - Black; E - [facility] Trash Bin Stabl e for 28 days at room temperature.Expires in days from Date Start Date: 04/20/17 Stop Date: 04/23/17 Status: Discontinued insulin lispro 10 unit, 0.1 mL, Route: SUB-Q, Drug form: SOLN, Sliding Scale, Dosing Weight 213 .3, kg, PRN Blood Glucose Results, Start date: 04/20/17 16:25:00 CDT, Duration: 30 day, Stop date: 05/20/17 16:24:00 CDT Notes: Roll in palms of hands gently; Do not shake `vigorously. (Same as: Humal og )"Single Patient Use Only "WASTE: F/P - Black; E - [facility] Trash Bin Stabl e for 28 days at room temperature.Expires in days from Date Start Date: 04/20/17 Stop Date: 04/23/17 Status: Discontinued insulin lispro 6 unit, 0.06 mL, Route: SUB-Q, Drug form: SOLN, Sliding Scale, Dosing Weight 213 .3, kg, PRN Blood Glucose Results, Start date: 04/20/17 16:25:00 CDT, Duration: 30 day, Stop date: 05/20/17 16:24:00 CDT Notes: Roll in palms of hands gently; Do not shake `vigorously. (Same as: Humal og )"Single Patient Use Only "WASTE: F/P - Black; E - [facility] Trash Bin Stabl e for 28 days at room temperature.Expires in days from Date Start Date: 04/20/17 Stop Date: 04/23/17 Status: Discontinued insulin lispro 2 unit, 0.02 mL, Route: SUB-Q, Drug form: SOLN, Sliding Scale, Dosing Weight 213 .3, kg, PRN Blood Glucose Results, Start date: 04/20/17 16:25:00 CDT, Duration: 30 day, Stop date: 05/20/17 16:24:00 CDT Notes: Roll in palms of hands gently; Do not shake `vigorously. (Same as: Humal og )"Single Patient Use Only "WASTE: F/P - Black; E - [facility] Trash Bin Stabl e for 28 days at room temperature.Expires in days from Date Start Date: 04/20/17 Stop Date: 04/23/17 Status: Discontinued insulin lispro 4 unit, 0.04 mL, Route: SUB-Q, Drug form: SOLN, Bedtime, Dosing Weight 213.3, kg , PRN Blood Glucose Results, Start date: 04/23/17 21:36:00 CDT, Duration: 30 day , Stop date: 05/23/17 21:35:00 CDT Notes: Roll in palms of hands gently; Do not shake `vigorously. (Same as: Humal og )"Single Patient Use Only "WASTE: F/P - Black; E - [facility] Trash Bin Stabl e for 28 days at room temperature.Expires in days from Date Start Date: 04/23/17 Stop Date: 05/01/17 Status: Discontinued insulin lispro 3 unit, 0.03 mL, Route: SUB-Q, Drug form: SOLN, TID-Before Meals, Dosing Weight 213.3, kg, PRN Blood Glucose Results, Start date: 04/23/17 21:36:00 CDT, Duratio n: 30 day, Stop date: 05/23/17 21:35:00 CDT Notes: Roll in palms of hands gently; Do not shake `vigorously. (Same as: Humal og )"Single Patient Use Only "WASTE: F/P - Black; E - [facility] Trash Bin Stabl e for 28 days at room temperature.Expires in days from Date Start Date: 04/23/17 Stop Date: 05/01/17 Status: Discontinued insulin lispro 4 unit, 0.04 mL, Route: SUB-Q, Drug form: SOLN, TID-Before Meals, Dosing Weight 213.3, kg, PRN Blood Glucose Results, Start date: 04/23/17 21:36:00 CDT, Duratio n: 30 day, Stop date: 05/23/17 21:35:00 CDT Notes: Roll in palms of hands gently; Do not shake `vigorously. (Same as: Hummango og )"Single Patient Use Only "WASTE: F/P - Black; E - Municipal Trash Bin Stabl e for 28 days at room temperature.Expires in days from Date Start Date: 04/23/17 Stop Date: 05/01/17 Status: Discontinued insulin lispro 5 unit, 0.05 mL, Route: SUB-Q, Drug form: SOLN, TID-Before Meals, Dosing Weight 213.3, kg, PRN Blood Glucose Results, Start date: 04/23/17 21:36:00 CDT, Duratio n: 30 day, Stop date: 05/23/17 21:35:00 CDT Notes: Roll in palms of hands gently; Do not shake `vigorously. (Same as: Hummango og )"Single Patient Use Only "WASTE: F/P - Black; E - Municipal Trash Bin Stabl e for 28 days at room temperature.Expires in days from Date Start Date: 04/23/17 Stop Date: 05/01/17 Status: Discontinued insulin lispro 1 unit, 0.01 mL, Route: SUB-Q, Drug form: SOLN, TID-Before Meals, Dosing Weight 213.3, kg, PRN Blood Glucose Results, Start date: 04/23/17 21:36:00 CDT, Duratio n: 30 day, Stop date: 05/23/17 21:35:00 CDT Notes: Roll in palms of hands gently; Do not shake `vigorously. (Same as: Chanel adair )"Single Patient Use Only "WASTE: F/P - Black; E - Municipal Trash Bin Stabl e for 28 days at room temperature.Expires in days from Date Start Date: 04/23/17 Stop Date: 05/01/17 Status: Discontinued insulin lispro 2 unit, 0.02 mL, Route: SUB-Q, Drug form: SOLN, TID-Before Meals, Dosing Weight 213.3, kg, PRN Blood Glucose Results, Start date: 04/23/17 21:36:00 CDT, Duratio n: 30 day, Stop date: 05/23/17 21:35:00 CDT Notes: Roll in palms of hands gently; Do not shake `vigorously. (Same as: Chanel og )"Single Patient Use Only "WASTE: F/P - Black; E - Municipal Trash Bin Stabl e for 28 days at room temperature.Expires in days from Date Start Date: 04/23/17 Stop Date: 05/01/17 Status: Discontinued insulin lispro 1 unit, 0.01 mL, Route: SUB-Q, Drug form: SOLN, Bedtime, Dosing Weight 213.3, kg , PRN Blood Glucose Results, Start date: 04/23/17 21:36:00 CDT, Duration: 30 day , Stop date: 05/23/17 21:35:00 CDT Notes: Roll in palms of hands gently; Do not shake `vigorously. (Same as: Chanel og )"Single Patient Use Only "WASTE: F/P - Black; E - Municipal Trash Bin Stabl e for 28 days at room temperature.Expires in days from Date Start Date: 04/23/17 Stop Date: 05/01/17 Status: Discontinued insulin lispro 2 unit, 0.02 mL, Route: SUB-Q, Drug form: SOLN, Bedtime, Dosing Weight 213.3, kg , PRN Blood Glucose Results, Start date: 04/23/17 21:36:00 CDT, Duration: 30 day , Stop date: 05/23/17 21:35:00 CDT Notes: Roll in palms of hands gently; Do not shake `vigorously. (Same as: Chanel og )"Single Patient Use Only "WASTE: F/P - Black; E - [facility] Trash Bin Stabl e for 28 days at room temperature.Expires in days from Date Start Date: 04/23/17 Stop Date: 05/01/17 Status: Discontinued insulin lispro 3 unit, 0.03 mL, Route: SUB-Q, Drug form: SOLN, Bedtime, Dosing Weight 213.3, kg , PRN Blood Glucose Results, Start date: 04/23/17 21:36:00 CDT, Duration: 30 day , Stop date: 05/23/17 21:35:00 CDT Notes: Roll in palms of hands gently; Do not shake `vigorously. (Same as: Chanel )"Single Patient Use Only "WASTE: F/P - Black; E - Municipal Trash Bin Stabl e for 28 days at room temperature.Expires in days from Date Start Date: 04/23/17 Stop Date: 05/01/17 Status: Discontinued Insulin regular 100 unit + sodium chloride 0.9% INJ 99 mL 99 mL, Rate: Start Insulin Drip Per ICU Protocol, Dosing Weight 209.091, kg, Rou te: IVPB, Total Volume: 100, Start Date: 04/19/17 9:58:00 CDT, Duration: 30 day, Stop date: 05/19/17 9:57:00 CDT, Replace Every: 24 hr Notes: (Same as: Humulin R and NovoLIN R)WASTE: F/P - Black; E - Municipal Trash Bin (Do not shake) Start Date: 04/19/17 Stop Date: 04/20/17 Status: Discontinued lactulose 10 g/15 mL oral syrup 20 gm, 30 ml, Route: PO, Drug form: SYRP, Q6H, Dosing Weight 213.3, kg, PRN Cons tipation, Start date: 04/22/17 8:23:00 CDT, Duration: 30 day, Stop date: 7 8:22:00 CDT Notes: (Same as:Chronulac) Start Date: 04/22/17 Stop Date: 05/01/17 Status: Discontinued lactulose 10 g/15 mL oral syrup 20 gm, 30 mL, Route: PO, Drug form: SYRP, Q6H, Dosing Weight 209.091, kg, Start date: 04/19/17 18:00:00 CDT, Duration: 30 day, Stop date: 05/19/17 12:00:00 CDT Notes: (Same as:Chronulac) Start Date: 04/19/17 Stop Date: 04/20/17 Status: Discontinued Lasix 40 mg, Route: IVP, Drug form: INJ, ONCE, Dosing Weight 209.091, kg, Priority: ST AT, Start date: 04/18/17 14:59:00 CDT, Stop date: 04/18/17 14:59:00 CDT Start Date: 04/18/17 Stop Date: 04/18/17 Status: Completed Lidoderm 5% topical film (patch) 2 patch, Route: TOP, Daily, Drug form: FILM, Start date: 04/29/17 9:00:00 CDT, D uration: 30 day, Stop date: 05/28/17 9:00:00 CDT, Remove after 12 hours Notes: Apply only once for up to 12 hours in [id number] period (12 hours on and 12 hours off).(Same as: Lidoderm)"Remove old patch before application of new patch" Start Date: 04/29/17 Stop Date: 05/01/17 Status: Discontinued Lidoderm 5% topical film (patch) 1 patch, Route: TOP, Daily, Drug form: FILM, Start date: 04/19/17 9:00:00 CDT, D uration: 30 day, Stop date: 05/18/17 9:00:00 CDT Notes: Apply only once for up to 12 hours in [id number] period (12 hours on and 12 hours off).(Same as: Lidoderm)"Remove old patch before application of new patch" Start Date: 04/19/17 Stop Date: 05/01/17 Status: Discontinued LORazepam 0.5 mg, 1 tab, Route: PO, Drug form: TAB, Q8H, Dosing Weight 209.091, kg, PRN An xiety, Start date: 04/18/17 17:49:00 CDT, Duration: 30 day, Stop date: 05/18/17 17:48:00 CDT Notes: (Same as: Ativan) Start Date: 04/18/17 Stop Date: 05/01/17 Status: Discontinued Lotrisone 1 appl, Route: TOP, BID, Start date: 04/19/17 9:00:00 CDT, Duration: 30 day, Sto p date: 05/18/17 17:00:00 CDT Start Date: 04/19/17 Stop Date: 04/18/17 Status: Deleted metoprolol tartrate 12.5 mg, 0.5 tab, Route: PO, Drug form: TAB, BID, Dosing Weight 209.091, kg, Sta rt date: 04/19/17 9:00:00 CDT, Duration: 30 day, Stop date: 05/18/17 17:00:00 CD T Notes: (Same as: Lopressor) Start Date: 04/19/17 Stop Date: 05/01/17 Status: Discontinued midazolam 50mg/ NS 50ml drip (premixed) 50 mg 50 mg, 50 mL, Rate: Titrate, Start Dose: 1 mg/hr, Titration: Rebolus 1 mg IV and /or Titrate infusion by 1 mg/hour every 30 minutes, Goal(s): rass -3, Max Dose: 10 mg/hr, Route: IV, Dosing Weight 209.091 kg, Total Volume: 50, Start date: 10:22... Notes: (Same as: Versed) Start Date: 04/19/17 Stop Date: 04/20/17 Status: Discontinued mupirocin topical 2% ointment 1 appl, Route: NASAL, Q12H, Drug form: OINT, Start date: 04/19/17 21:00:00 CDT, Duration: 5 day, Stop date: 04/24/17 9:00:00 CDT Start Date: 04/19/17 Stop Date: 04/24/17 Status: Completed [place] 5/325 oral tablet 1 tab, Route: PO, Drug Form: TAB, Dosing Weight 213.3, kg, Q6H, PRN Pain Score 4 -6, Start date: 04/28/17 15:52:00 CDT, Duration: 30 day, Stop date: 05/28/17 15: 51:00 CDT Notes: (Same as: [place] 325/5) Do not exceed 4gm/day of acetaminophen. Start Date: 04/28/17 Stop Date: 05/01/17 Status: Discontinued nystatin topical 100,000 units/g powder 1 appl, Route: TOP, PRN, Drug form: PWDR, PRN For Fungal Prophylaxis, Start date : 04/19/17 13:04:00 CDT, Duration: 30 day, Stop date: 05/19/17 13:03:00 CDT Notes: (Same as:Mycostatin, Nilstat) For external use only. Start Date: 04/19/17 Stop Date: 05/01/17 Status: Discontinued ocular lubricant 1 appl, Route: BOTH EYES, Q6H, Drug form: OINT, Start date: 04/20/17 0:00:00 CDT , Duration: 30 day, Stop date: 05/19/17 18:00:00 CDT Notes: (Same as: Lacri-Lube, Duratears Naturale, Artificial Tears, and Tears Aga in ) Start Date: 04/20/17 Stop Date: 04/26/17 Status: Discontinued potassium chloride 40 mEq, 2 tab, Route: PO, Drug form: ERTAB, ONCE, Dosing Weight 213.3, kg, Start date: 04/29/17 13:54:00 CDT, Stop date: 04/29/17 13:54:00 CDT Notes: (Same as: K-Dur 20)"Do Not Crush" With food and full glass of water Start Date: 04/29/17 Stop Date: 04/29/17 Status: Completed propofol INJ 1,000 mg 1,000 mg, 100 mL, Rate: Titrate, Start Dose: 5 microgram/kg/min, Titration: 5 mi crogram/kg/min every 15 min, Goal(s): -2, Max Dose: 50 microgram/kg/min, Route: IV, Dosing Weight 213.3 kg, Total Volume: 100, Start date: 04/22/17 8:20:00 CDT, Duration:... Notes: If Diprivan - change bottle & tubing every 12 hrPer state nursing law propofol can only be given by a nurse if patient is intubated or being intubated (unless the nurse is a OPHTHALMIC TECH). Same as: Diprivan Start Date: 04/22/17 Stop Date: 04/23/17 Status: Discontinued remove patch Route: MISC, Bedtime, Drug form: ERFILM, Start date: 04/28/17 21:00:00 CDT, Dura tion: 30 day, Stop date: 05/27/17 21:00:00 CDT Notes: Remove patch 12 hours after application each day. Start Date: 04/28/17 Stop Date: 05/01/17 Status: Discontinued Saline Flush 0.9% 10 ml, Route: IVP, Drug Form: INJ, Dosing Weight 209.091, kg, PRN, PRN Line Flus h, Start date: 04/19/17 13:04:00 CDT, Duration: 30 day, Stop date: 05/19/17 13:0 3:00 CDT Start Date: 04/19/17 Stop Date: 04/19/17 Status: Deleted Saline Flush 0.9% 10 ml, Route: IVP, Drug Form: INJ, Dosing Weight 209.091, kg, Q12H, Start date: 04/19/17 21:00:00 CDT, Duration: 30 day, Stop date: 05/19/17 9:00:00 CDT Start Date: 04/19/17 Stop Date: 04/19/17 Status: Deleted Saline Flush 0.9% 10 ml, Route: IVP, Drug Form: INJ, Dosing Weight 209.091, kg, PRN, PRN Line Flus h, Start date: 04/18/17 17:46:00 CDT, Duration: 30 day, Stop date: 05/18/17 17:4 5:00 CDT Notes: (Same as: BD Posiflush) Start Date: 04/18/17 Stop Date: 05/01/17 Status: Discontinued Saline Flush 0.9% 10 ml, Route: IVP, Drug Form: INJ, Dosing Weight 209.091, kg, Q12H, Start date: 04/18/17 21:00:00 CDT, Duration: 30 day, Stop date: 05/18/17 9:00:00 CDT Notes: (Same as: BD Posiflush) Start Date: 04/18/17 Stop Date: 05/01/17 Status: Discontinued Saline Flush 0.9% 10 mL, Route: IVP, Drug Form: INJ, Dosing Weight 209.091, kg, PRN, PRN Line Flus h, Start date: 04/18/17 13:29:00 CDT, Duration: 30 day, Stop date: 05/18/17 13:2 8:00 CDT Notes: (Same as: BD Posiflush) Start Date: 04/18/17 Stop Date: 04/19/17 Status: Discontinued spironolactone 50 mg, 1 tab, Route: PO, Drug form: TAB, Daily, Dosing Weight 209.091, kg, Start date: 04/19/17 9:00:00 CDT, Duration: 30 day, Stop date: 05/18/17 9:00:00 CDT Notes: (Same As: Aldactone) Start Date: 04/19/17 Stop Date: 04/30/17 Status: Discontinued Tears Naturale 2 drp, Route: BOTH EYES, QID, Drug form: SOLN, PRN Dry Eyes, Start date: 7 14:49:00 CDT, Duration: 30 day, Stop date: 05/26/17 14:48:00 CDT Start Date: 04/26/17 Stop Date: 05/01/17 Status: Discontinued tramadol 50 mg, 1 tab, Route: PO, Drug form: TAB, Q6H, Dosing Weight 209.091, kg, PRN Coretta n Score 4-6, Start date: 04/18/17 17:49:00 CDT, Duration: 30 day, Stop date: 17:48:00 CDT Notes: Not to exceed 400mg/day. (Same As: Ultram) Start Date: 04/18/17 Stop Date: 05/01/17 Status: Discontinued Tylenol 650 mg, 2 tab, Route: PO, Drug form: TAB, Q6H, Dosing Weight 209.091, kg, PRN Pa in 1-3/Temp > 100.4 F, Start date: 04/18/17 17:49:00 CDT, Duration: 30 day, Stop date: 05/18/17 17:48:00 CDT Notes: Do not exceed 4 gm/day. (Same as: Tylenol) Start Date: 04/18/17 Stop Date: 05/01/17 Status: Discontinued Visine 0.05% ophthalmic solution 2 drp, Route: BOTH EYES, QID, PRN Dry Eyes, Start date: 04/26/17 14:30:00 CDT, D uration: 30 day, Stop date: 05/26/17 14:29:00 CDT Start Date: 04/26/17 Stop Date: 04/26/17 Status: Discontinued Zofran 4 mg, 2 mL, Route: IVP, Drug form: INJ, Q8H, Dosing Weight 213.3, kg, PRN Nausea , Start date: 04/25/17 11:48:00 CDT, Duration: 30 day, Stop date: 05/25/17 11:47 :00 CDT Notes: (Same as: Zofran) MEDICATION WASTE Product Size: 4 mgProduct Was jackie: ___ mg Start Date: 04/25/17 Stop Date: 05/01/17 Status: Discontinued Zofran 4 mg, 2 mL, Route: IV, Drug form: INJ, Q6H, Dosing Weight 209.091, kg, PRN Nause a, Start date: 04/18/17 17:49:00 CDT, Duration: 30 day, Stop date: 05/18/17 17:4 8:00 CDT Notes: (Same as: Zofran) MEDICATION WASTE Product Size: 4 mgProduct Was jackie: ___ mg Start Date: 04/18/17 Stop Date: 04/25/17 Status: Voided With Results Zosyn + sodium chloride 0.9% INJ 100 mL 3.375 gm, Route: IVPB, ABXQ8H, Dosing Weight 209.091, kg, CrCl >=20 ml/min infuse over 4 hours, Start date: 04/19/17 9:00:00 CDT, Duration: 10 day, Stop date: 04/29/17 1:00:00 CDT, ABX Indication: Skin/Soft Tissue Infection Notes: (Same as: Zosyn)Dosing based on Piperacillin component MEDICATION WA LADARIUS Product Size: 3375 mgProduct Wasted: ___ mg Start Date: 04/19/17 Stop Date: 04/29/17 Status: Completed Results ELECTROLYTES 1 2 3 Most recent to oldest [Reference Range]: 136 mEq/L (04/30/17 6:34 AM) 137 mEq/L (04/29/17 4:53 AM) 135 mEq/L (04/28/17 4:15 AM) Sodium Lvl [135-145 mEq/L] 3.6 mEq/L (04/30/17 6:34 AM) 3.3 mEq/L *LOW* (04/29/17 4:53 AM) 3.2 mEq/L *LOW* (04/28/17 4:15 AM) Potassium Lvl [3.5-5.1 mEq/L] 96 mEq/L (04/30/17 6:34 AM) 93 mEq/L *LOW* (04/29/17 4:53 AM) 92 mEq/L *LOW* (04/28/17 4:15 AM) Chloride Lvl [95-109 mEq/L] 30 mEq/L (04/30/17 6:34 AM) 33 mEq/L *HI* (04/29/17 4:53 AM) 35 mEq/L *HI* (04/28/17 4:15 AM) CO2 [24-32 mEq/L] 13.6 mEq/L (04/30/17 6:34 AM) 14.3 mEq/L (04/29/17 4:53 AM) 11.2 mEq/L (04/28/17 4:15 AM) AGAP [10.0-20.0 mEq/L] CHEM PANEL 1 2 3 Most recent to oldest [Reference Range]: 0.93 mg/dL (04/30/17 6:34 AM) 1.00 mg/dL (04/29/17 4:53 AM) 1.10 mg/dL (04/28/17 4:15 AM) Creatinine Lvl [0.50-1.40 mg/dL] 110 mL/min/1.73m2 1 *NA* (04/30/17 6:34 AM) 101 mL/min/1.73m2 2 *NA* (04/29/17 4:53 AM) 90 mL/min/1.73m2 3 *NA* (04/28/17 4:15 AM) eGFR 24 mg/dL *HI* (04/30/17 6:34 AM) 25 mg/dL *HI* (04/29/17 4:53 AM) 26 mg/dL *HI* (04/28/17 4:15 AM) BUN [7-22 mg/dL] 27 *HI* (04/19/17 7:01 AM) 25 (04/18/17 1:30 PM) B/C Ratio [6-25] 175 mg/dL *HI* (04/30/17 6:34 AM) 184 mg/dL *HI* (04/29/17 4:53 AM) 154 mg/dL *HI* (04/28/17 4:15 AM) Glucose Lvl [70-99 mg/dL] 7.6 g/dL (04/19/17 7:01 AM) 7.9 g/dL (04/18/17 1:30 PM) Total Protein [6.4-8.4 g/dL] 3.0 g/dL *LOW* (04/19/17 7:01 AM) 3.2 g/dL *LOW* (04/18/17 1:30 PM) Albumin Lvl [3.5-5.0 g/dL] 4.6 g/dL *HI* (04/19/17 7:01 AM) 4.7 g/dL *HI* (04/18/17 1:30 PM) Globulin [2.7-4.2 g/dL] 0.7 (04/19/17 7:01 AM) 0.7 (04/18/17 1:30 PM) A/G Ratio [0.7-1.6] 9.0 mg/dL (04/30/17 6:34 AM) 8.9 mg/dL (04/29/17 4:53 AM) 9.0 mg/dL (04/28/17 4:15 AM) Calcium Lvl [8.5-10.5 mg/dL] 4.2 mg/dL (04/28/17 4:15 AM) 3.5 mg/dL (04/27/17 5:05 AM) 4.1 mg/dL (04/26/17 4:09 AM) Phosphorus [2.5-4.5 mg/dL] 2.3 mg/dL (04/30/17 6:34 AM) 2.1 mg/dL (04/28/17 4:15 AM) 2.0 mg/dL (04/27/17 5:05 AM) Magnesium Lvl [1.8-2.4 mg/dL] 30 unit/L (04/19/17 7:01 AM) 33 unit/L (04/18/17 1:30 PM) ALT [0-65 unit/L] 18 unit/L (04/19/17 7:01 AM) 21 unit/L (04/18/17 1:30 PM) AST [0-37 unit/L] 83 unit/L (04/19/17 7:01 AM) 91 unit/L (04/18/17 1:30 PM) Alk Phos [39-136 unit/L] 0.6 mg/dL (04/19/17 7:01 AM) 0.4 mg/dL (04/18/17 1:30 PM) Bili Total [0.2-1.3 mg/dL] 19.0 uMol/L (04/20/17 10:54 AM) 132.0 uMol/L *HI* (04/19/17 2:25 PM) Ammonia [<=45.0 uMol/L] 1.5 mMol/L (04/20/17 6:11 AM) 2.2 mMol/L (04/20/17 12:13 AM) 4.0 mMol/L 4 *CRIT* (04/19/17 7:12 PM) Lactic Acid Lvl [0.5-2.2 mMol/L] 0.68 ng/mL *HI* (04/19/17 2:25 PM) Procalcitonin Lvl [0.00-0.10 ng/mL] 1Result Comment: The eGFR is calculated using [...] be mul tiplied by the estimated BMI. 4Result Comment: Critical Result(s) called to cooper killian_ at 04/19/2017 20:42_ by arely_. Read back OK. CARDIAC ENZYMES 1 2 3 Most recent to oldest [Reference Range]: 96 unit/L *NA* (04/18/17 11:45 PM) 95 unit/L (04/18/17 7:16 PM) 72 unit/L (04/18/17 1:30 PM) Total CK [12-191 unit/L] 3.4 ng/mL (04/18/17 7:16 PM) 4.0 ng/mL *HI* (04/18/17 1:30 PM) CK MB [0.5-3.6 ng/mL] 3.6 *HI* (04/18/17 7:16 PM) 5.6 *HI* (04/18/17 1:30 PM) CK MB Index [0.0-2.5] <0.02 ng/mL *NA* (04/18/17 11:45 PM) <0.02 ng/mL (04/18/17 7:16 PM) <0.02 ng/mL (04/18/17 1:30 PM) Troponin-I [0.00-0.40 ng/mL] 233 pg/mL *HI* (04/18/17 1:30 PM) BNP [<=100 pg/mL] URINE AND STOOL 1 2 3 Most recent to oldest [Reference Range]: Clear (04/20/17 5:45 AM) UA Turbidity [Clear] Ltyellow *NA* (04/20/17 5:45 AM) UA Color 6.0 (04/20/17 5:45 AM) UA pH [5.0-8.0] 1.006 (04/20/17 5:45 AM) UA Spec Grav [<=1.030] Negative mg/dL *NA* (04/20/17 5:45 AM) UA Glucose [Negative mg/dL] Negative (04/20/17 5:45 AM) UA Blood [Negative] Negative mg/dL *NA* (04/20/17 5:45 AM) UA Ketones [Negative mg/dL] 100 mg/dL *ABN* (04/20/17 5:45 AM) UA Protein [Negative mg/dL] <=1.0 mg/dL *NA* (04/20/17 5:45 AM) UA Urobilinogen [0.1-1.0 mg/dL] Negative *NA* (04/20/17 5:45 AM) UA Bili [Negative] Negative (04/20/17 5:45 AM) UA Leuk Est [Negative] Negative (04/20/17 5:45 AM) UA Nitrite [Negative] 1 /HPF (04/20/17 5:45 AM) UA WBC [0-5 /HPF] <1 /HPF (04/20/17 5:45 AM) UA RBC [0-2 /HPF] Occasional /HPF *NA* (04/20/17 5:45 AM) UA Bacteria [None Seen /HPF] None Seen *NA* (04/20/17 5:45 AM) UA Sq Epi IMMUNOLOGY 1 2 3 Most recent to oldest [Reference Range]: 6.2 mg/L *HI* (04/18/17 7:16 PM) CRP [<=2.9 mg/L] HEMATOLOGY 1 2 3 Most recent to oldest [Reference Range]: 6.7 K/CMM (04/30/17 6:34 AM) 7.2 K/CMM (04/29/17 4:53 AM) 7.7 K/CMM (04/28/17 4:15 AM) WBC [3.7-10.4 K/CMM] 5.89 M/CMM (04/30/17 6:34 AM) 5.91 M/CMM (04/29/17 4:53 AM) 6.06 M/CMM (04/28/17 4:15 AM) RBC [4.70-6.10 M/CMM] 16.2 g/dL (04/30/17 6:34 AM) 16.3 g/dL (04/29/17 4:53 AM) 16.5 g/dL (04/28/17 4:15 AM) Hgb [14.0-18.0 g/dL] 51.1 % (04/30/17 6:34 AM) 51.0 % (04/29/17 4:53 AM) 51.9 % (04/28/17 4:15 AM) Hct [42.0-54.0 %] 86.8 fL (04/30/17 6:34 AM) 86.4 fL (04/29/17 4:53 AM) 85.5 fL (04/28/17 4:15 AM) MCV [80.0-94.0 fL] 27.5 pg (04/30/17 6:34 AM) 27.6 pg (04/29/17 4:53 AM) 27.2 pg (04/28/17 4:15 AM) MCH [27.0-31.0 pg] 31.7 g/dL *LOW* (04/30/17 6:34 AM) 31.9 g/dL *LOW* (04/29/17 4:53 AM) 31.8 g/dL *LOW* (04/28/17 4:15 AM) MCHC [32.0-36.0 g/dL] 19.7 % *HI* (04/30/17 6:34 AM) 20.3 % *HI* (04/29/17 4:53 AM) 19.8 % *HI* (04/28/17 4:15 AM) RDW [11.5-14.5 %] 143 K/CMM (04/30/17 6:34 AM) 149 K/CMM (04/29/17 4:53 AM) 131 K/CMM *LOW* (04/28/17 4:15 AM) Platelet [133-450 K/CMM] 10.5 fL *HI* (04/30/17 6:34 AM) 10.5 fL *HI* (04/29/17 4:53 AM) 9.8 fL (04/28/17 4:15 AM) MPV [7.4-10.4 fL] 71.8 % (04/30/17 6:34 AM) 70.1 % (04/29/17 4:53 AM) 68.9 % (04/28/17 4:15 AM) Segs [45.0-75.0 %] 18.2 % *LOW* (04/30/17 6:34 AM) 19.9 % *LOW* (04/29/17 4:53 AM) 20.5 % (04/28/17 4:15 AM) Lymphocytes [20.0-40.0 %] 6.8 % (04/30/17 6:34 AM) 6.5 % (04/29/17 4:53 AM) 7.2 % (04/28/17 4:15 AM) Monocytes [2.0-12.0 %] 2.6 % (04/30/17 6:34 AM) 2.8 % (04/29/17 4:53 AM) 2.8 % (04/28/17 4:15 AM) Eosinophils [0.0-4.0 %] 0.6 % (04/30/17 6:34 AM) 0.7 % (04/29/17 4:53 AM) 0.6 % (04/28/17 4:15 AM) Basophils [0.0-1.0 %] 4.8 K/CMM (04/30/17 6:34 AM) 5.0 K/CMM (04/29/17 4:53 AM) 5.3 K/CMM (04/28/17 4:15 AM) Segs-Bands # [1.5-8.1 K/CMM] 1.2 K/CMM (04/30/17 6:34 AM) 1.4 K/CMM (04/29/17 4:53 AM) 1.6 K/CMM (04/28/17 4:15 AM) Lymphocytes # [1.0-5.5 K/CMM] 0.5 K/CMM (04/30/17 6:34 AM) 0.5 K/CMM (04/29/17 4:53 AM) 0.6 K/CMM (04/28/17 4:15 AM) Monocytes # [0.0-0.8 K/CMM] 0.2 K/CMM (04/30/17 6:34 AM) 0.2 K/CMM (04/29/17 4:53 AM) 0.2 K/CMM (04/28/17 4:15 AM) Eosinophils # [0.0-0.5 K/CMM] 0.1 K/CMM (04/19/17 7:01 AM) 0.1 K/CMM (04/18/17 1:30 PM) Basophils # [0.0-0.2 K/CMM] 1 mm/hr (04/18/17 7:16 PM) Sed Rate [0-15 mm/hr] 12.9 seconds (04/18/17 1:30 PM) PT [12.0-14.7 seconds] 0.95 (04/18/17 1:30 PM) INR [0.85-1.17] 29.0 seconds (04/18/17 1:30 PM) PTT [22.9-35.8 seconds] BACTERIAL - SEROLOGY 1 2 3 Most recent to oldest [Reference Range]: Negative (04/20/17 5:45 AM) MRSA by PCR Immunizations Given and Recorded Vaccine Date Status [...] Plan Extracted from: Title: Clinical Document Author: Jorge Blanco Date: 05/01/17 [facility] Daily Progress Note Reason for Followup: pulmonary care Assessment/ Plan: 1. Acute hypoxemic hypercapnic respiratory failure.improved 2. Need for invasive mechanical ventilator. 3. Underlying history of diastolic heart failure exacerbation. 4. Obstructive sleep apnea/obesity hypoventilation syndrome. 5. Diabetes mellitus with uncontrolled hyperglycemia. 6. Acute hyperkalemia. 7. Acute kidney injury on top of chronic disease. 8. Hypoalbuminemia 9. Polycythemia-secondary Oxygenating very well. BiPAP at night. Keep on diuretics. For pulmonary standpoint is okay to discharge, he is off oxygen at the correction. 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 Review of Systems CONSTITUTIONAL: no fever. chills. dizziness. weakness. EYES: No pain, erythema, or discharge, blurring of vision. EAR, NOSE AND THROAT: No sore throat, URI symptoms, epistaxis,tinnitus. CARDIOVASCULAR: No chest pain. No palpitations. + lower extremity edema. RESPIRATORY: No shortness of breath, cough, pain with respiration, or pleuritic chest pain. No hemoptysis. No dyspnea. No paroxysmal nocturnal dyspnea. GASTROINTESTINAL: Normal appetite. No dysphagia, nausea, vomiting, diarrhea. No pain. No bleeding. GENITOURINARY: No frequency, urgency, nocturia, hematuria or dysuria. MUSCULOSKELETAL: No arthralgias or myalgias. INTEGUMENTARY: No swelling, bruising, contusions,abrasions, lymphangitis. NEUROLOGIC: No headache, neck pain, numbness or tingling of the extremities. or weakness. METABOLIC:No history of thyroid, diabetes or adrenal problems. HEMATOLOGICAL: No bleeding, petechiae,bruising. ALLERGY: No asthma, urticaria. PSYCHIATRIC: No confusion or depression General Examination General: Sitting upright in bed; In NAD morbildy obese HEENT: NCAT; short neck;extubated Lungs:Scattered ronchi bilaterallly CVS: RRR, S1S2 Abdomen: Obese;Soft; NT/ND; +BS Ext: No clubbing or cyanosis; Anasarca with mild BLE erythema and pitting at the ankles (visible muscle spasm LLE at present) Skin: No Rash; No decubitus ulceration Neuro: awake, inter-active, following commands VitalsTmp(F)[id number] 05/01 11:[id number]--- 05/01 07:[id number]--- 05/01 07:40 96 3.0L/m 05/01 07:11 [id number] 40% 05/01 07:07 40% 24 Hr Tmax: 98.7F (37.06c) at 04/30 19:35Vital Signs are the last 5 in the past 48 hours. (all previously charted lines have been discontinued) I&ORecordInOutBal 04/524hr Tot 10 350 -340 04/424hr Tot 28 [id number] Radiology Labs Labs (Last four charted values) WBC 6.7(APR 30)7.2(APR 29)7.7(APR 28)7.2(APR 27) Hgb 16.2(APR 30)16.3(APR 29)16.5(APR 28)16.4(APR 27) Hct 51.1(APR 30)51.0(APR 29)51.9(APR 28)52.2(APR 27) Plt 143(APR 30)149(APR 29)L 131(APR 28)142(APR 27) Na 136(APR 30)137(APR 29)135(APR 28)137(APR 27) K 3.6(APR 30)L 3.3(APR 29)L 3.2(APR 28)3.6(APR 27) CO2 30(APR 30)H 33(APR 29)H 35(APR 28)C 40(APR 27) Cl 96(APR 30)L 93(APR 29)L 92(APR 28)L 90(APR 27) Cr 0.93(APR 30)1.00(APR 29)1.10(APR 28)0.98(APR 27) BUN H 24(APR 30)H 25(APR 29)H 26(APR 28)H 23(APR 27) Glucose Random H 175(APR 30)H 184(APR 29)H 154(APR 28)H 137(APR 27) Mg 2.3(APR 30)2.1(APR 28)2.0(APR 27)2.1(APR 26) Phos 4.2(APR 28)3.5(APR 27)4.1(APR 26)3.5(APR 24) Ca 9.0(APR 30)8.9(APR 29)9.0(APR 28)9.3(APR 27) PT 12.9(APR 18) INR 0.95(APR 18) PTT 29.0(APR 18) Troponin <0.02(APR 18)<0.02(APR 18)<0.02(APR 18) CK MB 3.4(APR 18)H 4.0(APR 18) Total CK 96(APR 18)95(APR 18)72(APR 18) Medications (37) Active Scheduled: (14) acetaZOLAMIDE 250 mg TAB 250 mg 1 tab, PO, Daily albuterol-ipratropium 2.5 mg-0.5 mg/3 ml ROSALIA 3 mL, NEB, RQ6H aspirin 81 mg CHEW TAB 81 mg 1 tab, PO, Daily betamethasone dipropionate 0.05% CRM 15gm 1 appl, TOP, BID bumetanide 1 mg TAB 2 mg 2 tab, PO, BID citalopram 10 mg TAB 20 mg 2 tab, PO, Daily clotrimazole 1% 15 gm top CRM 1 appl, TOP, BID enoxaparin 40 mg/0.4 ml INJ 40 mg 0.4 mL, SUB-Q, [id number] insulin GLARGINE 1 unit/0.01 mL INJ SYR 10 unit 0.1 mL, SUB-Q, QAM lidocaine 5% top patch 1 patch, TOP, Daily lidocaine 5% top patch 2 patch, TOP, Daily lidocaine patch removal remove 3 patches, MISC, Bedtime metoprolol tartrate 25 mg TAB 12.5 mg 0.5 tab, PO, BID sodium chloride 0.9% 10 ml flush syr BD 10 ml, IVP, Q12H Continuous: (0) PRN: () acetaminophen 325 mg TABLET 650 mg 2 tab, PO, Q6H acetaminophen-hydrocodone 325 mg-5 mg tab 1 tab, PO, Q6H bisacodyl 10 mg rect SUPP 10 mg 1 supp, KS, Daily Dextrose 50% 50 ml INJ syringe 12.5 gm 25 mL, IVP, PRN Dextrose 50% 50 ml INJ syringe 25 gm 50 mL, IVP, PRN glucagon recombinant 1 mg PDR 1 mg, IM, PRN hydrALAZINE 20 mg/1 ml VL 10 mg 0.5 mL, IV, Q6H insulin lispro 100 unit/ml 3 ml Pen 1 unit 0.01 mL, SUB-Q, TID-Before Meals insulin lispro 100 unit/ml 3 ml Pen 2 unit 0.02 mL, SUB-Q, TID-Before Meals insulin lispro 100 unit/ml 3 ml Pen 3 unit 0.03 mL, SUB-Q, TID-Before Meals insulin lispro 100 unit/ml 3 ml Pen 4 unit 0.04 mL, SUB-Q, TID-Before Meals insulin lispro 100 unit/ml 3 ml Pen 5 unit 0.05 mL, SUB-Q, TID-Before Meals insulin lispro 100 unit/ml 3 ml Pen 1 unit 0.01 mL, SUB-Q, Bedtime insulin lispro 100 unit/ml 3 ml Pen 2 unit 0.02 mL, SUB-Q, Bedtime insulin lispro 100 unit/ml 3 ml Pen 3 unit 0.03 mL, SUB-Q, Bedtime insulin lispro 100 unit/ml 3 ml Pen 4 unit 0.04 mL, SUB-Q, Bedtime lactulose 20 gm/30 ml ud LIQ 20 gm 30 ml, PO, Q6H LORazepam 0.5 mg TAB 0.5 mg 1 tab, PO, Q8H nystatin [id number] unit/gm 15 gm PWD 1 appl, TOP, PRN ondansetron 4 mg/2ml INJ VL 4 mg 2 mL, IVP, Q8H sodium chloride 0.9% 10 ml flush syr BD 10 ml, IVP, PRN Tears Naturale 15 ml oph SOLN 2 drp, BOTH EYES, QID traMADol 50 mg TAB 50 mg 1 tab, PO, Q6H Jorge Blanco MD [facility] Extracted from: Title: Discharge Summary * Author: Raimundo Valladares DO Date: 04/30/17 Discharge Plan Discharge Summary Plan Discharge Status: improved. Discharge instructions given: to patient. Discharge disposition: discharge to care home facility. Prescriptions: continue same medications, reviewed. Diagnosis CHF exacerbation ([id number] I50.9, Working, Medical). Acute respiratory failure, hypoxemia Morbid obesity Diastolic heart failure . Course Progressing as expected. Education and Follow-up Counseled: patient, regarding diagnosis, regarding treatment, regarding medications. Extracted from: Title: General Admission H&P * Author: Raimundo Valladares DO Date: 04/18/17 Impression and Plan Acute on chronic diastolic heart failure Volume overload Morbid obesity a BMI of 70 Dyspnea on exertion Type 2 diabetes mellitus Hypertension Acute on chronic renal failure Small toe infection Patient was started on IV diuretics, will consult cardiology for further evaluation In addition we will consult podiatry in regards of the toe infection We will hold off antibiotics at this time. We will monitor renal function We will get need to get a list of his home medications and adjust accordingly
--- OUTSIDE RECORDS SUMMARY | 2019-01-20 18:16 | XMS REPORT | Summary of Care ---
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 stage 4 chronic kidney disease, or unspecified chronic kidney disease (Final) - 10/30/17 Acute respiratory failure with hypercapnia (Final) - Acute kidney failure, unspecified (Final) - Type 2 diabetes mellitus with diabetic chronic kidney disease (Final) - Mild protein-calorie malnutrition (Final) - Cellulitis of right lower limb (Final) - Acute on chronic diastolic (congestive) heart failure (Final) - Cellulitis of left lower limb (Final) - Morbid (severe) obesity with alveolar hypoventilation (Final) - Body mass index (BMI) 70 or greater, adult (Final) - Influenza due to other identified influenza virus with other respiratory manifes tations (Final) - Type 2 diabetes mellitus with diabetic polyneuropathy (Final) - Type 2 diabetes mellitus with foot ulcer (Final) - Type 2 diabetes mellitus with hyperglycemia (Final) - Chronic kidney disease, unspecified (Final) - Non-pressure chronic ulcer of other part of left foot with unspecified severity (Final) - Venous insufficiency (chronic) (peripheral) (Final) - Pain in left shoulder (Final) - Pain in left elbow (Final) - Low back pain (Final) - intermediate project manager (current) use of insulin (Final) - Discharge Disposition: Shelter Facility Attending Physician: Deyvi Morris MD Admitting Physician: Deyvi Morris MD Vital Signs 1 2 3 Most recent to oldest [Reference Range]: 172.72 cm (10/20/17 4:24 AM) 172.72 cm (10/20/17 3:12 AM) Height 98.5 DegF (10/25/17 8:00 PM) 98.6 DegF (10/25/17 12:26 PM) 97.6 DegF (10/25/17 4:00 AM) Temperature Oral [96.4-99.1 DegF] 123/73 mmHg (10/25/17 8:00 PM) 109/72 mmHg (10/25/17 12:26 PM) 141/92 mmHg *HI* (10/25/17 8:16 AM) Blood Pressure [90-140/60-90 mmHg] 20 BRMIN (10/25/17 8:00 PM) 16 BRMIN (10/25/17 12:26 PM) 12 BRMIN *LOW* (10/25/17 9:07 AM) Respiratory Rate [14-20 BRMIN] 95 bpm (10/25/17 8:00 PM) 89 bpm (10/25/17 12:26 PM) 79 bpm (10/25/17 8:16 AM) Peripheral Pulse Rate [60-100 bpm] 230.909 kg (10/20/17 4:24 AM) 223 kg (10/20/17 3:12 AM) 229.545 kg (10/19/17 10:13 PM) Weight 77.4 m2 (10/20/17 4:24 AM) 74.75 m2 (10/20/17 3:12 AM) Body Mass Index Problem List Condition Effective Dates Status Health Status Informant Coma(Confirmed) Resolved CHF (congestive Active heart failure)(Confirmed) Diabetes(Confirmed) Active Generalized Active obesity(Confirmed) HTN Active (hypertension)(Confi rmed) Allergies, Adverse Reactions, Alerts Substance Reaction Severity Status morphine Active Medications *ATTN RN please do not admin vanc dose until trough drawn* *ATTN RN please do not admin vanc dose until trough drawn*, ATTN RN, Drug fo rm: MISC, Route: MISC, ONCE, 10/26/17 8:30:00 [employer], Stop date: 10/26/17 8:30:[address] Start Date: 10/26/17 Stop Date: 10/25/17 Status: Canceled acetaminophen 1,000 mg, 2 tab, Route: PO, Drug form: TAB, Q12H, Dosing Weight 230.909, kg, Sta rt date: 10/22/17 21:00:00 [employer], Duration: 30 day, Stop date: 11/21/17 9:00:00 CD T Notes: Max acetaminophen 4000 mg/day (4 gm/day). (Same as: Tylenol Extra Streng th) Start Date: 10/22/17 Stop Date: 10/22/17 Status: Canceled acetaminophen-hydrocodone 325 mg-10 mg oral tablet 1 tab, Route: PO, Drug Form: TAB, Dosing Weight 230.909, kg, Q8H, PRN Pain Score 6-10, Start date: 10/21/17 8:44:00 [employer], Duration: 30 day, Stop date: 11/20/17 8 :43:00 CDT Notes: Do not exceed 4gm/day of acetaminophen. (Same as: [place] 325/10) Start Date: 10/21/17 Stop Date: 10/21/17 Status: Discontinued ANES acetaminophen 1,000 mg, Route: PO, Drug form: TAB, ONCE, Dosing Weight 230.909, kg, PRN Pain S core 1-3, Start date: 10/23/17 13:36:00 [employer] Start Date: 10/23/17 Stop Date: 10/23/17 Status: Discontinued ANES albuterol 0.083% inhalation solution 2.49 mg, Route: NEB, Q20Min, Dosing Weight 230.909, kg, PRN Wheezing, Priority: Routine, Start date: 10/23/17 13:36:00 [employer], Duration: 30 day, Stop date: 8 14:35:00 CDT Start Date: 10/23/17 Stop Date: 10/23/17 Status: Discontinued ANES diphenhydrAMINE 12.5 mg, Route: IVP, Drug form: INJ, Q6H, Dosing Weight 230.909, kg, PRN Itching , Start date: 10/23/17 13:36:00 [employer], Duration: 30 day, Stop date: 11/22/17 13:35 :00 CDT Start Date: 10/23/17 Stop Date: 10/23/17 Status: Discontinued ANES fentaNYL 25 microgram, Route: IVP, Q5Min, Dosing Weight 230.909, kg, PRN Pain Score 4-6, Priority: Routine, Start date: 10/23/17 13:36:00 [employer], Duration: 4 doses or times , Stop date: Limited # of times Start Date: 10/23/17 Stop Date: 10/23/17 Status: Discontinued ANES fentaNYL 50 microgram, Route: IVP, Q5Min, Dosing Weight 230.909, kg, PRN Pain Score 7-10, Priority: Routine, Start date: 10/23/17 13:36:00 [employer]TAIN, Duration: 2 doses or time s, Stop date: Limited # of times Start Date: 10/23/17 Stop Date: 10/23/17 Status: Discontinued ANES flumazenil 0.2 mg, Route: IVP, PRN, Dosing Weight 230.909, kg, PRN Benzodiazepine Reversal, Initial dose, Start date: 10/23/17 13:36:00 [employer], Duration: 30 day, Stop date: 0 11/22/17 14:35:00 CDT Start Date: 10/23/17 Stop Date: 10/23/17 Status: Discontinued ANES hydrALAZINE 10 mg, Route: IVP, Q20Min, Dosing Weight 230.909, kg, PRN Elevated BP, Start lali e: 10/23/17 13:36:00 [employer], Duration: 2 doses or times, Stop date: Limited # of ti mes Start Date: 10/23/17 Stop Date: 10/23/17 Status: Discontinued ANES HYDROmorphone 0.5 mg, Route: IVP, Q5Min, Dosing Weight 230.909, kg, PRN Pain Score 7-10, Start date: 10/23/17 13:36:00 [employer], Duration: 4 doses or times, Stop date: Limited # of times Start Date: 10/23/17 Stop Date: 10/23/17 Status: Discontinued ANES ketOROLAC 30 mg, Route: IVP, ONCE, Dosing Weight 230.909, kg, Start date: 10/23/17 13:36:0 0 [employer], Stop date: 10/23/17 13:36:00 [employer] Start Date: 10/23/17 Stop Date: 10/23/17 Status: Discontinued ANES labetalol 10 mg, Route: IVP, Q5Min, Dosing Weight 230.909, kg, PRN Elevated BP, Start date : 10/23/17 13:36:00 [employer], Duration: 5 doses or times, Stop date: Limited # of kristan es Start Date: 10/23/17 Stop Date: 10/23/17 Status: Discontinued ANES meperidine 12.5 mg, Route: IVP, Q30Min, Dosing Weight 230.909, kg, PRN Other -See Comment, For shivering, Start date: 10/23/17 13:36:00 [employer], Duration: 2 doses or times, St op date: Limited # of times Start Date: 10/23/17 Stop Date: 10/23/17 Status: Discontinued ANES naloxone 0.1 mg, Route: SUB-Q, Q6H, Dosing Weight 230.909, kg, PRN Itching, Start date: 0 10/23/17 13:36:00 [employer], Duration: 30 day, Stop date: 11/22/17 13:35:00 CDT Start Date: 10/23/17 Stop Date: 10/23/17 Status: Discontinued ANES naloxone 0.4 mg, Route: IVP, Q2MIN, Dosing Weight 230.909, kg, PRN Narcotic Reversal, Sta rt date: 10/23/17 13:36:00 [employer], Duration: 8 doses or times, Stop date: Limited # of times Start Date: 10/23/17 Stop Date: 10/23/17 Status: Discontinued ANES ondansetron 4 mg, Route: IVP, ONCE, Dosing Weight 230.909, kg, PRN Nausea & Vomiting, Start date: 10/23/17 13:36:00 [employer] Start Date: 10/23/17 Stop Date: 10/23/17 Status: Discontinued ANES oxyCODONE 10 mg, Route: PO, Drug form: TAB, Q4H, Dosing Weight 230.909, kg, PRN Pain Score 7-10, Start date: 10/23/17 13:36:00 [employer], Duration: 30 day, Stop date: 11/22/17 13:35:00 CDT Start Date: 10/23/17 Stop Date: 10/23/17 Status: Discontinued ANES oxyCODONE 5 mg, Route: PO, Drug form: TAB, Q4H, Dosing Weight 230.909, kg, PRN Pain Score 4-6, Start date: 10/23/17 13:36:00 [employer], Duration: 30 day, Stop date: 11/22/17 13 :35:00 CDT Start Date: 10/23/17 Stop Date: 10/23/17 Status: Discontinued ANES promethazine 6.25 mg, Route: IVPB, ONCE, Dosing Weight 230.909, kg, PRN Nausea & Vomiting, Start date: 10/23/17 13:36:00 [employer] Start Date: 10/23/17 Stop Date: 10/23/17 Status: Discontinued aspirin 81 mg, 1 tab, Route: PO, Drug form: ECTAB, Daily, Dosing Weight 230.909, kg, Sta rt date: 10/24/17 9:00:00 [employer], Duration: 30 day, Stop date: 11/22/17 9:00:00 CDT Notes: Do not crush or chew.(Same As: Ecotrin) Start Date: 10/24/17 Stop Date: 10/25/17 Status: Discontinued baclofen 10 mg, 1 tab, Route: PO, Drug form: TAB, QID, Dosing Weight 230.909, kg, Start d ate: 10/23/17 17:00:00 [employer], Duration: 30 day, Stop date: 11/22/17 13:00:00 CDT Notes: (Same As: Devynal) Start Date: 10/23/17 Stop Date: 10/25/17 Status: Discontinued Bactroban 2% topical ointment 1 appl, Route: TOP, Daily, Drug form: OINT, Start date: 10/23/17 9:00:00 [employer], Du ration: 30 day, Stop date: 11/21/17 9:00:00 CDT Start Date: 10/23/17 Stop Date: 10/25/17 Status: Discontinued Basaglar KwikPen 7 unit, SUB-Q, Daily, 0 Refill(s) Start Date: 10/20/17 Status: Ordered Bumex 1 mg, PO, BID, 0 Refill(s) Start Date: 10/20/17 Status: Ordered Bumex 1 mg, 1 tab, Route: PO, Drug form: TAB, BID, Dosing Weight 230.909, kg, Start da te: 10/23/17 9:00:00 [employer], Duration: 30 day, Stop date: 11/21/17 17:00:00 CDT Notes: (Same As: Bumex) Start Date: 10/23/17 Stop Date: 10/25/17 Status: Discontinued Dextrose 50% Syringe 25 gm, 50 mL, Route: IVP, Drug Form: INJ, Dosing Weight 230.909, kg, PRN, PRN Bl ood Glucose Results, Start date: 10/20/17 10:36:00 [employer], Duration: 30 day, Stop d ate: 11/19/17 11:35:00 CDT Start Date: 10/20/17 Stop Date: 10/25/17 Status: Discontinued Dextrose 50% Syringe 12.5 gm, 25 mL, Route: IVP, Drug Form: INJ, Dosing Weight 230.909, kg, PRN, PRN Blood Glucose Results, Start date: 10/20/17 10:36:00 [employer], Duration: 30 day, Stop date: 11/19/17 11:35:00 CDT Start Date: 10/20/17 Stop Date: 10/25/17 Status: Discontinued DuoNeb inhalation solution 3 mL, Route: NEB, Drug Form: SOLN, Dosing Weight 230.909, kg, RQ6H, PRN Shortnes s of breath, Start date: 10/23/17 14:50:00 [employer], Duration: 30 day, Stop date: 14:49:00 CDT Notes: (Same as: Duoneb) Start Date: 10/23/17 Stop Date: 10/25/17 Status: Discontinued glucagon 1 mg, Route: IM, Drug form: PDR/INJ, PRN, Dosing Weight 230.909, kg, PRN Blood G lucose Results, Start date: 10/20/17 10:36:00 [employer], Duration: 30 day, Stop date: 11/19/17 11:35:00 CDT Start Date: 10/20/17 Stop Date: 10/25/17 Status: Discontinued heparin 7,500 unit, 1.5 mL, Route: SUB-Q, Drug form: INJ, Q8H, Dosing Weight 230.909, kg , Consider for obese patients, Start date: 10/20/17 16:00:00 [employer], Duration: 30 d ay, Stop date: 11/19/17 8:00:00 CDT Notes: porcine heparin Start Date: 10/20/17 Stop Date: 10/25/17 Status: Discontinued insulin glargine 7 unit, 0.07 mL, Route: SUB-Q, Drug form: SOLN, Bedtime, Start date: 10/22/17 21 :00:00 [employer], Duration: 30 day, Stop date: 11/20/17 21:00:00 CDT Notes: (Same as: Lantus)Do not hold insulin without contacting prescriberWASTE: F/P - Black; E - Municipal Trash Bin "single patient use only" Start Date: 10/22/17 Stop Date: 10/25/17 Status: Discontinued insulin lispro 15 unit, 0.15 mL, Route: SUB-Q, Drug form: SOLN, TID-Before Meals, Dosing Weight 230.909, kg, PRN Blood Glucose Results, Start date: 10/20/17 10:36:00 [employer], Dura tion: 30 day, Stop date: 11/19/17 10:35:00 CDT Notes: (Same as: Humalog ) Roll in palms of hands gently; Do not shake `vigorou sly. "Single Patient Use Only " WASTE: F/P - Black; E - Municipal Trash Bin St able for 28 days at room temperature.Expires in days from Da te Start Date: 10/20/17 Stop Date: 10/25/17 Status: Discontinued insulin lispro 3 unit, 0.03 mL, Route: SUB-Q, Drug form: SOLN, TID-Before Meals, Dosing Weight 230.909, kg, PRN Blood Glucose Results, Start date: 10/20/17 10:36:00 [employer], Durat ion: 30 day, Stop date: 11/19/17 10:35:00 CDT Notes: (Same as: Humalog ) Roll in palms of hands gently; Do not shake `vigorou sly. "Single Patient Use Only " WASTE: F/P - Black; E - Municipal Trash [facility] St able for 28 days at room temperature.Expires in days from Da te Start Date: 10/20/17 Stop Date: 10/25/17 Status: Discontinued insulin lispro 9 unit, 0.09 mL, Route: SUB-Q, Drug form: SOLN, TID-Before Meals, Dosing Weight 230.909, kg, PRN Blood Glucose Results, Start date: 10/20/17 10:36:00 [employer], Durat ion: 30 day, Stop date: 11/19/17 10:35:00 CDT Notes: (Same as: Humalog ) Roll in palms of hands gently; Do not shake `vigorou sly. "Single Patient Use Only " WASTE: F/P - Black; E - [facility] Trash [facility] St able for 28 days at room temperature.Expires in days from Da te Start Date: 10/20/17 Stop Date: 10/25/17 Status: Discontinued insulin lispro 12 unit, 0.12 mL, Route: SUB-Q, Drug form: SOLN, TID-Before Meals, Dosing Weight 230.909, kg, PRN Blood Glucose Results, Start date: 10/20/17 10:36:00 [employer], Dura tion: 30 day, Stop date: 11/19/17 10:35:00 CDT Notes: (Same as: Humalog ) Roll in palms of hands gently; Do not shake `vigorou sly. "Single Patient Use Only " WASTE: F/P - Black; E - [facility] Trash [facility] St able for 28 days at room temperature.Expires in days from Da te Start Date: 10/20/17 Stop Date: 10/25/17 Status: Discontinued insulin lispro 6 unit, 0.06 mL, Route: SUB-Q, Drug form: SOLN, TID-Before Meals, Dosing Weight 230.909, kg, PRN Blood Glucose Results, Start date: 10/20/17 10:36:00 [employer], Durat ion: 30 day, Stop date: 11/19/17 10:35:00 CDT Notes: (Same as: Humalog ) Roll in palms of hands gently; Do not shake `vigorou sly. "Single Patient Use Only " WASTE: F/P - Black; E - Municipal Trash Bin St able for 28 days at room temperature.Expires in days from Da te Start Date: 10/20/17 Stop Date: 10/25/17 Status: Discontinued Lactated Ringers Injection IV (ANES) 1000 mL Route: IV, Total Volume: 1,000, Start date: 10/23/17 12:31:00 [employer], Stop date: 13:31:00 [employer]TAIN Start Date: 10/23/17 Stop Date: 10/23/17 Status: Completed Lactated Ringers Injection IV 1,000 mL 1,000 mL, Rate: 25 ml/hr, Infuse over: 40 hr, Route: IV, Dosing Weight 230.909 k g, Total Volume: 1,000, Start date: 10/23/17 11:59:00 [employer], Duration: 1 day, Stop date: 10/24/17 11:58:00 [employer]TAIN, 3.41, m2 Start Date: 10/23/17 Stop Date: 10/23/17 Status: Discontinued Lantus 100 units/mL 7 unit, Route: SUB-Q, Bedtime, Dosing Weight 230.909, kg, Start date: 10/23/17 2 1:00:00 [employer], Duration: 30 day, Stop date: 11/21/17 21:00:00 CDT Start Date: 10/23/17 Stop Date: 10/22/17 Status: Deleted Lasix 40 mg, Route: IVP, Drug form: INJ, ONCE, Dosing Weight 229.545, kg, Priority: ST AT, Start date: 10/20/17 0:49:00 [employer], Stop date: 10/20/17 0:49:00 [employer]TAIN Start Date: 10/20/17 Stop Date: 10/20/17 Status: Completed Lidoderm 5% topical film (patch) 3 patch, Route: TOP, Daily, Drug form: FILM, Start date: 10/21/17 16:00:00 [employer], Duration: 30 day, Stop date: 11/20/17 9:00:00 CDT, Remove after 12 hours Notes: Apply only once for up to 12 hours in [id number] period (12 hours on and 12 hours off).(Same as: Lidoderm)"Remove old patch before application of new patch" Start Date: 10/21/17 Stop Date: 10/25/17 Status: Discontinued metolazone 2.5 mg oral tablet 2.5 mg, 1 tab, Route: PO, Drug form: TAB, BID, Dosing Weight 230.909, kg, Start date: 10/23/17 9:00:00 [employer], Duration: 30 day, Stop date: 11/21/17 17:00:00 CDT Notes: (Same as: Zaroxolyn) Start Date: 10/23/17 Stop Date: 10/25/17 Status: Discontinued metoprolol tartrate 50 mg, 1 tab, Route: PO, Drug form: TAB, Daily, Dosing Weight 230.909, kg, Start date: 10/23/17 9:00:00 [employer], Duration: 30 day, Stop date: 11/21/17 9:00:00 CDT Notes: (Same as: Lopressor) Start Date: 10/23/17 Stop Date: 10/25/17 Status: Discontinued metoprolol tartrate 50 mg, PO, Daily, 0 Refill(s) Start Date: 10/20/17 Status: Ordered metoprolol tartrate 25 mg, 1 tab, Route: PO, Drug form: TAB, Bedtime, Dosing Weight 230.909, kg, Sta rt date: 10/22/17 21:00:00 [employer]TAIN, Duration: 30 day, Stop date: 11/20/17 21:00:00 C DT Notes: (Same as: Lopressor) Start Date: 10/22/17 Stop Date: 10/25/17 Status: Discontinued midazolam (ANES) Route: IV, Drug form: SOLN, ONCE, Stop date: 10/23/17 13:22:00 [employer]TAIN Start Date: 10/23/17 Stop Date: 10/23/17 Status: Completed [place] 10/325 oral tablet 1 tab, Route: PO, Drug Form: TAB, Dosing Weight 230.909, kg, Q4H, PRN Pain Score 6-10, Start date: 10/21/17 21:35:00 [employer], Duration: 30 day, Stop date: 11/20/17 21:34:00 CDT Notes: Do not exceed 4gm/day of acetaminophen. (Same as: [place] 325/10) Start Date: 10/21/17 Stop Date: 10/22/17 Status: Discontinued [place] 10/325 oral tablet 1 tab, Route: PO, Drug Form: TAB, Dosing Weight 230.909, kg, Q6H, PRN Pain Score 7-10, Start date: 10/25/17 8:04:00 [employer]TAIN, Duration: 30 day, Stop date: 11/24/17 8 :03:00 CDT, Pain Score 4-10 Notes: Do not exceed 4gm/day of acetaminophen. (Same as: [place] 325/10) Start Date: 10/25/17 Stop Date: 10/25/17 Status: Discontinued [place] 10/325 oral tablet 1 tab, Route: PO, Drug Form: TAB, Dosing Weight 230.909, kg, Q6H, PRN Pain Score 6-10, Start date: 10/22/17 8:57:00 [employer]TAIN, Duration: 30 day, Stop date: 11/21/17 8 :56:00 CDT, Pain Score 5-10 Notes: Do not exceed 4gm/day of acetaminophen. (Same as: [place] 325/10) Start Date: 10/22/17 Stop Date: 10/24/17 Status: Discontinued ocular lubricant solution 2 drp, Route: BOTH EYES, Q4H, Drug form: SOLN, PRN Dry Eyes, Start date: 8 14:50:00 [employer]TAIN, Stop date: 11/22/17 14:49:00 CDT Start Date: 10/23/17 Stop Date: 10/25/17 Status: Discontinued Ofirmev 1,000 mg, 100 mL, Route: IV, Drug form: INJ, Q12H, Dosing Weight 230.909, kg, fo r > or=50 kg, Start date: 10/22/17 16:00:00 [employer]TAIN, Duration: 30 day, Stop date: 11/21/17 4:00:00 CDT Notes: Infuse over 15 minutesDo not exceed 4gm/day of acetaminophen MEDICAT ION WASTE Product Size: 1000 mgProduct Wasted: ___ mg Start Date: 10/22/17 Stop Date: 10/25/17 Status: Discontinued Ofirmev 1,000 mg, Route: IV, Drug form: INJ, Q12H, Dosing Weight 230.909, kg, for > or=50 kg, Start date: 10/22/17 21:00:00 [employer], Duration: 30 day, Stop date: 11/21 9:00:00 CDT Start Date: 10/22/17 Stop Date: 10/22/17 Status: Canceled oxyCODONE 5 mg oral tablet 10 mg, Route: PO, Drug form: TAB, Q4H, Dosing Weight 230.909, kg, PRN, Start lali e: 10/24/17 9:11:00 [employer], Duration: 30 day, Stop date: 11/23/17 9:10:00 CDT, Pain Score 4-10 Start Date: 10/24/17 Stop Date: 10/24/17 Status: Discontinued oxyCODONE 5 mg oral tablet 10 mg, 2 tab, Route: PO, Drug form: TAB, Q6H, Dosing Weight 230.909, kg, PRN Coretta n Score 6-10, Start date: 10/24/17 9:16:00 [employer], Duration: 30 day, Stop date: 9:15:00 CDT, Pain Score 4-10 Notes: (Same as: Roxicodone) Start Date: 10/24/17 Stop Date: 10/25/17 Status: Discontinued RN please don't give VANCO dose RN please don't give VANCO dose, before TROUGH level is DRAWN, Drug form: MISC, Route: MISC, ONCE, 10/21/17 7:30:00 [employer], Stop date: 10/21/17 7:30:00 [employer]TAIN Start Date: 10/21/17 Stop Date: 10/21/17 Status: Completed Sodium Chloride 0.9% IV 1,000 mL 1,000 mL, Rate: 25 ml/hr, Infuse over: 40 hr, Route: IV, Dosing Weight 230.909 k g, Total Volume: 1,000, Start date: 10/23/17 11:59:00 [employer]TAIN, Duration: 1 day, Stop date: 10/24/17 11:58:00 [employer]TAIN, 3.41, m2 Start Date: 10/23/17 Stop Date: 10/23/17 Status: Discontinued TamiFLU 75 mg, 1 cap, Route: PO, Drug form: CAP, [id number], Dosing Weight 230.909, kg, CrC l > 60 ml/min, Start date: 10/20/17 11:00:00 [employer]TAIN, Duration: 5 day, Stop date: 10/24/17 23:00:00 [employer]TAIN Notes: Take with food.Same as: Tamiflu) Start Date: 10/20/17 Stop Date: 10/24/17 Status: Completed tizanidine 4 mg, 1 tab, Route: PO, Drug form: TAB, Q8H, Dosing Weight 230.909, kg, Start da te: 10/23/17 16:00:00 [employer]TAIN, Duration: 30 day, Stop date: 11/22/17 8:00:00 CDT Notes: (Same As: Zanaflex) Start Date: 10/23/17 Stop Date: 10/24/17 Status: Discontinued tramadol 50 mg oral tablet 50 mg, 1 tab, Route: PO, Drug form: TAB, Q6H, Dosing Weight 230.909, kg, PRN Coretta n Score 6-10, Start date: 10/20/17 19:52:00 [employer]TAIN, Duration: 30 day, Stop date: 19:51:00 CDT Notes: Not to exceed 400mg/day. (Same As: Ultram) Start Date: 10/20/17 Stop Date: 10/21/17 Status: Discontinued Tylenol 650 mg, 2 tab, Route: PO, Drug form: TAB, Q6H, Dosing Weight 230.909, kg, PRN Pa in 1-3/Temp > 100.4 F, Start date: 10/20/17 11:35:00 [employer]TAIN, Duration: 30 day, Stop date: 11/19/17 11:34:00 CDT Notes: Do not exceed 4 gm/day. (Same as: Tylenol) Start Date: 10/20/17 Stop Date: 10/25/17 Status: Discontinued vancomycin + Sodium Chloride 0.9% IV 250 mL 1,000 mg, Route: IVPB, [id number], Dosing Weight 230.909, kg, Start date: 10/20/17 7:00:00 [employer], Duration: 5 day, Stop date: 10/24/17 19:00:00 [employer]TAIN, ABX Indication: Non-PNA Respiratory Tract Infection Notes: TIME CRITICAL MEDICATION(Same As: Vancocin)Infusion rate< 1000 mg: infuse over 1 [id number] - 1500 mg: infuse over 1.5 [id number] - 2000 mg: infuse over 2 hours> 2001 mg: infuse over 2.5 hoursFor adult patients only: Round to nearest 250 mg per Medical Staff approval MEDICATION WASTE Product Size: 1000 mgProduct Wasted: ___ mg Start Date: 10/20/17 Stop Date: 10/20/17 Status: Discontinued vancomycin + Sodium Chloride 0.9% IV 250 mL 1,250 mg, Route: IVPB, [id number], Start date: 10/20/17 16:00:00 [employer]TAIN, Duration: 30 d ay, Stop date: 11/19/17 8:00:00 CDT, ABX Indication: Skin/Soft Tissue Infection Notes: TIME CRITICAL MEDICATION(Same As: Vancocin)Infusion rate< 1000 mg: infuse over 1 [id number] - 1500 mg: infuse over 1.5 [id number] - 2000 mg: infuse over 2 hours> 2001 mg: infuse over 2.5 hoursFor adult patients only: Round to nearest 250 mg per Medical Staff approval MEDICATION WASTE Product Size: 1000 mgProduct Wasted: ___ mg Start Date: 10/20/17 Stop Date: 10/24/17 Status: Discontinued vancomycin + Sodium Chloride 0.9% IV 250 mL 1,250 mg, Route: IVPB, [id number], Dosing Weight 230.909, kg, Priority: Routine, St art date: 10/24/17 17:00:00 [employer]S [employer]TAIN, Duration: 5 day, Stop date: 10/29/17 9:30:00 CS T, ABX Indication: Other (specify in Comments) Notes: TIME CRITICAL MEDICATION(Same As: Vancocin)Infusion rate< 1000 mg: infuse over 1 [id number] - 1500 mg: infuse over 1.5 [id number] - 2000 mg: infuse over 2 hours> 2001 mg: infuse over 2.5 hoursFor adult patients only: Round to nearest 250 mg per Medical Staff approval MEDICATION WASTE Product Size: 1000 mgProduct Wasted: ___ mg Start Date: 10/24/17 Stop Date: 10/25/17 Status: Discontinued Vancomycin Pharmacy Dosing 1 ea, Route: MISC, ONCALL, Dosing Weight 230.909, kg, Start date: 10/20/17 11:00 :00 [employer]S [employer]TAIN, Duration: 1 doses or times, Pharmacy to dose, ABX Indication: Skin/Soft Tissue Infection Start Date: 10/20/17 Stop Date: 10/20/17 Status: Deleted Zaroxolyn 2.5 mg, PO, BID, # 15 tab, 0 Refill(s) Start Date: 10/20/17 Status: Ordered Zosyn + Sodium Chloride 0.9% IV 100 mL 3.375 gm, Route: IVPB, [id number], Dosing Weight 230.909, kg, CrCl >=20 ml/min infuse over 4 hours, Start date: 10/24/17 19:00:00 [employer], Duration: 10 day, Stop date: 11/03/17 11:00:00 [employer], ABX Indication: Skin/Soft Tissue Infection Notes: (Same as: Zosyn)Dosing based on Piperacillin component MEDICATION WA LADARIUS Product Size: 3375 mgProduct Wasted: ___ mg Start Date: 10/24/17 Stop Date: 10/25/17 Status: Discontinued Zosyn 3.375 g intravenous injection 3.375 gm, IV, Q8H, X 10 day, # 30 bag, 0 Refill(s) Start Date: 10/25/17 Stop Date: 11/04/17 Status: Completed Results ELECTROLYTES 1 2 3 Most recent to oldest [Reference Range]: 139 mEq/L (10/25/17 6:25 AM) 137 mEq/L (10/21/17 8:33 AM) 135 mEq/L (10/19/17 11:30 PM) Sodium Lvl [135-145 mEq/L] 3.5 mEq/L (10/25/17 6:25 AM) 4.6 mEq/L (10/21/17 8:33 AM) 3.6 mEq/L (10/19/17 11:30 PM) Potassium Lvl [3.5-5.1 mEq/L] 89 mEq/L *LOW* (10/25/17 6:25 AM) 94 mEq/L *LOW* (10/21/17 8:33 AM) 92 mEq/L *LOW* (10/19/17 11:30 PM) Chloride Lvl [95-109 mEq/L] 38 mEq/L *HI* (10/25/17 6:25 AM) 27 mEq/L (10/21/17 8:33 AM) 34 mEq/L *HI* (10/19/17 11:30 PM) CO2 [24-32 mEq/L] 15.5 mEq/L (10/25/17 6:25 AM) 20.6 mEq/L *HI* (10/21/17 8:33 AM) 12.6 mEq/L (10/19/17 11:30 PM) AGAP [10.0-20.0 mEq/L] CHEM PANEL 1 2 3 Most recent to oldest [Reference Range]: 0.83 mg/dL (10/25/17 6:25 AM) 0.87 mg/dL (10/21/17 8:33 AM) 1.50 mg/dL *HI* (10/19/17 11:30 PM) Creatinine Lvl [0.50-1.40 mg/dL] 117 mL/min/1.73m2 1 *NA* (10/25/17 6:25 AM) 115 mL/min/1.73m2 2 *NA* (10/21/17 8:33 AM) 61 mL/min/1.73m2 3 *NA* (10/19/17 11:30 PM) eGFR 19 mg/dL (10/25/17 6:25 AM) 19 mg/dL (10/21/17 8:33 AM) 25 mg/dL *HI* (10/19/17 11:30 PM) BUN [7-22 mg/dL] 23 (10/25/17 6:25 AM) 17 (10/19/17 11:30 PM) B/C Ratio [6-25] 193 mg/dL *HI* (10/25/17 6:25 AM) 165 mg/dL *HI* (10/21/17 8:33 AM) 295 mg/dL *HI* (10/19/17 11:30 PM) Glucose Lvl [70-99 mg/dL] 6.8 g/dL (10/25/17 6:25 AM) 8.4 g/dL (10/19/17 11:30 PM) Total Protein [6.4-8.4 g/dL] 2.6 g/dL *LOW* (10/25/17 6:25 AM) 3.3 g/dL *LOW* (10/19/17 11:30 PM) Albumin Lvl [3.5-5.0 g/dL] 4.2 g/dL (10/25/17 6:25 AM) 5.1 g/dL *HI* (10/19/17 11:30 PM) Globulin [2.7-4.2 g/dL] 0.6 *LOW* (10/25/17 6:25 AM) 0.6 *LOW* (10/19/17 11:30 PM) A/G Ratio [0.7-1.6] 8.5 mg/dL (10/25/17 6:25 AM) 8.4 mg/dL *LOW* (10/21/17 8:33 AM) 8.9 mg/dL (10/19/17 11:30 PM) Calcium Lvl [8.5-10.5 mg/dL] 28 unit/L (10/25/17 6:25 AM) 42 unit/L (10/19/17 11:30 PM) ALT [0-65 unit/L] 37 unit/L (10/25/17 6:25 AM) 32 unit/L (10/19/17 11:30 PM) AST [0-37 unit/L] 74 unit/L (10/25/17 6:25 AM) 102 unit/L (10/19/17 11:30 PM) Alk Phos [39-136 unit/L] 0.7 mg/dL (10/25/17 6:25 AM) 0.6 mg/dL (10/19/17 11:30 PM) Bili Total [0.2-1.3 mg/dL] 1Result Comment: The [...] 3 Most recent to oldest [Reference Range]: 68 unit/L (10/19/17 11:30 PM) Total CK [12-191 unit/L] 1.5 ng/mL (10/19/17 11:30 PM) CK MB [0.5-3.6 ng/mL] 2.2 (10/19/17 11:30 PM) CK MB Index [0.0-2.5] <0.02 ng/mL (10/19/17 11:30 PM) Troponin-I [0.00-0.40 ng/mL] 52 pg/mL (10/19/17 11:30 PM) BNP [<=100 pg/mL] TOXICOLOGY 1 2 3 Most recent to oldest [Reference Range]: 1600 *NA* (10/24/17 3:54 PM) 0800 *NA* (10/21/17 8:33 AM) [facility] *NA* (10/24/17 3:54 PM) 10.5 ug/ml *NA* (10/21/17 8:33 AM) Vanco Tr HEMATOLOGY 1 2 3 Most recent to oldest [Reference Range]: 7.3 K/CMM (10/25/17 6:25 AM) 9.7 K/CMM (10/21/17 10:57 AM) 8.9 K/CMM (10/19/17 11:30 PM) WBC [3.7-10.4 K/CMM] 5.37 M/CMM (10/25/17 6:25 AM) 5.70 M/CMM (10/21/17 10:57 AM) 6.14 M/CMM *HI* (10/19/17 11:30 PM) RBC [4.70-6.10 M/CMM] 15.6 g/dL (10/25/17 6:25 AM) 16.4 g/dL (10/21/17 10:57 AM) 17.8 g/dL (10/19/17 11:30 PM) Hgb [14.0-18.0 g/dL] 49.4 % (10/25/17 6:25 AM) 52.5 % (10/21/17 10:57 AM) 56.0 % *HI* (10/19/17 11:30 PM) Hct [42.0-54.0 %] 92.1 fL (10/25/17 6:25 AM) 92.1 fL (10/21/17 10:57 AM) 91.2 fL (10/19/17 11:30 PM) MCV [80.0-94.0 fL] 29.1 pg (10/25/17 6:25 AM) 28.8 pg (10/21/17 10:57 AM) 29.0 pg (10/19/17 11:30 PM) MCH [27.0-31.0 pg] 31.6 g/dL *LOW* (10/25/17 6:25 AM) 31.3 g/dL *LOW* (10/21/17 10:57 AM) 31.8 g/dL *LOW* (10/19/17 11:30 PM) MCHC [32.0-36.0 g/dL] 17.2 % *HI* (10/25/17 6:25 AM) 17.9 % *HI* (10/21/17 10:57 AM) 17.6 % *HI* (10/19/17 11:30 PM) RDW [11.5-14.5 %] 9.6 fL (10/25/17 6:25 AM) 10.2 fL (10/21/17 10:57 AM) 10.3 fL (10/19/17 11:30 PM) MPV [7.4-10.4 fL] 133 K/CMM (10/25/17 6:25 AM) 125 K/CMM *LOW* (10/21/17 10:57 AM) 153 K/CMM (10/19/17 11:30 PM) Platelet [133-450 K/CMM] 76.9 % *HI* (10/25/17 6:25 AM) 71.4 % (10/19/17 11:30 PM) Segs [45.0-75.0 %] 12.4 % *LOW* (10/25/17 6:25 AM) 19.9 % *LOW* (10/19/17 11:30 PM) Lymphocytes [20.0-40.0 %] 7.1 % (10/25/17 6:25 AM) 6.4 % (10/19/17 11:30 PM) Monocytes [2.0-12.0 %] 3.3 % (10/25/17 6:25 AM) 1.7 % (10/19/17 11:30 PM) Eosinophils [0.0-4.0 %] 0.3 % (10/25/17 6:25 AM) 0.6 % (10/19/17 11:30 PM) Basophils [0.0-1.0 %] 5.6 K/CMM (10/25/17 6:25 AM) 6.4 K/CMM (10/19/17 11:30 PM) Segs-Bands # [1.5-8.1 K/CMM] 0.9 K/CMM *LOW* (10/25/17 6:25 AM) 1.8 K/CMM (10/19/17 11:30 PM) Lymphocytes # [1.0-5.5 K/CMM] 0.5 K/CMM (10/25/17 6:25 AM) 0.6 K/CMM (10/19/17 11:30 PM) Monocytes # [0.0-0.8 K/CMM] 0.2 K/CMM (10/25/17 6:25 AM) 0.2 K/CMM (10/19/17 11:30 PM) Eosinophils # [0.0-0.5 K/CMM] 0.1 K/CMM (10/19/17 11:30 PM) Basophils # [0.0-0.2 K/CMM] 13.0 seconds (10/19/17 11:30 PM) PT [12.0-14.7 seconds] 0.98 (10/19/17 11:30 PM) INR [0.85-1.17] 30.5 seconds (10/19/17 11:30 PM) PTT [22.9-35.8 seconds] VIRAL - SEROLOGY 1 2 3 Most recent to oldest [Reference Range]: Positive 1 *ABN* (10/19/17 11:30 PM) Influ A [Negative] Negative (10/19/17 11:30 PM) Influ B [Negative] 1Result Comment: "Significant Findings called to CABRERA Rucker at 10/19/2017 23:56 by ms. Read Back OK." Immunizations Given and Recorded Vaccine Date Status [...] No entered on: 10/19/17 Assessment and Plan Extracted from: Title: Clinical Document Author: Christian Dennison MD Date: 10/25/17 Hospitalist Progress Note [facility] Christian Dennison MD SUBJECTIVE: Patient seen and examined, events reviewed No new complaints OBJECTIVE: Vitals and Temp: VitalsTmp(F)[id number] 10/25 12:2698.024233/108048--- 10/25 09:07 1296--- 10/25 09:06 96 4.0L/m 10/25 08:1697.450255/401328--- 10/25 04:0097.511932/589144--- 24 Hr Tmax: 98.6F (37.00c) at 10/25 12:26Vital Signs are the last 5 in the past 48 hours. Input/Output RecordInOutBal 10/123hr Tot 263 900 -637 2824hr Tot 2366 [id number] Labs (Last four charted values) WBC 7.3(OCT 25)9.7(OCT 21)8.9(OCT 19) Hgb 15.6(OCT 25)16.4(OCT 21)17.8(OCT 19) Hct 49.4(OCT 25)52.5(OCT 21)H 56.0(OCT 19) Plt 133(OCT 25)L 125(OCT 21)153(OCT 19) Na 139(OCT 25)137(OCT 21)135(OCT 19) K 3.5(OCT 25)4.6(OCT 21)3.6(OCT 19) CO2 H 38(OCT 25)27(OCT 21)H 34(OCT 19) Cl L 89(OCT 25)L 94(OCT 21)L 92(OCT 19) Cr 0.83(OCT 25)0.87(OCT 21)H 1.50(OCT 19) BUN 19(OCT 25)19(OCT 21)H 25(OCT 19) Glucose Random H 193(OCT 25)H 165(OCT 21)H 295(OCT 19) Ca 8.5(OCT 25)L 8.4(OCT 21)8.9(OCT 19) PT 13.0(OCT 19) INR 0.98(OCT 19) PTT 30.5(OCT 19) Troponin <0.02(OCT 19) CK MB 1.5(OCT 19) Total CK 68(OCT 19) MEDICATIONS Scheduled Meds (13):acetaminophen (Ofirmev), aspirin, baclofen, bumetanide (Bumex), heparin, insulin glargine, lidocaine topical (Lidoderm 5% topical film (patch)), metolazone (metolazone 2.5 mg oral tablet), metoprolol (metoprolol tartrate), metoprolol (metoprolol tartrate), mupirocin topical (Bactroban 2% topical ointment), piperacillin-tazobactam + Sodium Chloride 0.9% IV 100 mL (Zosyn + Sodium Chloride 0.9% IV 100 mL), vancomycin + Sodium Chloride 0.9% IV 250 mL Unscheduled Meds: None PRN Meds (12):Dextrose 50% in Water IV (Dextrose 50% Syringe), Dextrose 50% in Water IV (Dextrose 50% Syringe), acetaminophen-hydrocodone ([place] 10/325 oral tablet), acetaminophen (Tylenol), albuterol-ipratropium (DuoNeb inhalation solution), glucagon, insulin lispro, insulin lispro, insulin lispro, insulin lispro, insulin lispro, ocular lubricant (ocular lubricant solution) One Time Meds (1):(Ordered) non-formulary (*ATTN RN please do not admin vanc dose until trough drawn*) Continuous Infusions: None ASSESSMENT & EXAM: GENERAL: In no apparent distress at this time. HEENT: EOMI. NECK: Supple. No jugular venous distention or bruits. CARDIOVASCULAR: Regular rate and rhythm, S1, S2 positive. LUNGS: Clear to auscultation bilateral. GASTROINTESTINAL: Soft, nontender, nondistended, positive bowel sounds. EXTREMITIES: No clubbing, cyanosis or edema. NEUROLOGICAL: Intact. No gross deficits noted. SKIN: no rashes noted. DIAGNOSES & PROBLEMS: Acute hypercarbic respiratory failure Acute diastolic congestive heart failure exacerbation, EF 55% Influenza A positive Cellulitis of lower extremity Left fifth toe ulceration with recent infection Acute renal failure/chronic kidney disease Diabetes mellitus type 2 Hypertension PLAN & TREATMENT: Cleared by infectious disease as well as podiatry for discharge HOSPITAL COURSE: Mr. Goff originally presented and was admitted on 20 October 2017 secondary to acute hypercarbic respiratory failure. He had acute diastolic congestive heart failure exacerbation as well as influenza A. He was seen and evaluated by pulmonary as well as by infectious disease. His breathing did improve with BiPAP. He had an ulceration on his toe which was debrided by podiatry during his stay as well. He was continued on IV antibiotic therapy. He will be discharged to [facility] facility today to continue his IV antibiotic therapy. DISCHARGE NOTE: Condition: improved Activity: as tolerated Diet: ADA Follow up: pcp 1 week Medications: see d/c randy APONTE time: 35 min Extracted from: Title: Clinical Document Author: Rosario Vogel MD Date: 10/25/17 INFECTIOUS DISEASES PROGRESS NOTE ROSARIO VOGEL M.D. Reason For Follow up: DFI SUBJECTIVE: Seen and examined. Events noted. Allergies (1) ActiveReaction morphineNone Documented VITAL SIGNS: VitalsTmp(F)[id number] 10/25 20:0098.655047/749006--- 10/25 12:2698.069792/146163--- 10/25 09:07 1296--- 10/25 09:06 96 4.0L/m 10/25 08:1697.436823/427114--- 24 Hr Tmax: 98.6F (37.00c) at 10/25 12:26Vital Signs are the last 5 in the past 48 hours. Input/Output RecordInOutBal 09/2823hr Tot 890 1525 -635 4hr Tot 1052 1670 -858 Lines and catheters: MEDICATIONS: Scheduled Meds (13): 10/22/17 acetaminophen (Ofirmev) 1,000 mg IV Q12H 400 ml/hr 10/24/17 aspirin 81 mg PO Daily 10/23/17 baclofen 10 mg PO QID 10/23/17 bumetanide (Bumex) 1 mg PO BID 10/20/17 heparin 7,500 unit SUB-Q Q8H 10/22/17 insulin glargine 7 unit SUB-Q Bedtime 0 ml/hr 10/21/17 lidocaine topical (Lidoderm 5% topical film (patch)) 3 patch TOP Daily 10/23/17 metolazone (metolazone 2.5 mg oral tablet) 2.5 mg PO BID 10/22/17 metoprolol (metoprolol tartrate) 25 mg PO Bedtime 10/23/17 metoprolol (metoprolol tartrate) 50 mg PO Daily 10/23/17 mupirocin topical (Bactroban 2% topical ointment) 1 appl TOP Daily 10/20/17 oseltamivir (TamiFLU) 75 mg PO [id number] 10/24/17 vancomycin 1,250 mg IVPB [id number] ROS: NAD PHYSICAL EXAMINATION: GEN: Awake HEENT: no thrush mucosa moist no ulcer no scleral icterus NECK:supple HEART: RRR S1 and S2 no murmur or gallop LUNG: CTAB to auscaultate and purcussion GI: soft NT/ND BS +ve EXT: clubing, cyanosis edema LABORATORY DATA: Labs (Last four charted values) WBC 7.3(OCT 25)9.7(OCT 21)8.9(OCT 19) Hgb 15.6(OCT 25)16.4(OCT 21)17.8(OCT 19) Hct 49.4(OCT 25)52.5(OCT 21)H 56.0(OCT 19) Plt 133(OCT 25)L 125(OCT 21)153(OCT 19) Na 139(OCT 25)137(OCT 21)135(OCT 19) K 3.5(OCT 25)4.6(OCT 21)3.6(OCT 19) CO2 H 38(OCT 25)27(OCT 21)H 34(OCT 19) Cl L 89(OCT 25)L 94(OCT 21)L 92(OCT 19) Cr 0.83(OCT 25)0.87(OCT 21)H 1.50(OCT 19) BUN 19(OCT 25)19(OCT 21)H 25(OCT 19) Glucose Random H 193(OCT 25)H 165(OCT 21)H 295(OCT 19) Ca 8.5(OCT 25)L 8.4(OCT 21)8.9(OCT 19) PT 13.0(OCT 19) INR 0.98(OCT 19) PTT 30.5(OCT 19) Troponin <0.02(OCT 19) CK MB 1.5(OCT 19) Total CK 68(OCT 19) CULTURES: DATE/SOURCE/RESULT/ SENSITIVITIES: IMAGING: ASSESMENT AND PLAN: 32-year-old morbidly obese gentleman with 1. Diabetic foot infection 2. Cellulitis 3. Sepsis rule out 4. Stasis dermatitis 5. Morbid obesity 6. Flu positive DC to facility with IV antibiotic in the form of Zosyn. Continue Zosyn infusion for 10 days. Until follow-up with the quality supervisor Antibiotic duration can be changed according to the wound status. ANTIMICROBIALS: zosyn Disposition: ID Antibiotic plan Oral/IV: ID follow up on discharge call Dr Vogel [phone] Extracted from: Title: Clinical Document Author: Rosario Vogel MD Date: 10/23/17 INFECTIOUS DISEASES CONSULTATION NOTE Rosario Vogel M.D. Attending: Deyvi Morris MDPhone: Service: Internal Medicine Code status: None Specified=FULL CODE Reason for Admission: ACUTE CHF, INFLUENZA A Working DRG: Pulmonary edema & respiratory failure Isolation: Droplet Consulting Physicians: Ria Meng MDOffice: Service: Medicine, Neurology Rosario Vogel MDOffice: Service: Infectious Disease Jared Coleman MDOffice: (no service on file) Delta Drake MDOffice: Service: Medicine Dre Kaminski DPMOffice: service: Orthopedic Surgery Jorge Blanco MDOffice: Service: Pulmonary HPI: This is a 32-year-old super morbidly obese gentleman who is a known past medical history significant for obstructive sleep apnea, congestive heart failure, hypoventilation syndrome hypertension and diabetes mellitus who presented to our hospital with the bilateral lower extremity swelling redness and erythema more on the left leg as compared to the right he was seen and evaluated by Podiatry and underwent debridement of chronic chronically infected left fifth toe ulceration including subcutaneous tissue fascia tendon and bone left fifth toe debridement. Noted to have a 98.9 temps blood work showed creatinine of 1.50 on presentation now at 0.80 white counts were 8.9 influenza A antigen was also positive upon admission infectious disease consultation was called to give recommendation about antibiotic use at this time. Currently patient is on Tamiflu vancomycin. PAST MEDICAL HISTORY: Morbid obesity hypertension Obstructive sleep apnea Hypoventilation syndrome Diabetes mellitus SURGICAL HISTORY: Closure of tracheostomy: 11/27/16 FAMILY HISTORY: No qualifying data available Allergies (1) ActiveReaction morphineNone documented SOCIAL HISTORY: Alcohol Details: Never Tobacco Details: Use: Never smoker. Ready to change: No. Household tobacco concerns: No. Tobacco smoke exposure: None. Did the Patient Smoke Cigarettes Anytime During the Last 365 Days? No. Cessation Counseling Provided? No. Substance Abuse Details: Use: None. ROS: GENERAL: No change in appetite, energy or weight. No fever, chills or sweats. HEENT: No auditory or visual complaints. No tinnitus. No pharyngeal complaints RESPIRATORY: [place], SOB. CARDIOVASCULAR: No chest pain or pressure. No palpitations GASTROINTESTINAL: No dysphagia, odynophagia, heartburn, diarrhea or constipation. No nausea or vomiting. MUSCULOSKELETAL: No myalgias, arthralgias, joint swelling. NEUROLOGICAL: No vertigo or disturbance of balance or coordination.No motor or sensory complaints. No headache. GENITOURINARY: No dysuria, urgency or urinary frequency. No incontinence. DERMATOLOGIC: No complaint of skin lesions or rashes. No change MEDICATIONS: Scheduled Meds (14): 10/22/17 acetaminophen (Ofirmev) 1,000 mg IV Q12H 400 ml/hr 10/24/17 aspirin 81 mg PO Daily 10/23/17 baclofen 10 mg PO QID 10/23/17 bumetanide (Bumex) 1 mg PO BID 10/20/17 heparin 7,500 unit SUB-Q Q8H 10/22/17 insulin glargine 7 unit SUB-Q Bedtime 0 ml/hr 10/21/17 lidocaine topical (Lidoderm 5% topical film (patch)) 3 patch TOP Daily 10/23/17 metolazone (metolazone 2.5 mg oral tablet) 2.5 mg PO BID 10/22/17 metoprolol (metoprolol tartrate) 25 mg PO Bedtime 10/23/17 metoprolol (metoprolol tartrate) 50 mg PO Daily 10/23/17 mupirocin topical (Bactroban 2% topical ointment) 1 appl TOP Daily 10/20/17 oseltamivir (TamiFLU) 75 mg PO [id number] 10/23/17 tizanidine 4 mg PO Q8H 10/20/17 vancomycin + Sodium Chloride 0.9% IV 250 mL 1,250 mg IVPB ABXQ8H 166.67 ml/hr VITAL SIGNS: VitalsTmp(F)[id number] 10/23 15:0098.568425/551955 5.0L/m 10/23 14:11----67809/[id number] 5.0L/m 10/23 14:02----12631/636714 5.0L/m 10/23 13:4597.867428/303383 5.0L/m 10/23 13:30----[id number]/[id number] 8.0L/m 24 Hr Tmax: 98.8F (37.11c) at 10/23 04:00Vital Signs are the last 5 in the past 48 hours. PHYSICAL EXAMINATION: GENERAL: Well-developed, well-nourished in no apparent distress. HEENT: Head is normocephalic and atraumatic. PERRLA, EOMI, NECK: Supple. No carotid bruits. No lymphadenopathy or thyromegaly. CHEST: Symmetrical with equal expansion. LUNGS: CTA HEART: RRR, no murmurs. . GASTROINTESTINAL: Bowel sounds are normal. Soft, NT, ND. No guarding or rebound tenderness. EXTREMITIES: Positive edema dressed wound LABS: Labs (Last four charted values) WBC 9.7(OCT 21)8.9(OCT 19) Hgb 16.4(OCT 21)17.8(OCT 19) Hct 52.5(OCT 21)H 56.0(OCT 19) Plt L 125(FEB 25)153(OCT 19) Na 137(FEB )135(FEB ) K 4.6(FEB )3.6(FEB ) CO2 27(OCT 21)H 34(OCT 19) Cl L 94(OCT 21)L 92(OCT 19) Cr 0.87(FEB )H 1.50(B ) BUN 19(OCT 21)H 25(OCT 19) Glucose Random H 165(OCT 21)H 295(OCT 19) Ca L 8.4(OCT 21)8.9(OCT 19) PT 13.0(OCT 19) INR 0.98(OCT 19) PTT 30.5(OCT 19) Troponin <0.02(OCT 19) CK MB 1.5(OCT 19) Total CK 68(OCT 19) CULTURES: DATE/SOURCE/RESULT/ SENSITIVITIES: IMAGING: ASSESMENT AND PLAN: 32-year-old morbidly obese gentleman with 1. Diabetic foot infection 2. Cellulitis 3. Sepsis rule out 4. Stasis dermatitis 5. Morbid obesity 6. Flu positive As per infectious disease standpoint patient was seen and evaluated. As he is status post debridement procedure presented with left foot continue on IV antibiotic at this point with the Zosyn alone along with Tamiflu and vancomycin. Patient will be discharged home on p.o. antibiotic soon. RECOMMENDATIONS: We will continue to follow. Thank you for providing me the opportunity to take care of this patient.
--- OUTSIDE RECORDS SUMMARY | 2019-01-20 18:16 | XMS REPORT | Summary of Care ---
Author Author [facility] Outpatient [facility] [place] Address Unknown Phone Unavailable Encounter HERON Swain(FIN) [id number] Date(s): 05/14/18 - 05/14/18 [facility] [place] [address] [place] [phone] Attending Physician: Hernesto Clarke MD Referring Physician: [...]
--- OUTSIDE RECORDS SUMMARY | 2019-01-20 18:17 | XMS REPORT | Summary of Care ---
Author Author [facility] Organization [facility] Address Unknown Phone Unavailable Encounter HERON Swain(CALEB) [id number] Date(s): 11/16/16 - 11/29/16 [facility] [address] [place] [address]- [phone] Discharge Disposition: Intermediate Care Attending Physician: Juliana Song MD Admitting Physician: Juliana Song MD Referring Physician: Pavan Wynn MD Vital Signs 1 2 3 Most recent to oldest [Reference Range]: 172.72 cm (11/22/16 7:01 AM) 172.72 cm (11/22/16 3:38 AM) 172.72 cm (11/21/16 11:20 PM) Height 188 kg (11/25/16 12:00 PM) 188 kg (11/24/16 12:00 PM) 272.1 kg (11/23/16 3:09 PM) Current Weight 98.4 DegF (11/29/16 12:16 PM) 97.7 DegF (11/29/16 8:46 AM) 98.1 DegF (11/29/16 4:00 AM) Temperature Oral [96.4-99.1 DegF] 133/69 mmHg (11/29/16 12:16 PM) 125/75 mmHg (11/29/16 8:46 AM) 114/72 mmHg (11/29/16 4:00 AM) Blood Pressure [90-140/60-90 mmHg] 18 BRMIN (11/29/16 4:00 AM) 18 BRMIN (11/29/16 12:00 AM) 16 BRMIN (11/28/16 8:05 PM) Respiratory Rate [14-20 BRMIN] 68 bpm (11/29/16 12:16 PM) 86 bpm (11/29/16 8:46 AM) 82 bpm (11/29/16 4:00 AM) Peripheral Pulse Rate [60-100 bpm] 198.21 kg (11/16/16 10:32 PM) 177.273 kg (11/16/16 5:05 PM) Weight 66.44 m2 (11/16/16 10:32 PM) 59.42 m2 (11/16/16 5:05 PM) Body Mass Index Problem List Condition Effective Dates Status Health Status Informant Diabetes(Confirmed) Resolved HTN Resolved (hypertension)(Confi rmed) Allergies, Adverse Reactions, Alerts Substance Reaction Severity Status morphine Active Medications acetaminophen 650 mg, PO, Q6H, PRN pain, 0 Refill(s) Start Date: 11/16/16 Status: Ordered acetaminophen 0 Refill(s) Start Date: 11/16/16 Stop Date: 11/16/16 Status: Deleted acetaminophen 650 mg, 20.3 mL, Route: PO, Drug form: LIQ, Q6H, Dosing Weight 198.21, kg, PRN O ther -See Comment, Start date: 11/17/16 15:47:00 CDT, Duration: 30 day, Stop lali e: 12/17/16 15:46:00 CDT, fever Notes: Max sofvqyhpnlhae=5499rq/day (4 gm/day). (Same as: Tylenol) Start Date: 11/17/16 Stop Date: 11/29/16 Status: Discontinued acetaminophen-hydrocodone 325 mg-5 mg oral tablet 2 tab, Route: PO, Drug Form: TAB, Dosing Weight 198.21, kg, Q6H, PRN Pain 1-3/Te mp > 100.4 F, Start date: 11/17/16 0:24:00 CDT, Duration: 30 day, Stop date: 12/17/16 0:23:00 CDT, * Notes: (Same as: Edward 325/5) Do not exceed 4gm/day of acetaminophen. Start Date: 11/17/16 Stop Date: 11/29/16 Status: Discontinued aspirin 81 mg tablet, enteric coated 81 mg=1 tab, PO, Q24H, # 30 tab, 0 Refill(s) Start Date: 11/28/16 Status: Ordered aspirin 81 mg tablet, enteric coated 81 mg, 1 tab, Route: PO, Drug form: ECTAB, Q24H, Dosing Weight 177.273, kg, Star t date: 11/16/16 22:00:00 CDT, Duration: 30 day, Stop date: 12/15/16 22:00:00 CD T Notes: Do not crush or chew.(Same As: Ecotrin) Start Date: 11/16/16 Stop Date: 11/29/16 Status: Discontinued baclofen 10 mg, PO, QID, 0 Refill(s) Start Date: 11/16/16 Status: Ordered baclofen 10 mg, 1 tab, Route: PO, Drug form: TAB, QID, Dosing Weight 198.21, kg, Start da te: 11/17/16 17:00:00 CDT, Duration: 30 day, Stop date: 12/17/16 13:00:00 CDT Notes: (Same As: Devynal) Start Date: 11/17/16 Stop Date: 11/21/16 Status: Discontinued calcium carbonate 500 mg (200 mg elemental calcium) oral tablet 500 mg, 1 tab, Route: PO, Drug form: CHEWTAB, PRN, Dosing Weight 198.21, kg, PRN Abnormal Lab Result, FOR ICU USE ONLY, Start date: 11/20/16 11:05:00 CDT, Durat ion: 30 day, Stop date: 12/20/16 11:04:00 CDT Notes: (Same As: Tums)Calcium Carbonate 500 wn=946 mg elemental calcium Dose=_ mg calcium carbonate ( mg elemental calcium) Start Date: 11/20/16 Stop Date: 11/23/16 Status: Discontinued calcium carbonate 500 mg (200 mg elemental calcium) oral tablet 1,000 mg, 2 tab, Route: PO, Drug form: CHEWTAB, PRN, Dosing Weight 198.21, kg, P RN Abnormal Lab Result, FOR ICU USE ONLY, Start date: 11/20/16 11:05:00 CDT, Dur ation: 30 day, Stop date: 12/20/16 11:04:00 CDT Notes: (Same As: Tums)Calcium Carbonate 500 gr=258 mg elemental calcium Dose=_ mg calcium carbonate ( mg elemental calcium) Start Date: 11/20/16 Stop Date: 11/23/16 Status: Discontinued calcium gluconate + sodium chloride 0.9% INJ 100 mL 2 gm, 20 mL, Route: IVPB, PRN, Dosing Weight 177.273, kg, PRN Abnormal Lab Resul t, For NON-ICU Patients Only., Start date: 11/16/16 21:51:00 CDT, Duration: 30 d ay, Stop date: 12/16/16 21:50:00 CDT Notes: WASTE: F/P - Sink; E - Municipal Trash Bin Start Date: 11/16/16 Stop Date: 11/20/16 Status: Discontinued calcium gluconate + sodium chloride 0.9% INJ 120 mL 3 gm, 30 mL, Route: IVPB, PRN, Dosing Weight 177.273, kg, PRN Abnormal Lab Resul t, For NON-ICU Patients Only., Start date: 11/16/16 21:51:00 CDT, Duration: 30 d ay, Stop date: 12/16/16 21:50:00 CDT Notes: WASTE: F/P - Sink; E - Municipal Trash Bin Start Date: 11/16/16 Stop Date: 11/20/16 Status: Discontinued calcium gluconate + sodium chloride 0.9% INJ 50 mL 1 gm, 10 mL, Route: IVPB, PRN, Dosing Weight 198.21, kg, PRN Abnormal Lab Result , Start date: 11/20/16 11:05:00 CDT, Duration: 30 day, Stop date: 12/20/16 11:04 :00 CDT, FOR ICU USE ONLY Notes: WASTE: F/P - Sink; E - Municipal Trash Bin Start Date: 11/20/16 Stop Date: 11/23/16 Status: Discontinued ceFAZolin 1 gm, Route: IV, ONCE, Dosing Weight 198.21, kg, Priority: NOW, Start date: 10/27 8:49:00 CDT, Stop date: 11/23/16 8:49:00 CDT Start Date: 11/23/16 Stop Date: 11/23/16 Status: Discontinued ceFAZolin + sodium chloride 0.9% INJ 100 mL 1 gm, Route: IVPB, ABXQ8H, Dosing Weight 198.21, kg, Start date: 11/17/16 18:00: 00 CDT, Duration: 30 day, Stop date: 12/17/16 10:00:00 CDT Notes: (Same As: Bela West) MEDICATION WASTE Product Size: 1000 mgP roduct Wasted: ___ mg Start Date: 11/17/16 Stop Date: 11/26/16 Status: Discontinued CeleXA 20 mg, PO, Daily, 0 Refill(s) Start Date: 11/16/16 Status: Ordered CeleXA 20 mg, 2 tab, Route: PO, Drug form: TAB, Daily, Dosing Weight 198.21, kg, Start date: 11/18/16 9:00:00 CDT, Duration: 30 day, Stop date: 12/17/16 9:00:00 CDT Start Date: 11/18/16 Stop Date: 11/29/16 Status: Discontinued clindamycin 300 mg=1 cap, PO, QID, # 28 cap, 0 Refill(s), STOP DATE 11/20/16 Start Date: 11/16/16 Stop Date: 11/26/16 Status: Discontinued clindamycin 600 mg, 50 mL, Route: IVPB, Drug form: INJ, ONCE, Dosing Weight 177.273, kg, Yani ority: STAT, Start date: 11/16/16 18:43:00 CDT, Stop date: 11/16/16 18:43:00 CDT Start Date: 11/16/16 Stop Date: 11/16/16 Status: Completed clindamycin 300 mg, 1 cap, Route: PO, QID, Dosing Weight 198.21, kg, Start date: 11/17/16 17 :00:00 CDT, Duration: 30 day, Stop date: 12/17/16 13:00:00 CDT Start Date: 11/17/16 Stop Date: 11/17/16 Status: Canceled clindamycin 600 mg, 50 mL, Route: IVPB, Drug form: INJ, ABXQ8H, Dosing Weight 177.273, kg, S tart date: 11/17/16 4:00:00 CDT, Duration: 30 day, Stop date: 12/16/16 20:00:00 CDT Start Date: 11/17/16 Stop Date: 11/17/16 Status: Discontinued Dextrose 50% Syringe 25 gm, 50 mL, Route: IVP, Drug Form: INJ, Dosing Weight 198.21, kg, PRN, PRN Blo od Glucose Results, Start date: 11/17/16 12:42:00 CDT, Duration: 30 day, Stop da te: 12/17/16 12:41:00 CDT Start Date: 11/17/16 Stop Date: 11/20/16 Status: Discontinued Dextrose 50% Syringe 12.5 gm, 25 mL, Route: IVP, Drug Form: INJ, Dosing Weight 198.21, kg, PRN, PRN B lood Glucose Results, Start date: 11/17/16 12:42:00 CDT, Duration: 30 day, Stop date: 12/17/16 12:41:00 CDT Start Date: 11/17/16 Stop Date: 11/20/16 Status: Discontinued Dextrose 50% Syringe 25 gm, 50 mL, Route: IVP, Drug Form: INJ, Dosing Weight 198.21, kg, PRN, PRN Blo od Glucose Results, Start date: 11/23/16 11:08:00 CDT, Duration: 30 day, Stop da te: 12/23/16 11:07:00 CDT Start Date: 11/23/16 Stop Date: 11/29/16 Status: Discontinued Dextrose 50% Syringe 12.5 gm, 25 mL, Route: IVP, Drug Form: INJ, Dosing Weight 198.21, kg, PRN, PRN B lood Glucose Results, Start date: 11/23/16 11:08:00 CDT, Duration: 30 day, Stop date: 12/23/16 11:07:00 CDT Start Date: 11/23/16 Stop Date: 11/29/16 Status: Discontinued Dextrose 50% Syringe 12.5 gm, 25 mL, Route: IVP, Drug Form: INJ, Dosing Weight 198.21, kg, PRN, PRN B lood Glucose Results, Start date: 11/20/16 11:03:00 CDT, Duration: 30 day, Stop date: 12/20/16 11:02:00 CDT Start Date: 11/20/16 Stop Date: 11/23/16 Status: Deleted Dextrose 50% Syringe 25 gm, 50 mL, Route: IVP, Drug Form: INJ, Dosing Weight 198.21, kg, PRN, PRN Blo od Glucose Results, Start date: 11/20/16 11:03:00 CDT, Duration: 30 day, Stop da te: 12/20/16 11:02:00 CDT Start Date: 11/20/16 Stop Date: 11/23/16 Status: Deleted enoxaparin 40 mg, 0.4 mL, Route: SUB-Q, Drug form: INJ, [id number], Dosing Weight 198.21, kg, Consider for obese patients, Start date: 11/19/16 15:00:00 CDT, Duration: 30 da y, Stop date: 12/19/16 3:00:00 CDT Notes: (Same as: Lovenox) Start Date: 11/19/16 Stop Date: 11/29/16 Status: Discontinued famotidine 40 mg, PO, Daily, # 60 tab, 0 Refill(s) Start Date: 11/16/16 Stop Date: 12/16/16 Status: Ordered famotidine 40 mg, 2 tab, Route: PO, Drug form: TAB, Daily, Dosing Weight 198.21, kg, Start date: 11/18/16 9:00:00 CDT, Duration: 30 day, Stop date: 12/17/16 9:00:00 CDT Notes: (Same as: Pepcid) Start Date: 11/18/16 Stop Date: 11/29/16 Status: Discontinued fentaNYL 25 microgram, 0.5 mL, Route: IVP, Drug form: INJ, Q2H, Dosing Weight 198.21, kg, PRN Pain Score 1-5, Start date: 11/21/16 8:44:00 CDT, Duration: 30 day, Stop da te: 12/21/16 8:43:00 CDT Notes: (Same as: Sublimaze) Preservative free. Start Date: 11/21/16 Stop Date: 11/23/16 Status: Discontinued fentaNYL 50 microgram, 1 mL, Route: IVP, Drug form: INJ, Q2H, Dosing Weight 198.21, kg, P RN Pain Score 6-10, Start date: 11/21/16 8:44:00 CDT, Duration: 30 day, Stop lali e: 12/21/16 8:43:00 CDT Notes: (Same as: Sublimaze) Preservative free. Start Date: 11/21/16 Stop Date: 11/23/16 Status: Discontinued furosemide 80 mg, 8 mL, Route: IVP, Drug form: INJ, Q8H, Dosing Weight 177.273, kg, Priorit y: Routine, Start date: 11/18/16 0:00:00 CDT, Duration: 30 day, Stop date: 12/17 16:00:00 CDT Notes: (Same as: Lasix) MEDICATION WASTE Product Size: 40 mgProduct Was jackie: ___ mg Start Date: 11/18/16 Stop Date: 11/21/16 Status: Discontinued furosemide 40 mg, 4 mL, Route: IVP, Drug form: INJ, Q8H, Dosing Weight 177.273, kg, Priorit y: Routine, Start date: 11/17/16 0:00:00 CDT, Duration: 30 day, Stop date: 12/16 16:00:00 CDT Notes: (Same as: Lasix) MEDICATION WASTE Product Size: 40 mgProduct Was jackie: ___ mg Start Date: 11/17/16 Stop Date: 11/17/16 Status: Discontinued furosemide 10mg/ml INJ 10ml inj 100 mg + sodium chloride 0.9% INJ 90 mL 100 mg, 10 mL, Rate: 10 ml/hr, Infuse over: 10 hr, Dosing Weight 198.21, kg, Rou te: IV, Total Volume: 100, Start Date: 11/21/16 7:15:00 CDT, Stop date: 11/23/16 7:00:00 CDT, Replace Every: 10 hr, continuous Notes: (Same as: Lasix) MEDICATION WASTE Product Size: 100 mgProduct Wa sted: ___ mg Start Date: 11/21/16 Stop Date: 11/23/16 Status: Completed furosemide 40 mg oral tablet 40 mg=1 tab, PO, BID, 0 Refill(s) Start Date: 11/28/16 Status: Ordered furosemide 40 mg oral tablet 40 mg, 1 tab, Route: PO, Drug form: TAB, BID, Dosing Weight 198.21, kg, Start da te: 11/28/16 17:00:00 CDT, Duration: 30 day, Stop date: 12/28/16 9:00:00 CDT Notes: (Same as: Lasix) May cause GI upset. Give with food or milk. Start Date: 11/28/16 Stop Date: 11/29/16 Status: Discontinued glipiZIDE 2.5 mg, 0.5 tab, Route: PO, Drug form: TAB, Daily, Dosing Weight 198.21, kg, Sta rt date: 11/18/16 9:00:00 CDT, Duration: 30 day, Stop date: 12/17/16 9:00:00 CDT Notes: (Same as: Glucotrol) 30 min before meals. Start Date: 11/18/16 Stop Date: 11/29/16 Status: Discontinued glipiZIDE 2.5 mg, PO, Daily, 0 Refill(s) Start Date: 11/16/16 Status: Ordered glucagon 1 mg, Route: IM, Drug form: PDR/INJ, PRN, Dosing Weight 198.21, kg, PRN Blood Gl ucose Results, Start date: 11/17/16 12:42:00 CDT, Duration: 30 day, Stop date: 0 12/17/16 12:41:00 CDT Start Date: 11/17/16 Stop Date: 11/20/16 Status: Discontinued glucagon 1 mg, Route: IM, Drug form: PDR/INJ, PRN, Dosing Weight 198.21, kg, PRN Blood Gl ucose Results, Start date: 11/23/16 11:08:00 CDT, Duration: 30 day, Stop date: 0 12/23/16 11:07:00 CDT Start Date: 11/23/16 Stop Date: 11/29/16 Status: Discontinued hydrALAZINE 10 mg, 0.5 mL, Route: IV, Drug form: INJ, Q6H, Dosing Weight 198.21, kg, PRN Hyp ertension, Start date: 11/22/16 0:18:00 CDT, Duration: 30 day, Stop date: 0:17:00 CDT Notes: (Same as: Apresoline)Push over 5 minutes Start Date: 11/22/16 Stop Date: 11/29/16 Status: Discontinued hydrochlorothiazide 12.5 mg, 1 cap, Route: PO, Drug form: CAP, Daily, Dosing Weight 198.21, kg, Star t date: 11/18/16 9:00:00 CDT, Duration: 30 day, Stop date: 12/17/16 9:00:00 CDT Notes: (Same as: Microzide) With food. Start Date: 11/18/16 Stop Date: 11/27/16 Status: Discontinued hydrochlorothiazide 12.5 mg, PO, Daily, 0 Refill(s) Start Date: 11/16/16 Status: Ordered insulin aspart 3 unit, 0.03 mL, Route: SUB-Q, Drug form: SOLN, TID-Before Meals, Dosing Weight 198.21, kg, PRN Blood Glucose Results, Start date: 11/17/16 12:42:00 CDT, Durati on: 30 day, Stop date: 12/17/16 12:41:00 CDT Notes: Roll in palms of hands gently; Do not shake vigorously. (Same as: Mirta Pimentel)"single patient use only"WASTE: F/P - Black; E - Municipal Trash Bin Stable f or 28 days at room temperature.Expires in days from Date Start Date: 11/17/16 Stop Date: 11/20/16 Status: Discontinued insulin aspart 2 unit, 0.02 mL, Route: SUB-Q, Drug form: SOLN, TID-Before Meals, Dosing Weight 198.21, kg, PRN Blood Glucose Results, Start date: 11/17/16 12:42:00 CDT, Durati on: 30 day, Stop date: 12/17/16 12:41:00 CDT Notes: Roll in palms of hands gently; Do not shake vigorously. (Same as: Mirta Pimentel)"single patient use only"WASTE: F/P - Black; E - Municipal Trash Bin Stable f or 28 days at room temperature.Expires in days from Date Start Date: 11/17/16 Stop Date: 11/20/16 Status: Discontinued insulin aspart 5 unit, 0.05 mL, Route: SUB-Q, Drug form: SOLN, TID-Before Meals, Dosing Weight 198.21, kg, PRN Blood Glucose Results, Start date: 11/17/16 12:42:00 CDT, Durati on: 30 day, Stop date: 12/17/16 12:41:00 CDT Notes: Roll in palms of hands gently; Do not shake vigorously. (Same as: Mirta Pimentel)"single patient use only"WASTE: F/P - Black; E - [facility] Trash Bin Stable f or 28 days at room temperature.Expires in days from Date Start Date: 11/17/16 Stop Date: 11/20/16 Status: Discontinued insulin aspart 4 unit, 0.04 mL, Route: SUB-Q, Drug form: SOLN, TID-Before Meals, Dosing Weight 198.21, kg, PRN Blood Glucose Results, Start date: 11/17/16 12:42:00 CDT, Durati on: 30 , Stop date: 12/17/16 12:41:00 CDT Notes: Roll in palms of hands gently; Do not shake vigorously. (Same as: Mirta Pimentel)"single patient use only"WASTE: F/P - Black; E - [facility] Trash Bin Stable f or 28 days at room temperature.Expires in days from Date Start Date: 11/17/16 Stop Date: 11/20/16 Status: Discontinued insulin aspart 1 unit, 0.01 mL, Route: SUB-Q, Drug form: SOLN, TID-Before Meals, Dosing Weight 198.21, kg, PRN Blood Glucose Results, Start date: 11/17/16 12:42:00 CDT, Durati on: 30 , Stop date: 12/17/16 12:41:00 CDT Notes: Roll in palms of hands gently; Do not shake vigorously. (Same as: Mirta Pimentel)"single patient use only"WASTE: F/P - Black; E - [facility] Trash Bin Stable f or 28 days at room temperature.Expires in days from Date Start Date: 11/17/16 Stop Date: 11/20/16 Status: Discontinued insulin aspart 2 unit, 0.02 mL, Route: SUB-Q, Drug form: SOLN, Bedtime, Dosing Weight 198.21, k g, PRN Blood Glucose Results, Start date: 11/17/16 12:42:00 CDT, Duration: 30 da y, Stop date: 12/17/16 12:41:00 CDT Notes: Roll in palms of hands gently; Do not shake vigorously. (Same as: Mirta Pimentel)"single patient use only"WASTE: F/P - Black; E - [facility] Trash Bin Stable f or 28 days at room temperature.Expires in days from Date Start Date: 11/17/16 Stop Date: 11/20/16 Status: Discontinued insulin aspart 1 unit, 0.01 mL, Route: SUB-Q, Drug form: SOLN, Bedtime, Dosing Weight 198.21, k g, PRN Blood Glucose Results, Start date: 11/17/16 12:42:00 CDT, Duration: 30 da y, Stop date: 12/17/16 12:41:00 CDT Notes: Roll in palms of hands gently; Do not shake vigorously. (Same as: Mirta Pimentel)"single patient use only"WASTE: F/P - Black; E - [facility] Trash Bin Stable f or 28 days at room temperature.Expires in days from Date Start Date: 11/17/16 Stop Date: 11/20/16 Status: Discontinued insulin aspart 4 unit, 0.04 mL, Route: SUB-Q, Drug form: SOLN, Bedtime, Dosing Weight 198.21, k g, PRN Blood Glucose Results, Start date: 11/17/16 12:42:00 CDT, Duration: 30 da y, Stop date: 12/17/16 12:41:00 CDT Notes: Roll in palms of hands gently; Do not shake vigorously. (Same as: Mirta Pimentel)"single patient use only"WASTE: F/P - Black; E - [facility] Trash Bin Stable f or 28 days at room temperature.Expires in days from Date Start Date: 11/17/16 Stop Date: 11/20/16 Status: Discontinued insulin aspart 3 unit, 0.03 mL, Route: SUB-Q, Drug form: SOLN, Bedtime, Dosing Weight 198.21, k g, PRN Blood Glucose Results, Start date: 11/17/16 12:42:00 CDT, Duration: 30 da y, Stop date: 12/17/16 12:41:00 CDT Notes: Roll in palms of hands gently; Do not shake vigorously. (Same as: Mirta Pimentel)"single patient use only"WASTE: F/P - Black; E - Municipal Trash Bin Stable f or 28 days at room temperature.Expires in days from Date Start Date: 11/17/16 Stop Date: 11/20/16 Status: Discontinued insulin aspart 12 unit, 0.12 mL, Route: SUB-Q, Drug form: SOLN, TID-Before Meals, Dosing Weight 198.21, kg, PRN Blood Glucose Results, Start date: 11/23/16 11:08:00 CDT, Durat ion: 30 day, Stop date: 12/23/16 11:07:00 CDT Notes: Roll in palms of hands gently; Do not shake vigorously. (Same as: Mirta Pimentel)"single patient use only"WASTE: F/P - Black; E - [facility] Trash Bin Stable f or 28 days at room temperature.Expires in days from Date Start Date: 11/23/16 Stop Date: 11/29/16 Status: Discontinued insulin aspart 9 unit, 0.09 mL, Route: SUB-Q, Drug form: SOLN, TID-Before Meals, Dosing Weight 198.21, kg, PRN Blood Glucose Results, Start date: 11/23/16 11:08:00 CDT, Durati on: 30 day, Stop date: 12/23/16 11:07:00 CDT Notes: Roll in palms of hands gently; Do not shake vigorously. (Same as: Mirta Pimentel)"single patient use only"WASTE: F/P - Black; E - [facility] Trash Bin Stable f or 28 days at room temperature.Expires in days from Date Start Date: 11/23/16 Stop Date: 11/29/16 Status: Discontinued insulin aspart 15 unit, 0.15 mL, Route: SUB-Q, Drug form: SOLN, TID-Before Meals, Dosing Weight 198.21, kg, PRN Blood Glucose Results, Start date: 11/23/16 11:08:00 CDT, Durat ion: 30 day, Stop date: 12/23/16 11:07:00 CDT Notes: Roll in palms of hands gently; Do not shake vigorously. (Same as: Mirta Pimentel)"single patient use only"WASTE: F/P - Black; E - [facility] Trash Bin Stable f or 28 days at room temperature.Expires in days from Date Start Date: 11/23/16 Stop Date: 11/29/16 Status: Discontinued insulin aspart 5 unit, 0.05 mL, Route: SUB-Q, Drug form: SOLN, TID-Before Meals, Dosing Weight 198.21, kg, Start date: 11/23/16 11:30:00 CDT, Duration: 30 day, Stop date: 11/26 05/13 7:30:00 CDT Notes: Roll in palms of hands gently; Do not shake vigorously. (Same as: Mirta Pimentel)"single patient use only"WASTE: F/P - Black; E - [facility] Trash Bin Stable f or 28 days at room temperature.Expires in days from Date Start Date: 11/23/16 Stop Date: 11/29/16 Status: Discontinued insulin aspart 6 unit, 0.06 mL, Route: SUB-Q, Drug form: SOLN, TID-Before Meals, Dosing Weight 198.21, kg, PRN Blood Glucose Results, Start date: 11/23/16 11:08:00 CDT, Durati on: 30 day, Stop date: 12/23/16 11:07:00 CDT Notes: Roll in palms of hands gently; Do not shake vigorously. (Same as: Mirta Pimentel)"single patient use only"WASTE: F/P - Black; E - Municipal Trash Bin Stable f or 28 days at room temperature.Expires in days from Date Start Date: 11/23/16 Stop Date: 11/29/16 Status: Discontinued insulin aspart 3 unit, 0.03 mL, Route: SUB-Q, Drug form: SOLN, TID-Before Meals, Dosing Weight 198.21, kg, PRN Blood Glucose Results, Start date: 11/23/16 11:08:00 CDT, Durati on: 30 day, Stop date: 12/23/16 11:07:00 CDT Notes: Roll in palms of hands gently; Do not shake vigorously. (Same as: NovoLO G)"single patient use only"WASTE: F/P - Black; E - [facility] Trash Bin Stable f or 28 days at room temperature.Expires in days from Date Start Date: 11/23/16 Stop Date: 11/29/16 Status: Discontinued insulin detemir 20 unit, 0.2 mL, Route: SUB-Q, Drug form: INJ, Daily, Dosing Weight 198.21, kg, Priority: STAT, Start date: 11/23/16 11:08:00 CDT, Duration: 30 day, Stop date: 12/23/16 9:00:00 CDT Notes: Same as Melodie not hold insulin without contacting prescriberWASTE: F/ P - Black; E - Municipal Trash Bin "single patient use only" Start Date: 11/23/16 Stop Date: 11/29/16 Status: Discontinued Insulin regular 100 unit + sodium chloride 0.9% INJ 99 mL 99 mL, Rate: Start Insulin Drip Per ICU Protocol, Dosing Weight 198.21, kg, Rout e: IVPB, Total Volume: 100, Start Date: 11/20/16 11:03:00 CDT, Duration: 30 day, Stop date: 12/20/16 11:02:00 CDT, Replace Every: 24 hr Notes: (Same as: Humulin R and NovoLIN R)WASTE: F/P - Black; E - Municipal Trash Bin (Do not shake) Start Date: 11/20/16 Stop Date: 11/23/16 Status: Discontinued labetalol 10 mg, 2 mL, Route: IV, Drug form: INJ, Q6H, Dosing Weight 198.21, kg, PRN Hyper tension, Start date: 11/22/16 4:34:00 CDT, Duration: 30 day, Stop date: 12/22/16 4:33:00 CDT Notes: (Same as: Normodyne, Trandate)Push over 2 minutes Give bolus over 2-3 mi nutes. Start Date: 11/22/16 Stop Date: 11/29/16 Status: Discontinued Lasix 80 mg, 8 mL, Route: IV, Drug form: INJ, BID, Dosing Weight 198.21, kg, Start lali e: 11/23/16 9:00:00 CDT, Duration: 30 day, Stop date: 12/22/16 17:00:00 CDT Notes: (Same as: Lasix) MEDICATION WASTE Product Size: 40 mgProduct Was jackie: ___ mg Start Date: 11/23/16 Stop Date: 11/27/16 Status: Discontinued Lasix 40 mg, 4 mL, Route: IVP, Drug form: INJ, ONCE, Dosing Weight 177.273, kg, Priori ty: STAT, Start date: 11/16/16 18:23:00 CDT, Stop date: 11/16/16 18:23:00 CDT Notes: (Same as: Lasix) MEDICATION WASTE Product Size: 40 mgProduct Was jackie: ___ mg Start Date: 11/16/16 Stop Date: 11/16/16 Status: Completed Lasix Route: PO, Daily, Dosing Weight 198.21, kg, Start date: 11/18/16 9:00:00 CDT, Du ration: 30 day, Stop date: 12/17/16 9:00:00 CDT Start Date: 11/18/16 Stop Date: 11/17/16 Status: Canceled Lasix 60, Daily, 0 Refill(s) Start Date: 11/16/16 Stop Date: 11/28/16 Status: Discontinued Lasix 40 mg oral tablet 40 mg, 1 tab, Route: PO, Drug form: TAB, BID, Dosing Weight 198.21, kg, Start da te: 11/28/16 9:00:00 CDT, Duration: 30 day, Stop date: 12/27/16 17:00:00 CDT Notes: (Same as: Lasix) May cause GI upset. Give with food or milk. Start Date: 11/28/16 Stop Date: 11/28/16 Status: Discontinued Levemir 6 unit, SUB-Q, Bedtime, 0 Refill(s) Start Date: 11/16/16 Status: Ordered Levemir 6 unit, 0.06 mL, Route: SUB-Q, Drug form: SOLN, Bedtime, Dosing Weight 198.21, k g, Start date: 11/17/16 21:00:00 CDT, Duration: 30 day, Stop date: 12/16/16 21:0 0:00 CDT Notes: Same as LevemirDo not hold insulin without contacting prescriberWASTE: F/ P - Black; E - [facility] "single patient use only" Start Date: 11/17/16 Stop Date: 11/21/16 Status: Discontinued Lidoderm 5% topical film (patch) 1 patch, Route: TOP, Q24H, Drug form: FILM, Start date: 11/19/16 18:00:00 CDT, S top date: 12/18/16 18:00:00 CDT, Remove after 12 hours Notes: Apply only once for up to 12 hours in [id number] period (12 hours on and 12 hours off).(Same as: Lidoderm)"Remove old patch before application of new patch" Start Date: 11/19/16 Stop Date: 11/29/16 Status: Discontinued Lidoderm 5% topical film (patch) 1 patch, Route: TOP, Q24H, Drug form: FILM, Priority: Now, Start date: 11/23/16 12:00:00 CDT, Duration: 30 day, Stop date: 12/22/16 12:00:00 CDT, Remove after 1 2 hours Notes: Apply only once for up to 12 hours in [id number] period (12 hours on and 12 hours off).(Same as: Lidoderm)"Remove old patch before application of new patch" Start Date: 11/23/16 Stop Date: 11/29/16 Status: Discontinued lisinopril 20 mg, 1 tab, Route: PO, Drug form: TAB, Daily, Dosing Weight 198.21, kg, Start date: 11/23/16 12:00:00 CDT, Duration: 30 day, Stop date: 12/23/16 9:00:00 CDT Notes: (Same as: Prinivil Zestril) Start Date: 11/23/16 Stop Date: 11/29/16 Status: Discontinued lisinopril 10 mg, PO, Daily, 0 Refill(s) Start Date: 11/16/16 Stop Date: 11/28/16 Status: Discontinued lisinopril PO, Daily, 0 Refill(s) Start Date: 11/16/16 Stop Date: 11/16/16 Status: Discontinued lisinopril 10 mg, 2 tab, Route: PO, Drug form: TAB, Daily, Dosing Weight 198.21, kg, Start date: 11/18/16 9:00:00 CDT, Stop date: 12/17/16 9:00:00 CDT Notes: (Same as: Prinivil Zestril) Start Date: 11/18/16 Stop Date: 11/21/16 Status: Discontinued lisinopril 20 mg oral tablet 20 mg=1 tab, PO, Daily, # 30 tab, 0 Refill(s) Start Date: 11/28/16 Status: Ordered magnesium oxide 800 mg, 2 tab, Route: PO, Drug form: TAB, PRN, Dosing Weight 177.273, kg, PRN Ab normal Lab Result, For NON-ICU Patients Only., Start date: 11/16/16 21:51:00 CDT , Duration: 30 day, Stop date: 12/16/16 21:50:00 CDT Notes: (Same as: Mag-Ox 400)Magnesium oxide [id number] elemental magnesiumDose= ____mg magnesium oxide (___mg elemental magnesium) Start Date: 11/16/16 Stop Date: 11/20/16 Status: Discontinued magnesium oxide 800 mg, 2 tab, Route: PO, Drug form: TAB, PRN, Dosing Weight 198.21, kg, PRN Abn ormal Lab Result, FOR ICU USE ONLY, Start date: 11/20/16 11:05:00 CDT, Duration: 30 day, Stop date: 12/20/16 11:04:00 CDT Notes: (Same as: Mag-Ox 400)Magnesium oxide [id number] elemental magnesiumDose= ____mg magnesium oxide (___mg elemental magnesium) Start Date: 11/20/16 Stop Date: 11/23/16 Status: Discontinued magnesium sulfate 1 gm, 100 mL, Route: IVPB, Drug form: INJ, PRN, Dosing Weight 177.273, kg, PRN A bnormal Lab Result, For NON-ICU Patients Only., Start date: 11/16/16 21:51:00 CD T, Duration: 30 day, Stop date: 12/16/16 21:50:00 CDT Notes: WASTE: F/P - Sink; E - Municipal Trash Bin Start Date: 11/16/16 Stop Date: 11/20/16 Status: Discontinued magnesium sulfate 2 gm, 50 mL, Route: IVPB, Drug form: INJ, PRN, Dosing Weight 177.273, kg, PRN Ab normal Lab Result, For NON-ICU Patients Only., Start date: 11/16/16 21:51:00 CDT , Duration: 30 day, Stop date: 12/16/16 21:50:00 CDT Notes: WASTE: F/P - Sink; E - Municipal Trash Bin Start Date: 11/16/16 Stop Date: 11/20/16 Status: Discontinued magnesium sulfate 2 gm, 50 mL, Route: IVPB, Drug form: INJ, PRN, Dosing Weight 198.21, kg, PRN Abn ormal Lab Result, Start date: 11/20/16 11:05:00 CDT, Duration: 30 day, Stop date : 12/20/16 11:04:00 CDT, FOR ICU USE ONLY Notes: WASTE: F/P - Sink; E - Municipal Trash Bin Start Date: 11/20/16 Stop Date: 11/23/16 Status: Discontinued midazolam 50mg/ NS 50ml drip (premixed) 50 mg 50 mg, 50 mL, Rate: Titrate, Start Dose: 1 mg/hr, Titration: Rebolus 1 mg IV and /or Titrate infusion by 1 mg/hour every 30 minutes, Goal(s): -2, Max Dose: 10 mg /hr, Route: IV, Dosing Weight 198.21 kg, Total Volume: 50, Start date: 11/20/16 13:07:00 CD... Notes: (Same as: Versed) Start Date: 11/20/16 Stop Date: 11/23/16 Status: Discontinued morphine Sulfate 2 mg, 1 mL, Route: IVP, Drug form: INJ, Q4H, Dosing Weight 198.21, kg, PRN Pain Score 7-10, Start date: 11/17/16 3:00:00 CDT, Duration: 30 day, Stop date: 12/17 2:59:00 CDT Notes: (Same as:MORPhine Sulfate) Start Date: 11/17/16 Stop Date: 11/20/16 Status: Discontinued Mucinex 600 mg, PO, Q12H, STOP DATE 11/17, 0 Refill(s) Start Date: 11/16/16 Status: Ordered Mucinex 600 mg, 1 tab, Route: PO, Drug form: ERTAB, Q12H, Dosing Weight 198.21, kg, Star t date: 11/17/16 21:00:00 CDT, Duration: 1 doses or times, Stop date: 11/17/16 2 1:00:00 CDT Notes: (Same as: Guaifenesin LA, Humibid LA, Mucinex)"Do Not Crush" Take medica tion with plenty of water. Start Date: 11/17/16 Stop Date: 11/17/16 Status: Completed Edward 10/325 oral tablet 1 tab, PO, Q6H, PRN for pain, # 24 tab, 0 Refill(s) Start Date: 11/16/16 Stop Date: 11/22/16 Status: Ordered Edward 10/325 oral tablet 1 tab, Route: PO, Drug Form: TAB, Dosing Weight 198.21, kg, Q6H, PRN Pain 1-3/Te mp > 100.4 F, Start date: 11/17/16 15:39:00 CDT, Duration: 30 day, Stop date: 12/17/16 15:38:00 CDT Notes: Do not exceed 4gm/day of acetaminophen. (Same as: Edward 325/10) Start Date: 11/17/16 Stop Date: 11/29/16 Status: Discontinued Edward 5/325 oral tablet 2 tab, Route: PO, Drug Form: TAB, Dosing Weight 177.273, kg, ONCE, STAT, Start d ate: 11/16/16 18:43:00 CDT, Stop date: 11/16/16 18:43:00 CDT Notes: (Same as: Edward 325/5) Do not exceed 4gm/day of acetaminophen. Start Date: 11/16/16 Stop Date: 11/16/16 Status: Completed ondansetron 4 mg, 2 mL, Route: IVP, Drug form: INJ, Q8H, Dosing Weight 177.273, kg, PRN Naus ea & Vomiting, Start date: 11/16/16 21:51:00 CDT, Duration: 30 day, Stop date: 12/16/16 21:50:00 CDT Notes: (Same as: Shima) MEDICATION WASTE Product Size: 4 mgProduct Was jackie: ___ mg Start Date: 11/16/16 Stop Date: 11/29/16 Status: Discontinued potassium chloride 20 mEq, 1 tab, Route: PO, Drug form: ERTAB, PRN, Dosing Weight 177.273, kg, PRN Abnormal Lab Result, For NON-ICU Patients Only, Start date: 11/16/16 21:51:00 CD T, Duration: 30 day, Stop date: 12/16/16 21:50:00 CDT Notes: (Same as: K-Dur 20)"Do Not Crush" With food and full glass of water Start Date: 11/16/16 Stop Date: 11/20/16 Status: Discontinued potassium chloride 20 mEq, 15 mL, Route: NJ, Drug form: LIQ, PRN, Dosing Weight 177.273, kg, PRN Ab normal Lab Result, For NON-ICU Patients Only, Start date: 11/16/16 21:51:00 CDT, Duration: 30 day, Stop date: 12/16/16 21:50:00 CDT Notes: (Same as: Potassium Chloride) Start Date: 11/16/16 Stop Date: 11/20/16 Status: Discontinued potassium chloride 10 mEq, 100 mL, Route: IVPB, Drug form: INJ, PRN, Dosing Weight 177.273, kg, PRN Abnormal Lab Result, For NON-ICU Patients Only, Start date: 11/16/16 21:51:00 C DT, Duration: 30 day, Stop date: 12/16/16 21:50:00 CDT Notes: Infuse at a rate of 10 mEq/hr.(Same as: KCL) Start Date: 11/16/16 Stop Date: 11/20/16 Status: Discontinued potassium chloride 10 mEq, 100 mL, Route: IVPB, Drug form: INJ, PRN, Dosing Weight 198.21, kg, PRN Abnormal Lab Result, Via peripheral line, Start date: 11/20/16 11:05:00 CDT, Dur ation: 30 day, Stop date: 12/20/16 11:04:00 CDT, FOR ICU USE ONLY Notes: Infuse at a rate of 10 mEq/hr.(Same as: KCL) Start Date: 11/20/16 Stop Date: 11/23/16 Status: Discontinued potassium chloride 20 mEq, 100 mL, Route: IVPB, Drug form: INJ, PRN, Dosing Weight 198.21, kg, PRN Abnormal Lab Result, Via central line, Start date: 11/20/16 11:05:00 CDT, Durati on: 30 day, Stop date: 12/20/16 11:04:00 CDT, FOR ICU USE ONLY Notes: (Same as: KCL) Infuse no faster than 10 mEq/hr if given peripherally. Start Date: 11/20/16 Stop Date: 11/23/16 Status: Discontinued potassium chloride 20 mEq, 15 mL, Route: NJ, Drug form: LIQ, PRN, Dosing Weight 198.21, kg, PRN Abn ormal Lab Result, Start date: 11/20/16 11:05:00 CDT, Duration: 30 day, Stop date : 12/20/16 11:04:00 CDT, FOR ICU USE ONLY Notes: (Same as: Potassium Chloride) Start Date: 11/20/16 Stop Date: 11/23/16 Status: Discontinued potassium chloride 20 mEq, 1 tab, Route: PO, Drug form: ERTAB, PRN, Dosing Weight 198.21, kg, PRN A bnormal Lab Result, Start date: 11/20/16 11:05:00 CDT, Duration: 30 day, Stop da te: 12/20/16 11:04:00 CDT, FOR ICU USE ONLY Notes: (Same as: K-Dur 20)"Do Not Crush" With food and full glass of water Start Date: 11/20/16 Stop Date: 11/23/16 Status: Discontinued potassium phosphate + sodium chloride 0.9% INJ 250 mL 15 mmol, 5 mL, Route: IVPB, PRN, Dosing Weight 177.273, kg, PRN Abnormal Lab Res ult, For NON-ICU Patients Only., Start date: 11/16/16 21:51:00 CDT, Duration: 30 day, Stop date: 12/16/16 21:50:00 CDT Notes: (Same as: K Phosphate.) 1 mMol phoshate has 1.47 mEq potassium Infuse o magda 4 hours Start Date: 11/16/16 Stop Date: 11/20/16 Status: Discontinued potassium phosphate + sodium chloride 0.9% INJ 250 mL 30 mmol, 10 mL, Route: IVPB, PRN, Dosing Weight 177.273, kg, PRN Abnormal Lab Re sult, For NON-ICU Patients Only., Start date: 11/16/16 21:51:00 CDT, Duration: 3 0 day, Stop date: 12/16/16 21:50:00 CDT Notes: (Same as: K Phosphate.) 1 mMol phoshate has 1.47 mEq potassium Infuse o magda 4 hours Start Date: 11/16/16 Stop Date: 11/20/16 Status: Discontinued potassium phosphate + sodium chloride 0.9% INJ 250 mL 30 mmol, 10 mL, Route: IVPB, PRN, Dosing Weight 198.21, kg, PRN Abnormal Lab Res ult, Start date: 11/20/16 11:05:00 CDT, Duration: 30 day, Stop date: 12/20/16 11 :04:00 CDT, FOR ICU USE ONLY Notes: (Same as: K Phosphate.) 1 mMol phoshate has 1.47 mEq potassium Infuse o magda 4 hours Start Date: 11/20/16 Stop Date: 11/23/16 Status: Discontinued potassium phosphate + sodium chloride 0.9% INJ 250 mL 45 mmol, 15 mL, Route: IVPB, PRN, Dosing Weight 198.21, kg, PRN Abnormal Lab Res ult, Start date: 11/20/16 11:05:00 CDT, Duration: 30 day, Stop date: 12/20/16 11 :04:00 CDT, FOR ICU USE ONLY Notes: (Same as: K Phosphate.) 1 mMol phoshate has 1.47 mEq potassium Infuse o magda 4 hours Start Date: 11/20/16 Stop Date: 11/23/16 Status: Discontinued potassium phosphate + sodium chloride 0.9% INJ 250 mL 15 mmol, 5 mL, Route: IVPB, PRN, Dosing Weight 198.21, kg, PRN Abnormal Lab Resu lt, Start date: 11/20/16 11:05:00 CDT, Duration: 30 day, Stop date: 12/20/16 11: 04:00 CDT, FOR ICU USE ONLY Notes: (Same as: K Phosphate.) 1 mMol phoshate has 1.47 mEq potassium Infuse o magda 4 hours Start Date: 11/20/16 Stop Date: 11/23/16 Status: Discontinued potassium phosphate-sodium phosphate 250 mg-280 mg-160 mg oral powder for recons titution 2 pkt, Route: PO, Drug Form: PDR/REC, Dosing Weight 177.273, kg, PRN, PRN Abnorm al Lab Result, For NON-ICU Patients Only, Start date: 11/16/16 21:51:00 CDT, Dur ation: 30 day, Stop date: 12/16/16 21:50:00 CDT Notes: (Same as: Phos-NaK) Each 1.5 gm pkt has 250mg phosphorous. Mix w/2.5oz w ater and stir. Start Date: 11/16/16 Stop Date: 11/20/16 Status: Discontinued potassium phosphate-sodium phosphate 250 mg-280 mg-160 mg oral powder for recons titution 2 pkt, Route: PO, Drug Form: PDR/REC, Dosing Weight 198.21, kg, PRN, PRN Abnorma l Lab Result, FOR ICU USE ONLY, Start date: 11/20/16 11:05:00 CDT, Duration: 30 day, Stop date: 12/20/16 11:04:00 CDT Notes: (Same as: Phos-NaK) Each 1.5 gm pkt has 250mg phosphorous. Mix w/2.5oz w ater and stir. Start Date: 11/20/16 Stop Date: 11/23/16 Status: Discontinued propofol INJ 1,000 mg 1,000 mg, 100 mL, Rate: Titrate, Start Dose: 5 microgram/kg/min, Titration: 5 mi crogram/kg/min every 15 minutes, Goal(s): -2, Max Dose: 50 mcg/kg/min, Route: IV , Dosing Weight 198.21 kg, Total Volume: 100, Start date: 11/20/16 12:01:00 CDT, Duration:... Notes: If Diprivan - change bottle & tubing every 12 hrPer state nursing law propofol can only be given by a nurse if patient is intubated or being intubated (unless the nurse is a ANESTHESIOLOGY TEACHER). Same as: Diprivan Start Date: 11/20/16 Stop Date: 11/23/16 Status: Discontinued remove patch 1 patch, Route: TOP, Q12H, Drug form: ERFILM, Start date: 11/20/16 6:00:00 CDT, Stop date: 12/19/16 6:00:00 CDT Notes: Remove patch 12 hours after application each day. Start Date: 11/20/16 Stop Date: 11/29/16 Status: Discontinued Saline Flush 0.9% 10 mL, Route: IVP, Drug Form: INJ, Dosing Weight 177.273, kg, PRN, PRN Line Flus h, Start date: 11/16/16 17:48:00 CDT, Duration: 30 day, Stop date: 12/16/16 17:4 7:00 CDT Notes: (Same as: BD Posiflush) Start Date: 11/16/16 Stop Date: 11/29/16 Status: Discontinued Saline Flush 0.9% 10 ml, Route: IVP, Drug Form: INJ, Dosing Weight 177.273, kg, Q12H, Start date: 11/17/16 9:00:00 CDT, Duration: 30 day, Stop date: 12/16/16 21:00:00 CDT Notes: (Same as: BD Posiflush) Start Date: 11/17/16 Stop Date: 11/29/16 Status: Discontinued Saline Flush 0.9% 10 ml, Route: IVP, Drug Form: INJ, Dosing Weight 177.273, kg, PRN, PRN Line Flus h, Start date: 11/16/16 21:51:00 CDT, Duration: 30 day, Stop date: 12/16/16 21:5 0:00 CDT Notes: (Same as: BD Posiflush) Start Date: 11/16/16 Stop Date: 11/29/16 Status: Discontinued sodium phosphate + D5W 250 mL 15 mmol, 5 mL, Route: IVPB, PRN, Dosing Weight 177.273, kg, PRN Abnormal Lab Res ult, For NON-ICU Patients Only., Start date: 11/16/16 21:51:00 CDT, Duration: 30 day, Stop date: 12/16/16 21:50:00 CDT Start Date: 11/16/16 Stop Date: 11/20/16 Status: Discontinued sodium phosphate + D5W 250 mL 30 mmol, 10 mL, Route: IVPB, PRN, Dosing Weight 177.273, kg, PRN Abnormal Lab Re sult, For NON-ICU Patients Only., Start date: 11/16/16 21:51:00 CDT, Duration: 3 0 day, Stop date: 12/16/16 21:50:00 CDT Start Date: 11/16/16 Stop Date: 11/20/16 Status: Discontinued sodium phosphate + D5W 250 mL 30 mmol, 10 mL, Route: IVPB, PRN, Dosing Weight 198.21, kg, PRN Abnormal Lab Res ult, Start date: 11/20/16 11:05:00 CDT, Duration: 30 day, Stop date: 12/20/16 11 :04:00 CDT, FOR ICU USE ONLY Start Date: 11/20/16 Stop Date: 11/23/16 Status: Discontinued sodium phosphate + D5W 250 mL 45 mmol, 15 mL, Route: IVPB, PRN, Dosing Weight 198.21, kg, PRN Abnormal Lab Res ult, Start date: 11/20/16 11:05:00 CDT, Duration: 30 day, Stop date: 12/20/16 11 :04:00 CDT, FOR ICU USE ONLY Start Date: 11/20/16 Stop Date: 11/23/16 Status: Discontinued sodium phosphate + D5W 250 mL 15 mmol, 5 mL, Route: IVPB, PRN, Dosing Weight 198.21, kg, PRN Abnormal Lab Resu lt, Start date: 11/20/16 11:05:00 CDT, Duration: 30 day, Stop date: 12/20/16 11: 04:00 CDT, FOR ICU USE ONLY Start Date: 11/20/16 Stop Date: 11/23/16 Status: Discontinued tramadol 25 mg, 0.5 tab, Route: PO, Drug form: TAB, Q8H, Dosing Weight 198.21, kg, PRN Pa in Score 4-6, Start date: 11/17/16 15:47:00 CDT, Duration: 30 day, Stop date: 15:46:00 CDT Notes: Not to exceed 400mg/day. (Same As: Ultram) Start Date: 11/17/16 Stop Date: 11/29/16 Status: Discontinued tramadol 25 mg, PO, Q8H, PRN Pain, # 20 tab, 0 Refill(s) Start Date: 11/16/16 Stop Date: 11/20/16 Status: Ordered Results ELECTROLYTES 1 2 3 Most recent to oldest [Reference Range]: 138 mEq/L (11/28/16 5:28 AM) 137 mEq/L (11/26/16 5:21 AM) 136 mEq/L (11/24/16 4:12 AM) Sodium Lvl [135-145 mEq/L] 3.8 mEq/L (11/28/16 5:28 AM) 4.0 mEq/L (11/26/16 5:21 AM) 3.8 mEq/L (11/24/16 4:12 AM) Potassium Lvl [3.5-5.1 mEq/L] 95 mEq/L (11/28/16 5:28 AM) 98 mEq/L (11/26/16 5:21 AM) 93 mEq/L *LOW* (11/24/16 4:12 AM) Chloride Lvl [95-109 mEq/L] 34 mEq/L *HI* (11/28/16 5:28 AM) 36 mEq/L *HI* (11/26/16 5:21 AM) 37 mEq/L *HI* (11/24/16 4:12 AM) CO2 [24-32 mEq/L] 12.8 mEq/L (11/28/16 5:28 AM) 7.0 mEq/L *LOW* (11/26/16 5:21 AM) 9.8 mEq/L *LOW* (11/24/16 4:12 AM) AGAP [10.0-20.0 mEq/L] CHEM PANEL 1 2 3 Most recent to oldest [Reference Range]: 1.20 mg/dL (11/28/16 5:28 AM) 1.20 mg/dL (11/26/16 5:21 AM) 1.30 mg/dL (11/24/16 4:12 AM) Creatinine Lvl [0.50-1.40 mg/dL] 81 mL/min/1.73m2 1 *NA* (11/28/16 5:28 AM) 81 mL/min/1.73m2 2 *NA* (11/26/16 5:21 AM) 73 mL/min/1.73m2 3 *NA* (11/24/16 4:12 AM) eGFR 53 mg/dL *HI* (11/28/16 5:28 AM) 56 mg/dL *HI* (11/26/16 5:21 AM) 33 mg/dL *HI* (11/24/16 4:12 AM) BUN [7-22 mg/dL] 18 (11/16/16 8:33 PM) B/C Ratio [6-25] 148 mg/dL *HI* (11/28/16 5:28 AM) 109 mg/dL *HI* (11/26/16 5:21 AM) 109 mg/dL *HI* (11/24/16 4:12 AM) Glucose Lvl [70-99 mg/dL] 7.7 g/dL (11/16/16 8:33 PM) Total Protein [6.4-8.4 g/dL] 3.0 g/dL *LOW* (11/16/16 8:33 PM) Albumin Lvl [3.5-5.0 g/dL] 4.7 g/dL *HI* (11/16/16 8:33 PM) Globulin [2.7-4.2 g/dL] 0.6 *LOW* (11/16/16 8:33 PM) A/G Ratio [0.7-1.6] 9.3 mg/dL (11/28/16 5:28 AM) 8.6 mg/dL (11/26/16 5:21 AM) 8.7 mg/dL (11/24/16 4:12 AM) Calcium Lvl [8.5-10.5 mg/dL] 3.6 mg/dL (11/24/16 4:12 AM) 4.6 mg/dL *HI* (11/23/16 12:43 PM) 4.0 mg/dL (11/22/16 6:22 AM) Phosphorus [2.5-4.5 mg/dL] 2.5 mg/dL *HI* (11/26/16 5:21 AM) 2.5 mg/dL *HI* (11/24/16 4:12 AM) 2.5 mg/dL *HI* (11/23/16 12:43 PM) Magnesium Lvl [1.8-2.4 mg/dL] 31 unit/L (11/16/16 8:33 PM) ALT [0-65 unit/L] 20 unit/L (11/16/16 8:33 PM) AST [0-37 unit/L] 93 unit/L (11/16/16 8:33 PM) Alk Phos [39-136 unit/L] 0.5 mg/dL (11/16/16 8:33 PM) Bili Total [0.2-1.3 mg/dL] 1.3 mMol/L (11/17/16 7:30 AM) 2.5 mMol/L *HI* (11/17/16 2:35 AM) Lactic Acid Lvl [0.5-2.2 mMol/L] 1Result Comment: [...] 3 Most recent to oldest [Reference Range]: 67 unit/L (11/16/16 6:04 PM) Total CK [12-191 unit/L] 1.6 ng/mL (11/16/16 6:04 PM) CK MB [0.5-3.6 ng/mL] 2.4 (11/16/16 6:04 PM) CK MB Index [0.0-2.5] <0.02 ng/mL (11/17/16 7:30 AM) <0.02 ng/mL (11/17/16 2:35 AM) <0.02 ng/mL (11/16/16 6:04 PM) Troponin-I [0.00-0.40 ng/mL] 106 pg/mL *HI* (11/16/16 6:04 PM) BNP [<=100 pg/mL] URINE CHEM 1 2 3 Most recent to oldest [Reference Range]: 18.00 mg/dL *NA* (3/25/17 2:19 AM) U Creatinine 15.0 mg/dL *NA* (11/18/16 2:19 AM) U Protein 0.8 *NA* (11/18/16 2:19 AM) U Prot/Creat 89 mEq/L *NA* (11/18/16 2:19 AM) U Sodium URINE AND STOOL 1 2 3 Most recent to oldest [Reference Range]: Clear (11/16/16 6:04 PM) UA Turbidity [Clear] Ltyellow *NA* (11/16/16 6:04 PM) UA Color 6.0 (11/16/16 6:04 PM) UA pH [5.0-8.0] 1.006 (11/16/16 6:04 PM) UA Spec Grav [<=1.030] Negative mg/dL *NA* (11/16/16 6:04 PM) UA Glucose [Negative mg/dL] Small *ABN* (11/16/16 6:04 PM) UA Blood [Negative] Negative mg/dL *NA* (11/16/16 6:04 PM) UA Ketones [Negative mg/dL] 30 mg/dL *ABN* (11/16/16 6:04 PM) UA Protein [Negative mg/dL] <=1.0 mg/dL *NA* (11/16/16 6:04 PM) UA Urobilinogen [0.1-1.0 mg/dL] Negative *NA* (11/16/16 6:04 PM) UA Bili [Negative] Negative (11/16/16 6:04 PM) UA Leuk Est [Negative] Negative (11/16/16 6:04 PM) UA Nitrite [Negative] 1 /HPF (11/16/16 6:04 PM) UA WBC [0-5 /HPF] 2 /HPF (11/16/16 6:04 PM) UA RBC [0-2 /HPF] Occasional /HPF *NA* (11/16/16 6:04 PM) UA Bacteria [None Seen /HPF] None Seen *NA* (11/16/16 6:04 PM) UA Sq Epi HEMATOLOGY 1 2 3 Most recent to oldest [Reference Range]: 8.6 K/CMM (11/26/16 5:21 AM) 11.6 K/CMM *HI* (11/24/16 4:12 AM) 9.9 K/CMM (11/23/16 12:43 PM) WBC [3.7-10.4 K/CMM] 5.94 M/CMM (11/26/16 5:21 AM) 5.95 M/CMM (11/24/16 4:12 AM) 6.32 M/CMM *HI* (11/23/16 12:43 PM) RBC [4.70-6.10 M/CMM] 15.6 g/dL (11/26/16 5:21 AM) 15.6 g/dL (11/24/16 4:12 AM) 16.8 g/dL (11/23/16 12:43 PM) Hgb [14.0-18.0 g/dL] 49.6 % (11/26/16 5:21 AM) 49.4 % (11/24/16 4:12 AM) 53.1 % (11/23/16 12:43 PM) Hct [42.0-54.0 %] 83.5 fL (11/26/16 5:21 AM) 82.9 fL (11/24/16 4:12 AM) 84.0 fL (11/23/16 12:43 PM) MCV [80.0-94.0 fL] 26.2 pg *LOW* (11/26/16 5:21 AM) 26.3 pg *LOW* (11/24/16 4:12 AM) 26.6 pg *LOW* (11/23/16 12:43 PM) MCH [27.0-31.0 pg] 31.4 g/dL *LOW* (11/26/16 5:21 AM) 31.7 g/dL *LOW* (11/24/16 4:12 AM) 31.7 g/dL *LOW* (11/23/16 12:43 PM) MCHC [32.0-36.0 g/dL] 18.6 % *HI* (11/26/16 5:21 AM) 18.4 % *HI* (11/24/16 4:12 AM) 18.4 % *HI* (11/23/16 12:43 PM) RDW [11.5-14.5 %] 154 K/CMM (11/26/16 5:21 AM) 162 K/CMM (11/24/16 4:12 AM) 152 K/CMM (11/23/16 12:43 PM) Platelet [133-450 K/CMM] 9.6 fL (11/26/16 5:21 AM) 9.4 fL (11/24/16 4:12 AM) 10.0 fL (11/23/16 12:43 PM) MPV [7.4-10.4 fL] 74.1 % (11/26/16 5:21 AM) 80.4 % *HI* (11/24/16 4:12 AM) 83.2 % *HI* (11/23/16 12:43 PM) Segs [45.0-75.0 %] 16.2 % *LOW* (11/26/16 5:21 AM) 10.4 % *LOW* (11/24/16 4:12 AM) 8.0 % *LOW* (11/23/16 12:43 PM) Lymphocytes [20.0-40.0 %] 6.6 % (11/26/16 5:21 AM) 7.2 % (11/24/16 4:12 AM) 7.3 % (11/23/16 12:43 PM) Monocytes [2.0-12.0 %] 2.4 % (11/26/16 5:21 AM) 1.5 % (11/24/16 4:12 AM) 1.1 % (11/23/16 12:43 PM) Eosinophils [0.0-4.0 %] 0.7 % (11/26/16 5:21 AM) 0.5 % (11/24/16 4:12 AM) 0.4 % (11/23/16 12:43 PM) Basophils [0.0-1.0 %] 6.4 K/CMM (11/26/16 5:21 AM) 9.4 K/CMM *HI* (11/24/16 4:12 AM) 8.2 K/CMM *HI* (11/23/16 12:43 PM) Segs-Bands # [1.5-8.1 K/CMM] 1.4 K/CMM (11/26/16 5:21 AM) 1.2 K/CMM (11/24/16 4:12 AM) 0.8 K/CMM *LOW* (11/23/16 12:43 PM) Lymphocytes # [1.0-5.5 K/CMM] 0.6 K/CMM (11/26/16 5:21 AM) 0.8 K/CMM (11/24/16 4:12 AM) 0.7 K/CMM (11/23/16 12:43 PM) Monocytes # [0.0-0.8 K/CMM] 0.2 K/CMM (11/26/16 5:21 AM) 0.2 K/CMM (11/24/16 4:12 AM) 0.1 K/CMM (11/23/16 12:43 PM) Eosinophils # [0.0-0.5 K/CMM] 0.1 K/CMM (11/26/16 5:21 AM) 0.1 K/CMM (11/24/16 4:12 AM) 0.1 K/CMM (11/21/16 12:39 AM) Basophils # [0.0-0.2 K/CMM] Normal (11/20/16 1:26 PM) RBC Morph Normal (11/20/16 1:26 PM) Plt Morph 13.9 seconds (11/20/16 1:26 PM) 13.0 seconds (11/16/16 6:04 PM) PT [12.0-14.7 seconds] 1.05 (11/20/16 1:26 PM) 0.96 (11/16/16 6:04 PM) INR [0.85-1.17] 30.7 seconds (11/20/16 1:26 PM) 28.3 seconds (11/16/16 6:04 PM) PTT [22.9-35.8 seconds] BACTERIAL - SEROLOGY 1 2 3 Most recent to oldest [Reference Range]: Negative (11/20/16 8:24 PM) MRSA by PCR Immunizations Given and Recorded Vaccine Date Status Refusal Reason pneumococcal 23-valent vaccine 11/17/16 Given Procedures No data available for this section Social History Social History Type Response Smoking Status Never smoker; Ready to change: No; Concerns about tobacco use in household: No; Exposure to Tobacco Smoke None; Cigarette Smoking Last 365 Days No; Reg Smoking Cessation Counseling No Assessment and Plan Extracted from: Title: Clinical Document Author: Js Kaminski MD Date: 11/29/16 Pulmonary/Critical Care Medicine progess note Js Kaminski MD SUBJECTIVE: seen and examined morbidly obese events and records noted OBJECTIVE: VitalsTmp(F)Tmp(C)[id number] 11/29 12:1698.436.46rtzw471/69---68--93------ 11/29 08:4697.736.02nsyc391/75---86--84------ 11/29 08:09 94 3.0L/m--- 11/29 04:0098.136.14hxql499/72---[id number]------ 11/29 00:0097.836.60uenp217/68---[id number]------ 24 Hr Tmax: 98.4F (36.89c) at 11/29 12:16Vital Signs are the last 5 in the past 48 hours. 24 Hr Tmin: 97.7F (36.50c) at 11/29 08:46Weights are the last 5 in 60 days, plus initial. DateWt(kg)Wt(lb)Ht(cm)Ht(in)MethodBMIBSA 88.00 413.60Measured 88.00 413.60Measured 72.10 598.62Measured 86.59 410.50Measured 11/16 (initial)177.27 390.00Estimated 59.42.92 72.72 68.00Stated 24 Hr Point of Care Glucoses 11/29 1133Glucose [id number] H 11/29 0605Glucose IRR779 H Most Recent Scores: 11/29/16Pain Intensity NRS (0-10)7 11/29/16Braden Score18 11/29/16Glasgow Coma Score15 11/28/16[place] Fall Score1 (all previously charted lines have been discontinued) (no surgical procedures documented) Labs (Last four charted values) WBC 8.6(NOV 26)H 11.6(NOV 24)9.9(NOV 23)H 14.8(NOV 22) Hgb 15.6(NOV 26)15.6(NOV 24)16.8(NOV 23)16.2(NOV 22) Hct 49.6(NOV 26)49.4(NOV 24)53.1(NOV 23)50.7(NOV 22) Plt 154(NOV 26)162(NOV 24)152(NOV 23)172(NOV 22) Na 138(NOV 28)137(NOV 26)136(NOV 24)140(NOV 23) K 3.8(NOV 28)4.0(NOV 26)3.8(NOV 24)4.0(NOV 23) CO2 H 34(NOV 28)H 36(NOV 26)H 37(NOV 24)C 40(NOV 23) Cl 95(NOV 28)98(NOV 26)L 93(NOV 24)L 92(NOV 23) Cr 1.20(NOV 28)1.20(NOV 26)1.30(NOV 24)1.20(NOV 23) BUN H 53(NOV 28)H 56(NOV 26)H 33(NOV 24)20(NOV 23) Glucose Random H 148(NOV 28)H 109(NOV 26)H 109(NOV 24)H 157(NOV 23) Mg H 2.5(NOV 26)H 2.5(NOV 24)H 2.5(NOV 23)H 2.5(NOV 22) Phos 3.6(NOV 24)H 4.6(NOV 23)4.0(NOV 22)2.6(NOV 21) Ca 9.3(NOV 28)8.6(NOV 26)8.7(NOV 24)L 8.4(NOV 23) PT 13.9(NOV 20)13.0(NOV 16) INR 1.05(NOV 20)0.96(NOV 16) PTT 30.7(NOV 20)28.3(NOV 16) Troponin <0.02(NOV 17)<0.02(NOV 17)<0.02(NOV 16) CK MB 1.6(NOV 16) Total CK 67(NOV 16) RADIOLOGY: ASSESSMENT & EXAM: HEENT:normocephalic,atraumatic, morbidly obese Skin:no rash Chest: symmetrical expansion, no wheezing,no rales, no crackles Heart: Regular rhythm, no murmurs Abdomen: Soft, nontender, bowel sounds present Ext: edema trace, chronic changes present ORDER PACKER: alert and oriented, no focal neurological defecits DIAGNOSES & PROBLEMS: 1. Acute on chronic hypercapneic hypoxic respiratory failure SAUL, OHS, narcotic effect 2. Decompensated diastolic heart diease with anasarca 3. b/l lower extremity cellulitis 4. uncontrolled DM 5. HTN 6. Morbid obesity PLAN & TREATMENT: breathing better will need OP PSG weight reduction will be highly beneficial, discussed with patient Extracted from: Title: Clinical Document Author: Ji Mock MD Date: 11/28/16 Progress Note Nephrology SUBJECTIVE no complaints Physical Exam alert, oriented HEENT : peerla NECK: no jvd, no bruits, HEART : RRR no s3 no S4, no murmur, no rub LUNGS: no wheezes no rales, no rhonci ABDOMEN: NTND no organomegaly no hepatomegaly positive bowel sounds EXT: no clubbing no cyanosis no edema NEURO:no focalities, no sensory defecits, no motor defecits SKIN: no rash, no bruises ASSESSMENT 1. Acute on chronic diastolic congestive heart failure. 2. Lower extremity cellulitis bilaterally. 3. anasarca 4. HTN 5. DM II 6. Morbid obesity 7. respiratory failure PLAN & TREATMENT after changing lasin yo po now co2 and bun are better edema resolved abx for cellulitis lytes reviewed: off Mg mckay removed OBJECTIVE VitalsTmp(F)Tmp(C)FdldzPFIJOGhhxiOOLfS9BGW8BTXW2 11/28 11:5897.936.91dyzp828/77---[id number]------ 11/28 08:0198.036.96tppw429/86---[id number] 3.0L/m--- 11/28 08:00 1696------ 11/28 04:0098.637.42ikzr132/70---[id number]------ 11/28 00:0098.436.61qlvv300/73---[id number]------ 24 Hr Tmax: 98.6F (37.00c) at 11/28 04:00Vital Signs are the last 5 in the past 48 hours. 24 Hr Tmin: 97.9F (36.61c) at 11/28 11:58Weights are the last 5 in 60 days, plus initial. DateWt(kg)Wt(lb)Ht(cm)Ht(in)MethodBMIBSA 79730. 413.60Measured 75682.00 413.60Measured 72.10 598.62Measured 86.59 410.50Measured 11/16 (initial)177.27 390.00Estimated 59.42.92 72.72 68.00Stated 24 Hr Point of Care Glucoses 11/28 1137Glucose QZF136 H 11/28 0617Glucose EEH811 H 11/27 2058Glucose PYQ211 H 11/27 1610Glucose FMO370 H Most Recent Scores: 11/28/16Pain Intensity NRS (0-10)7 11/28/16Glasgow Coma Score15 11/28/16Braden Score20 11/28/16Johns Figueroa Fall Score7 Lines, Tubes, and Drains: 11/20/2016 15:00 Central Lines: Brachial vein, left PICC Triple (no surgical procedures documented) Input/Output RecordInOutBal 4hr Tot 10 800 -790 4hr Tot 1096 [id number] Scheduled Meds (13):aspirin (aspirin 81 mg tablet, enteric coated), citalopram (CeleXA), enoxaparin, famotidine, furosemide (furosemide 40 mg oral tablet), (Suspended) glipiZIDE, insulin aspart, insulin detemir, lidocaine topical (Lidoderm 5% topical film (patch)), lidocaine topical (Lidoderm 5% topical film (patch)), lisinopril, remove patch, sodium chloride (Saline Flush 0.9%) Unscheduled Meds: None PRN Meds (17):Dextrose 50% in Water IV (Dextrose 50% Syringe), Dextrose 50% in Water IV (Dextrose 50% Syringe), acetaminophen-hydrocodone (acetaminophen- hydrocodone 325 mg-5 mg oral tablet), acetaminophen-hydrocodone (Edward 10/325 oral tablet), acetaminophen, glucagon, hydrALAZINE, insulin aspart, insulin aspart, insulin aspart, insulin aspart, insulin aspart, labetalol, ondansetron, sodium chloride (Saline Flush 0.9%), sodium chloride (Saline Flush 0.9%), tramadol One Time Meds: None Continuous Infusions: None Labs (Last four charted values) WBC 8.6(NOV 26)H 11.6(NOV 24)9.9(NOV 23)H 14.8(NOV 22) Hgb 15.6(NOV 26)15.6(NOV 24)16.8(NOV 23)16.2(NOV 22) Hct 49.6(NOV 26)49.4(NOV 24)53.1(NOV 23)50.7(NOV 22) Plt 154(NOV 26)162(NOV 24)152(NOV 23)172(NOV 22) Na 138(NOV 28)137(NOV 26)136(NOV 24)140(NOV 23) K 3.8(NOV 28)4.0(NOV 26)3.8(NOV 24)4.0(NOV 23) CO2 H 34(NOV 28)H 36(NOV 26)H 37(NOV 24)C 40(NOV 23) Cl 95(NOV 28)98(NOV 26)L 93(NOV 24)L 92(NOV 23) Cr 1.20(NOV 28)1.20(NOV 26)1.30(NOV 24)1.20(NOV 23) BUN H 53(NOV 28)H 56(NOV 26)H 33(NOV 24)20(NOV 23) Glucose Random H 148(NOV 28)H 109(NOV 26)H 109(NOV 24)H 157(NOV 23) Mg H 2.5(NOV 26)H 2.5(NOV 24)H 2.5(NOV 23)H 2.5(NOV 22) Phos 3.6(NOV 24)H 4.6(NOV 23)4.0(NOV 22)2.6(NOV 21) Ca 9.3(NOV 28)8.6(NOV 26)8.7(NOV 24)L 8.4(NOV 23) PT 13.9(NOV 20)13.0(NOV 16) INR 1.05(NOV 20)0.96(NOV 16) PTT 30.7(NOV 20)28.3(NOV 16) Troponin <0.02(NOV 17)<0.02(NOV 17)<0.02(NOV 16) CK MB 1.6(NOV 16) Total CK 67(NOV 16)
--- OUTSIDE RECORDS SUMMARY | 2019-01-20 18:17 | XMS REPORT ---
Author [facility] Address Unknown Phone Unavailable Care Team Providers Care Exceptional Student Education Teacher Name Role Phone Unavailable Unavailable Payers Payer Name Policy Type Policy Number Effective Date Expiration Date Problems This patient has no known problems. Allergies, Adverse Reactions, Alerts Allergy Name Allergy Type Status Severity Reaction(s) Onset Date Inactive Date Treating Clinician Comments morphine DA Active SV 2018-10-21 00:00:00 Medications This patient has no known medications. Encounters Start Date/Time End Date/Time Encounter Type Admission Type Attending Clinicians Care Facility Care Department Encounter ID 2019-01-14 09:59:12 Inpatient [facility] [id number] Results Test Description Test Time Test Comments Text Results Atomic Results Result Comments CBC W/AUTO DIFF 2019-01-13 09:12:00 WHITE BLOOD CELL (test code=WBC) 7.4 K/mm3 4.5-11.0 RED BLOOD CELL (test code=RBC) 6.15 M/mm3 4.40-5.90 HEMOGLOBIN (test code=HGB) 12.6 gm/dL 13.0-17.0 HEMATOCRIT (test code=HCT) 45.7 % 36.0-48.0 MEAN CELL VOLUME (test code=MCV) 74.3 UM3 80.0-94.0 MEAN CELL HGB (test code=MCH) 20.5 UUG 25.5-32.5 MEAN CELL HGB CONCETRATION (test code=MCHC) 27.6 gm/dL 29.0-35.5 RED CELL DISTRIBUTION WIDTH (test code=RDW) 22.3 % 11.5-15.0 RED CELL DISTRIBUTION WIDTH SD (test code=RDW-SD) 55.3 fL 34.8-50.2 PLATELET COUNT (test code=PLT) 184 K/mm3 150-400 NEUTROPHIL % (test code=NT%) 72.8 % 49.0-76.0 IMMATURE GRANULOCYTE % (test code=IG%) 0.3 % 0.0-0.4 LYMPHOCYTE % (test code=LY%) 16.7 % 23.0-38.0 MONOCYTE % (test code=MO%) 7.6 % 1.0-10.0 EOSINOPHIL % (test code=EO%) 2.2 % 1.0-5.0 BASOPHIL % (test code=BA%) 0.4 % 0.0-1.0 NEUTROPHIL # (test code=NT#) 5.4 K/mm3 2.4-6.3 IMMATURE GRANULOCYTE # (test code=IG#) 0.02 x10 3/uL 0.00-0.07 LYMPHOCYTE # (test code=LY#) 1.2 K/mm3 1.2-4.0 MONOCYTE # (test code=MO#) 0.6 K/mm3 0.0-0.6 EOSINOPHIL # (test code=EO#) 0.2 K/MM3 0.0-0.7 BASOPHIL # (test code=BA#) 0.0 K/mm3 0.0-0.2 CBC W/AUTO [id number] 09:12:00* Test Item Value Reference Range Comments WHITE BLOOD CELL (test code=WBC) 7.4 K/mm3 4.5-11.0 RED BLOOD CELL (test code=RBC) 6.15 M/mm3 4.40-5.90 HEMOGLOBIN (test code=HGB) 12.6 gm/dL 13.0-17.0 HEMATOCRIT (test code=HCT) 45.7 % 36.0-48.0 MEAN CELL VOLUME (test code=MCV) 74.3 UM3 80.0-94.0 MEAN CELL HGB (test code=MCH) 20.5 UUG 25.5-32.5 MEAN CELL HGB CONCETRATION (test code=MCHC) 27.6 gm/dL 29.0-35.5 RED CELL DISTRIBUTION WIDTH (test code=RDW) 22.3 % 11.5-15.0 RED CELL DISTRIBUTION WIDTH SD (test code=RDW-SD) 55.3 fL 34.8-50.2 PLATELET COUNT (test code=PLT) 184 K/mm3 150-400 NEUTROPHIL % (test code=NT%) 72.8 % 49.0-76.0 IMMATURE GRANULOCYTE % (test code=IG%) 0.3 % 0.0-0.4 LYMPHOCYTE % (test code=LY%) 16.7 % 23.0-38.0 MONOCYTE % (test code=MO%) 7.6 % 1.0-10.0 EOSINOPHIL % (test code=EO%) 2.2 % 1.0-5.0 BASOPHIL % (test code=BA%) 0.4 % 0.0-1.0 NEUTROPHIL # (test code=NT#) 5.4 K/mm3 2.4-6.3 IMMATURE GRANULOCYTE # (test code=IG#) 0.02 x10 3/uL 0.00-0.07 LYMPHOCYTE # (test code=LY#) 1.2 K/mm3 1.2-4.0 MONOCYTE # (test code=MO#) 0.6 K/mm3 0.0-0.6 EOSINOPHIL # (test code=EO#) 0.2 K/MM3 0.0-0.7 BASOPHIL # (test code=BA#) 0.0 K/mm3 0.0-0.2 HYPOCHROMIA (test code=HYPO) 1+ ANISOCYTOSIS (test code=ANISO) 1+ [id number] 10:20:00* Test Item Value Reference Range Comments HEMOGLOBIN (test code=HGB) 13.1 gm/dL 13.0-17.0 [id number] 10:20:00* Test Item Value Reference Range Comments HEMATOCRIT (test code=HCT) 48.2 % 36.0-48.0 HGB [id number] 10:03:00* Test Item Value Reference Range Comments HEMOGLOBIN (test code=HGB) 13.6 gm/dL 13.0-17.0 HEMATOCRIT (test code=HCT) 49.6 % 36.0-48.0 [id number] 09:09:00* Test Item Value Reference Range Comments HEMOGLOBIN (test code=HGB) 13.5 gm/dL 13.0-17.0 [id number] 09:09:00* Test Item Value Reference Range Comments HEMATOCRIT (test code=HCT) 48.2 % 36.0-48.0 HGB [id number] 09:17:00* Test Item Value Reference Range Comments HEMOGLOBIN (test code=HGB) 13.1 gm/dL 13.0-17.0 HEMATOCRIT (test code=HCT) 47.9 % 36.0-48.0 FOR THERAPEUTIC [id number] 10:05:00* Test Item Value Reference Range Comments HEMOGLOBIN (test code=HGB) 13.7 gm/dL 13.0-17.0 [id number] 10:05:00* Test Item Value Reference Range Comments HEMATOCRIT (test code=HCT) 49.8 % 36.0-48.0 [id number] 09:41:00* Test Item Value Reference Range Comments HEMOGLOBIN (test code=HGB) 14.1 gm/dL 13.0-17.0 [id number] 09:41:00* Test Item Value Reference Range Comments HEMATOCRIT (test code=HCT) 51.4 % 36.0-48.0 HGB [id number] 09:32:00* Test Item Value Reference Range Comments HEMOGLOBIN (test code=HGB) 14.2 gm/dL 13.0-17.0 HEMATOCRIT (test code=HCT) 52.1 % 36.0-48.0 [id number] 13:08:00* Test Item Value Reference Range Comments HEMOGLOBIN (test code=HGB) 14.1 gm/dL 13.0-17.0 [id number] 13:08:00* Test Item Value Reference Range Comments HEMATOCRIT (test code=HCT) 51.2 % 36.0-48.0 [id number] 09:01:00* Test Item Value Reference Range Comments HEMOGLOBIN (test code=HGB) 14.4 gm/dL 13.0-17.0 [id number] 09:01:00* Test Item Value Reference Range Comments HEMATOCRIT (test code=HCT) 52.4 % 36.0-48.0 HGB [id number] 09:23:00* Test Item Value Reference Range Comments HEMOGLOBIN (test code=HGB) 14.3 gm/dL 13.0-17.0 HEMATOCRIT (test code=HCT) 52.0 % 36.0-48.0 HGB [id number] 09:15:00* Test Item Value Reference Range Comments HEMOGLOBIN (test code=HGB) 15.6 gm/dL 13.0-17.0 HEMATOCRIT (test code=HCT) 56.1 % 36.0-48.0 [id number] 09:56:00* Test Item Value Reference Range Comments HEMOGLOBIN (test code=HGB) 16.1 gm/dL 13.0-17.0 [id number] 09:56:00* Test Item Value Reference Range Comments HEMATOCRIT (test code=HCT) 56.0 % 36.0-48.0 [id number] 11:14:00* Test Item Value Reference Range Comments HEMOGLOBIN (test code=HGB) 15.1 gm/dL 13.0-17.0 [id number] 11:14:00* Test Item Value Reference Range Comments HEMATOCRIT (test code=HCT) 52.6 % 36.0-48.0 [id number] 10:04:00* Test Item Value Reference Range Comments HEMOGLOBIN (test code=HGB) 15.5 gm/dL 13.0-17.0 [id number] 10:04:00* Test Item Value Reference Range Comments HEMATOCRIT (test code=HCT) 54.2 % 36.0-48.0 HGB [id number] 09:39:00* Test Item Value Reference Range Comments HEMOGLOBIN (test code=HGB) 15.9 gm/dL 13.0-17.0 HEMATOCRIT (test code=HCT) 54.5 % 36.0-48.0 [id number] 10:52:00* Test Item Value Reference Range Comments HEMOGLOBIN (test code=HGB) 16.2 gm/dL 13.0-17.0 [id number] 10:52:00* Test Item Value Reference Range Comments HEMATOCRIT (test code=HCT) 55.1 % 36.0-48.0 [id number] 09:07:00* Test Item Value Reference Range Comments HEMOGLOBIN (test code=HGB) 16.1 gm/dL 13.0-17.0 [id number] 09:07:00* Test Item Value Reference Range Comments HEMATOCRIT (test code=HCT) 55.7 % 36.0-48.0
--- OUTSIDE RECORDS SUMMARY | 2019-01-20 18:17 | XMS REPORT | Summary of Care ---
Author Author PRIMITIVO STONE M.D. Unknown Address Unknown Phone Unavailable Care Team Providers Care Die Cast Technician Name Role Phone PRIMITIVO STONE M.D. 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 Bilateral foot-drop (736.79, M21.371) Status: Active Obstructive sleep apnea on CPAP (327.23, G47.33) Status: Active Diabetes mellitus (250.00, E11.9) Status: Active High blood pressure (401.9, I10) Status: Active Class 3 severe obesity with serious comorbidity and body mass index (BMI) greater than or equal to 70 in adult (278.01, E66.01) Status: Active Dietary counseling (V65.3, Z71.3) Status: Active Medications Name Dates Details Hydrocortisone 1 % External Cream Active Magnesium TABS * Refills: 0 Active metFORMIN HCl - 500 MG Oral Tablet * Refills: 0 Active Annawan 10-325 MG Oral Tablet * Refills: 0 Active Zofran TABS * Refills: 0 Active Potassium Chloride 10 MEQ TBCR * Refills: 0 Active Voltaren 1 % GEL * Refills: 0 Active Acetaminophen 325 MG Oral Tablet * Refills: 0 Active Aspirin 81 MG Oral Tablet Delayed Release * Refills: 0 Active HumuLIN R 100 UNIT/ML Injection Solution * Refills: 0 Active Ipratropium-Albuterol 0.5-2.5 (3) MG/3ML Inhalation Solution * Refills: 0 Active Magnesium Oxide 400 (241.3 Mg) MG Oral Tablet * Refills: 0 Active Metoprolol Tartrate 50 MG Oral Tablet * Refills: 0 Active Vitamin D3 5000 UNIT Oral Tablet * Refills: 0 Active CPAP Continuous Positive Airway Pressure * Refills: 0 Active Allergies and Adverse Reactions Name Dates Details morphine (Allergy) Status: Active Past Medical History Name Dates Details Diabetes mellitus (250.00, E11.9) Status: Active Obstructive sleep apnea on CPAP (327.23, G47.33) Status: Active History of anxiety (V11.8, Z86.59) Status: Resolved History of depression (V11.8, Z86.59) Status: Resolved History of hypertension (V12.59, Z86.79) Status: Resolved Procedures Procedure Dates Details History of Hernia Repair Completed History of Tracheotomy Completed History of Leg surgery Completed Immunization Name Dates Details Immunizations not documented Family History Name Dates Details Family history of malignant neoplasm of thyroid (V16.8, Z80.8) Status: Active Family history of diabetes mellitus (V18.0, Z83.3) Status: Active Social History Name Dates Details - Status: Name Dates Details Never smoker Vital Signs Date Test Result Details [id number] BP Systolic 158 mm[Hg] Status: Comments: Position: Sitting BP Diastolic 93 mm[Hg] Status: Comments: Position: Sitting Height 65 in Status: Weight 458 lb Status: Body Mass Index Calculated 76.22 kg/m2 Status: Body Surface Area Calculated 2.81 m2 Status: Heart Rate 100 /min Status: O2 SAT 100 % Status: Results Date Description Value Details Results not documented Plan of Care Name Dates Details Planned Observations Planned Goals not documented Interventions Provided Plan* Mr. NICHO GOFF presents for a bariatric re-assessment prior to his bariatric surgery. We re-discussed the required lifestyle changes and the need for continued follow up after bariatric surgery. Mr. GOFF understands that surgery is just a tool to help achieve a healthier lifestyle and is ready to proceed with a Laparoscopic Chriss-en-Y Bypass Also discussed sleeve gastrectomy if RYGB not able to be performed. Instructions Name Dates Details Instructions not documented Encounters Appointment; PRIMITIVO STONE M.D. Encounter Diagnosis: Problem not documented On: 01-Jul-2018 14:00 Appointment; [address] Encounter Diagnosis: Problem not documented On: 15-Jul-2018 11:00 Appointment; [address] Encounter Diagnosis: Problem not documented On: 29-Aug-2018 10:00 Appointment; [address] Encounter Diagnosis: Problem not documented On: 23-Sep-2018 13:00 Appointment; PRIMITIVO STONE M.D. Encounter Diagnosis: Problem not documented On: 23-Sep-2018 14:00 Appointment; PRIMITIVO STONE M.D. Encounter Diagnosis: Problem not documented On: 11-Oct-2018 8:30 Appointment; PRIMITIVO STONE M.D. Encounter Diagnosis: Problem not documented On: 16-Dec-2018 15:00
[2019-01-20] MEDS ORDERED: IBUPROFEN 600 MG TAB PO ONE (18:23)
[2019-01-20] MEDS ORDERED: IBUPROFEN 200 MG TAB ONE (18:34)
--- NOTE | 2019-01-20 19:04 | Diagnostic Imaging Report ---
WRIST 3VW RT - [facility] - 3 views HISTORY: Pain. Right hand pain. COMPARISON: None available. FINDINGS: Bones: No acute displaced fracture. Osseous alignment is within normal limits. Joints: The joint spaces are well-maintained. Soft tissues: The soft tissues appear unremarkable. IMPRESSION: No acute radiographic abnormality. Signed by: Dr. Luis E Cain M.D. on 01/20/2019 7:01 PM
--- NOTE | 2019-01-20 19:04 | Diagnostic Imaging Report ---
HAND 3 VIEW RT - [facility] - 3 views HISTORY: Pain. Right hand pain. COMPARISON: None available. FINDINGS: Bones: No acute displaced fracture. Osseous alignment is within normal limits. Joints: The joint spaces are well-maintained. Soft tissues: The soft tissues appear unremarkable. IMPRESSION: No acute radiographic abnormality. Signed by: Dr. Luis E Cain M.D. on 01/20/2019 7:00 PM
[2019-01-20] MEDS ORDERED: VANCOMYCIN 1GM/NS 250 ML 250 ML IV ONE (19:30)
[2019-01-20] MEDS ORDERED: SODIUM CHLORIDE 0.9% 1000ML 1,000 ML IV STA (19:31)
[2019-01-20] MEDS ORDERED: SODIUM CHLORIDE 0.9% 1000ML 1,000 ML ONE (19:41)
[2019-01-20] MEDS ORDERED: DIPHENHYDRAMINE HCL INJ 50 MG/ML VIAL IV PRN (19:45)
[2019-01-20] MEDS ORDERED: ENALAPRILAT IV INJ 1.25 MG/ML VIAL IV PRN (19:45)
[2019-01-20] MEDS ORDERED: DEXTROSE 50% SYRINGE 50 ML IV PRN (19:45)
[2019-01-20] MEDS ORDERED: IBUPROFEN 200 MG TAB PO PRN (19:45)
[2019-01-20] MEDS ORDERED: VANCOMYCIN 1GM/NS 250 ML 250 ML IV SCH (19:45)
[2019-01-20] MEDS ORDERED: CLONIDINE HCL 0.2 MG TAB PO PRN (19:45)
[2019-01-20] MEDS ORDERED: SODIUM CHLORIDE FLUSH 10 ML SYR INJ PRN (19:45)
[2019-01-20] MEDS ORDERED: ZOLPIDEM TARTRATE 5 MG TAB PO PRN (19:45)
[2019-01-20 20:45] VITALS: BP 105/54
--- NOTE | 2019-01-20 20:45 | NUR ---
Patient came to the unit in a stretcher from [facility] with c/o pain and swelling to the right wrist.consultation order with .From er called to consults. assessment done.aaox4.pain voiced 05/06.no resp.distress.has shortness of breath.zpawuyq8q o2 nasal cannula. oriented to the unit.R.hand supported with splint.iv left wrist is patent.notified to .received new orders.bed alarm on.phone and call light within reach.instructed to call for assistance as needed.notified to night order selector regarding the need of beriatric bed.
[2019-01-20 21:05] VITALS: BP 105/54
[2019-01-20] MEDS: INSULIN REGULAR, HUMAN 100 UNIT/1 ML 3ML VIAL SQ SCH (21:29)
[2019-01-20 22:00] VITALS: BP 105/54
[2019-01-20] MEDS: HYDROMORPHONE 2MG/ML 2 MG/ML ML IV PRN (22:45)
[2019-01-20] MEDS: ONDANSETRON HCL INJ 2MG/ML 2ML 2 MG/ML VIAL IV PRN (22:45)
--- NOTE | 2019-01-20 23:14 | NUR ---
MEDICATED WITH DILAUDID 1MG IV.KEEP MONITOR THE PT.PATIENT DOES NOT KNOW THE HOME MEDICATION.NO FAMILY MEMBER WITH PT.
[2019-01-21] VITALS (7 sets, daily range): BP systolic 104–140; BP diastolic 52–86
[2019-01-21] MEDS: VANCOMYCIN 1GM/NS 250 ML 250 ML IV SCH ×2 (01:14→13:30)
[2019-01-21] MEDS: ONDANSETRON HCL INJ 2MG/ML 2ML 2 MG/ML VIAL IV PRN (04:26)
[2019-01-21] MEDS: HYDROMORPHONE 2MG/ML 2 MG/ML ML IV PRN ×3 (04:27→21:15)
[2019-01-21 06:14] LABS: BASOPHILS # (AUTO) 0.1 (0.0-0.1); BASOPHILS % 0.5 % (0.0-1.0); EOSINOPHILS # (AUTO) 0.3 (0.0-0.4); EOSINOPHILS % 2.4 % (0.0-6.0); HEMATOCRIT 45.8 % (38.2-49.6); LYMPHOCYTES % 18.2 % (18.0-39.1); MEAN CORPUSCULAR HEMOGLOBIN 20.9 pg (28-32); MEAN CORPUSCULAR HGB CONC 28.4 g/dL (31-35); MEAN CORPUSCULAR VOLUME 73.6 fL (81-99); MONOCYTES # (AUTO) 0.9 (0.2-0.8); MONOCYTES % 8.5 % (4.4-11.3); NEUTROPHILS # (AUTO) 7.6 (2.1-6.9); NEUTROPHILS % 69.8 % (38.7-80.0); PLATELET COUNT 224 x10e3/uL (140-360); RED BLOOD COUNT 6.22 x10e6/uL (4.3-5.7)
[2019-01-21] MEDS: ACETAMINOPHEN 325 MG TAB PO PRN (06:31)
[2019-01-21 06:32] LABS: ANION GAP 14.4 mmol/L (8-16); BLOOD UREA NITROGEN 27 mg/dL (7-26); BUN/CREATININE RATIO 20 (6-25); CALCIUM 9.4 mg/dL (8.4-10.2); CARBON DIOXIDE 28 mmol/L (22-29); CHLORIDE 95 mmol/L (98-107); CREATININE, SERUM 1.33 mg/dL (0.72-1.25); EST GLOMERULAR FILTRATION RATE > 60 ML/MIN (60-); GLUCOSE 180 mg/dL (74-118); POTASSIUM 3.4 mmol/L (3.5-5.1); SODIUM 134 mmol/L (136-145)
--- NOTE | 2019-01-21 06:32 | NUR ---
HAS HEADACHE.MEDICATED WITH TYLENOL 650 MG .KEEP MONITOR THE PT.
--- NOTE | 2019-01-21 07:00 | NUR ---
CONSULTS CALLED.REPORT GIVEN TO THE ONCOMING RN.WALKING ROUNDS DONE.STABLE CONDITION.
[2019-01-21] MEDS: INSULIN REGULAR, HUMAN 100 UNIT/1 ML 3ML VIAL SQ SCH ×4 (07:30→21:17)
--- NOTE | 2019-01-21 08:52 | NUR ---
Rounds by Dr. Villa and orders removable wrist brace to right wrist and patient to participate in OT for ROM. VSS, BS elevated, some tachycardia, no fevers at this time, ESR elevated and will monitor.
[2019-01-21] MEDS ORDERED: FAMOTIDINE 20 MG/2 ML VIAL IV SCH (09:00)
[2019-01-21] MEDS: ENOXAPARIN SOD INJ 40 MG/0.4 ML SYR SC SCH (09:01)
--- NOTE | 2019-01-21 09:26 | NUR ---
Patient alert and responsive, reported K+ level to Dr. Hardwick and will see patient.
[2019-01-21] MEDS ORDERED: METOLAZONE5 MG PO (10:29)
[2019-01-21] MEDS ORDERED: VITAMIN D350000 UNIT PO (10:29)
[2019-01-21] MEDS ORDERED: HUMILIN R SC (10:29)
[2019-01-21] MEDS ORDERED: LANTUS 3ML100 UNITS/ SC ×2 (10:29)
[2019-01-21] MEDS ORDERED: VITAMIN D35000 UNIT (10:29)
[2019-01-21] MEDS ORDERED: ASPIRIN81 MG PO (10:29)
[2019-01-21] MEDS ORDERED: BUPROPION HCL75 MG PO (10:29)
[2019-01-21] MEDS ORDERED: COLACE100 MG PO (10:29)
[2019-01-21] MEDS ORDERED: BUMETANIDE2 MG PO (10:29)
[2019-01-21] MEDS ORDERED: VITAMIN D32000 UNIT PO (10:29)
[2019-01-21] MEDS ORDERED: TESSALON PERLE100 MG PO (10:29)
[2019-01-21] MEDS ORDERED: GLIPIZIDE5 MG PO (10:29)
[2019-01-21] MEDS ORDERED: POTASSIUM CHLORIDE 20 MEQ TAB CR PO STA (10:43)
--- NOTE | 2019-01-21 13:19 | History and Physical ---
REASON FOR ADMISSION: The patient complaining of right wrist pain. HISTORY OF PRESENT ILLNESS: This is a 33-year-old male, morbidly obese, type 2 diabetic, hypertension, who is medically debilitated, currently resides in a [facility] due to his debility, unable to walk. He was sent from the [facility] to an outside ER with complaints of wrist pain ongoing for the last 1 to 2 days. The patient reports that his wrist acutely was in pain and he reports that his right wrist was swollen. Denies any fever at home. Denies any trauma to his right wrist. No reports of any history of drug abuse. No needle henderson seen. Denies falling on his right wrist. The patient was then started on IV antibiotics at the outside ER, sent to the [facility] for further evaluation and management. While here, Orthopedics and Infectious Disease were consulted to evaluate the patient further. REVIEW OF SYSTEMS: 1. Pertinent positive: Right wrist pain. 2. Pertinent negatives: Denies any chest pain, palpitation, nausea, vomiting, diarrhea, dysuria, hematuria, frequency, urgency, lightheadedness, dizziness, abdominal pain, headaches, shortness of breath, cough, congestion, fever, or any other complaints. The rest of the 14-point review of systems was reviewed with the patient and are negative. ALLERGIES: MORPHINE. PAST MEDICAL HISTORY: He is a type 2 diabetic, hypertension, morbidly obese, history of he reports coma 2 years ago, cannot recall exactly what happened to him. He is currently a resident of [facility] for the last 2 years due to medically debilitation and difficult to walk. Peripheral neuropathy. PAST SURGICAL HISTORY: Reports none. FAMILY HISTORY: Hypertension and diabetes. SOCIAL HISTORY: No drugs. No alcohol. Does not smoke. Good social support. Lives in a [facility]. PHYSICAL EXAMINATION: VITAL SIGNS: Temperature is 96.8, pulse 118, respiratory rate is 42, blood pressure is 148/74, 99% on 2 L nasal cannula. GENERAL: Not in acute distress. Alert and oriented x3. Cooperative on exam. He is morbidly obese. HEENT: Head is normocephalic and atraumatic. Eyes; pupils are equal, round, and reactive to light bilaterally. Extraocular movements are intact. Throat; no evidence of erythema or exudates in the posterior pharynx. Has poor dentition. NECK: Supple. Good range of motion. PULMONARY: Clear to auscultation bilaterally. No wheezing, rales, or rhonchi. No crackles appreciated. CARDIOVASCULAR: Positive S1, S2. No murmurs, rubs, or gallops appreciated. ABDOMEN: Soft, nondistended, and nontender to palpation. Bowel sounds present. MUSCULOSKELETAL: Strength is 5/5 throughout. No evidence of any muscle deficits on examination. No weakness appreciated. NEUROLOGIC: He is alert and oriented x3. SKIN: Intact. Warm to touch. Good cap refill. PSYCHIATRIC: Normal affect and mood. EXTREMITIES: He complains of right wrist pain. It is tender. It is difficulty to , not erythematic, slightly warm to touch . LAB FINDINGS: White count 10.8, hemoglobin 13, hematocrit is 45, platelets of 224. ESR was 36. Chemistry; sodium 134, potassium 3.4, chloride 95, bicarb 28, anion gap of 14, BUN is 27, creatinine is 1.3, glucose is 180. His lactic acid is 17, which is normal at this hospital. Calcium is 9.4, CRP is pending. MICROBIOLOGY: Blood cultures are pending. IMAGING STUDIES: Wrist x-ray was negative. Hand x-ray was negative. IMPRESSION: 1. Right wrist pain, seems to be more traumatic in nature, but now much improved. 2. Type 2 diabetes. 3. Hypertension. 4. Morbidly obese. 5. Generalized weakness with medically debilitation, difficulty walking, which is chronic. PLAN: At this time, Orthopedics and ID has been consulted. Imaging studies were found to be negative. According to Ortho, does not feel like this is likely a septic joint due to the fact that the patient's sedimentation rate is relatively lower and white count is normal and there is no evidence of any fever. He did have a T-max of 100.8 at the outside ER, but currently looks very well, does not look toxic. He is able bend his wrist occasionally. At this time, he is on IV antibiotics. ID has been consulted to weigh in more input on this patient's case. We will go ahead and treat for now with IV antibiotics and so further evaluation by further consultants to determine if further intervention is needed. At this time, he seems to be very stable. CRP is pending. We will go ahead and order a uric acid level, if not done already. Get a.m. labs as well. Add Toradol for pain. No more anti-inflammatory. He is also going to have a wrist splint, which has been ordered and now placed on his wrist. We are going to resume all his home medications including long-acting Lantus and insulin sliding scale. Pain control with IV Dilaudid as well as IV Toradol. Get PT and OT as well to evaluate and treat. Put him on Lovenox for DVT prophylaxis. Otherwise, we will continue same plan of care for now. Monitor very closely. Await further recommendations by the consultants. MD ALANIS Mendoza/SHARMILA /[phone]
--- NOTE | 2019-01-21 14:15 | NUR ---
Visit made by the Spiritual Care Department Pastoral Visitor, Kalyn Bourne. PV provided pastoral presence, hospitality, and supportive listening. Pastoral Visitor informed pt/family of the scope of Construction Project Administrator Services and availability. MARKO CROSS Audiology Assistant Spiritual Care Department O: [phone] Pager: [phone] ([phone] number calling from)
[2019-01-21] MEDS: GABAPENTIN 100 MG CAP PO SCH ×2 (15:00→21:16)
[2019-01-21] MEDS ORDERED: GABAPENTIN 400 MG CAP PO SCH (15:00)
--- NOTE | 2019-01-21 16:24 | NUR ---
PT came and worked with patient. Brace in place to right wrist. Beriatric bed delivered and patient assisted with transfer to new bed, VSS, on O2 2L NC, no resp distres, call light within reach, will monitor.
[2019-01-21] MEDS: METOPROLOL SUCCINATE 50 MG TAB XL PO SCH (16:37)
[2019-01-21] MEDS: GLIPIZIDE 5 MG TAB PO SCH (16:37)
--- NOTE | 2019-01-21 18:50 | Consultation ---
DATE OF CONSULTATION: REASON FOR CONSULTATION: Fever. HISTORY OF PRESENT ILLNESS: This patient who is a 33-year-old male, history of morbidly obese patient, diabetes mellitus, chronic kidney disease, comes in with pain in his wrist as well as redness and swelling of the dorsal aspect of his hand. The patient denies a history of specific trauma, but he has very limited mobility because of chronic back pain. The patient has been in custodial for a couple of years now. The patient comes in the Urgent Care. He had low temperature of 100.0. The patient was admitted result of a septic joint, but after I evaluated the patient, I do not thing of septic joint. He has redness and swelling on the dorsal aspect of the hand. With his joint there is some pain, but there is no redness, no swelling, so I do think that is the wrong diagnosis, so the patient was admitted. Apparently, they planned for him to have a gastric bypass in the future. He does have obesity, obstructive sleep apnea. He does have diabetes and hypertension as well as chronic kidney disease. The patient was admitted with fever and pain in the hand. Infectious Disease was asked to see the patient. PAST MEDICAL HISTORY: Mentioned above. PAST SURGICAL HISTORY: Mentioned above. ALLERGIES: NKA. SOCIAL HISTORY: There is no smoking, drug abuse, or alcohol abuse. He is from custodial. FAMILY HISTORY: Noncontributory. REVIEW OF SYSTEMS: At the present time HEENT: There is no headache, visual changes, or hearing changes. GI: There is no nausea, no vomiting, no diarrhea. CARDIAC: There is no arrhythmia. NEURO: No seizure activity. SKIN: There is no other rash. PHYSICAL EXAMINATION: GENERAL: He is currently alert, oriented, does not seem to be in acute distress. VITAL SIGNS: Stable, currently afebrile. HEENT: Does not appear icteric. NECK: Supple. CHEST: Clear. HEART: S1 and S2. No murmur. ABDOMEN: Soft. Bowel sounds present. No tenderness. EXTREMITIES: The wrist, there is no effusion, no redness, no swelling, but the dorsal aspect of the hand, there is erythema and edema. IMPRESSION: 1. Cellulitis of the hand. The patient comes to us from a custodial. I agree with vancomycin. We will adjust for kidney function at 1 g q.24 hours. We will follow trough. He is having no pain in the wrist, probably trauma since he probably was using his hand to leave the bed. Possibility of gout so the gout is entertained versus worsening condition of osteoarthritis. Recommend obtaining uric acid level. 2. Obesity. 3. Diabetes. 4. Chronic kidney disease. 5. Hypertension. We will follow with you. Thank you for asking me to see this patient. Discussed with Internal Medicine, discussed with Orthopedics. MD VAHID Shields/MODL /[id number]
--- NOTE | 2019-01-21 19:20 | NUR ---
Received patient asleep in a bariatric bed, not in distress, call light within easy reach, will continue to monitor
[2019-01-21] MEDS ORDERED: INSULIN GLARGINE SC SCH (21:00)
[2019-01-21] MEDS: MELATONIN 3 MG TAB PO SCH (21:15)
[2019-01-21] MEDS: INSULIN GLARGINE 100 UNITS/ML VIAL SQ SCH (21:16)
[2019-01-22] VITALS (7 sets, daily range): BP systolic 91–132; BP diastolic 50–85
[2019-01-22] MEDS: VANCOMYCIN 1GM/NS 250 ML 250 ML IV SCH ×2 (02:10→12:51)
[2019-01-22] MEDS: HYDROMORPHONE 2MG/ML 2 MG/ML ML IV PRN ×3 (02:57→20:00)
[2019-01-22 06:32] LABS: BASOPHILS # (AUTO) 0.1 (0.0-0.1); BASOPHILS % 0.4 % (0.0-1.0); EOSINOPHILS # (AUTO) 0.1 (0.0-0.4); EOSINOPHILS % 0.4 % (0.0-6.0); HEMATOCRIT 43.5 % (38.2-49.6); HEMOGLOBIN 12.3 g/dL (14.0-18.0); LYMPHOCYTES # (AUTO) 0.9 (1.0-3.2); LYMPHOCYTES % 8.3 % (18.0-39.1); MEAN CORPUSCULAR HEMOGLOBIN 20.7 pg (28-32); MEAN CORPUSCULAR HGB CONC 28.3 g/dL (31-35); MEAN CORPUSCULAR VOLUME 73.4 fL (81-99); MONOCYTES # (AUTO) 0.9 (0.2-0.8); MONOCYTES % 7.6 % (4.4-11.3); NEUTROPHILS # (AUTO) 9.2 (2.1-6.9); NEUTROPHILS % 82.7 % (38.7-80.0); PLATELET COUNT 249 x10e3/uL (140-360); RED BLOOD COUNT 5.93 x10e6/uL (4.3-5.7)
[2019-01-22 07:14] LABS: ANION GAP 17.3 mmol/L (8-16); CALCIUM 9.5 mg/dL (8.4-10.2); CREATININE, SERUM 1.64 mg/dL (0.72-1.25); POTASSIUM 4.3 mmol/L (3.5-5.1)
[2019-01-22] MEDS: ONDANSETRON HCL INJ 2MG/ML 2ML 2 MG/ML VIAL IV PRN (07:51)
[2019-01-22] MEDS: GABAPENTIN 100 MG CAP PO SCH ×3 (08:51→20:57)
[2019-01-22] MEDS: METOLAZONE 5 MG TAB PO SCH (08:51)
[2019-01-22] MEDS: DOCUSATE SODIUM 100 MG CAP PO SCH (08:51)
[2019-01-22] MEDS: FAMOTIDINE 20 MG TAB PO SCH (08:51)
[2019-01-22] MEDS: METOPROLOL SUCCINATE 50 MG TAB XL PO SCH ×2 (08:51→16:38)
[2019-01-22] MEDS: ENOXAPARIN SOD INJ 40 MG/0.4 ML SYR SC SCH (08:51)
[2019-01-22] MEDS: ASPIRIN 81 MG CHEW TAB PO SCH (08:51)
[2019-01-22] MEDS: GLIPIZIDE 5 MG TAB PO SCH ×2 (08:51→16:48)
[2019-01-22] MEDS: INSULIN REGULAR, HUMAN 100 UNIT/1 ML 3ML VIAL SQ SCH ×4 (08:52→20:57)
[2019-01-22] MEDS: INSULIN GLARGINE 100 UNITS/ML VIAL SQ SCH ×2 (08:52→20:58)
[2019-01-22] MEDS ORDERED: ONDANSETRON HCL 4 MG ORAL DISINTEGRATING TAB PO PRN (09:00)
[2019-01-22] MEDS ORDERED: INSULIN GLARGINE SC SCH (09:00)
[2019-01-22] MEDS ORDERED: ASPIRIN 81 MG CHEW TAB PO SCH (09:00)
--- NOTE | 2019-01-22 12:33 | Progress Note ---
DATE: 01/22/2019 Medicine Progress Note SUBJECTIVE: The patient's right wrist is much improved. He reports he is able now to bend it with no issues. Good range of motion. OBJECTIVE: VITAL SIGNS: Temperature 96.7, pulse is 102, respiratory rate is 24, blood pressure 126/83, and saturating on room air. GENERAL: Not in acute distress. Alert and oriented x3. Cooperative on examination. HEENT: Head is normocephalic and atraumatic. Eyes; pupils are equal, round, and reactive to light bilaterally. Extraocular movements are intact bilaterally. Throat, no evidence of erythema or exudates in the posterior pharynx. Has poor dentition. NECK: Supple. Good range of motion. PULMONARY: Clear to auscultation bilaterally. No wheezing, no rales, no rhonchi, no crackles appreciated. CARDIOVASCULAR: Positive S1, S2. No murmurs, rubs, or gallops appreciated. ABDOMEN: Soft, nondistended, and nontender to palpation. Bowel sounds present. MUSCULOSKELETAL: Strength is 5/5 throughout. No evidence of any muscle deficits on examination. No weakness appreciated. NEUROLOGICAL: Cranial nerves 2 through 12 grossly intact. No evidence of any neurological deficits on exam. SKIN: Intact. Warm to touch. Good cap refill. PSYCHIATRIC: Normal affect and mood. EXTREMITIES: No edema. Good range of motion throughout. LABORATORY FINDINGS: Show white count of 11, hemoglobin 12.3, hematocrit is 43, MCV 73, platelets of 249. Chemistry; sodium 133, potassium 4.3, chloride 94, bicarb 25, anion gap of 10, BUN 32, creatinine 4.6, glucose 296, and calcium 7.5. IMPRESSION: 1. Right wrist cellulitis. 2. Type 2 diabetes. 3. Hypertension. 4. Morbid obesity. 5. Generalized weakness and medically debilitated, possible chronic. PLAN: Continue with IV antibiotics. I discussed this with Ortho and ID, felt to be like the patient likely has a right wrist cellulitis. Today, it is much improved. He is able to move. Good range of motion to the right wrist. His swelling and redness all improved. Labs look great. No other issues. He is afebrile. Vital signs are stable. Continue with same plan of care. Continue with IV antibiotics for now. He is on Lovenox for DVT prophylaxis. MD ALANIS Mendoza/SHARMILA /[id number]
--- NOTE | 2019-01-22 18:37 | NUR ---
SPOKE WITH DR. ULLOA PT USES CPAP FOR SLEEP APNEA. RECEIVED ORDER FOR CPAP. PT DOES NOT KNOW SETTINGS. CALLED [facility] FOR SETTINGS WAS TOLD NURSE IS WITH A PATIENT AND SHE WOULD CALL BACK. PHONE NUMBER PROVIDED. AWAITING CALL BACK.
--- NOTE | 2019-01-22 18:43 | NUR ---
RECEIVED CALL BACK FROM [facility] NURSE. PT USES BIPAP AT NIGHT WITH SETTINGS 23/17 3L O2 AT BEDTIME AND REMOVED IN AM.
--- NOTE | 2019-01-22 19:15 | NUR ---
Rounding done and report received. Patient resting in bed, respirations even & unlabored, no distress noted. Patient is on a big boy bed. Patient denies any issues or needs at this time. Call light within reach & side rails x2 raised
[2019-01-22] MEDS: MELATONIN 3 MG TAB PO SCH (20:57)
[2019-01-23] VITALS: BP 123/70
[2019-01-23] MEDS: VANCOMYCIN 1GM/NS 250 ML 250 ML IV SCH ×2 (01:19→12:27)
[2019-01-23 04:00] VITALS: BP 142/71
[2019-01-23 05:51] LABS: BASOPHILS % 0.6 % (0.0-1.0); EOSINOPHILS # (AUTO) 0.2 (0.0-0.4); EOSINOPHILS % 2.7 % (0.0-6.0); HEMATOCRIT 41.4 % (38.2-49.6); HEMOGLOBIN 11.6 g/dL (14.0-18.0); MEAN CORPUSCULAR HEMOGLOBIN 20.6 pg (28-32); MEAN CORPUSCULAR VOLUME 73.4 fL (81-99); MONOCYTES # (AUTO) 0.8 (0.2-0.8); MONOCYTES % 11.3 % (4.4-11.3); NEUTROPHILS # (AUTO) 4.7 (2.1-6.9); NEUTROPHILS % 69.5 % (38.7-80.0); PLATELET COUNT 175 x10e3/uL (140-360); RED BLOOD COUNT 5.64 x10e6/uL (4.3-5.7); RED CELL DISTRIBUTION WIDTH 21.8 % (11.7-14.4)
[2019-01-23 06:10] LABS: CALCIUM 9.1 mg/dL (8.4-10.2); CREATININE, SERUM 1.83 mg/dL (0.72-1.25)
[2019-01-23] MEDS: ACETAMINOPHEN 325 MG TAB PO PRN (07:41)
[2019-01-23 07:59] VITALS: BP 125/73
[2019-01-23 08:30] VITALS: BP 125/73
[2019-01-23] MEDS: INSULIN GLARGINE 100 UNITS/ML VIAL SQ SCH (09:00)
[2019-01-23] MEDS: METOPROLOL SUCCINATE 50 MG TAB XL PO SCH (09:01)
[2019-01-23] MEDS: GABAPENTIN 100 MG CAP PO SCH ×2 (09:01→15:19)
[2019-01-23] MEDS: METOLAZONE 5 MG TAB PO SCH (09:01)
[2019-01-23] MEDS: ENOXAPARIN SOD INJ 40 MG/0.4 ML SYR SC SCH (09:01)
[2019-01-23] MEDS: DOCUSATE SODIUM 100 MG CAP PO SCH (09:01)
[2019-01-23] MEDS: ASPIRIN 81 MG CHEW TAB PO SCH (09:01)
[2019-01-23] MEDS: GLIPIZIDE 5 MG TAB PO SCH (09:01)
[2019-01-23] MEDS: FAMOTIDINE 20 MG TAB PO SCH (09:01)
[2019-01-23] MEDS: INSULIN REGULAR, HUMAN 100 UNIT/1 ML 3ML VIAL SQ SCH ×2 (09:02→12:27)
[2019-01-23] MEDS ORDERED: POTASSIUM CHLORIDE 20 MEQ TAB CR PO STA (10:37)
[2019-01-23 12:45] VITALS: BP 124/65
--- NOTE | 2019-01-23 14:58 | NUR ---
PT ACCEPTED TO [facility] [address] GAVE RTF TO NURSE TO COMPLETE TRANSFER
--- NOTE | 2019-01-23 15:11 | NUR ---
CALLED REPORT TO [facility] SPOKE TO ROBIN GUTIÉRREZ. NOTIFIED MOTHER ERWIN ([phone]) REGARDING TRANSFER.
[2019-01-23 16:08] VITALS: BP 117/60
--- NOTE | 2019-01-24 05:03 | Discharge Summary ---
FINAL DISCHARGE DIAGNOSES: 1. Right wrist cellulitis with swelling and pain, now resolved. 2. Type 2 diabetes. 3. Hypertension. 4. Morbid obesity. 5. Obstructive sleep apnea. 6. Medically debilitated and generalized weakness, chronic. CONSULTANTS: We had Orthopedics and Infectious Disease. PHYSICAL EXAMINATION: VITAL SIGNS: Temperature is 97.5, pulse 93, respiratory rate is 21, blood pressure 121/73, and pulse ox 95% on 2 L nasal cannula chronically. LABORATORY DATA: Show white count 6.7, on admission was 10.8, hemoglobin 11.6, hematocrit is 41, and platelets of 175. Chemistry; sodium 133, potassium is 3, chloride 94, bicarb 30, anion gap of 12, BUN is 37, creatinine is 1.83, glucose 166, and calcium 9.1. MICROBIOLOGY: Blood cultures were negative. IMAGING STUDIES: Wrist x-ray was negative. Hand x-ray was negative. HOSPITAL COURSE: This is a 33-year-old male, morbidly obese, came in from an outside ER with concerns of a right wrist pain and swelling. Needed to be further evaluated by Orthopedics and Infectious Disease. The patient was admitted, started on broad-spectrum IV antibiotics. Imaging studies were negative for any fractures or any evidence of effusion. Orthopedics was consulted, evaluated the patient. This is less likely to be a septic joint instead felt like to be from an outside aspect from like cellulitis leading to the pain and possibly some trauma. The patient was able to move his wrist after IV antibiotic therapy was initiated. ID was consulted as well and felt the same that this is likely due to a right hand cellulitis and agreed to IV antibiotic therapy. Throughout the hospital course, the patient improved. He is able to move his right wrist with no complaints. He was found to have an elevated uric acid level of 17 and will need some allopurinol as an outpatient. The patient did well otherwise and needs to follow up with his PCP with repeat uric acid level in several weeks. 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 His CRP was elevated at 37 and his ESR was slightly elevated above normal. The patient was cleared by all consultants including Orthopedics and ID for discharge home with followup in their offices in 1 to 2 weeks. The patient was discharged on oral doxycycline for 5 total days. On the day of discharge, vital signs stable, labs being stable. The patient seen, evaluated, and examined thoroughly on the day of discharge with no other complaints. The patient verbalized understanding and agreed to plan of care. A followup appointment as an outpatient with the primary care physician in 1 week, ID and Orthopedics in 2 weeks' time. MEDICATIONS: See med reconciliation form. DISPOSITION: Home. CONDITION: Stable. DIET: Heart healthy. In the event of any worsening symptoms, the patient was advised to come back to the ED for further evaluation. Discharge summary took greater than 35 minutes. MD ALANIS Mendoza/MODL /[id number]
== END 2019-01-23 16:28 | DRG 603 ==
LOC: FSED 18:08 → ERHOLD 19:31 → MED/SURG 20:54
PROVIDERS: ADMIT Internal Medicine; ATTEND Internal Medicine
DX: L03.113 Cellulitis of right upper limb (principal); Z68.45 Body mass index [BMI] 70 or greater, adult; E66.01 Morbid (severe) obesity due to excess calories; G47.33 Obstructive sleep apnea (adult) (pediatric); M10.9 Gout, unspecified; E11.22 Type 2 diabetes mellitus with diabetic chronic kidney disease; I12.9 Hypertensive chronic kidney disease with stage 1 through stage 4 chronic kidney disease, or unspecified chronic kidney disease; E11.42 Type 2 diabetes mellitus with diabetic polyneuropathy; Z79.4 Long term (current) use of insulin; N18.3 Chronic kidney disease, stage 3 (moderate)
CPT/HCPCS: 36415; 80048; 80053; 80202; 82948; 83605; 84550; 85025; 85651; 86140; 87040; 93306; 94660; 96372; 97139; 99284; J1200; J1650; J2405; J3370; J7030